=== PATIENT | male | born 1955 | race Caucasian/White ===

== ENCOUNTER → 2017-12-09 | Outpatient (REF) | payer BC, SELFPAY ==
[~2017-12-09] MED LIST: GABA-843; ISOS30TA4; LEVO75TA4; LISI2.5T5; PRAM0.5T7; PRAS10TA2; ROSU40TA3; VENL75CA47
[2017-12-09 13:50] LABS: BASO % 0.3 % (0.0-1.0); EOS # 0.4 10^3/uL (0.0-0.50); EOS % 4.1 % (0.0-3.0); HEMATOCRIT 43.6 % (42.0-52.0); HEMOGLOBIN 14.4 g/dl (13.5-17.5); LYMPH # 1.5 10^3/uL (1.5-4.5); LYMPH % 16.3 % (24.0-44.0); MEAN CORPUSCULAR HEMOGLOBIN 31.2 pg (27.0-33.0); MEAN CORPUSCULAR VOLUME 94.6 fl (80.0-96.0); MONO # 0.9 10^3/uL (0.0-0.8); MONO % 9.7 % (0.0-5.0); NEUTROPHILS # 6.3 10^3/uL (1.8-7.7); NEUTROPHILS % 69.2 % (36.0-66.0); PLATELET COUNT, AUTOMATED 243 10^3/uL (150-450); RED BLOOD COUNT 4.61 10^6/uL (4.30-6.10); WHITE BLOOD COUNT 9.1 10^3/uL (4.0-10.0)
[2017-12-09 14:09] LABS: ALBUMIN 3.7 GM/DL (3.2-5.2); ALT/SGPT 45 U/L (12-78); BILIRUBIN,DIRECT 0.1 MG/DL (0.0-0.2); BILIRUBIN,TOTAL 0.6 MG/DL (0.2-1.0); BLOOD UREA NITROGEN 12 MG/DL (7-18); CALCIUM LEVEL 8.6 MG/DL (8.8-10.2); CARBON DIOXIDE LEVEL 29 MEQ/L (21-32); CHLORIDE LEVEL 106 MEQ/L (98-107); CHOLESTEROL LEVEL 130 MG/DL (<200); CHOLESTEROL RISK RATIO 3.611 (<5); CREATININE FOR GFR 0.87 MG/DL (0.70-1.30); GLOMERULAR FILTRATION RATE > 60.0 (>49); GLUCOSE, FASTING 107 MG/DL (70-100); HDL CHOLESTEROL 36 MG/DL (>40); LDL CHOLESTEROL 63 MG/DL (<100); NON-HDL-C 94 MG/DL; POTASSIUM SERUM 4.5 MEQ/L (3.5-5.1); SODIUM LEVEL 144 MEQ/L (136-145); TOTAL PROTEIN 6.8 GM/DL (6.4-8.2); TRIGLYCERIDES LEVEL 153 MG/DL (<150)
[2017-12-09 15:46] LABS: LDH LACTATE DEHYDROGENASE 254 U/L (87-241)
== END ==
LOC: M LABDRWAD 12:51
PROVIDERS: ATTEND Internal Medicine
DX: I25.10 Atherosclerotic heart disease of native coronary artery without angina pectoris (principal); E03.9 Hypothyroidism, unspecified

== ENCOUNTER 2017-12-15 13:19 | Emergency (ER) | payer OTHER, BC | END 2017-12-15 15:35 | disposition home or self-care (01) | LOC: M ED 13:19 | DX: S16.1XXA Strain of muscle, fascia and tendon at neck level, initial encounter (principal); S29.012A Strain of muscle and tendon of back wall of thorax, initial encounter; V47.5XXA Car driver injured in collision with fixed or stationary object in traffic accident, initial encounter; Y92.410 Unspecified street and highway as the place of occurrence of the external cause; I10 Essential (primary) hypertension; E78.9 Disorder of lipoprotein metabolism, unspecified; Z88.0 Allergy status to penicillin; Z91.013 Allergy to seafood; Z79.899 Other long term (current) drug therapy | CPT/HCPCS: 72072 ==

== ENCOUNTER → 2018-06-12 | Outpatient (REF) | payer BC ==
[~2018-06-12] MED LIST changes: +LISI-1046; -LISI2.5T5
[2018-06-12 13:04] LABS: BASO % 0.3 % (0.0-1.0); EOS # 0.1 10^3/uL (0.0-0.50); EOS % 0.8 % (0.0-3.0); HEMATOCRIT 41.8 % (42.0-52.0); HEMOGLOBIN 14.1 g/dl (13.5-17.5); LYMPH # 1.2 10^3/uL (1.5-4.5); LYMPH % 13.1 % (24.0-44.0); MEAN CORPUSCULAR HEMOGLOBIN 31.4 pg (27.0-33.0); MEAN CORPUSCULAR HGB CONC 33.7 g/dl (32.0-36.5); MEAN CORPUSCULAR VOLUME 93.1 fl (80.0-96.0); MONO # 0.5 10^3/uL (0.0-0.8); MONO % 5.5 % (0.0-5.0); NEUTROPHILS # 7.1 10^3/uL (1.8-7.7); NEUTROPHILS % 79.9 % (36.0-66.0); PLATELET COUNT, AUTOMATED 245 10^3/uL (150-450); RED BLOOD COUNT 4.49 10^6/uL (4.30-6.10); WHITE BLOOD COUNT 8.9 10^3/uL (4.0-10.0)
[2018-06-12 13:07] LABS: BLOOD UREA NITROGEN 21 MG/DL (7-18); C REACTIVE PROTEIN QUANTITATIV 0.36 MG/DL (0.00-0.30); CALCIUM LEVEL 9.2 MG/DL (8.8-10.2); CARBON DIOXIDE LEVEL 26 MEQ/L (21-32); CHLORIDE LEVEL 110 MEQ/L (98-107); CREATININE FOR GFR 0.81 MG/DL (0.70-1.30); FREE T4 0.99 NG/DL (0.76-1.46); GLOMERULAR FILTRATION RATE > 60.0 (>49); GLUCOSE, FASTING 136 MG/DL (70-100); POTASSIUM SERUM 4.3 MEQ/L (3.5-5.1); RHEUMATOID FACTOR QUANT < 10.0 IU/ML (<15.0); SODIUM LEVEL 139 MEQ/L (136-145); THYROID STIMULATING HORMONE 0.906 uIU/ML (0.358-3.740)
[2018-06-12 14:17] LABS: ERYTHROCYTE SEDIMENTATION RATE 8 mm/hr (0-20)
[2018-06-13 14:16] LABS: ANTI DOUBLE STRAND-DNA AB 13 IU/mL (0-9); ANTINUCLEAR ANTIBODIES DIRECT Positive (Negative); RNP ANTIBODIES <0.2 AI (0.0-0.9); SJOGREN'S ANTI SS-A <0.2 AI (0.0-0.9); SJOGREN'S ANTI SS-B <0.2 AI (0.0-0.9); SMITH ANTIBODIES <0.2 AI (0.0-0.9)
== END ==
LOC: M LABDRWAD 12:16
PROVIDERS: ATTEND Internal Medicine
DX: L50.1 Idiopathic urticaria (principal); M15.9 Polyosteoarthritis, unspecified

== ENCOUNTER → 2018-07-11 | Outpatient (REF) | payer BC ==
[2018-07-11 16:02] LABS: HEMOGLOBIN A1c 6.3 %
== END ==
LOC: M LAB REF 13:20
PROVIDERS: ATTEND Orthopaedic Surgery
DX: M25.559 Pain in unspecified hip (principal); Z86.69 Personal history of other diseases of the nervous system and sense organs; R73.09 Other abnormal glucose

== ENCOUNTER → 2019-08-21 | Outpatient (REF) | payer BC ==
[~2019-08-21] MED LIST changes: -LISI-1046; +LISI2.5T2; -ROSU40TA3; +ROSU40TA4
[2019-08-21 13:18] LABS: CHOLESTEROL RISK RATIO 5.585 (<5)
== END ==
LOC: M LABDRWAD 12:19
PROVIDERS: ATTEND Nurse Practitioner Adult Health
DX: E78.00 Pure hypercholesterolemia, unspecified (principal)

== ENCOUNTER → 2019-11-21 | Outpatient (REF) | payer BC ==
[2019-11-21 17:36] LABS: HEMOGLOBIN A1c 5.7 %
== END ==
LOC: M LABDRWAD 16:12
PROVIDERS: ATTEND Orthopaedic Surgery
DX: Z86.79 Personal history of other diseases of the circulatory system (principal)

== ENCOUNTER 2020-02-22 17:27 | Emergency (ER) | payer BC ==
[2020-02-22 17:27] VITALS: BP 141/72
[~2020-02-22 17:27] MED LIST changes: +GABA-282; -GABA-843; +ISOS1TAB35; -ISOS30TA4
[2020-02-22] MEDS ORDERED: REPA140I (17:34)
--- OUTSIDE RECORDS SUMMARY | 2020-02-22 17:35 | CCD ---
Author Author [facility] Organization [facility] Address Unknown Phone Unavailable Care Team Providers Care Manager Icu Name Role Phone VINICIUS BOO MD Unavailable Unavailable VINICIUS BOO MD Unavailable Unavailable VINICIUS BOO MD Unavailable Unavailable VINICIUS BOO MD Unavailable Unavailable VINICIUS BOO MD Unavailable Unavailable VINICIUS BOO MD Unavailable Unavailable VINICIUS BOO MD Unavailable Unavailable VINICIUS BOO MD Unavailable Unavailable VINICIUS BOO MD Unavailable Unavailable VINICIUS BOO MD Unavailable Unavailable VINICIUS BOO MD Unavailable Unavailable VINICIUS BOO MD Unavailable Unavailable VINICIUS BOO MD Unavailable Unavailable VINICIUS BOO MD Unavailable Unavailable VINICIUS BOO MD Unavailable Unavailable VINICIUS BOO MD Unavailable Unavailable VINICIUS BOO MD Unavailable Unavailable VINICIUS BOO MD Unavailable Unavailable VINICIUS BOO MD Unavailable Unavailable VINICIUS BOO MD Unavailable Unavailable VINICIUS BOO MD Unavailable Unavailable VINICIUS BOO MD Unavailable Unavailable VINICIUS BOO MD Unavailable Unavailable VINICIUS BOO MD Unavailable Unavailable VINICIUS BOO MD Unavailable Unavailable VINICIUS BOO MD Unavailable Unavailable VINICIUS BOO MD Unavailable Unavailable VINICIUS BOO MD Unavailable Unavailable VINICIUS BOO MD Unavailable Unavailable SOUSOU, TAREK MD Unavailable Unavailable SOUSOU, TAREK MD Unavailable Unavailable SOUSOU, TAREK MD Unavailable Unavailable SOUSOU, TAREK MD Unavailable Unavailable SOUSOU, TAREK MD Unavailable Unavailable SOUSOU, TAREK MD Unavailable Unavailable SOUSOU, TAREK MD Unavailable Unavailable SOUSOU, TAREK MD Unavailable Unavailable SOUSOU, TAREK MD Unavailable Unavailable SOUSOU, TAREK MD Unavailable Unavailable SOUSOU, TAREK MD Unavailable Unavailable SOUSOU, TAREK MD Unavailable Unavailable SOUSOU, TAREK MD Unavailable Unavailable SOUSOU, TAREK MD Unavailable Unavailable SOUSOU, TAREK MD Unavailable Unavailable SOUSOU, TAREK MD Unavailable Unavailable SOUSOU, TAREK MD Unavailable Unavailable SOUSOU, TAREK MD Unavailable Unavailable SOUSOU, TAREK MD Unavailable Unavailable SOUSOU, TAREK MD Unavailable Unavailable SOUSOU, TAREK MD Unavailable Unavailable SOUSOU, TAREK MD Unavailable Unavailable SOUSOU, TAREK MD Unavailable Unavailable SOUSOU, TAREK MD Unavailable Unavailable SOUSOU, TAREK MD Unavailable Unavailable SOUSOU, TAREK MD Unavailable Unavailable SOUSOU, TAREK MD Unavailable Unavailable SOUSOU, TAREK MD Unavailable Unavailable SOUSOU, TAREK MD Unavailable Unavailable SOUSOU, TAREK MD Unavailable Unavailable SOUSOU, TAREK MD Unavailable Unavailable SOUSOU, TAREK MD Unavailable Unavailable SOUSOU, TAREK MD Unavailable Unavailable SOUSOU, TAREK MD Unavailable Unavailable SOUSOU, TAREK MD Unavailable Unavailable SOUSOU, TAREK MD Unavailable Unavailable Virginia Burch MD Unavailable Unavailable Virginia Burch MD Unavailable Unavailable Virginia Burch MD Unavailable Unavailable Virginia Burch MD Unavailable Unavailable Virginia Burch MD Unavailable Unavailable Virginia Burch MD Unavailable Unavailable Virginia Burch MD Unavailable Unavailable Virginia Burch MD Unavailable Unavailable Virginia Burch MD Unavailable Unavailable Virginia Bucrh MD Unavailable Unavailable Virginia Burch MD Unavailable Unavailable Asuncion Canales MD Unavailable Unavailable Asuncion Canales MD Unavailable Unavailable Asuncion Canales MD Unavailable Unavailable Asuncion Canales MD Unavailable Unavailable Asuncion Canales MD Unavailable Unavailable Asuncion Canales MD Unavailable Unavailable Asuncion Canales MD Unavailable Unavailable Asuncion Canales MD Unavailable Unavailable Asuncion Canales MD Unavailable Unavailable Asuncion Canales MD Unavailable Unavailable Bogosinahum, Asuncion Mcnamara MD Unavailable Unavailable Bogosian, Asuncion Mcnamara MD Unavailable Unavailable Bogosian, Asuncion Mcnamara MD Unavailable Unavailable Bogosian, Asuncion Mcnamara MD Unavailable Unavailable Bogosian, Asuncion Mcnamara MD Unavailable Unavailable Bogosian, Asuncion Mcnamara MD Unavailable Unavailable Bogosian, Asuncion Mcnamara MD Unavailable Unavailable Bogosian, Asuncion Mcnamara MD Unavailable Unavailable Bogosian, Asuncion Mcnamara MD Unavailable Unavailable Bogosian, Asuncion Mcnamara MD Unavailable Unavailable Bogosian, Asuncion Mcnamara MD Unavailable Unavailable Bogosian, Asuncion Mcnamara MD Unavailable Unavailable Bogosian, Asuncion Mcnamara MD Unavailable Unavailable Bogosian, Asuncion Mcnamara MD Unavailable Unavailable Bogosian, Asuncion Mcnamara MD Unavailable Unavailable Bogosian, Asuncion Mcnamara MD Unavailable Unavailable Bogosian, Asuncion Mcnamara MD Unavailable Unavailable Bogosian, Asuncion Mcnamara MD Unavailable Unavailable Bogosian, Asuncion Mcnamara MD Unavailable Unavailable Bogosian, Asuncion Mcnamara MD Unavailable Unavailable Bogosian, Asuncion Mcnamara MD Unavailable Unavailable Bogosian, Asuncion Mcnamara MD Unavailable Unavailable Bogosian, Asuncion Mcnamara MD Unavailable Unavailable Bogosian, Asuncion Mcnamara MD Unavailable Unavailable Bogosian, Asuncion Mcnamara MD Unavailable Unavailable Bogosian, Asuncion Mcnamara MD Unavailable Unavailable Bogosian, Asuncion Mcnamara MD Unavailable Unavailable Bogosian, Asuncion Mcnamara MD Unavailable Unavailable Bogosian, Asuncion Mcnamara MD Unavailable Unavailable Bogosian, Asuncion Mcnamara MD Unavailable Unavailable Bogosian, Asuncion Mcnamara MD Unavailable Unavailable Bogosinahum, Asuncion Mcnamara MD Unavailable Unavailable Bogosinahum, Asuncion Mcnamara MD Unavailable Unavailable Bogosian, Asuncion Mcnamara MD Unavailable Unavailable Bogosian, Asuncion Mcnamara MD Unavailable Unavailable Bogosian, Asuncion Mcnamara MD Unavailable Unavailable Bogosinahum, Asuncion Mcnamara MD Unavailable Unavailable BogosiAsuncion sidhu MD Unavailable Unavailable Bogosinahum, Asuncion Mcnamara MD Unavailable Unavailable Bogosinahum, Asuncion Mcnamara MD Unavailable Unavailable Bogosian, Asuncion Mcnamara MD Unavailable Unavailable Bogosian, Asuncion Mcnamara MD Unavailable Unavailable Bogosian, Asuncion Mcnamara MD Unavailable Unavailable Bogosinahum, Asuncion Mcnamara MD Unavailable Unavailable Bogosinahum, Asuncion Mcnamara MD Unavailable Unavailable Boggabe, Asuncion Mcnamara MD Unavailable Unavailable Bogosinahum, Asuncion Mcnamara MD Unavailable Unavailable Bogosian, Asuncion Mcnamara MD Unavailable Unavailable Bogosian, Asuncion Mcnamara MD Unavailable Unavailable Bogosian, Asuncion Mcnamara MD Unavailable Unavailable Bogosian, P Anders MD Unavailable Unavailable BogosiAsuncion sidhu MD Unavailable Unavailable BogosiAsuncion sidhu MD Unavailable Unavailable BogosiAsuncion sidhu MD Unavailable Unavailable BogosiAsuncion sidhu MD Unavailable Unavailable BogosiAsuncion sidhu MD Unavailable Unavailable BogosiAsuncion sidhu MD Unavailable Unavailable BogosiAsuncion sidhu MD Unavailable Unavailable BogosianAsuncion MD Unavailable Unavailable BogosianAsuncion MD Unavailable Unavailable BogosianAsuncion MD Unavailable Unavailable BogosianAsuncion MD Unavailable Unavailable BogosianAsuncion MD Unavailable Unavailable BogosianAsuncion MD Unavailable Unavailable BogosianAsuncion MD Unavailable Unavailable BogosianAsuncion MD Unavailable Unavailable MeetaosiAsuncion sidhu MD Unavailable Unavailable Devang Naylor MD Unavailable Unavailable Devang Naylor MD Unavailable Unavailable Devang Naylor MD Unavailable Unavailable Devang Naylor MD Unavailable Unavailable Devang Naylor MD Unavailable Unavailable Devang Naylor MD Unavailable Unavailable Devang Naylor MD Unavailable Unavailable Devang Naylor MD Unavailable Unavailable Devang Naylor MD Unavailable Unavailable Devang Naylor MD Unavailable Unavailable Devang Naylor MD Unavailable Unavailable Devang Naylor MD Unavailable Unavailable Devang Naylor MD Unavailable Unavailable Devang Naylor MD Unavailable Unavailable Devang Naylor MD Unavailable Unavailable Devang Naylor MD Unavailable Unavailable Devang Naylor MD Unavailable Unavailable Devang Naylor MD Unavailable Unavailable Devang Naylor MD Unavailable Unavailable Devang Naylor MD Unavailable Unavailable Devang Naylor MD Unavailable Unavailable Devang Naylor MD Unavailable Unavailable Devang Naylor MD Unavailable Unavailable Devang Naylor MD Unavailable Unavailable Devang Naylor MD Unavailable Unavailable Devang Naylor MD Unavailable Unavailable Devang Naylor MD Unavailable Unavailable Devang Naylor MD Unavailable Unavailable Devang Naylor MD Unavailable Unavailable Devang Naylor MD Unavailable Unavailable Devang Naylor MD Unavailable Unavailable Devang Naylor MD Unavailable Unavailable Devang Naylor MD Unavailable Unavailable Devang Naylor MD Unavailable Unavailable Devang Naylor MD Unavailable Unavailable Devang Naylor MD Unavailable Unavailable ElvaDevang callaway MD Unavailable Unavailable ElvaDevang callaway MD Unavailable Unavailable ElvaDevang velasquez MD Unavailable Unavailable PawletDevang velasquez MD Unavailable Unavailable PawletDevang velasquez MD Unavailable Unavailable ElvaDevang velasquez MD Unavailable Unavailable ElvaDevang velasquez MD Unavailable Unavailable PawletDevang velasquez MD Unavailable Unavailable ElvaDevang velasquez MD Unavailable Unavailable ElvaDevang velasquez MD Unavailable Unavailable PawletDevang velasquez MD Unavailable Unavailable PawletDevang velasquez MD Unavailable Unavailable PawletDevang velasquez MD Unavailable Unavailable ElvaDevang velasquez MD Unavailable Unavailable PawletDevang velasquez MD Unavailable Unavailable PawletDevang callaway MD Unavailable Unavailable ElvaDevang velasquez MD Unavailable Unavailable ElvaDevang callaway MD Unavailable Unavailable ElvaDevang velasquez MD Unavailable Unavailable PawletDevang velasquez MD Unavailable Unavailable ElvaDevang callaway MD Unavailable Unavailable ElvaDevang callaway MD Unavailable Unavailable ElvaDevang callaway MD Unavailable Unavailable ElvaDevang callaway MD Unavailable Unavailable Devang Naylor MD Unavailable Unavailable ElvaDevang callaway MD Unavailable Unavailable ElvaDevang callaway MD Unavailable Unavailable ElvaDevang callaway MD Unavailable Unavailable ElvaDevang callaway MD Unavailable Unavailable PawletDevang callaway MD Unavailable Unavailable ElvaDevang callaway MD Unavailable Unavailable PawletDevang callaway MD Unavailable Unavailable ElvaDevang callaway MD Unavailable Unavailable PawletDevang callaway MD Unavailable Unavailable ElvaDevang velasquez MD Unavailable Unavailable PawletDevang callaway MD Unavailable Unavailable ElvaDevang velasquez MD Unavailable Unavailable PawletDevang callaway MD Unavailable Unavailable PawletDevang callaway MD Unavailable Unavailable ElvaDevang velasquez MD Unavailable Unavailable ElvaDevang callaway MD Unavailable Unavailable ElvaDevang velasquez MD Unavailable Unavailable ElvaDevang callaway MD Unavailable Unavailable ElvaDevang callaway MD Unavailable Unavailable PawletDevang velasquez MD Unavailable Unavailable ElvaDevang callaway MD Unavailable Unavailable ElvaDevang velasquez MD Unavailable Unavailable Toro, R [place] GLOBAL MARKETING COORDINATOR Unavailable Unavailable Toro, R [place] GLOBAL MARKETING COORDINATOR Unavailable Unavailable Toro, R [place] GLOBAL MARKETING COORDINATOR Unavailable Unavailable Toro, R [place] GLOBAL MARKETING COORDINATOR Unavailable Unavailable Toro, R [place] GLOBAL MARKETING COORDINATOR Unavailable Unavailable Toro, R [place] GLOBAL MARKETING COORDINATOR Unavailable Unavailable Toro, R [place] GLOBAL MARKETING COORDINATOR Unavailable Unavailable Toro, R [place] GLOBAL MARKETING COORDINATOR Unavailable Unavailable Toro, R [place] GLOBAL MARKETING COORDINATOR Unavailable Unavailable Toro, R [place] GLOBAL MARKETING COORDINATOR Unavailable Unavailable Toro, R [place] GLOBAL MARKETING COORDINATOR Unavailable Unavailable Toro, R [place] GLOBAL MARKETING COORDINATOR Unavailable Unavailable Toro, R [place] GLOBAL MARKETING COORDINATOR Unavailable Unavailable Toro, R [place] GLOBAL MARKETING COORDINATOR Unavailable Unavailable Toro, R [place] GLOBAL MARKETING COORDINATOR Unavailable Unavailable Toro, R [place] GLOBAL MARKETING COORDINATOR Unavailable Unavailable Toro, R [place] GLOBAL MARKETING COORDINATOR Unavailable Unavailable Toro, R [place] GLOBAL MARKETING COORDINATOR Unavailable Unavailable Toro, R [place] GLOBAL MARKETING COORDINATOR Unavailable Unavailable Toro, R [place] GLOBAL MARKETING COORDINATOR Unavailable Unavailable Toro, R [place] GLOBAL MARKETING COORDINATOR Unavailable Unavailable Toro, R [place] GLOBAL MARKETING COORDINATOR Unavailable Unavailable Toro, R [place] GLOBAL MARKETING COORDINATOR Unavailable Unavailable Toro, R [place] GLOBAL MARKETING COORDINATOR Unavailable Unavailable Toro, R [place] GLOBAL MARKETING COORDINATOR Unavailable Unavailable Toro, R [place] GLOBAL MARKETING COORDINATOR Unavailable Unavailable Toro, R [place] GLOBAL MARKETING COORDINATOR Unavailable Unavailable Toro, R [place] GLOBAL MARKETING COORDINATOR Unavailable Unavailable Toro, R [place] GLOBAL MARKETING COORDINATOR Unavailable Unavailable Toro, R [place] GLOBAL MARKETING COORDINATOR Unavailable Unavailable Toro, R [place] GLOBAL MARKETING COORDINATOR Unavailable Unavailable Toro, R [place] GLOBAL MARKETING COORDINATOR Unavailable Unavailable Janelle AGUIRRE MD Unavailable Unavailable Janelle AGUIRRE MD Unavailable Unavailable Janelle AGUIRRE MD Unavailable Unavailable Janelle AGUIRRE MD Unavailable Unavailable Janelle AGUIRRE MD Unavailable Unavailable Janelle AGUIRRE MD Unavailable Unavailable Janelle AGUIRRE MD Unavailable Unavailable Janelle AGUIRRE MD Unavailable Unavailable Janelle AGUIRRE MD Unavailable Unavailable Janelle AGUIRRE MD Unavailable Unavailable Janelle AGUIRRE MD Unavailable Unavailable Janelle AGUIRRE MD Unavailable Unavailable Janelle AGUIRRE MD Unavailable Unavailable Janelle AGUIRRE MD Unavailable Unavailable Janelle AGUIRRE MD Unavailable Unavailable Janelle AGUIRRE MD Unavailable Unavailable Janelle AGUIRRE MD Unavailable Unavailable Janelle AGUIRRE MD Unavailable Unavailable Janelle AGUIRRE MD Unavailable Unavailable Janelle AGUIRRE MD Unavailable Unavailable Janelle AGUIRRE MD Unavailable Unavailable Janelle AGUIRRE MD Unavailable Unavailable Janelle AGUIRRE MD Unavailable Unavailable Janelle AGUIRRE MD Unavailable Unavailable Janelle AGUIRRE MD Unavailable Unavailable Janelle AGUIRRE MD Unavailable Unavailable Janelle AGUIRRE MD Unavailable Unavailable Janelle AGUIRRE MD Unavailable Unavailable Janelle AGUIRRE MD Unavailable Unavailable Janelle AGUIRRE MD Unavailable Unavailable Janelle AGUIRRE MD Unavailable Unavailable Janelle AGUIRRE MD Unavailable Unavailable Janelle AGUIRRE MD Unavailable Unavailable Janelle AGUIRRE MD Unavailable Unavailable Janelle AGUIRRE MD Unavailable Unavailable Janelle AGUIRRE MD Unavailable Unavailable Janelle AGUIRRE MD Unavailable Unavailable Janelle AGUIRRE MD Unavailable Unavailable Janelle AGUIRRE MD Unavailable Unavailable Janelle AGUIRRE MD Unavailable Unavailable Janelle AGUIRRE MD Unavailable Unavailable Janelle AGUIRRE MD Unavailable Unavailable Janelle AGUIRRE MD Unavailable Unavailable Janelle AGUIRRE MD Unavailable Unavailable Janelle AGUIRRE MD Unavailable Unavailable Janelle AGUIRRE MD Unavailable Unavailable Janelle AGUIRRE MD Unavailable Unavailable Janelle AGUIRRE MD Unavailable Unavailable Janelle AGUIRRE MD Unavailable Unavailable Janelle AGUIRRE MD Unavailable Unavailable Janelle AGUIRRE MD Unavailable Unavailable Janelle AGUIRRE MD Unavailable Unavailable Janelle AGUIRRE MD Unavailable Unavailable Janelle GAUIRRE MD Unavailable Unavailable Janelle AGUIRRE MD Unavailable Unavailable Janelle AGUIRRE MD Unavailable Unavailable Janelle AGUIRRE MD Unavailable Unavailable Janelle AGUIRRE MD Unavailable Unavailable Janelle AGUIRRE MD Unavailable Unavailable Janelle AGUIRRE MD Unavailable Unavailable Janelle AGUIRRE MD Unavailable Unavailable Janelle AGUIRRE MD Unavailable Unavailable Janelle AGUIRRE MD Unavailable Unavailable Janelle AGUIRRE MD Unavailable Unavailable Janelle AGUIRRE MD Unavailable Unavailable Janelle AGUIRRE MD Unavailable Unavailable Janelle AGUIRRE MD Unavailable Unavailable Janelle AGUIRRE MD Unavailable Unavailable Janelle AGUIRRE MD Unavailable Unavailable Janelle AGUIRRE MD Unavailable Unavailable Janelle AGUIRRE MD Unavailable Unavailable Janelle AGUIRRE MD Unavailable Unavailable Janelle AGUIRRE MD Unavailable Unavailable Janelle AGUIRRE MD Unavailable Unavailable Janelle AGUIRRE MD Unavailable Unavailable Janelle AGUIRRE MD Unavailable Unavailable Janelle AGUIRRE MD Unavailable Unavailable Janelle AGUIRRE MD Unavailable Unavailable Janelle AGUIRRE MD Unavailable Unavailable Janelle AGUIRRE MD Unavailable Unavailable Janelle AGUIRRE MD Unavailable Unavailable Janelle AGUIRRE MD Unavailable Unavailable Janelle AGUIRRE MD Unavailable Unavailable Janelle AGUIRRE MD Unavailable Unavailable Janelle AGUIRRE MD Unavailable Unavailable Janelle AGUIRRE MD Unavailable Unavailable Janelle AGUIRRE MD Unavailable Unavailable Janelle AGUIRRE MD Unavailable Unavailable Janelle AGUIRRE MD Unavailable Unavailable Janelle AGUIRRE MD Unavailable Unavailable Janelle AGUIRRE MD Unavailable Unavailable Janelle AGUIRRE MD Unavailable Unavailable Janelle AGUIRRE MD Unavailable Unavailable Janelle AGUIRRE MD Unavailable Unavailable Janelle AGUIRRE MD Unavailable Unavailable Janelle AGUIRRE MD Unavailable Unavailable Katheryn BAUTISTA Unavailable Unavailable Wyluda, J Edward DO Unavailable Unavailable Wyluda, J Edward DO Unavailable Unavailable Wyluda, J Edward DO Unavailable Unavailable Wyluda, J Edward DO Unavailable Unavailable Wyluda, J Edward DO Unavailable Unavailable Wyluda, J Edward DO Unavailable Unavailable Wyluda, J Edward DO Unavailable Unavailable Wyluda, J Edward DO Unavailable Unavailable Wyluda, J Edward DO Unavailable Unavailable Wyluda, J Edward DO Unavailable Unavailable Wyluda, J Edward DO Unavailable Unavailable Wyluda, J Edward DO Unavailable Unavailable Wyluda, J Edward DO Unavailable Unavailable Wyluda, J Edward DO Unavailable Unavailable Wyluda, J Edward DO Unavailable Unavailable Wyluda, J Edward DO Unavailable Unavailable Wyluda, J Edward DO Unavailable Unavailable Wyluda, J Edward DO Unavailable Unavailable Wyluda, J Edward DO Unavailable Unavailable Wyluda, J Edward DO Unavailable Unavailable Wyluda, J Edward DO Unavailable Unavailable Wyluda, J Edward DO Unavailable Unavailable Wyluda, J Edward DO Unavailable Unavailable Wyluda, J Edward DO Unavailable Unavailable Wyluda, J Edward DO Unavailable Unavailable Wyluda, J Edward DO Unavailable Unavailable Wyluda, J Edward DO Unavailable Unavailable Wyluda, J Edward DO Unavailable Unavailable Wyluda, J Edward DO Unavailable Unavailable Wyluda, J Edward DO Unavailable Unavailable Wyluda, J Edward DO Unavailable Unavailable Wyluda, J Edward DO Unavailable Unavailable Wyluda, J Edward DO Unavailable Unavailable Wyluda, J Edward DO Unavailable Unavailable Wyluda, J Edward DO Unavailable Unavailable Wyluda, J Edward DO Unavailable Unavailable Wyluda, J Edward DO Unavailable Unavailable Wyluda, J Edward DO Unavailable Unavailable Wyluda, J Edward DO Unavailable Unavailable Wyluda, J Edward DO Unavailable Unavailable Wyluda, J Edward DO Unavailable Unavailable Wyluda, J Edward DO Unavailable Unavailable Wyluda, J Edward DO Unavailable Unavailable Wyluda, J Edward DO Unavailable Unavailable Wyluda, J Edward DO Unavailable Unavailable Wyluda, J Edward DO Unavailable Unavailable Radames Sharpe MD Unavailable Unavailable Radames Sharpe MD Unavailable Unavailable Radames Sharpe MD Unavailable Unavailable Radames Sharpe MD Unavailable Unavailable Radames Sharpe MD Unavailable Unavailable Radames Sharpe MD Unavailable Unavailable Radames Sharpe MD Unavailable Unavailable Radames Sharpe MD Unavailable Unavailable Radames Sharpe MD Unavailable Unavailable Radames Sharpe MD Unavailable Unavailable Radames Sharpe MD Unavailable Unavailable Radames Sharpe MD Unavailable Unavailable Radames Sharpe MD Unavailable Unavailable Radames Sharpe MD Unavailable Unavailable Radames Sharpe MD Unavailable Unavailable Radames Sharpe MD Unavailable Unavailable Radames Sharpe MD Unavailable Unavailable Radames Sharpe MD Unavailable Unavailable Radames Sharpe MD Unavailable Unavailable Radames Sharpe MD Unavailable Unavailable Radames Sharpe MD Unavailable Unavailable Radames Sharpe MD Unavailable Unavailable Radames Sharpe MD Unavailable Unavailable Radames Sharpe MD Unavailable Unavailable Radames Sharpe MD Unavailable Unavailable Radames Sharpe MD Unavailable Unavailable Radames Sharpe MD Unavailable Unavailable Radames Sharpe MD Unavailable Unavailable Radames Sharpe MD Unavailable Unavailable Radames Sharpe MD Unavailable Unavailable Radames Sharpe MD Unavailable Unavailable Pudusseri, Amber Unavailable Pudusseri, Amber Unavailable Pudusseri, Amber Unavailable Pudusseri, Amber Unavailable Pudusseri, Amber Unavailable Pudusseri, Amber Unavailable Pudusseri, Amber Unavailable Pudusseri, Amber Unavailable Pudusseri, Amber Unavailable Pudusseri, Amber Unavailable Pudusseri, Amber Unavailable Pudusseri, Amber Unavailable Pudusseri, Amber Unavailable Pudusseri, Amber Unavailable Pudusseri, Amber Unavailable Pudusseri, Amber Unavailable Pudusseri, Amber Unavailable Pudusseri, Amber Unavailable Pudusseri, Amber Unavailable Pudusseri, Amber Unavailable Pudusseri, Amber Unavailable Pudusseri, Amber Unavailable Pudusseri, Amber Unavailable Pudusseri, Amber Unavailable Pudusseri, Amber Unavailable Pudusseri, Amber Unavailable Pudusseri, Amebr Unavailable BRET, Avtar HUGO MD Unavailable Unavailable BRET, Avtar HUGO MD Unavailable Unavailable BRET, Avtar HUGO MD Unavailable Unavailable BRET, Avtar HUGO MD Unavailable Unavailable BRET, Avtar HUGO MD Unavailable Unavailable BRET, Avtar HUGO MD Unavailable Unavailable BRET, Avtar HUGO MD Unavailable Unavailable BRET, Avtar HUGO MD Unavailable Unavailable BRET, Avtar HUGO MD Unavailable Unavailable BRET, Avtar HUGO MD Unavailable Unavailable BRET, A OANH MD Unavailable Unavailable BRET, A OANH MD Unavailable Unavailable BRET, Avtar ARELLANOEY MD Unavailable Unavailable BRET, A OANH MD Unavailable Unavailable BRET, A OANH MD Unavailable Unavailable BRET, A OANH MD Unavailable Unavailable BRET, A OANH MD Unavailable Unavailable BRET, A OANH MD Unavailable Unavailable BRET, A OANH MD Unavailable Unavailable BRET, A OANH MD Unavailable Unavailable BRET, A OANH MD Unavailable Unavailable BRET, A OANH MD Unavailable Unavailable BRET, A OANH MD Unavailable Unavailable BRET, A OANH MD Unavailable Unavailable BRET, A OANH MD Unavailable Unavailable BRET, A OANH MD Unavailable Unavailable BRET, A OANH MD Unavailable Unavailable BRET, A OANH MD Unavailable Unavailable BRET, A OANH MD Unavailable Unavailable BRET, A OANH MD Unavailable Unavailable BRET, A OANH MD Unavailable Unavailable BRET, A OANH MD Unavailable Unavailable BRET, A OANH MD Unavailable Unavailable BRET, A OANH MD Unavailable Unavailable BRET, A OANH MD Unavailable Unavailable BRET, A OANH MD Unavailable Unavailable BRET, A OANH MD Unavailable Unavailable BRET, A OANH MD Unavailable Unavailable BRET, A OANH MD Unavailable Unavailable BRET, A OANH MD Unavailable Unavailable BRET, A OANH MD Unavailable Unavailable BRET, A OANH MD Unavailable Unavailable BRET, A OANH MD Unavailable Unavailable BRET, A OANH MD Unavailable Unavailable BRET, A OANH MD Unavailable Unavailable BRET, A OANH MD Unavailable Unavailable BRET, A OANH MD Unavailable Unavailable BRET, A OANH MD Unavailable Unavailable BRET, A OANH MD Unavailable Unavailable BRET, A OANH MD Unavailable Unavailable BRET, A OANH MD Unavailable Unavailable BRET, A OANH MD Unavailable Unavailable BRET, A OANH MD Unavailable Unavailable BRET, A OANH MD Unavailable Unavailable BRET, A OANH MD Unavailable Unavailable BRET, A OANH MD Unavailable Unavailable BRET, A OANH MD Unavailable Unavailable BRET, A OANH MD Unavailable Unavailable BRET, A OANH MD Unavailable Unavailable BRET, A OANH MD Unavailable Unavailable BRET, A OANH MD Unavailable Unavailable BRET, A OANH MD Unavailable Unavailable BRET, A OANH MD Unavailable Unavailable BRET, A OANH MD Unavailable Unavailable BRET, A OANH MD Unavailable Unavailable BRET, A OANH MD Unavailable Unavailable BRET, A OANH MD Unavailable Unavailable BRET, A OANH MD Unavailable Unavailable BRETAvtar MAR MD Unavailable Unavailable BRETAvtar MAR MD Unavailable Unavailable BRET, Avtar HUGO MD Unavailable Unavailable BRET, Avtar HUGO MD Unavailable Unavailable BRET, Avtar HUGO MD Unavailable Unavailable BRET, Avtar HUGO MD Unavailable Unavailable BRETAvtar MAR MD Unavailable Unavailable BRETAvtar MAR MD Unavailable Unavailable BRETAvtar MD Unavailable Unavailable Pudusseri, Amber DO Unavailable Unavailable PUDUSSERI, AMBER Unavailable Unavailable Katheryn BAUTISTA Unavailable Unavailable RASHIDA, Janelle MAHONEY MD Unavailable Unavailable RASHIDA, Janelle MAHONEY MD Unavailable Unavailable RASHIDA, Janelle MAHONEY MD Unavailable Unavailable RASHIDA, Janelle MAHONEY MD Unavailable Unavailable RASHIDA, Janelle MAHONEY MD Unavailable Unavailable RASHIDA, Janelle MAHONEY MD Unavailable Unavailable RASHIDA, Janelle MHAONEY MD Unavailable Unavailable RASHIDA, Janelle MAHONEY MD Unavailable Unavailable RASHIDA, Janelle MAHONEY MD Unavailable Unavailable RASHIDA, Janelle MAHONEY MD Unavailable Unavailable RASHIDA, Janelle MAHONEY MD Unavailable Unavailable RASHIDA, Janelle MAHONEY MD Unavailable Unavailable RASHIDA, Janelle MAHONEY MD Unavailable Unavailable RASHIDA, Janelle MAHONEY MD Unavailable Unavailable RASHIDA, Janelle MAHONEY MD Unavailable Unavailable RASHIDA, Janelle MAHONEY MD Unavailable Unavailable RASHIDA, Janelle MAHONEY MD Unavailable Unavailable RASHIDA, Janelle MAHONEY MD Unavailable Unavailable RASHIDA, Janelle MAHONEY MD Unavailable Unavailable RASHIDA, Janelle MAHONEY MD Unavailable Unavailable RASHIDA, Janelle MAHONEY MD Unavailable Unavailable RASHIDA, Janelle MAHONEY MD Unavailable Unavailable RASHIDA, Janelle MAHONEY MD Unavailable Unavailable RASHIDA, Janelle MAHONEY MD Unavailable Unavailable RASHIDA, Janelle MAHONEY MD Unavailable Unavailable RASHIDA, Janelle MAHONEY MD Unavailable Unavailable RASHIDA, Janelle MAHONEY MD Unavailable Unavailable RASHIDA, Janelle MAHONEY MD Unavailable Unavailable RASHIDA, Janelle MAHONEY MD Unavailable Unavailable RASHIDA, Janelle MAHONEY MD Unavailable Unavailable RASHIDA, Janelle MAHONEY MD Unavailable Unavailable RASHIDA, Janelle MAHONEY MD Unavailable Unavailable RASHIDA, Janelle MAHONEY MD Unavailable Unavailable RASHIDA, Janelle MAHONEY MD Unavailable Unavailable RASHIDA, Janelle MAHONEY MD Unavailable Unavailable RASHIDA, Janelle MAHONEY MD Unavailable Unavailable RASHIDA, Janelle MAHONEY MD Unavailable Unavailable RASHIDA, Janelle MAHONEY MD Unavailable Unavailable RASHIDA, Janelle MAHONEY MD Unavailable Unavailable RASHIDA, Janelle MAHONEY MD Unavailable Unavailable RASHIDA, Janelle MAHONEY MD Unavailable Unavailable RASHIDA, Janelle MAHONEY MD Unavailable Unavailable RASHIDA, Janelle MAHONEY MD Unavailable Unavailable RASHIDA, Janelle MAHONEY MD Unavailable Unavailable RASHIDA, Janelle MAHONEY MD Unavailable Unavailable RASHIDA, Janelle MAHONEY MD Unavailable Unavailable RASHIDA, Janelle MAHONEY MD Unavailable Unavailable RASHIDA, Janelle MAHONEY MD Unavailable Unavailable RASHIDA, Janelle MAHONEY MD Unavailable Unavailable RASHIDA, Janelle MAHONEY MD Unavailable Unavailable RASHIDA, Janelle MAHONEY MD Unavailable Unavailable RASHIDA, Janelle MAHONEY MD Unavailable Unavailable RASHIDA, Janelle MAHONEY MD Unavailable Unavailable RASHIDA, Janelle MAHONEY MD Unavailable Unavailable RASHIDA, Janelle MAHONEY MD Unavailable Unavailable RASHIDA, Janelle MAHONEY MD Unavailable Unavailable RASHIDA, Janelle MAHONEY MD Unavailable Unavailable RASHIDA, Janelle MAHONEY MD Unavailable Unavailable RASHIDA, Janelle MAHONEY MD Unavailable Unavailable RASHIDA, Janelle MAHONEY MD Unavailable Unavailable RASHIDA, Janelle MAHONEY MD Unavailable Unavailable RASHIDA, Janelle MAHONEY MD Unavailable Unavailable RASHIDA, Janelle MAHONEY MD Unavailable Unavailable RASHIDA, Janelle MAHONEY MD Unavailable Unavailable RASHIDA, Janelle MAHONEY MD Unavailable Unavailable RASHIDA, Janelle MAHONEY MD Unavailable Unavailable RASHIDA, Janelle MAHONEY MD Unavailable Unavailable RASHIDA, Janelle MAHONEY MD Unavailable Unavailable RASHIDA, Janelle MAHONEY MD Unavailable Unavailable RASHIDA, Janelle MAHONEY MD Unavailable Unavailable RASHIDA, Janelle MAHONEY MD Unavailable Unavailable RASHIDA, Janelle MAHONEY MD Unavailable Unavailable RASHIDA, Janelle MAHONEY MD Unavailable Unavailable RASHIDA, Janelle MAHONEY MD Unavailable Unavailable RASHIDA, Janelle MAHONEY MD Unavailable Unavailable RASHIDA, Janelle MAHONEY MD Unavailable Unavailable RASHIDA, Janelle MAHONEY MD Unavailable Unavailable RASHIDA, Janelle MAHONEY MD Unavailable Unavailable RASHIDA, Janelle MAHONEY MD Unavailable Unavailable RASHIDA, Janelle MAHONEY MD Unavailable Unavailable RASHIDA, Janelle MAHONEY MD Unavailable Unavailable RASHIDA, Janelle MAHONEY MD Unavailable Unavailable RASHIDA, Janelle MAHONEY MD Unavailable Unavailable RASHIDA, Janelle MAHONEY MD Unavailable Unavailable RASHIDA, Janelle MAHONEY MD Unavailable Unavailable RASHIDA, Janelle MAHONEY MD Unavailable Unavailable RASHIDA, Janelle MAHONEY MD Unavailable Unavailable RASHIDA, Janelle MAHONEY MD Unavailable Unavailable RASHIDA, J PLACIDO MD Unavailable Unavailable Janelle FIELD MD Unavailable Unavailable Carolyn Stack MD Unavailable Unavailable Carolyn Stack MD Unavailable Unavailable Carolyn Stack MD Unavailable Unavailable Carolyn Stack MD Unavailable Unavailable Carolyn Stack MD Unavailable Unavailable Carolyn Stack MD Unavailable Unavailable Carolyn Stack MD Unavailable Unavailable Carolyn Stack MD Unavailable Unavailable Carolyn Stack MD Unavailable Unavailable Carolyn Stack MD Unavailable Unavailable Carolyn Stack MD Unavailable Unavailable Carolyn Stack MD Unavailable Unavailable Carolyn Stack MD Unavailable Unavailable ZABOROWSKI, J VIDAL GLOBAL MARKETING COORDINATOR Unavailable Unavailable ZABOROWSKI, J VIDAL GLOBAL MARKETING COORDINATOR Unavailable Unavailable ZABOROWSKI, J VIDAL GLOBAL MARKETING COORDINATOR Unavailable Unavailable ZABOROWSKI, J VIDAL GLOBAL MARKETING COORDINATOR Unavailable Unavailable ZABOROWSKI, J VIDAL GLOBAL MARKETING COORDINATOR Unavailable Unavailable ZABOROWSKI, J VIDAL GLOBAL MARKETING COORDINATOR Unavailable Unavailable ZABOROWSKI, J VIDAL GLOBAL MARKETING COORDINATOR Unavailable Unavailable ZABOROWSKI, J VIDAL GLOBAL MARKETING COORDINATOR Unavailable Unavailable ZABOROWSKI, J VIDAL GLOBAL MARKETING COORDINATOR Unavailable Unavailable ZABOROWSKI, J VIDAL GLOBAL MARKETING COORDINATOR Unavailable Unavailable ZABOROWSKI, J VIDAL GLOBAL MARKETING COORDINATOR Unavailable Unavailable ZABOROWSKI, J VIDAL GLOBAL MARKETING COORDINATOR Unavailable Unavailable ZABOROWSKI, J VIDAL GLOBAL MARKETING COORDINATOR Unavailable Unavailable ZABOROWSKI, J VIDAL GLOBAL MARKETING COORDINATOR Unavailable Unavailable ZABOROWSKI, J VIDAL GLOBAL MARKETING COORDINATOR Unavailable Unavailable ZABOROWSKI, J VIDAL GLOBAL MARKETING COORDINATOR Unavailable Unavailable ZABOROWSKI, J VIDAL GLOBAL MARKETING COORDINATOR Unavailable Unavailable ZABOROWSKI, J VIDAL GLOBAL MARKETING COORDINATOR Unavailable Unavailable ZABOROWSKI, J VIDAL GLOBAL MARKETING COORDINATOR Unavailable Unavailable ZABOROWSKI, J VIDAL GLOBAL MARKETING COORDINATOR Unavailable Unavailable ZABOROWSKI, J VIDAL GLOBAL MARKETING COORDINATOR Unavailable Unavailable ZABOROWSKI, J VIDAL GLOBAL MARKETING COORDINATOR Unavailable Unavailable ZABOROWSKI, J VIDAL GLOBAL MARKETING COORDINATOR Unavailable Unavailable ZABOROWSKI, J VIDAL GLOBAL MARKETING COORDINATOR Unavailable Unavailable ZABOROWSKI, J VIDAL GLOBAL MARKETING COORDINATOR Unavailable Unavailable ZABOROWSKI, J VIDAL GLOBAL MARKETING COORDINATOR Unavailable Unavailable ZABOROWSKI, J VIDAL GLOBAL MARKETING COORDINATOR Unavailable Unavailable ZABOROWSKI, J VIDAL GLOBAL MARKETING COORDINATOR Unavailable Unavailable ZABOROWSKI, J VIDAL GLOBAL MARKETING COORDINATOR Unavailable Unavailable ZABOROWSKI, J VIDAL GLOBAL MARKETING COORDINATOR Unavailable Unavailable ZABOROWSKI, J VIDAL GLOBAL MARKETING COORDINATOR Unavailable Unavailable ZABOROWSKI, J VIDAL GLOBAL MARKETING COORDINATOR Unavailable Unavailable ZABOROWSKI, J VIDAL GLOBAL MARKETING COORDINATOR Unavailable Unavailable ZABOROWSKI, J VIDAL GLOBAL MARKETING COORDINATOR Unavailable Unavailable ZABOROWSKI, J VIDAL GLOBAL MARKETING COORDINATOR Unavailable Unavailable ZABOROWSKI, J VIDAL GLOBAL MARKETING COORDINATOR Unavailable Unavailable ZABOROWSKI, J VIDAL GLOBAL MARKETING COORDINATOR Unavailable Unavailable ZABOROWSKI, J VIDAL GLOBAL MARKETING COORDINATOR Unavailable Unavailable ZABOROWSKI, J VIDAL GLOBAL MARKETING COORDINATOR Unavailable Unavailable ZABOROWSKI, J VIDAL GLOBAL MARKETING COORDINATOR Unavailable Unavailable ZABOROWSKI, J VIDAL GLOBAL MARKETING COORDINATOR Unavailable Unavailable ZABOROWSKI, J VIDAL GLOBAL MARKETING COORDINATOR Unavailable Unavailable ZABOROWSKI, J VIDAL GLOBAL MARKETING COORDINATOR Unavailable Unavailable IDMPLEBOROWSKI, J VIDAL GLOBAL MARKETING COORDINATOR Unavailable Unavailable Janelle BARNES MD Unavailable Unavailable MOLLYJanelle MD Unavailable Unavailable MOLLYJanelle MD Unavailable Unavailable MOLLYJanelle MD Unavailable Unavailable MOLLYJanelle MD Unavailable Unavailable MOLLYJanelle MD Unavailable Unavailable MOLLYJanelle MD Unavailable Unavailable MOLLYJanelle MD Unavailable Unavailable MOLLYJanelle MD Unavailable Unavailable MOLLYJanelle MD Unavailable Unavailable MOLLYJanelle MD Unavailable Unavailable MOLLYJanelle MD Unavailable Unavailable MOLLYJanelle MD Unavailable Unavailable Janelle BARNES MD Unavailable Unavailable MOLLYJanelle MD Unavailable Unavailable MOLLYJanelle MD Unavailable Unavailable MOLLYJanelle MD Unavailable Unavailable MOLLYJanelle MD Unavailable Unavailable MOLLYJanelle MD Unavailable Unavailable Janelle BARNES MD Unavailable Unavailable Janelle BARNES MD Unavailable Unavailable Janelle BARNES MD Unavailable Unavailable Janelle BARNES MD Unavailable Unavailable Janelle BARNES MD Unavailable Unavailable Janelle BARNES MD Unavailable Unavailable MOLLYJanelle MD Unavailable Unavailable Janelle BARNES MD Unavailable Unavailable Janelle BARNES MD Unavailable Unavailable Janelle BARNES MD Unavailable Unavailable Janelle BARNES MD Unavailable Unavailable Janelle BARNES MD Unavailable Unavailable Janelle BARNES MD Unavailable Unavailable Janelle BARNES MD Unavailable Unavailable Janelle BARNES MD Unavailable Unavailable Janelle BARNES MD Unavailable Unavailable Janelle BARNES MD Unavailable Unavailable Janelle BARNES MD Unavailable Unavailable Janelle BARNES MD Unavailable Unavailable Janelle BARNES MD Unavailable Unavailable Janelle BARNES MD Unavailable Unavailable MOLLYJanelle MD Unavailable Unavailable Janelle BARNES MD Unavailable Unavailable MOLLYJanelle MD Unavailable Unavailable MOLLYJanelle MD Unavailable Unavailable MOLLYJanelle MD Unavailable Unavailable MOLLYJanelle MD Unavailable Unavailable MOLLYJanelle MD Unavailable Unavailable MOLLYJanelle MD Unavailable Unavailable MOLLYJanelle MD Unavailable Unavailable MOLLYJanelle MD Unavailable Unavailable MOLLYJanelle MD Unavailable Unavailable MOLLYJanelle MD Unavailable Unavailable MOLLYJanelle MD Unavailable Unavailable MOLLYJanelle MD Unavailable Unavailable MOLLYJanelle MD Unavailable Unavailable MOLLYJanelle MD Unavailable Unavailable MOLLYJanelle MD Unavailable Unavailable MOLLYJanelle MD Unavailable Unavailable MOLLYJanelle MD Unavailable Unavailable MOLLYJanelle MD Unavailable Unavailable MOLLYJanelle MD Unavailable Unavailable MOLLYJanelle MD Unavailable Unavailable MOLLYJanelle MD Unavailable Unavailable MOLLYJanelle MD Unavailable Unavailable MOLLYJanelle MD Unavailable Unavailable MOLLY, Janelle SON MD Unavailable Unavailable MOLLYJanelle MD Unavailable Unavailable MOLLY, Janelle SON MD Unavailable Unavailable MOLLYJanelle MD Unavailable Unavailable MOLLYJanelle MD Unavailable Unavailable MOLLYJanelle MD Unavailable Unavailable MOLLYJanelle MD Unavailable Unavailable MOLLYJanelle MD Unavailable Unavailable MOLLYJanelle MD Unavailable Unavailable MOLLYJanelle MD Unavailable Unavailable Pudusseri DO, Amber Unavailable Unavailable Karthikeyan Mccloud MD Unavailable Unavailable Karthikeyan Mccloud MD Unavailable Unavailable Karthikeyan Mccloud MD Unavailable Unavailable Karthikeyan Mccloud MD Unavailable Unavailable Karthikeyan Mccloud MD Unavailable Unavailable Karthikeyan Mccloud MD Unavailable Unavailable Karthikeyan Mccloud MD Unavailable Unavailable Karthikeyan Mccloud MD Unavailable Unavailable Karthikeyan Mccloud MD Unavailable Unavailable Karthikeyan Mccloud MD Unavailable Unavailable Karthikeyan Mccloud MD Unavailable Unavailable Karthikeyan Mccloud MD Unavailable Unavailable Karthikeyan Mccloud MD Unavailable Unavailable Karthikeyan Mccloud MD Unavailable Unavailable Griffin, Naty DO Unavailable Unavailable Griffin, Naty DO Unavailable Unavailable Re-disclosure Warning The records that you are about to access may contain information from federally-assisted alcohol or drug abuse programs. If such information is present, then the following federally mandated warning applies: This information has been disclosed to you from records protected by federal confidentiality rules (42 CFR part 2). The federal rules prohibit you from making any further disclosure of this information unless further disclosure is expressly permitted by the written consent of the person to whom it pertains or as otherwise permitted by 42 CFR part 2. A general authorization for the release of medical or other information is NOT sufficient for this purpose. The Federal rules restrict any use of the information to criminally investigate or prosecute any alcohol or drug abuse patient.The records that you are about to access may contain highly sensitive health information, the redisclosure of which is protected by Article 27-F of the [facility] Public Health law. If you continue you may have access to information: Regarding HIV / AIDS; Provided by facilities licensed or operated by the [facility] Office of Mental Health; or Provided by the [facility] Office for People With Developmental Disabilities. If such information is present, then the following [facility] mandated warning applies: This information has been disclosed to you from confidential records which are protected by state law. State law prohibits you from making any further disclosure of this information without the specific written consent of the person to whom it pertains, or as otherwise permitted by law. Any unauthorized further disclosure in violation of state law may result in a fine or nursing home sentence or both. A general authorization for the release of medical or other information is NOT sufficient authorization for further disc losure. Allergies and Adverse Reactions Type Description Substance Reaction Status Data Source(s ) Propensity to adverse reactions SHRIMP (DIAGNOSTIC) Shrimp (Diagnos tic) Active [facility] Propensity to adverse reactions OTHER Other Acti ve [facility] Family History Family Member Name Family Member Gender Family Member Status Date o f Status Description Data Source(s) Unknown Male Problem [facility] ([facility] Unknown Male Problem MEDENT ([facility]) Unknown Unknown Problem [facility] ([facility] Encounters Encounter Providers Location Date Indications Data Source(s ) Recurring Patient Referrer: Anders Canales MD 02/06/2020 09:20:55 AM EST [facility] [place] Outpatient Attender: Amber RibeiroReferrer: BHAVANI QUEEN MD [id number] 01/15/2020 10:01:48 AM EST [facility] Attender: Amber RibeiroReferrer: BHAVANI QUEEN MD [id number] 01/14/2020 05:00:05 PM EST [facility] Outpatient Attender: Amber PudusseriReferrer: BHAVANI QUEEN MD [id number] 01/10/2020 01:30:55 PM EST [facility] Outpatient Attender: Amber PudusseriReferrer: BHAVANI QUEEN MD [id number] 01/10/2020 09:23:54 AM EST [facility] Outpatient Attender: Amber PudusseriReferrer: BHAVANI QUEEN MD [id number] 01/10/2020 08:48:37 AM EST [facility] Outpatient Attender: Amber PudusseriReferrer: BHAVANI QUEEN MD [id number] 01/08/2020 03:07:53 PM EST [facility] Outpatient Attender: Amber PudusseriReferrer: BHAVANI QUEEN MD [id number] 01/05/2020 06:22:30 AM EST [facility] Outpatient Attender: Amber PudusseriReferrer: BHAVANI QUEEN MD [id number] 12/27/2019 08:29:20 AM EST [facility] Outpatient Attender: Amber PudusseriReferrer: BHAVANI QUEEN MD [id number] 12/12/2019 08:24:29 AM EST [facility] Outpatient Attender: Anders Canales MDReferrer: Marck callaway MD 11/15/2019 07:58:23 AM EDT [facility] Outpatient Attender: GHANSHYAM AGUIRRE MDReferrer: Marck flores MD 11/09/2019 10:24:40 AM EDT [facility] Outpatient 11/02/2019 01:25:00 PM EDT [facility] Outpatient 11/02/2019 01:25:00 PM EDT [facility] Recurring Patient Referrer: Anders Canales MD 11/01/2019 03:12:58 PM EDT [facility] Recurring Patient Referrer: Anders Canales MD 11/01/2019 03:11:48 PM EDT [facility] Recurring Patient Referrer: Anders Canales MD 11/01/2019 03:04:58 PM EDT [facility] Recurring Patient Referrer: Anders Canales MD 10/23/2019 03:52:25 PM EDT [facility] Outpatient Attender: ADELAIDA BARNES MD BF-BF 10/23/2019 07:41:45 AM EDT [facility] Outpatient Attender: Amber Ribeiro DO 10/17/2019 09:17:0 0 AM EDT [facility] Outpatient Attender: Amber Ribeiro DO 10/17/2019 09:17:0 0 AM EDT [facility] Outpatient Attender: Carolina Toro NPReferrer: Marck sidhu MD 10/16/2019 07:39:27 AM EDT [facility] Outpatient Referrer: ADELAIDA BARNES MD 10/11/2019 10:00:14 AM EDT [facility] Recurring Patient Referrer: Amber Ribeiro DO 10/10/2019 03:18:28 PM EDT [facility] Outpatient Attender: ADELAIDA BARNES MD BF-BF 020 12:00:00 AM EDT - 10/03/2019 03:02:55 PM EDT [facility] Outpatient Attender: ADELAIDA BARNES MD BF-BF 09/12/2019 12:00:00 AM EDT [facility] Outpatient Attender: ADELAIDA BARNES MD BF-BF.[facility] 09/05/2019 12:00:00 AM EDT [facility] Outpatient 07/31/2019 03:30:00 PM EDT [facility] Outpatient 07/31/2019 03:30:00 PM EDT [facility] Outpatient Attender: Marck Naylor MD [facility] 07/27/2019 11:15:00 AM EDT [facility] ([facility] Outpatient 07/20/2019 02:30:00 PM EDT [facility] Outpatient Attender: Anders GARIBAYeferrer: Marck callaway MD 07/13/2019 09:36:07 AM EDT [facility] Outpatient Attender: Anders Canales MDReferrer: Marck callaway MD 06/29/2019 09:53:11 AM EDT [facility] Recurring Patient Referrer: Amber Ribeiro DO 06/27/2019 02:04:29 PM EDT [facility] Outpatient Attender: ADELAIDA BARNES MD BF-BF 020 07:37:23 AM EDT - 06/22/2019 10:43:40 AM EDT [facility] Inpatient Attender: GINNY Foster er: GINNY Castroender: AMBER ALLENdmitter: AMBER RIBEIRO [id number] 04/10/2019 01:56:00 PM EST - 04/16/2019 12:26:00 PM EDT [facility] Patient discharged. Inpatient Attender: Kaden Cade tender: AMBER ALLENdmitter: Kaden Sims DOConsultant: Kaden Sims DO [id number] 03/21/2019 10:55 :00 AM EST - 03/26/2019 11:06:00 AM EST [facility] Patient discharged. Inpatient Attender: VINICIUS Cervantes chen: AMBER ALLENdmitter: AMBER RIBEIRO [id number] 02/27/2019 10:25:00 AM EST - 03/04/2019 12:41:00 PM EST [facility] Patient discharged. Outpatient Referrer: VIDAL SHANNON NP 02/20/2019 09:42:3 4 AM EST [facility] Outpatient Attender: VIDAL SHANNON NP BF-BF.[facility] 12:00:00 AM EST - 02/20/2019 02:27:24 PM EST [facility] Outpatient Attender: Amber Ribeiro DO 02/16/2019 09:30:0 0 AM EST [facility] Inpatient Attender: Karthikeyan Mccloud MDAt tender: Carolyn Gonzalo MDAttender: Naty Griffin DOAttender: Virginia Burch MDAdmitter: Karthikeyan Mccloud MD [id number] 01/28/2019 01:01:55 PM EST - 01/31/2019 01:48:00 PM EST [facility] Patient discharged. Outpatient 01/19/2019 10:00:00 AM EST [facility] Outpatient Attender: PLACIDO FIELD MDReferrer: Amber rosado 12/25/2018 12:10:48 PM EST [facility] Outpatient Referrer: Jerel Sharpe MD BF-BF.[facility] 09/11/2018 12:52:24 PM EDT - 09/11/2018 03:06:33 PM EDT [facility] Medications Medication Brand Name Start Date Product Form Dose Route Admi nistrative Instructions Pharmacy Instructions Status Indications Reaction Description Data Source(s) doxycycline hyclate 100 MG Oral Capsule DOXYCYCLINE HYCLATE 01/22/2020 12:00:00 AM EST capsule 20 TAKE ONE CAPSULE BY MOUTH TW ICE A DAY FOR 10 DAYS TAKE ONE CAPSULE BY MOUTH TWICE A DAY FOR 10 DAYS SOLD: 01/23/2020 [facility] doxycycline hyclate 100 MG Oral Capsule DOXYCYCLINE HYCLATE 01/10/2020 12:00:00 AM EST capsule 20 TAKE ONE CAPSULE BY MOUTH TW ICE A DAY FOR 10 DAYS TAKE ONE CAPSULE BY MOUTH TWICE A DAY FOR 10 DAYS SOLD: 01/10/2020 [facility] 0.5 mg 12/15/2019 12:00:00 AM EST tablet 180 TAKE ONE TABLET BY MOUTH TWICE A DAY TAKE ONE TABLET BY MOUTH TWICE A DAY SOLD: 12/23/2019 [facility] 500 mg 11/30/2019 12:00:00 AM EDT tablet extended release 12 hr 180 TAKE ONE TABLET BY MOUTH TWICE A DAY TAKE ONE TABLET BY MOUTH TWICE A DAY SOLD: 12/09/2019 [facility] 10 mg 11/22/2019 12:00:00 AM EDT tablet 90 TAKE ONE TABLET BY MOUTH EVERY DAY TAKE ONE TABLET BY MOUTH EVERY DAY SOLD: 02/19/2020 [facility] 10 mg 11/22/2019 12:00:00 AM EDT tablet 83 TAKE ONE TABLET BY MOUTH EVERY DAY TAKE ONE TABLET BY MOUTH EVERY DAY SOLD: 11/30/2019 [facility] 300 mg 11/02/2019 12:00:00 AM EDT capsule 360 TAKE 2 CAPSULES BY MOUTH IN THE MORNING AND 3 CAPSULES BY MOUTH AT NIGHT TAKE 2 CAPSULES BY MOUTH IN THE MORNING AND 3 CAPSULES BY MOUTH AT NIGHT SOLD: 01/10/2020 [facility] 300 mg 11/02/2019 12:00:00 AM EDT capsule 360 TAKE 2 CAPSULES BY MOUTH IN THE MORNING AND 3 CAPSULES BY MOUTH AT NIGHT TAKE 2 CAPSULES BY MOUTH IN THE MORNING AND 3 CAPSULES BY MOUTH AT NIGHT SOLD: 11/02/2019 [facility] 75 mcg 11/01/2019 12:00:00 AM EDT tablet 90 TAKE ONE TABLET BY MOUTH EVERY DAY TAKE ONE TABLET BY MOUTH EVERY DAY SOLD: 02/03/2020 [facility] 75 mcg 11/01/2019 12:00:00 AM EDT tablet 90 TAKE ONE TABLET BY MOUTH EVERY DAY TAKE ONE TABLET BY MOUTH EVERY DAY SOLD: 11/01/2019 [facility] 0.4 mg 10/18/2019 12:00:00 AM EDT tablet, sublingual 25 PLACE ONE TABLET UNDER THE TONGUE EVERY 5 MINUTES NEEDED FOR CHEST PAIN. PLACE ONE TABLET UNDER THE TONGUE EVERY 5 MINUTES NEEDED FOR CHEST PAIN. SOLD: 10/21/2019 [facility] 10 mg 08/18/2019 12:00:00 AM EDT tablet 30 TAKE ONE TABLET BY MOUTH EVERY DAY TAKE ONE TABLET BY MOUTH EVERY DAY SOLD: 08/19/2019 [facility] 20 mg 08/02/2019 12:00:00 AM EDT tablet 30 TAKE ONE TABLET BY MOUTH NIGHTLY TAKE ONE TABLET BY MOUTH NIGHTLY SOLD: 08/04/2019 [facility] 1-0.05 % 07/20/2019 12:00:00 AM EDT cream 15 APPLY TO AFFECTED AREA(S) TWO TIMES A DAY TO GROIN APPLY TO AFFECTED AREA(S) TWO TIMES A DAY TO GROIN JULIEN [facility] 2.5 mg 05/30/2019 12:00:00 AM EDT tablet 90 TAKE ONE TABLET BY MOUTH EVERY DAY TAKE ONE TABLET BY MOUTH EVERY DAY SOLD: 06/06/2019 [facility] 24 HR Isosorbide Mononitrate 30 MG Extended Release Or al Tablet ISOSORBIDE MONONITRATE 05/30/2019 12:00:00 AM EDT tablet extended release 24 hr 60 TAKE ONE TABLET BY MOUTH TWICE A DAY TAKE ONE TABLET BY MOUTH TWICE A DAY SOLD: 07/09/2019 [facility] 2.5 mg 05/30/2019 12:00:00 AM EDT tablet 90 TAKE ONE TABLET BY MOUTH EVERY DAY TAKE ONE TABLET BY MOUTH EVERY DAY SOLD: 12/09/2019 [facility] 2.5 mg 05/30/2019 12:00:00 AM EDT tablet 90 TAKE ONE TABLET BY MOUTH EVERY DAY TAKE ONE TABLET BY MOUTH EVERY DAY SOLD: 09/03/2019 [facility] 24 HR Isosorbide Mononitrate 30 MG Extended Release Or al Tablet ISOSORBIDE MONONITRATE 05/30/2019 12:00:00 AM EDT tablet extended release 24 hr 60 TAKE ONE TABLET BY MOUTH TWICE A DAY TAKE ONE TABLET BY MOUTH TWICE A DAY SOLD: 08/09/2019 [facility] 24 HR Isosorbide Mononitrate 30 MG Extended Release Or al Tablet ISOSORBIDE MONONITRATE 05/30/2019 12:00:00 AM EDT tablet extended release 24 hr 60 TAKE ONE TABLET BY MOUTH TWICE A DAY TAKE ONE TABLET BY MOUTH TWICE A DAY SOLD: 06/06/2019 [facility] 40 mg 05/04/2019 12:00:00 AM EDT tablet 90 TAKE ONE TABLET BY MOUTH EVERY DAY TAKE ONE TABLET BY MOUTH EVERY DAY SOLD: 11/17/2019 [facility] Rosuvastatin calcium 40 MG Oral Tablet ROSUVASTATIN CALCIUM 05/04/2019 12:00:00 AM EDT tablet 90 TAKE ONE TABLET BY MOUTH BERTHA DAY TAKE ONE TABLET BY MOUTH EVERY DAY SOLD: 08/19/2019 [facility] Rosuvastatin calcium 40 MG Oral Tablet ROSUVASTATIN CALCIUM 05/04/2019 12:00:00 AM EDT tablet 90 TAKE ONE TABLET BY MOUTH BERTHA RY DAY TAKE ONE TABLET BY MOUTH EVERY DAY SOLD: 02/19/2020 [facility] 40 mg 05/04/2019 12:00:00 AM EDT tablet 90 TAKE ONE TABLET BY MOUTH EVERY DAY TAKE ONE TABLET BY MOUTH EVERY DAY SOLD: 05/17/2019 [facility] Leucovorin 5 MG Oral Tablet leucovorin (WELLCOVORIN) 5 MG tablet leucovorin (WELLCOVORIN) 5 MG tablet 04/16/2019 12:00:00 AM EDT 20 mg Oral aborted Take 4 tablets (20 mg total) by mouth every 6 (six) ho urs [facility] potassium chloride SA (K-DUR,KLOR-CON) CR tablet 10 mEq [id number] 04/14/2019 09:00:00 AM EST 10 meq Oral completed 10 mEq, Oral, 2 times daily, First dose on 04/14/19 at 0900, For 2 days
Formulary change
[facility] Medication administered onsite Simethicone 80 MG Chewable Tablet simethicone (MYLICON ) chewable tablet 120 mg simethicone (MYLICON) chewable tablet 120 mg 04/14/2019 08:12:49 AM EST 120 mg Oral active 120 mg, Or al, 4 times daily PRN, flatulence, Starting 04/14/19 at 0812 [facility] Medication administered onsite Simethicone 80 MG Chewable Tablet simethicone (MYLICON ) chewable tablet 80 mg simethicone (MYLICON) chewable tablet 80 mg 04/13/2019 11:29:21 AM EST 80 mg Oral aborted 80 mg, Oral, 4 times daily PRN, flatulence, Starting 04/13/19 at 1129 [facility] Medication administered onsite leucovorin 20 mg in dextrose 5 % 100 mL infusion 04/11 12:00:00 PM EST 20 mg Intravenous aborted 20 mg, I ntravenous, Administer over 15 Minutes, Every 6 hours (scheduled), First dose on Colleen 04/12/19 at 1200
Leucovorin rescue 20 mg Q6h starting 24 hours after Methotrexate infusion
[facility] Medication administered onsite Docusate Sodium 100 MG Oral Capsule docusate sodium (C OLACE) capsule 500 mg docusate sodium (COLACE) capsule 500 mg 04/12/2019 09:00:00 AM EST 500 mg Oral active 500 mg, Oral, 2 times daily, First dose on Colleen 04/12/19 at 0900
hold for loose stools
[facility] Medication administered onsite Docusate Sodium 100 MG Oral Capsule docusate sodium (C OLACE) capsule 300 mg docusate sodium (COLACE) capsule 300 mg 04/11/2019 10:00:00 PM EST 300 mg Oral completed 300 mg, Oral, Once, Tue04/11/19 at 2200, For 1 dose
hold for loose stools
[facility] Medication administered onsite sodium bicarbonate 150 mEq in dextrose 5 % 1,000 mL infusion 04/11/2019 09:00:00 PM EST 150 meq Intravenous active at 125 mL/hr, 150 mEq, Intravenous, Continuous, Starting Tue04/11/19 at 2100 [facility] Medication administered onsite Sodium Bicarbonate 650 MG Oral Tablet sodium bicarbona te tablet 650 mg sodium bicarbonate tablet 650 mg 04/11/2019 08:23:49 PM EST 650 mg Oral active 650 mg, Oral, Nightly PRN, correction of urine pH to keep at 8 or above, Starting Tue04/11/19 at 2023 [facility] Medication administered onsite Acetaminophen 325 MG Oral Tablet acetaminophen (TYLENO L) 325 MG tablet 650 mg acetaminophen (TYLENOL) 325 MG tablet 650 mg 04/11/2019 07:06:42 PM EST 650 mg Oral active 650 mg, Or al, Every 4 hours PRN, mild pain (1-3), fever, fever, Starting Tue04/11/19 at 1906 [facility] Medication administered onsite methotrexate (PF) 8,000 mg in sodium chloride (NS) 0.9 % 500 mL chemo infusion 04/11/2019 12:00:00 PM EST 8000 mg Intravenous compl eted 8,000 mg, Intravenous, Administer over 4 Hours, Once, Tue04/11/19 at 1200, For 1 dose
3.5g/m2 rounded down to whole vials per policy
[facility] Medication administered onsite granisetron (KYTRIL) injection 1 mg [id number] 04/11/2019 11:00:0 0 AM EST 1 mg Intravenous completed 1 mg, In travenous, Once, Tue04/11/19 at 1100, For 1 dose
Please administer 30 minutes prior to methotrexate infusion
[facility] Medication administered onsite Potassium Chloride 8 MEQ Extended Releas e Oral Tablet potassium chloride (KLOR- CON) CR tablet 8 mEq potassium chloride (KLOR-CON) CR tablet 8 mEq 04/11/19 09:00:00 AM EST 8 meq Oral aborted 8 mEq, Oral, Every 48 hours, First dose on Tue04/11/19 at 0900
Formulary change
[facility] Medication administered onsite Levothyroxine Sodium 0.075 MG Oral Table t levothyroxine (SYNTHROID, LEVOTHROID) tablet 75 mcg levothyroxine (SYNTHROID, LEVOTHROID) tablet 75 mcg 06:00:00 AM EST 75 ug Oral active 75 mcg, Oral, Daily, First dose on Tue04/11/19 at 0600 [facility] Medication administered onsite Acetazolamide 250 MG Oral Tablet acetaZOLAMIDE (DIAMOX ) tablet 250 mg acetaZOLAMIDE (DIAMOX) tablet 250 mg 04/11/2019 05:00:00 AM EST 250 m g Oral aborted 250 mg, Oral, Ev cindy 6 hours (scheduled), First dose on Tue04/11/19 at 0500 [facility] Medication administered onsite 12 HR ranolazine 500 MG Extended Release Oral Tablet ranolazine (RANEXA) 12 hr tablet 500 mg ranolazine (RANEXA) 12 hr tablet 500 mg 04/10/2019 09: 00:00 PM EST 500 mg Oral active 500 mg, Oral, 2 times daily, First dose on Tue04/10/19 at 2099 [facility] Medication administered onsite Rosuvastatin calcium 20 MG Oral Tablet rosuvastatin (C RESTOR) tablet 40 mg rosuvastatin (CRESTOR) tablet 40 mg 04/10/2019 09:00:00 PM EST 40 mg Oral active 40 mg, Oral, Nightly, First dose on Tue04/10/19 at 2099 [facility] Medication administered onsite MAGNESIUM GLUCONATE 500 MG Oral Tablet m agnesium gluconate (MAGONATE) tablet 500 mg magnesium gluconate (MAGONATE) tablet 500 mg 04/10/2019 09:00:00 PM EST 500 mg Oral active 500 mg, Oral, Nightly, F irst dose on Tue04/10/19 at 2099 [facility] Medication administered onsite Docusate Sodium 100 MG Oral Capsule docusate sodium (C OLACE) capsule 200 mg docusate sodium (COLACE) capsule 200 mg 04/10/2019 09:00:00 PM EST 200 mg Oral aborted 200 mg, Oral, 2 times daily, First dose on Tue04/10/19 at 2100
hold for loose stools Docusate 250mg po bid to 200mg po bid formulary change
[facility] Medication administered onsite carvedilol 6.25 MG Oral Tablet carvedilol (COREG) tabl et 6.25 mg carvedilol (COREG) tablet 6.25 mg 04/10/2019 09:00:00 PM EST 6.25 mg Oral active 6.25 mg, Oral, 2 times daily, First dose on Tue04/10/19 at 2100
Hold for SBP < 100 or HR < 55
[facility] Medication administered onsite sennosides, MCFP 8.6 MG Oral Tablet senna (SENOKOT) tab let 8.6 mg senna (SENOKOT) tablet 8.6 mg 04/10/2019 07:14:12 PM EST 8.6 mg Oral acti ve 8.6 mg, Oral, 2 times daily PRN, constipation, Starting Tue04/10/19 at 1914
Hold for loose stools.If patient is unable to swallow the tablet, nursing should crush and dissolve tablet in 10-15 ml of water prior to administration
[facility] Medication administered onsite gabapentin 300 MG Oral Capsule gabapentin (NEURONTIN) capsule 900 mg gabapentin (NEURONTIN) capsule 900 mg 04/10/2019 07:12:35 PM EST 900 mg Oral active 900 mg, Oral, Daily [facility], Starting Tue04/10/19 at 1912 [facility] Medication administered onsite POLYETHYLENE GLYCOL 3350 142 MG/ML Oral Solution polyethylene glycol (GLYCOLAX) packet 17 g polyethylene glycol (GLYCOLAX) packet 17 g 04/10/2019 07:00:00 PM EST 17 g Oral active 17 g, Or al, Daily, First dose on Tue04/10/19 at 1900
hold for loose stools
[facility] Medication administered onsite prasugrel 10 MG Oral Tablet prasugrel (EFFIENT) tablet 10 mg prasugrel (EFFIENT) tablet 10 mg 04/10/2019 06:00:00 PM EST 10 mg Oral activ e 10 mg, Oral, Daily, First dose on Tue04/10/19 at 1800 [facility] Medication administered onsite Pramipexole dihydrochloride 0.5 MG Oral Tablet pramipexole (MIRAPEX) tablet 0.5 mg pramipexole (MIRAPEX) tablet 0.5 mg 04/10/2019 06:00:00 PM EST 0.5 mg Oral active 0.5 mg, Oral, Nightly, Fi rst dose on Tue04/10/19 at 1800 [facility] Medication administered onsite 24 HR venlafaxine 37.5 MG Extended Relea se Oral Capsule venlafaxine (EFFEXOR-XR) 24 hr capsule 37.5 mg venlafaxine (EFFEXOR-XR) 24 hr capsule 37.5 mg 06:00:00 PM EST 37.5 mg Oral active 37.5 mg, Oral, Daily, First dose on Tue04/10/19 at 1800 [facility] Medication administered onsite gabapentin 300 MG Oral Capsule gabapentin (NEURONTIN) capsule 900 mg gabapentin (NEURONTIN) capsule 900 mg 04/10/2019 06:00:00 PM EST 900 mg Oral active 900 mg, Oral, 2 times daily, First dose on Tue04/10/19 at 1800 [facility] Medication administered onsite 24 HR Isosorbide Mononitrate 30 MG Exten ded Release Oral Tablet isosorbide mononitrate (IMDUR) 24 hr tablet 30 mg isosorbide mononitrate (IMDUR) 24 hr tablet 30 mg 04/10/2019 06:00:00 PM EST 30 mg Oral activ e 30 mg, Oral, 2 times daily, First dose on Tue04/10/19 at 1800 [facility] Medication administered onsite Lisinopril 5 MG Oral Tablet lisinopril (PRINIVIL,ZESTR IL) tablet 2.5 mg lisinopril (PRINIVIL,ZESTRIL) tablet 2.5 mg 04/10/2019 06:00:00 PM EST 2.5 mg Oral active 2.5 mg, Oral, Daily, First dose on Tue04/10/19 at 1800
Hold for SBP < 100
[facility] Medication administered onsite Loratadine 10 MG Oral Tablet loratadine (CLARITIN) tab let 10 mg loratadine (CLARITIN) tablet 10 mg 04/10/2019 06:00:00 PM EST 10 mg Oral active 10 mg, Oral, Daily, First dose on Tue04/10/19 at 1800 [facility] Medication administered onsite Aspirin 81 MG Delayed Release Oral Tablet aspirin EC t ablet 81 mg aspirin EC tablet 81 mg 04/10/2019 06:00:00 PM EST 81 mg Oral activ e 81 mg, Oral, Daily, First dose on Tue04/10/19 at 1800 [facility] Medication administered onsite ondansetron (ZOFRAN) injection 4 mg [id number] 04/10/2019 04:41:4 2 PM EST 4 mg Intravenous active 4 mg, In travenous, Every 6 hours PRN, nausea, vomiting, Starting Tue04/10/19 at 1641 [facility] Medication administered onsite normal saline flush 0.9 % injection 10 mL [id number] 04/10/2019 04:00:00 PM EST 10 mL Intravenous active 10 m L, Intravenous, Every 8 hours (scheduled), First dose on Tue04/10/19 at 1600
Flush with 10 mL NS prior and post medication administration.Flush with 10 mL NS prior to blood specimen collection and flush with 20 mL to clear solution/drug post blood specimen collection
[facility] Medication administered onsite 1 ML heparin sodium, porcine 100 UNT/ML Injection heparin 100 UNIT/ML injection 500 Units heparin 100 UNIT/ML injection 500 Units 04/10/2019 04:00:[address] 500 U active 500 Units, Intracatheter, Daily (06), First dose on Tue04/10/19 at 1600
For open ended ports without IV fluid runningRefer to policy: [email or web address]
[facility] Medication administered onsite sodium bicarbonate 150 mEq in dextrose 5 % 1,000 mL infusion 04/10/2019 03:00:00 PM EST 150 meq Intravenous aborted at 125 mL/hr, 150 mEq, Intravenous, Continuous, Starting 04/10/19 at 1500 [facility] Medication administered onsite gabapentin 300 MG Oral Capsule gabapentin (NEURONTIN) capsule 600 mg gabapentin (NEURONTIN) capsule 600 mg 03/26/2019 02:00:00 AM EST 600 mg Oral completed 600 mg, Oral, Once, 03/26/19 at 0200, For 1 dose [facility] Medication administered onsite Ondansetron 4 MG Disintegrating Oral Tab let ondansetron (ZOFRAN-ODT) 4 MG disintegrating tablet ondansetron (ZOFRAN-ODT) 4 MG disintegrating tablet 03/26/2019 12:00:00 AM EST 4 mg Oral active Take 1 tablet (4 mg total) by mouth every 8 (eight) hours as needed for nausea [facility] 4 mg 03/26/2019 12:00:00 AM EST tablet,disintegrating 2 0 DISSOLVE ONE TABLET ON TONGUE EVERY 8 HOURS NEEDED FOR NAUSEA DISSOLVE ONE TABLET ON TONGUE EVERY 8 HOURS NEEDED FOR NAUSEA SOLD: 04/04/2019 [facility] Sodium Bicarbonate 650 MG Oral Tablet sodium bicarbona te tablet 650 mg sodium bicarbonate tablet 650 mg 03/25/2019 04:00:00 PM EST 650 mg Oral active 650 mg, Oral, 2 times daily, First dose on 03/25/19 at 1600 [facility] Medication administered onsite sodium bicarbonate 150 mEq in dextrose 5 % 1,000 mL infusion 03/25/2019 02:00:00 AM EST 150 meq Intravenous aborted at 175 mL/hr, 150 mEq, Intravenous, Continuous, Starting 03/25/19 at 0200, For 72 hours [facility] Medication administered onsite sodium bicarbonate 150 mEq in dextrose 5 % 1,000 mL infusion 03/24/2019 10:00:00 PM EST 150 meq Intravenous aborted at 200 mL/hr, 150 mEq, Intravenous, Continuous, Starting 03/24/19 at 2200, For 4 hours [facility] Medication administered onsite Sodium Bicarbonate 650 MG Oral Tablet sodium bicarbona te tablet 650 mg sodium bicarbonate tablet 650 mg 03/24/2019 10:00:00 PM EST 650 mg Oral completed 650 mg, Oral, Once, 03/24/19 at 2200, For 1 dose [facility] Medication administered onsite sennosides, MCFP 8.6 MG Oral Tablet senna (SENOKOT) tab let 17.2 mg senna (SENOKOT) tablet 17.2 mg 03/24/2019 07:40:40 AM EST 17.2 mg Oral active 17.2 mg, Oral, 2 times daily PRN, opoja johnson, Starting 03/24/19 at 0740
Hold for loose stools.If patient is unable to swallow the tablet, nursing should crush and dissolve tablet in 10-15 ml of water prior to administration
[facility] Medication administered onsite Metoclopramide 10 MG Oral Tablet metoclopramide (TOSHA N) tablet 10 mg metoclopramide (REGLAN) tablet 10 mg 03/24/2019 07:00:00 AM EST 10 mg Oral active 10 mg, Oral, 3 t imes daily before meals, First dose on 03/24/19 at 0700 [facility] Medication administered onsite Sodium Bicarbonate 650 MG Oral Tablet sodium bicarbona te tablet 650 mg sodium bicarbonate tablet 650 mg 03/23/2019 10:00:00 PM EST 650 mg Oral completed 650 mg, Oral, Once, 03/23/19 at 2200, For 1 dose [facility] Medication administered onsite leucovorin 20 mg in dextrose 5 % 100 mL infusion 03/23 12:30:00 PM EST 20 mg Intravenous aborted 20 mg, I ntravenous, Administer over 15 Minutes, Every 6 hours (scheduled), First dose on Tue03/23/19 at 1300
Continue until methotrexate level less than 0.1
[facility] Medication administered onsite sodium bicarbonate 150 mEq in dextrose 5 % 1,000 mL infusion 03/23/2019 02:00:00 AM EST 150 meq Intravenous aborted at 175 mL/hr, 150 mEq, Intravenous, Continuous, Starting Tue03/23/19 at 0200 [facility] Medication administered onsite Pramipexole dihydrochloride 0.5 MG Oral Tablet pramipexole (MIRAPEX) tablet 0.5 mg pramipexole (MIRAPEX) tablet 0.5 mg 03/22/2019 05:00:00 PM EST 0.5 mg Oral active 0.5 mg, Oral, Daily, Firs t dose on Colleen 03/22/19 at 1700 [facility] Medication administered onsite methotrexate (PF) 7,980 mg in sodium chloride (NS) 0.9 % 500 mL chemo infusion 03/22/2019 11:00:00 AM EST 3500 mg/m2 Intravenous co mpleted 7,980 mg (3,500 mg/m2 2.28 m2), Intravenous, Administer over 4 Hours, Once, Colleen 03/22/19 at 1100, For 1 dose
Methotrexate 3.5 g/m2 IV x 1Cycle 2
[facility] Medication administered onsite Docusate Sodium 100 MG Oral Capsule docusate sodium (C OLACE) capsule 500 mg docusate sodium (COLACE) capsule 500 mg 03/22/2019 10:00:00 AM EST 500 mg Oral active 500 mg, Oral, 2 time s daily, First dose on Colleen 03/22/19 at 1000 [facility] Medication administered onsite Dexamethasone Sod Phosphate PF SOLN 10 mg [id number] 03/22/2019 10:00:00 AM EST 10 mg Intravenous completed 10 mg, Intravenous, Once, Colleen 03/22/19 at 1000, For 1 dose
Administer 30 minutes prior to Methotrexate
[facility] Medication administered onsite granisetron (KYTRIL) injection 1 mg [id number] 03/22/2019 10:00:0 0 AM EST 1 mg Intravenous completed 1 mg, In travenous, Once, Colleen 03/22/19 at 1000, For 1 dose
Administer 30 minutes prior to Methotrexate
[facility] Medication administered onsite Aspirin 81 MG Delayed Release Oral Tablet aspirin EC t ablet 81 mg aspirin EC tablet 81 mg 03/22/2019 09:00:00 AM EST 81 mg Oral activ e 81 mg, Oral, Daily, First dose on Colleen 03/22/19 at 0900 [facility] Medication administered onsite POLYETHYLENE GLYCOL 3350 142 MG/ML Oral Solution polyethylene glycol (GLYCOLAX) packet 17 g polyethylene glycol (GLYCOLAX) packet 17 g 03/22/2019 09:00:00 AM EST 17 g Oral active 17 g, Or al, Daily, First dose on Colleen 03/22/19 at 0900
hold for loose stools
[facility] Medication administered onsite Lisinopril 5 MG Oral Tablet lisinopril (PRINIVIL,ZESTR IL) tablet 2.5 mg lisinopril (PRINIVIL,ZESTRIL) tablet 2.5 mg 03/22/2019 09:00:00 AM EST 2.5 mg Oral active 2.5 mg, Oral, Daily, First dose on Colleen 03/22/19 at 0900
Hold for SBP < 100
[facility] Medication administered onsite venlafaxine 37.5 MG Oral Tablet venlafaxine (EFFEXOR) tablet 37.5 mg venlafaxine (EFFEXOR) tablet 37.5 mg 03/22/2019 09:00:00 AM EST 37.5 mg Oral active 37.5 mg, Oral, Daily, First dose on Colleen 03/22/19 at 090 0 [facility] Medication administered onsite prasugrel 10 MG Oral Tablet prasugrel (EFFIENT) tablet 10 mg prasugrel (EFFIENT) tablet 10 mg 03/22/2019 09:00:00 AM EST 10 mg Oral activ e 10 mg, Oral, Daily, First dose on Colleen 03/22/19 at 0900 [facility] Medication administered onsite Levothyroxine Sodium 0.075 MG Oral Table t levothyroxine (SYNTHROID, LEVOTHROID) tablet 75 mcg levothyroxine (SYNTHROID, LEVOTHROID) tablet 75 mcg 06:00:00 AM EST 75 ug Oral active 75 mcg, Oral, Daily (0600), First dose on Colleen 03/22/19 at 0600 [facility] Medication administered onsite MAGNESIUM GLUCONATE 500 MG Oral Tablet m agnesium gluconate (MAGONATE) tablet 500 mg magnesium gluconate (MAGONATE) tablet 500 mg 03/21/2019 09:00:00 PM EST 500 mg Oral active 500 mg, Oral, Nightly, F irst dose on Tue03/21/19 at 2099 [facility] Medication administered onsite carvedilol 6.25 MG Oral Tablet carvedilol (COREG) tabl et 6.25 mg carvedilol (COREG) tablet 6.25 mg 03/21/2019 09:00:00 PM EST 6.25 mg Oral active 6.25 mg, Oral, 2 times daily, First dose on Tue03/21/19 at 2099 [facility] Medication administered onsite Docusate Sodium 100 MG Oral Capsule docusate sodium (C OLACE) capsule 100 mg docusate sodium (COLACE) capsule 100 mg 03/21/2019 09:00:00 PM EST 100 mg Oral aborted 100 mg, Oral, 2 time s daily, First dose on Tue03/21/19 at 2099 [facility] Medication administered onsite gabapentin 300 MG Oral Capsule gabapentin (NEURONTIN) capsule 900 mg gabapentin (NEURONTIN) capsule 900 mg 03/21/2019 09:00:00 PM EST 900 mg Oral active 900 mg, Oral, 2 times daily, First dose on Tue03/21/19 at 2099 [facility] Medication administered onsite 12 HR ranolazine 500 MG Extended Release Oral Tablet ranolazine (RANEXA) 12 hr tablet 500 mg ranolazine (RANEXA) 12 hr tablet 500 mg 03/21/2019 09: 00:00 PM EST 500 mg Oral active 500 mg, Oral, 2 times daily, First dose on Tue03/21/19 at 2099 [facility] Medication administered onsite Rosuvastatin calcium 20 MG Oral Tablet rosuvastatin (C RESTOR) tablet 40 mg rosuvastatin (CRESTOR) tablet 40 mg 03/21/2019 09:00:00 PM EST 40 mg Oral active 40 mg, Oral, Nightly, First dose on Tue03/21/19 at 2099 [facility] Medication administered onsite normal saline flush 0.9 % injection 10 mL [id number] 03/21/2019 04:00:00 PM EST 10 mL Intravenous active 10 m L, Intravenous, Every 8 hours (scheduled), First dose on Tue03/21/19 at 1600
Flush with 10 mL NS prior and post medication administration.Flush with 10 mL NS prior to blood specimen collection and flush with 20 mL to clear solution/drug post blood specimen collection
[facility] Medication administered onsite Prochlorperazine 10 MG Oral Tablet prochlorperazine (C OMPAZINE) tablet 10 mg prochlorperazine (COMPAZINE) tablet 10 mg 03/21/2019 02:48:25 PM EST 10 mg Oral active 10 mg, Oral, E very 6 hours PRN, nausea, vomiting, chemotherapy induced nausea / vomiting, Starting Tue03/21/19 at 1448 [facility] Medication administered onsite 24 HR Isosorbide Mononitrate 30 MG Exten ded Release Oral Tablet isosorbide mononitrate (IMDUR) 24 hr tablet 30 mg isosorbide mononitrate (IMDUR) 24 hr tablet 30 mg 03/21/2019 02:00:00 PM EST 30 mg Oral activ e 30 mg, Oral, 2 times daily, First dose on Tue03/21/19 at 1400 [facility] Medication administered onsite Loratadine 10 MG Oral Tablet loratadine (CLARITIN) tab let 10 mg loratadine (CLARITIN) tablet 10 mg 03/21/2019 02:00:00 PM EST 10 mg Oral active 10 mg, Oral, Daily, First dose on Tue03/21/19 at 1400 [facility] Medication administered onsite sodium bicarbonate 150 mEq in dextrose 5 % 1,000 mL infusion 03/21/2019 01:00:00 PM EST 150 meq Intravenous aborted at 150 mL/hr, 150 mEq, Intravenous, Continuous, Starting Tue03/21/19 at 1300 [facility] Medication administered onsite POLYETHYLENE GLYCOL 3350 142 MG/ML Oral Solution polyethylene glycol (GLYCOLAX) packet 17 g polyethylene glycol (GLYCOLAX) packet 17 g 03/21/2019 12:33:00 PM EST 17 g Oral active 17 g, Or al, Nightly PRN, persistent constipation, Starting Tue03/21/19 at 1233
hold for loose stools
[facility] Medication administered onsite Nitroglycerin 0.4 MG Sublingual Tablet n itroglycerin (NITROSTAT) SL tablet 0.4 mg nitroglycerin (NITROSTAT) SL tablet 0.4 mg 03/21/2019 12:30:56 P M EST 0.4 mg Sublingual active 0.4 mg, S ublingual, Every 5 min PRN, chest pain, Starting Tue03/21/19 at 1230
May administer up to 3 doses per episode.
[facility] Medication administered onsite Albuterol 0.83 MG/ML Inhalant Solution a lbuterol (PROVENTIL) nebulizer solution 2.5 mg albuterol (PROVENTIL) nebulizer solution 2.5 mg 2019 12:18:18 PM EST 2.5 mg active 2.5 mg, Nebulization, RT every 4 hours as needed, wheezing, shortness of breath, Starting Tue03/21/19 at 1218 [facility] Medication administered onsite ondansetron (ZOFRAN) injection 4 mg [id number] 03/21/2019 12:16:1 5 PM EST 4 mg Intravenous active 4 mg, In travenous, Every 6 hours PRN, nausea, vomiting, Starting Tue03/21/19 at 1216 [facility] Medication administered onsite Acetaminophen 325 MG Oral Tablet acetaminophen (TYLENO L) 325 MG tablet 650 mg acetaminophen (TYLENOL) 325 MG tablet 650 mg 03/21/2019 12:15:34 PM EST 650 mg Oral active 650 mg, Or al, Every 6 hours PRN, mild pain (1-3), fever, temp > 100.5, Starting Tue03/21/19 at 1215
"Maximum dose of acetaminophen is 4,000 mg from all sources in 24 hours."
[facility] Medication administered onsite Bisacodyl 10 MG Rectal Suppository bisacodyl (DULCOLAX ) suppository 10 mg bisacodyl (DULCOLAX) suppository 10 mg 03/03/2019 06:00:00 PM EST 10 mg Rectal completed 10 mg, Rectal, Once, 03/03/19 at 1800, For 1 dose
hold for loose stools
[facility] Medication administered onsite magnesium citrate solution 296 mL [id number] 03/03/2019 11:00:00 AM EST 296 mL Oral completed 296 mL, Or al, Once, 03/03/19 at 1100, For 1 dose
hold for loose stools
[facility] Medication administered onsite Sodium Chloride 0.111 MEQ/ML Nasal Solut ion sodium chloride (OCEAN) 0.65 % nasal spray 2 spray sodium chloride (OCEAN) 0.65 % nasal spray 2 spray 06:06:41 PM EST 2 {spray} active 2 spray, Each Nare, As needed, congestion, Starting Tue03/02/19 at 1806
May leave medication at bedside
[facility] Medication administered onsite Docusate Sodium 50 MG / sennosides, MCFP 8.6 MG Oral Tablet senna-docusate (PERICOLACE) 8.6-50 MG 2 tablet senna-docusate (PERICOLACE) 8.6-50 MG 2 tablet 03/02/2019 04:00:00 PM EST 2 {tbl} Oral active 2 tablet, Oral, 2 times daily, First dose on Tue03/02/19 at 1600
hold for loose stools
[facility] Medication administered onsite leucovorin 20 mg in dextrose 5 % 250 mL infusion 03/01 02:30:00 PM EST 20 mg Intravenous active 20 mg, I ntravenous, Administer over 30 Minutes, Every 6 hours (relative), First dose on Tue03/01/19 at 1430
Leucovorin rescue 10 mg/m2 IV Q6h to start 24 hours after start of MTX infusion.Continue until methotrexate level is <0.1
[facility] Medication administered onsite Pramipexole dihydrochloride 0.5 MG Oral Tablet pramipexole (MIRAPEX) tablet 0.5 mg pramipexole (MIRAPEX) tablet 0.5 mg 03/01/2019 09:00:00 AM EST 0.5 mg Oral active 0.5 mg, Oral, 2 times mercedes ly, First dose on Tue03/01/19 at 0900 [facility] Medication administered onsite gabapentin 300 MG Oral Capsule gabapentin (NEURONTIN) capsule 900 mg gabapentin (NEURONTIN) capsule 900 mg 03/01/2019 09:00:00 AM EST 900 mg Oral active 900 mg, Oral, 2 times daily, First dose on Colleen 03/01/19 at 0900 [facility] Medication administered onsite MAGNESIUM GLUCONATE 500 MG Oral Tablet m agnesium gluconate (MAGONATE) tablet 500 mg magnesium gluconate (MAGONATE) tablet 500 mg 02/28/2019 09:00:00 PM EST 500 mg Oral active 500 mg, Oral, Nightly, F irst dose on Tue02/28/19 at 2100 [facility] Medication administered onsite methotrexate (PF) 8,050 mg in sodium chloride (NS) 0.9 % 500 mL chemo infusion 02/28/2019 02:00:00 PM EST 3500 mg/m2 Intravenous co mpleted 8,050 mg (3,500 mg/m2 2.3 m2), Intravenous, Administer over 4 Hours, Once, Tue02/28/19 at 1400, For 1 dose
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
[facility] Medication administered onsite dexamethasone (DECADRON) injection 10 mg [id number] 02/28/2019 01:00:00 PM EST 10 mg Intravenous completed 10 mg, Intravenous, Once, Tue02/28/19 at 1300, For 1 dose
Administer prior to methotrexate
[facility] Medication administered onsite granisetron (KYTRIL) injection 1 mg [id number] 02/28/2019 01:00:0 0 PM EST 1 mg Intravenous completed 1 mg, In travenous, Once, Tue02/28/19 at 1300, For 1 dose
Administer prior to methotrexate
[facility] Medication administered onsite Aspirin 81 MG Delayed Release Oral Tablet aspirin EC t ablet 81 mg aspirin EC tablet 81 mg 02/28/2019 09:00:00 AM EST 81 mg Oral activ e 81 mg, Oral, Daily, First dose on Tue02/28/19 at 0900 [facility] Medication administered onsite prasugrel 10 MG Oral Tablet prasugrel (EFFIENT) tablet 10 mg prasugrel (EFFIENT) tablet 10 mg 02/28/2019 09:00:00 AM EST 10 mg Oral activ e 10 mg, Oral, Daily, First dose on Tue02/28/19 at 0900 [facility] Medication administered onsite POLYETHYLENE GLYCOL 3350 142 MG/ML Oral Solution polyethylene glycol (GLYCOLAX) packet 17 g polyethylene glycol (GLYCOLAX) packet 17 g 02/28/2019 09:00:00 AM EST 17 g Oral active 17 g, Or al, Daily, First dose on Tue02/28/19 at 0900
hold for loose stools
[facility] Medication administered onsite Loratadine 10 MG Oral Tablet loratadine (CLARITIN) tab let 10 mg loratadine (CLARITIN) tablet 10 mg 02/28/2019 09:00:00 AM EST 10 mg Oral active 10 mg, Oral, Daily, First dose on Tue02/28/19 at 0900 [facility] Medication administered onsite Lisinopril 5 MG Oral Tablet lisinopril (PRINIVIL,ZESTR IL) tablet 2.5 mg lisinopril (PRINIVIL,ZESTRIL) tablet 2.5 mg 02/28/2019 09:00:00 AM EST 2.5 mg Oral active 2.5 mg, Oral, Daily, First dose on Tue02/28/19 at 0900
Hold for SBP < 100
[facility] Medication administered onsite DAILY DEEPA (THERAGRAN) 1 tablet [id number] 02/28/2019 09:00:00 AM EST 1 {tbl} Oral active 1 tablet, Oral, Daily, First dose on Tue02/28/19 at 0900 [facility] Medication administered onsite venlafaxine 37.5 MG Oral Tablet venlafaxine (EFFEXOR) tablet 37.5 mg venlafaxine (EFFEXOR) tablet 37.5 mg 02/28/2019 09:00:00 AM EST 37.5 mg Oral active 37.5 mg, Oral, Daily, First dose on Tue02/28/19 at 090 0 [facility] Medication administered onsite Prochlorperazine 5 MG/ML Injectable Solu tion Prochlorperazine Edisylate (COMPAZINE) injection 10 mg Prochlorperazine Edisylate (COMPAZINE) i njection 10 mg 02/28/2019 08:00:59 AM EST 10 mg Intravenous active 10 mg, Intravenous, Every 6 hours PRN, nausea, vomiting, Starting Tue02/28/19 at 0800 [facility] Medication administered onsite Levothyroxine Sodium 0.075 MG Oral Table t levothyroxine (SYNTHROID, LEVOTHROID) tablet 75 mcg levothyroxine (SYNTHROID, LEVOTHROID) tablet 75 mcg 06:00:00 AM EST 75 ug Oral active 75 mcg, Oral, Daily, First dose on Tue02/28/19 at 0600 [facility] Medication administered onsite ammonium lactate 120 MG/ML Topical Lotio n ammonium lactate (LAC-HYDRIN) 12 % lotion 1 application ammonium lactate (LAC-HYDRIN) 12 % lotion 1 applicatio n 02/27/2019 11:00:00 PM EST 1 {application} Topical activ e 1 application, Topical, 2 times daily, First dose on Tue02/27/19 at 2300, Until Discontinued [facility] Medication administered onsite gabapentin 300 MG Oral Capsule gabapentin (NEURONTIN) capsule 900 mg gabapentin (NEURONTIN) capsule 900 mg 02/27/2019 10:00:00 PM EST 900 mg Oral aborted 900 mg, Oral, 2 times daily, First dose on Tue02/27/19 at 2200 [facility] Medication administered onsite carvedilol 6.25 MG Oral Tablet carvedilol (COREG) tabl et 6.25 mg carvedilol (COREG) tablet 6.25 mg 02/27/2019 09:00:00 PM EST 6.25 mg Oral active 6.25 mg, Oral, 2 times daily, First dose on Tue02/27/19 at 2100
Hold for SBP < 100 or HR < 55
[facility] Medication administered onsite Docusate Sodium 100 MG Oral Capsule docusate sodium (C OLACE) capsule 100 mg docusate sodium (COLACE) capsule 100 mg 02/27/2019 09:00:00 PM EST 100 mg Oral aborted 100 mg, Oral, Nightly, First dose on Tue02/27/19 at 2100
Hold for loose stool
[facility] Medication administered onsite Pramipexole dihydrochloride 0.5 MG Oral Tablet pramipexole (MIRAPEX) tablet 0.5 mg pramipexole (MIRAPEX) tablet 0.5 mg 02/27/2019 09:00:00 PM EST 0.5 mg Oral aborted 0.5 mg, Oral, 2 times mercdees ly, First dose on Tue02/27/19 at 2099 [facility] Medication administered onsite 12 HR ranolazine 500 MG Extended Release Oral Tablet ranolazine (RANEXA) 12 hr tablet 500 mg ranolazine (RANEXA) 12 hr tablet 500 mg 02/27/2019 09: 00:00 PM EST 500 mg Oral active 500 mg, Oral, 2 times daily, First dose on Tue02/27/19 at 2099 [facility] Medication administered onsite 24 HR Isosorbide Mononitrate 30 MG Exten ded Release Oral Tablet isosorbide mononitrate (IMDUR) 24 hr tablet 30 mg isosorbide mononitrate (IMDUR) 24 hr tablet 30 mg 02/27/2019 09:00:00 PM EST 30 mg Oral activ e 30 mg, Oral, 2 times daily, First dose on Tue02/27/19 at 2099 [facility] Medication administered onsite Rosuvastatin calcium 20 MG Oral Tablet rosuvastatin (C RESTOR) tablet 40 mg rosuvastatin (CRESTOR) tablet 40 mg 02/27/2019 09:00:00 PM EST 40 mg Oral active 40 mg, Oral, Nightly, First dose on Tue02/27/19 at 2099 [facility] Medication administered onsite doxycycline hyclate 100 MG Oral Tablet doxycycline ( BRA-TABS) tablet 100 mg doxycycline (VIBRA-TABS) tablet 100 mg 02/27/2019 08:00:00 PM EST 1 00 mg Oral aborted 100 mg, Oral, 2 times daily, Indications: phlebitis, First dose on Tue02/27/19 at 2000 [facility] Medication administered onsite Ipratropium [place] 0.2 MG/ML Inhalant S olution ipratropium (ATROVENT) 0.02 % nebulizer solution 0.5 mg ipratropium (ATROVENT) 0.02 % nebulizer solution 0.5 mg 02/27/2019 08:00:00 PM EST 0.5 mg active 0.5 mg, Nebulization, 3 times daily, First dose on Tue02/27/19 at 2000
Formulary sub
[facility] Medication administered onsite normal saline flush 0.9 % injection 10 mL [id number] 02/27/2019 02:00:00 PM EST 10 mL Intravenous active 10 m L, Intravenous, Every 8 hours (scheduled), First dose on Tue02/27/19 at 1400
Flush with 10 mL NS prior and post medication administration.Flush with 10 mL NS prior to blood specimen collection and flush with 20 mL to clear solution/drug post blood specimen collection
[facility] Medication administered onsite 1 ML heparin sodium, porcine 100 UNT/ML Injection heparin flush (porcine) 100 UNIT/ML injection 500 Units heparin flush (porcine) 100 UNIT/ML inje ction 500 Units 02/27/2019 02:00:00 PM EST 500 U active 500 Units, Intracatheter, Daily (0600), First dose on Tue02/27/19 at 1400
For open ended ports without IV fluid runningRefer to policy: [email or web address]
[facility] Medication administered onsite dextrose 5 % 1,000 mL with sodium bicarbonate 150 mEq infusi on 02/27/2019 01:00:00 PM EST Intravenous active at 150 mL/hr, Intravenous, Continuous, Starting Tue02/27/19 at 1300 [facility] Medication administered onsite ondansetron (ZOFRAN) injection 4 mg [id number] 02/27/2019 12:22:5 5 PM EST 4 mg Intravenous active 4 mg, In travenous, Every 6 hours PRN, nausea, vomiting, Starting Tue02/27/19 at 1222 [facility] Medication administered onsite Acetaminophen 325 MG Oral Tablet acetaminophen (TYLENO L) 325 MG tablet 650 mg acetaminophen (TYLENOL) 325 MG tablet 650 mg 02/27/2019 12:19:35 PM EST 650 mg Oral active 650 mg, Or al, Every 4 hours PRN, mild pain (1-3), headaches, Starting 02/27/19 at 1219
"Maximum dose of acetaminophen is 4,000 mg from all sources in 24 hours."
[facility] Medication administered onsite carvedilol 6.25 MG Oral Tablet CARVEDILOL 02/23/2019 12:00:00 AM EST tablet 180 TAKE ONE TABLET BY MOUTH TWICE A DAY TAKE ONE TABLET BY MOUT H TWICE A DAY SOLD: 12/09/2019 [facility] carvedilol 6.25 MG Oral Tablet CARVEDILOL 02/23/2019 12:00:00 AM EST tablet 180 TAKE ONE TABLET BY MOUTH TWICE A DAY TAKE ONE TABLET BY MOUT H TWICE A DAY SOLD: 09/03/2019 [facility] carvedilol 6.25 MG Oral Tablet CARVEDILOL 02/23/2019 12:00:00 AM EST tablet 180 TAKE ONE TABLET BY MOUTH TWICE A DAY TAKE ONE TABLET BY MOUT H TWICE A DAY SOLD: 06/06/2019 [facility] carvedilol 6.25 MG Oral Tablet CARVEDILOL 02/23/2019 12:00:00 AM EST tablet 180 TAKE ONE TABLET BY MOUTH TWICE A DAY TAKE ONE TABLET BY MOUT H TWICE A DAY SOLD: 03/08/2019 [facility] carvedilol 6.25 MG Oral Tablet carvedilol (COREG) 6.25 MG tablet carvedilol (COREG) 6.25 MG tablet 02/20/2019 12:00:00 AM EST 6.25 mg Oral active Take 1 tablet (6.25 mg total) by mouth 2 (two) times a day [facility] 100 mg 02/20/2019 12:00:00 AM EST capsule 20 TAKE ONE CAPSULE BY MOUTH TWICE A DAY FOR 10 DAYS TAKE ONE CAPSULE BY MOUTH TWICE A DAY FOR 10 DAYS SOLD : 02/20/2019 [facility] doxycycline hyclate 100 MG Oral Tablet doxycycline ( BRA-TABS) 100 MG tablet doxycycline (VIBRA-TABS) 100 MG tablet 02/20/2019 12:00:00 AM EST 1 00 mg Oral aborted Take 100 mg by mouth 2 (t wo) times a day [facility] doxycycline hyclate 100 MG Oral Capsule Doxycycline Hyclate 02/20/2019 12:00:00 AM EST ORAL completed [facility] ([facility]) 300 mg 02/12/2019 12:00:00 AM EST capsule 360 TAKE 2 CAPSULES BY MOUTH IN THE MORNING AND 3 CAPSULES BY MOUTH AT NIGHT TAKE 2 CAPSULES BY MOUTH IN THE MORNING AND 3 CAPSULES BY MOUTH AT NIGHT SOLD: 04/21/2019 [facility] 300 mg 02/12/2019 12:00:00 AM EST capsule 360 TAKE 2 CAPSULES BY MOUTH IN THE MORNING AND 3 CAPSULES BY MOUTH AT NIGHT TAKE 2 CAPSULES BY MOUTH IN THE MORNING AND 3 CAPSULES BY MOUTH AT NIGHT SOLD: 09/03/2019 [facility] 300 mg 02/12/2019 12:00:00 AM EST capsule 360 TAKE 2 CAPSULES BY MOUTH IN THE MORNING AND 3 CAPSULES BY MOUTH AT NIGHT TAKE 2 CAPSULES BY MOUTH IN THE MORNING AND 3 CAPSULES BY MOUTH AT NIGHT SOLD: 02/16/2019 [facility] 300 mg 02/12/2019 12:00:00 AM EST capsule 360 TAKE 2 CAPSULES BY MOUTH IN THE MORNING AND 3 CAPSULES BY MOUTH AT NIGHT TAKE 2 CAPSULES BY MOUTH IN THE MORNING AND 3 CAPSULES BY MOUTH AT NIGHT SOLD: 07/01/2019 [facility] Prednisone 10 MG Oral Tablet predniSONE (DELTASONE) ta blet 10 mg predniSONE (DELTASONE) tablet 10 mg 02/03/2019 09:00:00 AM EST 10 mg Oral active 10 mg, Oral, Daily, First dose on 02/03/19 at 0900, For 3 doses [facility] Medication administered onsite 24 HR Isosorbide Mononitrate 30 MG Extended Release Or al Tablet ISOSORBIDE MONONITRATE 02/03/2019 12:00:00 AM EST tablet extended release 24 hr 60 TAKE ONE TABLET BY MOUTH TWICE A DAY TAKE ONE TABLET BY MOUTH TWICE A DAY SOLD: 02/06/2019 [facility] 24 HR Isosorbide Mononitrate 30 MG Extended Release Or al Tablet ISOSORBIDE MONONITRATE 02/03/2019 12:00:00 AM EST tablet extended release 24 hr 60 TAKE ONE TABLET BY MOUTH TWICE A DAY TAKE ONE TABLET BY MOUTH TWICE A DAY SOLD: 03/08/2019 [facility] 24 HR Isosorbide Mononitrate 30 MG Extended Release Or al Tablet ISOSORBIDE MONONITRATE 02/03/2019 12:00:00 AM EST tablet extended release 24 hr 60 TAKE ONE TABLET BY MOUTH TWICE A DAY TAKE ONE TABLET BY MOUTH TWICE A DAY SOLD: 04/04/2019 [facility] 24 HR Isosorbide Mononitrate 30 MG Extended Release Or al Tablet ISOSORBIDE MONONITRATE 02/03/2019 12:00:00 AM EST tablet extended release 24 hr 60 TAKE ONE TABLET BY MOUTH TWICE A DAY TAKE ONE TABLET BY MOUTH TWICE A DAY SOLD: 05/03/2019 [facility] Prednisone 20 MG Oral Tablet predniSONE (DELTASONE) ta blet 20 mg predniSONE (DELTASONE) tablet 20 mg 02/01/2019 09:00:00 AM EST 20 mg Oral active 20 mg, Oral, Daily, First dose on Colleen 02/01/19 at 0900, For 2 doses [facility] Medication administered onsite 90 mcg/actuation 02/01/2019 12:00:00 AM EST HFA aerosol inha ler 18 INHALE 2 PUFFS EVERY 4 HOURS NEEDED WHEEZING OR SHORTNESS OF BREATH INHALE 2 PUFFS EVERY 4 HOURS NEEDED WHEEZING OR SHORTNESS OF BREATH SOLD: 02/01/2019 [facility] 17 mcg/actuation 02/01/2019 12:00:00 AM EST HFA aerosol inha ler 12 INHALE 2 PUFFS THREE TIMES A DAY INHALE 2 PUFFS THREE TIMES A DAY SOLD: 02/01/2019 [facility] 500 mg 02/01/2019 12:00:00 AM EST tablet 2 TAKE ONE TABLET BY MOUTH ONCE DAILY FOR 2 DAYS TAKE ONE TABLET BY MOUTH ONCE DAILY FOR 2 DAYS SOLD: 1 04/04/2018 [facility] 5 mg 02/01/2019 12:00:00 AM EST tablet 21 TAKE 4 DAILY FOR 3 DAYS, THEN 2 DAILY FOR 3 DAYS, THEN 1 DAILY FOR 3 DAYS,THEN STOP TAKE 4 DAILY FOR 3 DAYS, THEN 2 DAILY FOR 3 DAYS, THEN 1 DAILY FOR 3 DAYS,THEN STOP SOLD: 02/01/2019 [facility] 750 mg 02/01/2019 12:00:00 AM EST tablet 8 TAKE ONE TABLET BY MOUTH ONCE DAILY FOR 8 DAYS TAKE ONE TABLET BY MOUTH ONCE DAILY FOR 8 DAYS SOLD: 0 02/15/2019 [facility] 2.5-2.5 % 02/01/2019 12:00:00 AM EST cream 30 APPLY AND COVER 1 HOUR PRIOR TO VENIPUNCTURE APPLY AND COVER 1 HOUR PRIOR TO VENIPUNCTURE SOLD: 02/06/2019 [facility] carvedilol 6.25 MG Oral Tablet CARVEDILOL 02/01/2019 12:00:00 AM EST tablet 60 TAKE ONE TABLET BY MOUTH TWO TIMES A DAY TAKE ONE TABL ET BY MOUTH TWO TIMES A DAY SOLD: 02/01/2019 [facility] Albuterol 0.833 MG/ML / Ipratropium Brom haylie 0.167 MG/ML Inhalant Solution ipratropium-albuterol (DUO-NEB) 0.5-2.5 mg/mL nebulizer solution 3 mL ipratropium-albuterol (DUO-NEB) 0.5-2.5 mg/mL nebulizer solution 3 mL 01/31/2019 02:00:00 PM EST 3 mL Inhalation active 3 mL, Inhalation, 3 times daily, First dose on Tue01/31/19 at 1400 [facility] Medication administered onsite carvedilol 6.25 MG Oral Tablet carvedilol (COREG) tabl et 6.25 mg carvedilol (COREG) tablet 6.25 mg 01/31/2019 12:00:00 PM EST 6.25 mg Oral active 6.25 mg, Oral, 2 times daily, First dose on Tue01/31/19 at 1200 [facility] Medication administered onsite Azithromycin 250 MG Oral Tablet azithromycin (ZITHROMA X) tablet 500 mg azithromycin (ZITHROMAX) tablet 500 mg 01/31/2019 11:00:00 AM EST 5 00 mg Oral active Pneumonia 500 mg, Oral, D aily, Indications: Pneumonia, First dose on Tue01/31/19 at 1100, For 2 days [facility] Pneumonia Medication administered onsite Levofloxacin 750 MG Oral Tablet levofloxacin (LEVAQUIN ) tablet 750 mg levofloxacin (LEVAQUIN) tablet 750 mg 01/31/2019 10:00:00 AM EST 75 0 mg Oral active Pneumonia 750 mg, Oral, E very 24 hours (relative), Indications: Pneumonia, First dose on Tue01/31/19 at 1000 [facility] Pneumonia Medication administered onsite albuterol (PROVENTIL HFA;VENTOLIN HFA) inhaler 2 puff [id number] 01/31/2019 09:50:22 AM EST 2 {puff} Inhalation active 2 pu ff, Inhalation, RT every 4 hours as needed, wheezing, Starting Tue01/31/19 at 0950
Please send a spacer home with patient if discharged with a metered dose inhaler
[facility] Medication administered onsite carvedilol 6.25 MG Oral Tablet carvedilol (COREG) 6.25 MG tablet carvedilol (COREG) 6.25 MG tablet 01/31/2019 12:00:00 AM EST 6.25 mg Oral active Take 1 tablet (6.25 mg total) by mouth 2 (two) times a day [facility] Prednisone 5 MG Oral Tablet predniSONE (DELTASONE) 5 M G tablet predniSONE (DELTASONE) 5 MG tablet 01/31/2019 12:00:00 AM EST active 20mg poqd for 3days, 10mg poqd x3days, 5mg poqd x3days then stop [facility] Levofloxacin 750 MG Oral Tablet levofloxacin (LEVAQUIN ) 750 MG tablet levofloxacin (LEVAQUIN) 750 MG tablet 01/31/2019 12:00:00 AM EST 75 0 mg Oral active Pneumonia Take 1 tablet (750 mg tot al) by mouth daily for 8 days [facility] Pneumonia 200 ACTUAT Ipratropium [place] 0.017 MG/ ACTUAT Metered Dose Inhaler ipratropium (ATROVENT HFA) 17 MCG/ACT inhaler ipratropium (ATROVENT HFA) 17 MCG/ACT inhaler 01/31/2019 12:00:00 AM EST 2 {puff} Inhalation active Inhale 2 puffs 3 (three) times a day [facility] Azithromycin 500 MG Oral Tablet azithromycin (ZITHROMA X) 500 MG tablet azithromycin (ZITHROMAX) 500 MG tablet 01/31/2019 12:00:00 AM EST 5 00 mg Oral active Pneumonia Take 1 tablet (500 mg tot al) by mouth daily for 2 days [facility] Pneumonia albuterol (PROVENTIL HFA;VENTOLIN HFA) 108 (90 Base) M CG/ACT inhaler [id number] 01/31/2019 12:00:00 AM EST 2 {puff} Inhalation active Inhale 2 puffs RT EVERY 4 HOURS NEEDED for wheezing or shortness of breath [facility] Docusate Sodium 100 MG Oral Capsule docusate sodium (C OLACE) capsule 100 mg docusate sodium (COLACE) capsule 100 mg 01/30/2019 08:00:00 PM EST 100 mg Oral completed 100 mg, Oral, Once, Tue01/30/19 at 2000, For 1 dose
hold for loose stools
[facility] Medication administered onsite POLYETHYLENE GLYCOL 3350 142 MG/ML Oral Solution polyethylene glycol (GLYCOLAX) packet 17 g polyethylene glycol (GLYCOLAX) packet 17 g 01/30/2019 08:00:00 PM EST 17 g Oral completed 17 g, Oral, Once, Tue01/30/19 at 2000, For 1 dose
hold for loose stools
[facility] Medication administered onsite predniSONE (DELTASONE) tablet 30 mg 01/30/2019 01:00:00 PM EST 30 mg Oral completed 30 mg, Oral, Mercedes ly, First dose on Tue01/30/19 at 1300, For 2 doses [facility] Medication administered onsite Dextromethorphan Hydrobromide 2 MG/ML / Guaifenesin 20 MG/ML Oral Solution guaifenesin-dextromethorphan (ROBITUSSIN DM) 100-10 MG/5ML syrup 10 mL guaifenesin-dextromethorphan (ROBITUSSIN DM) 100-10 MG/5ML syrup 10 mL 01/30/2019 12:47:42 PM EST 10 mL Oral active 10 mL, Oral, Every 6 hours PRN, other, cough, Starting Tue01/30/19 at 1247 [facility] Medication administered onsite Albuterol 0.833 MG/ML / Ipratropium Brom haylie 0.167 MG/ML Inhalant Solution ipratropium-albuterol (DUO-NEB) 0.5-2.5 mg/mL nebulizer solution 3 mL ipratropium-albuterol (DUO-NEB) 0.5-2.5 mg/mL nebulizer solution 3 mL 01/29/2019 08:00:00 PM EST 3 mL Inhalation aborted 3 mL, Inhalation, 3 times daily, First dose on Tue01/29/19 at 2000 [facility] Medication administered onsite Guaifenesin 20 MG/ML Oral Solution guaif enesin (ROBITUSSIN) 100 MG/5ML solution 200 mg guaifenesin (ROBITUSSIN) 100 MG/5ML solution 200 mg 06:32:49 PM EST 200 mg Oral aborted 200 mg, Oral, Every 6 hours PRN, cough, Starting Tue01/29/19 at 1832 [facility] Medication administered onsite Albuterol 0.83 MG/ML Inhalant Solution a lbuterol (PROVENTIL) nebulizer solution 2.5 mg albuterol (PROVENTIL) nebulizer solution 2.5 mg 2018 06:32:33 PM EST 2.5 mg aborted 2.5 mg, Nebulization, Every 2 hour PRN, wheezing, shortness of breath, Starting Tue01/29/19 at 1832 [facility] Medication administered onsite 150 ML Iopamidol 760 MG/ML Prefilled Syringe iopamidol (ISOVUE-370) 76 % 70 mL iopamidol (ISOVUE-370) 76 % 70 mL 01/29/2019 03:34:07 PM EST 70 mL Intravenous completed 70 mL, Intrave nous, Once in imaging, contrast, Starting Tue01/29/19 at 1534, For 1 dose [facility] Medication administered onsite gabapentin 300 MG Oral Capsule gabapentin (NEURONTIN) capsule 900 mg gabapentin (NEURONTIN) capsule 900 mg 01/29/2019 09:00:00 AM EST 900 mg Oral active 900 mg, Oral, 2 times daily, First dose on Tue01/29/19 at 0900 [facility] Medication administered onsite prasugrel 10 MG Oral Tablet prasugrel (EFFIENT) tablet 10 mg prasugrel (EFFIENT) tablet 10 mg 01/29/2019 09:00:00 AM EST 10 mg Oral activ e 10 mg, Oral, Daily, First dose on Tue01/29/19 at 0900 [facility] Medication administered onsite POLYETHYLENE GLYCOL 3350 142 MG/ML Oral Solution polyethylene glycol (GLYCOLAX) packet 17 g polyethylene glycol (GLYCOLAX) packet 17 g 01/29/2019 09:00:00 AM EST 17 g Oral active 17 g, Or al, Daily, First dose on Tue01/29/19 at 0900
hold for loose stools
[facility] Medication administered onsite Docusate Sodium 100 MG Oral Capsule docusate sodium (C OLACE) capsule 100 mg docusate sodium (COLACE) capsule 100 mg 01/29/2019 09:00:00 AM EST 100 mg Oral active 100 mg, Oral, Daily, First dose on Tue01/29/19 at 0900 [facility] Medication administered onsite Aspirin 81 MG Delayed Release Oral Tablet aspirin EC t ablet 81 mg aspirin EC tablet 81 mg 01/29/2019 09:00:00 AM EST 81 mg Oral activ e 81 mg, Oral, Daily, First dose on Tue01/29/19 at 0900 [facility] Medication administered onsite Loratadine 10 MG Oral Tablet loratadine (CLARITIN) tab let 10 mg loratadine (CLARITIN) tablet 10 mg 01/29/2019 09:00:00 AM EST 10 mg Oral active 10 mg, Oral, Daily, First dose on Tue01/29/19 at 0900 [facility] Medication administered onsite Lisinopril 5 MG Oral Tablet lisinopril (PRINIVIL,ZESTR IL) tablet 2.5 mg lisinopril (PRINIVIL,ZESTRIL) tablet 2.5 mg 01/29/2019 09:00:00 AM EST 2.5 mg Oral active 2.5 mg, Oral, Daily, First dose on Tue01/29/19 at 0900
Hold for manual SBP < 110
[facility] Medication administered onsite venlafaxine 37.5 MG Oral Tablet venlafaxine (EFFEXOR) tablet 37.5 mg venlafaxine (EFFEXOR) tablet 37.5 mg 01/29/2019 09:00:00 AM EST 37.5 mg Oral active 37.5 mg, Oral, Daily, First dose on Tue01/29/19 at 09 00 [facility] Medication administered onsite Levothyroxine Sodium 0.075 MG Oral Table t levothyroxine (SYNTHROID, LEVOTHROID) tablet 75 mcg levothyroxine (SYNTHROID, LEVOTHROID) tablet 75 mcg 06:00:00 AM EST 75 ug Oral active 75 mcg, Oral, Daily (0600), First dose on Tue01/29/19 at 0600 [facility] Medication administered onsite vancomycin in 500mL (VANCOCIN) IV 1,500 mg [id number] 01/29/2019 02:00:00 AM EST 1500 mg Intravenous aborted Pneumonia 1, 500 mg, Intravenous, Administer over 120 Minutes, Every 12 hours (relative), First dose on Tue01/29/19 at 0200 [facility] Pneumonia Medication administered onsite cefepime 2000 MG Injection cefepime (MAXIPIME) injecti on 2 g cefepime (MAXIPIME) injection 2 g 01/28/2019 11:00:00 PM EST 2 g abor alejandro 2 g, Intravenous Push, Every 8 hours (relative), First dose on Tue01/28/19 at 2300
Reconstitute with 20 ml sodium chloride 0.9% for injection. Administer IV push over 5 minutes. Use within 1 hour of reconstitution.
[facility] Medication administered onsite normal saline flush 0.9 % injection 3 mL [id number] 01/28/2019 10:00:00 PM EST 3 mL Intravenous active 3 mL , Intravenous, Every 8 hours (scheduled), First dose on Tue01/28/19 at 2200
flush per protocol, D/C Main IV fluid if appropriate
[facility] Medication administered onsite normal saline flush 0.9 % injection 3 mL [id number] 01/28/2019 10:00:00 PM EST 3 mL Intravenous active 3 mL , Intravenous, PROTOCOL, First dose on Tue01/28/19 at 2200
flush per protocol, D/C Main IV fluid if appropriate
[facility] Medication administered onsite 12 HR ranolazine 500 MG Extended Release Oral Tablet ranolazine (RANEXA) 12 hr tablet 500 mg ranolazine (RANEXA) 12 hr tablet 500 mg 01/28/2019 09: 00:00 PM EST 500 mg Oral active 500 mg, Oral, 2 times daily, First dose on Tue19 at 2100 [facility] Medication administered onsite Pramipexole dihydrochloride 0.5 MG Oral Tablet pramipexole (MIRAPEX) tablet 0.5 mg pramipexole (MIRAPEX) tablet 0.5 mg 01/28/2019 09:00:00 PM EST 0.5 mg Oral active 0.5 mg, Oral, 2 times mercedes ly, First dose on 01/28/19 at 2100 [facility] Medication administered onsite gabapentin 300 MG Oral Capsule gabapentin (NEURONTIN) capsule 300 mg gabapentin (NEURONTIN) capsule 300 mg 01/28/2019 09:00:00 PM EST 300 mg Oral aborted 300 mg, Oral, 2 times daily, First dose on 01/28/19 at 2100 [facility] Medication administered onsite 24 HR Isosorbide Mononitrate 30 MG Exten ded Release Oral Tablet isosorbide mononitrate (IMDUR) 24 hr tablet 30 mg isosorbide mononitrate (IMDUR) 24 hr tablet 30 mg 01/28/2019 09:00:00 PM EST 30 mg Oral activ e 30 mg, Oral, 2 times daily, First dose on 01/28/19 at 2100 [facility] Medication administered onsite Rosuvastatin calcium 20 MG Oral Tablet rosuvastatin (C RESTOR) tablet 40 mg rosuvastatin (CRESTOR) tablet 40 mg 01/28/2019 09:00:00 PM EST 40 mg Oral active 40 mg, Oral, Nightly, First dose on 01/28/19 at 2100 [facility] Medication administered onsite Calcium Chloride 0.0014 MEQ/ML / Potassi um Chloride 0.004 MEQ/ML / Sodium Chloride 0.103 MEQ/ML / Sodium Lactate 0.028 MEQ/ML Injectable Solution lactated ringers infusion lactated ringers infusion 01/28/2019 08:00:00 PM EST Intravenous completed at 75 mL/hr, Intravenous, Continuous, Starting 01/28/19 at 2000, For 1 day [facility] Medication administered onsite 0.4 ML Enoxaparin sodium 100 MG/ML Prefi lled Syringe enoxaparin (LOVENOX) syringe 40 mg enoxaparin (LOVENOX) syringe 40 mg 01/28/2019 08:00:00 PM EST 40 mg Subcutaneous active 40 mg, Subcutaneous, Every 24 hours (relative), First dose on 01/28/19 at 2000
If platelet count is less than 70,000 or hematocrit is less than 25, or if there is a 5 point decrease in hematocrit, do not give the dose and call physician/designee.
[facility] Medication administered onsite Acetaminophen 325 MG Oral Tablet acetaminophen (TYLENO L) 325 MG tablet 650 mg acetaminophen (TYLENOL) 325 MG tablet 650 mg 01/28/2019 07:42:03 PM EST 650 mg Oral active 650 mg, Or al, Every 4 hours PRN, mild pain (1-3), headaches, Starting 01/28/19 at 1942
"Maximum dose of acetaminophen is 4,000 mg from all sources in 24 hours."
[facility] Medication administered onsite Ondansetron 4 MG Disintegrating Oral Tab let ondansetron (ZOFRAN-ODT) disintegrating tablet 4 mg ondansetron (ZOFRAN-ODT) disintegrating tablet 4 mg 01/28/2019 07:14:55 PM EST 4 mg Oral active 4 mg, Oral, Daily PRN, nausea, Starting 01/28/19 at 1914 [facility] Medication administered onsite Nitroglycerin 0.4 MG Sublingual Tablet n itroglycerin (NITROSTAT) SL tablet 0.4 mg nitroglycerin (NITROSTAT) SL tablet 0.4 mg 01/28/2019 07:14:51 P M EST 0.4 mg Sublingual active 0.4 mg, S ublingual, Every 5 min PRN, chest pain, Starting 01/28/19 at 1914
May administer up to 3 doses per episode.
[facility] Medication administered onsite 1 ML Ketorolac Tromethamine 15 MG/ML [place] ketorolac (TORADOL) injection 15 mg ketorolac (TORADOL) injection 15 mg 01/28/2019 05:05:00 PM EST 15 mg Intravenous completed 15 mg, Intrav enous, Once, 01/28/19 at 1705, For 1 dose [facility] Medication administered onsite cefepime 2000 MG Injection cefepime (MAXIPIME) injecti on 2 g cefepime (MAXIPIME) injection 2 g 01/28/2019 02:50:00 PM EST 2 g comp leted 2 g, Intravenous Push, Once, 01/28/19 at 1450, For 1 dose
Reconstitute with 20 ml sodium chloride 0.9% for injection. Administer IV push over 5 minutes. Use within 1 hour of reconstitution.
[facility] Medication administered onsite azithromycin (ZITHROMAX) 500 mg in sodium chloride (NS) 0.9 % 250 mL IVPB 01/28/2019 02:50:00 PM EST 500 mg Intravenous aborted P neumonia 500 mg, Intravenous, Administer over 60 Minutes, Every 24 hours (relative), First dose on 01/28/19 at 1450 [facility] Pneumonia Medication administered onsite vancomycin in 500mL (VANCOCIN) IV 2,000 mg [id number] 01/28/2019 02:45:00 PM EST 2000 mg Intravenous completed Pneumonia 2,000 mg, Intravenous, Administer over 120 Minutes, Once, 01/28/19 at 1450, For 1 dose [facility] Pneumonia Medication administered onsite Acetaminophen 325 MG Oral Tablet acetaminophen (TYLENO L) 325 MG tablet 650 mg acetaminophen (TYLENOL) 325 MG tablet 650 mg 01/28/2019 02:10:00 PM EST 650 mg Oral completed 650 mg, Or al, Once, 01/28/19 at 1410, For 1 dose
"Maximum dose of acetaminophen is 4,000 mg from all sources in 24 hours."
[facility] Medication administered onsite sodium chloride 0.9% (NS) bolus 1,000 mL [id number] 01/28/2019 02:10:00 PM EST 1000 mL Intravenous completed 1, 000 mL, Intravenous, Administer over 1 Hours, Once, 01/28/19 at 1410, For 1 dose [facility] Medication administered onsite 500 mg 12/09/2018 12:00:00 AM EDT tablet extended release 12 hr 180 TAKE ONE TABLET BY MOUTH TWICE A DAY TAKE ONE TABLET BY MOUTH TWICE A DAY SOLD: 03/08/2019 [facility] 500 mg 12/09/2018 12:00:00 AM EDT tablet extended release 12 hr 180 TAKE ONE TABLET BY MOUTH TWICE A DAY TAKE ONE TABLET BY MOUTH TWICE A DAY SOLD: 06/06/2019 [facility] 500 mg 12/09/2018 12:00:00 AM EDT tablet extended release 12 hr 180 TAKE ONE TABLET BY MOUTH TWICE A DAY TAKE ONE TABLET BY MOUTH TWICE A DAY SOLD: 09/03/2019 [facility] 10 mg 11/25/2018 12:00:00 AM EDT tablet 30 TAKE ONE TABLET BY MOUTH EVERY DAY TAKE ONE TABLET BY MOUTH EVERY DAY SOLD: 07/09/2019 [facility] 10 mg 11/25/2018 12:00:00 AM EDT tablet 30 TAKE ONE TABLET BY MOUTH EVERY DAY TAKE ONE TABLET BY MOUTH EVERY DAY SOLD: 05/03/2019 [facility] 10 mg 11/25/2018 12:00:00 AM EDT tablet 30 TAKE ONE TABLET BY MOUTH EVERY DAY TAKE ONE TABLET BY MOUTH EVERY DAY SOLD: 04/04/2019 [facility] 10 mg 11/25/2018 12:00:00 AM EDT tablet 30 TAKE ONE TABLET BY MOUTH EVERY DAY TAKE ONE TABLET BY MOUTH EVERY DAY SOLD: 06/06/2019 [facility] 10 mg 11/25/2018 12:00:00 AM EDT tablet 30 TAKE ONE TABLET BY MOUTH EVERY DAY TAKE ONE TABLET BY MOUTH EVERY DAY SOLD: 08/09/2019 [facility] 10 mg 11/25/2018 12:00:00 AM EDT tablet 30 TAKE ONE TABLET BY MOUTH EVERY DAY TAKE ONE TABLET BY MOUTH EVERY DAY SOLD: 03/08/2019 [facility] 0.5 mg 11/24/2018 12:00:00 AM EDT tablet 60 TAKE ONE TABLET BY MOUTH TWICE A DAY TAKE ONE TABLET BY MOUTH TWICE A DAY SOLD: 11/17/2019 [facility] 0.5 mg 11/24/2018 12:00:00 AM EDT tablet 60 TAKE ONE TABLET BY MOUTH TWICE A DAY TAKE ONE TABLET BY MOUTH TWICE A DAY SOLD: 10/18/2019 [facility] 0.5 mg 11/24/2018 12:00:00 AM EDT tablet 60 TAKE ONE TABLET BY MOUTH TWICE A DAY TAKE ONE TABLET BY MOUTH TWICE A DAY SOLD: 04/04/2019 [facility] 0.5 mg 11/24/2018 12:00:00 AM EDT tablet 60 TAKE ONE TABLET BY MOUTH TWICE A DAY TAKE ONE TABLET BY MOUTH TWICE A DAY SOLD: 05/03/2019 [facility] 0.5 mg 11/24/2018 12:00:00 AM EDT tablet 60 TAKE ONE TABLET BY MOUTH TWICE A DAY TAKE ONE TABLET BY MOUTH TWICE A DAY SOLD: 07/09/2019 [facility] 0.5 mg 11/24/2018 12:00:00 AM EDT tablet 60 TAKE ONE TABLET BY MOUTH TWICE A DAY TAKE ONE TABLET BY MOUTH TWICE A DAY SOLD: 09/16/2019 [facility] 0.5 mg 11/24/2018 12:00:00 AM EDT tablet 60 TAKE ONE TABLET BY MOUTH TWICE A DAY TAKE ONE TABLET BY MOUTH TWICE A DAY SOLD: 08/09/2019 [facility] 0.5 mg 11/24/2018 12:00:00 AM EDT tablet 60 TAKE ONE TABLET BY MOUTH TWICE A DAY TAKE ONE TABLET BY MOUTH TWICE A DAY SOLD: 03/08/2019 [facility] 0.5 mg 11/24/2018 12:00:00 AM EDT tablet 60 TAKE ONE TABLET BY MOUTH TWICE A DAY TAKE ONE TABLET BY MOUTH TWICE A DAY SOLD: 06/06/2019 [facility] 37.5 mg 11/07/2018 12:00:00 AM EDT capsule,extended releas e 24hr 90 TAKE ONE CAPSULE BY MOUTH EVERY MORNING AT THE SAME TIME EACH DAY WITH FOOD TAKE ONE CAPSULE BY MOUTH EVERY MORNING AT THE SAME TIME EACH DAY WITH FOOD SOLD: 08/02/2019 [facility] 75 mcg 11/07/2018 12:00:00 AM EDT tablet 90 TAKE ONE TABLET BY MOUTH EVERY DAY TAKE ONE TABLET BY MOUTH EVERY DAY SOLD: 02/06/2019 [facility] 37.5 mg 11/07/2018 12:00:00 AM EDT capsule,extended releas e 24hr 90 TAKE ONE CAPSULE BY MOUTH EVERY MORNING AT THE SAME TIME EACH DAY WITH FOOD TAKE ONE CAPSULE BY MOUTH EVERY MORNING AT THE SAME TIME EACH DAY WITH FOOD SOLD: 02/06/2019 [facility] 37.5 mg 11/07/2018 12:00:00 AM EDT capsule,extended releas e 24hr 90 TAKE ONE CAPSULE BY MOUTH EVERY MORNING AT THE SAME TIME EACH DAY WITH FOOD TAKE ONE CAPSULE BY MOUTH EVERY MORNING AT THE SAME TIME EACH DAY WITH FOOD SOLD: 05/04/2019 [facility] 75 mcg 11/07/2018 12:00:00 AM EDT tablet 90 TAKE ONE TABLET BY MOUTH EVERY DAY TAKE ONE TABLET BY MOUTH EVERY DAY SOLD: 05/04/2019 [facility] 75 mcg 11/07/2018 12:00:00 AM EDT tablet 90 TAKE ONE TABLET BY MOUTH EVERY DAY TAKE ONE TABLET BY MOUTH EVERY DAY SOLD: 08/02/2019 [facility] 24 HR Isosorbide Mononitrate 30 MG Extended Release Or al Tablet ISOSORBIDE MONONITRATE 10/05/2018 12:00:00 AM EDT tablet extended release 24 hr 60 TAKE ONE TABLET BY MOUTH TWICE A DAY TAKE ONE TABLET BY MOUTH TWICE A DAY SOLD: 01/06/2019 [facility] 20 mg 10/02/2018 12:00:00 AM EDT tablet 25 TAKE 3 TABLETS BY MOUTH AT BREAKFAST AND 2 TABLETS AT LUNCH FOR 5 DAYS WITH EACH CYCLE OF TREATMENT TAKE 3 TABLETS BY MOUTH AT BREAKFAST AND 2 TABLETS AT LUNCH FOR 5 DAYS WITH EACH CYCLE OF TREATMENT SOLD: 12/30/2018 [facility] 20 mg 10/02/2018 12:00:00 AM EDT tablet 25 TAKE 3 TABLETS BY MOUTH AT BREAKFAST AND 2 TABLETS AT LUNCH FOR 5 DAYS WITH EACH CYCLE OF TREATMENT TAKE 3 TABLETS BY MOUTH AT BREAKFAST AND 2 TABLETS AT LUNCH FOR 5 DAYS WITH EACH CYCLE OF TREATMENT SOLD: 01/19/2019 [facility] 2.5-2.5 % 10/02/2018 12:00:00 AM EDT cream 30 APPLY AND COVER 1 HOUR PRIOR TO VENIPUNCTURE APPLY AND COVER 1 HOUR PRIOR TO VENIPUNCTURE SOLD: 01/06/2019 [facility] 2.5 mg 05/23/2018 12:00:00 AM EDT tablet 30 TAKE ONE TABLET BY MOUTH EVERY DAY TAKE ONE TABLET BY MOUTH EVERY DAY SOLD: 04/04/2019 [facility] 2.5 mg 05/23/2018 12:00:00 AM EDT tablet 30 TAKE ONE TABLET BY MOUTH EVERY DAY TAKE ONE TABLET BY MOUTH EVERY DAY SOLD: 05/03/2019 [facility] 2.5 mg 05/23/2018 12:00:00 AM EDT tablet 30 TAKE ONE TABLET BY MOUTH EVERY DAY TAKE ONE TABLET BY MOUTH EVERY DAY SOLD: 03/08/2019 [facility] 40 mg 05/04/2018 12:00:00 AM EDT tablet 90 TAKE ONE TABLET BY MOUTH EVERY DAY TAKE ONE TABLET BY MOUTH EVERY DAY SOLD: 02/06/2019 [facility] PREDNISONE PO Oral aborted Take by mouth Tapering dose [facility] 8 HR Acetaminophen 650 MG Extended Relea se Oral Tablet acetaminophen (ACETAMINOPHEN 8 HOUR) 650 MG CR tablet acetaminophen (ACETAMINOPHEN 8 HOUR) 650 MG CR tablet 650 mg Oral aborted Michael e 650 mg by mouth every 8 (eight) hours as needed for pain [facility] Ondansetron 4 MG Disintegrating Oral Tab let ondansetron (ZOFRAN-ODT) 4 MG disintegrating tablet ondansetron (ZOFRAN-ODT) 4 MG disintegrating tablet 4 mg Oral aborted Take 4 mg by mouth daily as needed for nausea [facility] Prednisone 20 MG Oral Tablet predniSONE (DELTASONE) 20 MG tablet predniSONE (DELTASONE) 20 MG tablet Oral aborted Take by mouth Take 3 tablets at breakfast and 2 tablets at lunch for 5 days with each cycle of chemo treatment [facility] Pegfilgrastim (NEULASTA SC) Subcutaneous aborted Inject under the skin [facility] venlafaxine 37.5 MG Oral Tablet venlafaxine (EFFEXOR) 37.5 MG tablet venlafaxine (EFFEXOR) 37.5 MG tablet 37.5 mg Oral aborted Take 37.5 mg by mouth daily [facility] riTUXimab (RITUXAN IV) Intravenous abo rted Infuse into a venous catheter [facility] Cyclophosphamide (CYTOXAN IJ) aborted Inject as directed [facility] DOXOrubicin HCl (ADRIAMYCIN IV) Intravenous aborted Infuse into a venous catheter [facility] VINCRISTINE SULFATE IV Intravenous abo rted Infuse into a venous catheter [facility] sodium chloride 0.9 % SOLN with methotrexate (PF) 50 MG/2ML SOLN Intrathecal aborted by Intrathecal rou te [facility] gabapentin 300 MG Oral Capsule gabapentin (NEURONTIN) 300 MG capsule gabapentin (NEURONTIN) 300 MG capsule 900 mg Oral aborted Take 900 mg by mouth nightly [facility] Insurance Providers Payer name Policy type / Coverage type Policy ID Covered green party ID Covered green party's relationship to [place] Policy [place] Plan Information [place] 302/307 [id number] SP [id number] Blue Cross Blue Shield P [id number] SELF [id number] Blue Shield Facets Primary [id number] EXCELLUS BCBS [id number] Melinda YNE [id number] Blue Cross Blue Shield P [id number] SELF [id number] EXCELLUS BCBS 03 EXCELLUS BCBS [id number] Melinda YND [id number] EXCELLUS BCBS [id number] Melinda YND [id number] EXCELLUS BCBS 03 Blue Cross Blue Shield P [id number] SELF [id number] [place] P[place] POS [id number] [place] P[place] POS [id number] Blue Shield [facility] [id number] Blue Shield [facility] [id number] EXCELLUS H [id number] Self [id number] BCBS CNY Medigap Part B [id number] Self SA [id number] BCBS CN[place] Commercial [id number] Self [id number] EXCELLUS BLUE CROSS BLUE SHIELD HEA [id number] S [id number] BCBS [place] Medigap Part B [id number] Self SA [id number] BCBS [place] Commercial [id number] Self [id number] Progressive Ins NF Workers Compensation [id number] Self [id number] [employer] Commercial Commercial [id number] Self [id number] Progressive Ins NF Workers Compensation [id number] Self [id number] Progressive Ins [place] Workers Compensation [id number] Self [id number] Progressive Ins [place] Workers Compensation [id number] Self [id number] Progressive Ins [place] Workers Compensation [id number] Self [id number] Progressive Ins NF Workers Compensation [id number] Self [id number] [place] 306/806 [id number] SP [id number] [place] PPO 302/307 [id number] SP [id number] Blue Cross Blue Shield P [id number] SELF [id number] PROGRESSIVE CO NO FAULT [id number] SP [id number] BCBS HMO BLUE [id number] SP [id number] EXCELLUS BCBS [id number] Melinda YND [id number] SELF PAY ONLY SP BCBS/[employer] Commercial [id number] Self [id number] EXCELLUS BCBS [id number] Spo [id number] EXCELLUS BCBS B [id number] S [id number] PROGRESSIVE CO NO FAULT O [id number] S [id number] Excell[employer] CNY Blueshield [facility] Part B [id number] Self [id number] No Fault Workers Compensation [id number] Self [id number] PROGRESSIVE CO NO FAULT [id number] SP [id number] [place] PPO 302/307 [id number] BCBS/[employer] Commercial [id number] Self [id number] Blue Cross Blue Shield P [id number] SPOUSE [id number] EXCELLUS H [id number] Spouse [id number] EXCELLUS BLUE CROSS BLUE SHIELD HEA [id number] SP [id number] Excellus CNY [facility] Commercial [id number] Family Depen dent [id number] Blue Cross Blue Shield P [id number] SPOUSE [id number] Blue Cross Blue Shield P [id number] SELF [id number] EXCELLUS BCBS B [id number] P [id number] [place] PPO 302/307 [id number] SP [id number] BLUE CROSS O [id number] S [id number] Problems, Conditions, and Diagnoses Code Display Name Description Problem Type Effective Dates Data Source(s) C83.30 Diffuse large B cell lymphoma Diffuse large B cell lym phoma [id number] 02/27/2019 12:00:00 AM [facility] R60.0 Localized edema Localized edema [id number] 02/20/2019 12:0 0:00 AM [facility] J15.9 Pneumonia, bacterial Pneumonia, bacterial [id number] 01/30/2019 12:00:00 AM [facility] E43 Severe protein-calorie malnutrition Severe prote in-calorie malnutrition [id number] 01/30/2019 12:00:00 AM [facility] D70.9 Neutropenic fever Neutropenic fever [id number] 01/28/2019 12:00:00 AM [facility] D70.9 Neutropenia Neutropenia [id number] 01/28/2019 12:00:00 AM [facility] J18.9 Pneumonia Pneumonia [id number] 01/28/2019 12:00:[address] [facility] C83.39 Diffuse large B-cell lymphoma, extranoda l and solid organ sites Diffuse large b-cell lymphoma, extranoda Diagnosis 04/10/2019 01:56:00 PM [facility] E78.00 Pure hypercholesterolemia, unspecified P ure hypercholesterolemia, unspecified Diagnosis 02/20/2019 08:42:42 AM [facility] R60.0 Localized edema Localized edema Diagnosis 02/20/2019 08:4 2:42 AM [facility] I25.10 Atherosclerotic heart diseas e of [place] coronary artery without angina pectoris Atherosclerotic heart disease of [place] Diagnosis 02/20/2019 08:42:42 AM [facility] R50.81 Fever presenting with conditions classif ied elsewhere Fever presenting with conditions classif Diagnosis 01/28/2019 01:01:55 PM [facility] D70.9 Neutropenia, unspecified Neutropenia, unspecified Diag nosis 01/28/2019 01:01:55 PM [facility] J18.9 Pneumonia, unspecified organism Pneumonia, unspecified organism Diagnosis 01/28/2019 01:01:55 PM [facility] J15.9 Unspecified bacterial pneumonia Unspecified bacterial pneumonia Diagnosis 01/28/2019 01:01:55 PM EST [facility] R65.20 Severe sepsis without septic shock Severe sepsis without septic shock Diagnosis 01/28/2019 01:01:55 PM [facility] A41.9 Sepsis, unspecified organism Sepsis, unspecified organ ism Diagnosis 01/28/2019 01:01:55 PM [facility] Surgeries/Procedures Procedure Description Date Indications Data Source(s) PH URINE PH URINE Timed 04/16/2019 4:42 AM EDT 04/15 08:42:00 AM EDT [facility] QUANTITATION DRUG NOT ELSEWHERE SPECIFIED METHOTREXATE LEVEL Ro utine 04/16/2019 4:42 AM EDT 04/16/2019 08:42:00 AM EDT [facility] BLOOD COUNT COMPLETE AUTOMATED CBC Timed 04/16/2019 4:42 A M EDT 04/16/2019 08:42:00 AM EDT [facility] COMPREHENSIVE METABOLIC PANEL COMPREHENSIVE METABOLIC PANEL Edgar ed 04/16/2019 4:42 AM EDT 04/16/2019 08:42:00 AM EDT [facility] PH URINE PH URINE Timed 04/15/2019 9:16 PM EDT 04/15 01:16:00 AM EDT [facility] PH URINE PH URINE Timed 04/15/2019 2:20 PM EDT 04/14 06:20:00 PM EDT [facility] PH URINE PH URINE Timed 04/15/2019 5:26 AM EDT 04/14 09:26:00 AM EDT [facility] QUANTITATION DRUG NOT ELSEWHERE SPECIFIED METHOTREXATE LEVEL Ro utine 04/15/2019 5:26 AM EDT 04/15/2019 09:26:00 AM EDT [facility] BLOOD COUNT COMPLETE AUTOMATED CBC Timed 04/15/2019 5:26 A M EDT 04/15/2019 09:26:00 AM EDT [facility] COMPREHENSIVE METABOLIC PANEL COMPREHENSIVE METABOLIC PANEL Edgar ed 04/15/2019 5:26 AM EDT 04/15/2019 09:26:00 AM EDT [facility] GLUC BLD GLUC MNTR DEV CLEARED FDA SPEC HOME USE POCT GLUCOSE Routine 04/14/2019 10:56 PM EST 04/15/2019 03:56:00 AM EDT [facility] [facility] QUANTITATION DRUG NOT ELSEWHERE SPECIFIED METHOTREXATE LEVEL Ro utine 04/14/2019 6:04 PM EST 04/14/2019 11:04:00 PM EST [facility] PH URINE PH URINE Timed 04/14/2019 5:49 PM EST 04/13 10:49:00 PM EST [facility] PH URINE PH URINE Timed 04/14/2019 4:16 AM EST 04/13 09:16:00 AM EST [facility] QUANTITATION DRUG NOT ELSEWHERE SPECIFIED METHOTREXATE LEVEL Ti med 04/14/2019 4:16 AM EST 04/14/2019 09:16:00 AM EST [facility] BLOOD COUNT COMPLETE AUTOMATED CBC Timed 04/14/2019 4:16 A M EST 04/14/2019 09:16:00 AM EST [facility] COMPREHENSIVE METABOLIC PANEL COMPREHENSIVE METABOLIC PANEL Edgar ed 04/14/2019 4:16 AM EST 04/14/2019 09:16:00 AM EST [facility] PH URINE PH URINE Timed 04/13/2019 6:52 PM EST 04/12 11:52:00 PM EST [facility] PH URINE PH URINE Timed 04/13/2019 5:28 AM EST 04/12 10:28:00 AM EST [facility] QUANTITATION DRUG NOT ELSEWHERE SPECIFIED METHOTREXATE LEVEL Ti med 04/13/2019 3:19 AM EST 04/13/2019 08:19:00 AM EST [facility] BLOOD COUNT COMPLETE AUTOMATED CBC Timed 04/13/2019 3:19 A M EST 04/13/2019 08:19:00 AM EST [facility] COMPREHENSIVE METABOLIC PANEL COMPREHENSIVE METABOLIC PANEL Edgar ed 04/13/2019 3:19 AM EST 04/13/2019 08:19:00 AM EST [facility] PH URINE PH URINE Timed 04/12/2019 4:00 PM EST 04/11 09:00:00 PM EST [facility] PH URINE PH URINE Timed 04/12/2019 3:40 AM EST 04/11 08:40:00 AM EST [facility] QUANTITATION DRUG NOT ELSEWHERE SPECIFIED METHOTREXATE LEVEL Ro utine 04/12/2019 3:40 AM EST 04/12/2019 08:40:00 AM EST [facility] BLOOD COUNT COMPLETE AUTOMATED CBC Timed 04/12/2019 3:40 A M EST 04/12/2019 08:40:00 AM EST [facility] COMPREHENSIVE METABOLIC PANEL COMPREHENSIVE METABOLIC PANEL Edgar ed 04/12/2019 3:40 AM EST 04/12/2019 08:40:00 AM EST [facility] PH URINE PH URINE Timed 04/11/2019 6:15 PM EST 04/10 11:15:00 PM EST [facility] PH URINE PH URINE Timed 04/11/2019 7:42 AM EST 04/10 12:42:00 PM EST [facility] BLOOD COUNT COMPLETE AUTO&AUTO DIFRNTL WBC COUNT CBC WITH A UTO DIFFERENTIAL Routine 04/11/2019 6:31 AM EST 04/11/2019 11:31:00 AM EST [facility] THROMBOPLASTIN TIME PARTIAL PLASMA/WHOLE BLOOD APTT Routine 04/11/2019 6:31 AM EST 04/11/2019 11:31:00 AM EST [facility] PROTHROMBIN TIME PROTIME-INR Routine 04/11/2019 6:31 AM EST 04/11/2019 11:31:00 AM EST [facility] BLOOD COUNT COMPLETE AUTOMATED CBC Timed 04/11/2019 6:31 A M EST 04/11/2019 11:31:00 AM EST [facility] COMPREHENSIVE METABOLIC PANEL COMPREHENSIVE METABOLIC PANEL Edgar ed 04/11/2019 6:31 AM EST 04/11/2019 11:31:00 AM EST [facility] PH URINE PH URINE Timed 04/11/2019 12:40 AM EST 04/10 05:40:00 AM EST [facility] PH URINE PH URINE Routine 04/10/2019 7:30 PM EST 04/11/2019 12:30:00 AM EST [facility] PH URINE PH URINE Timed 03/26/2019 6:07 AM EST 03/26 11:07:00 AM EST [facility] QUANTITATION DRUG NOT ELSEWHERE SPECIFIED METHOTREXATE LEVEL Ti med 03/26/2019 6:07 AM EST 03/26/2019 11:07:00 AM EST [facility] BLOOD COUNT COMPLETE AUTOMATED CBC Timed 03/26/2019 6:07 A M EST 03/26/2019 11:07:00 AM EST [facility] COMPREHENSIVE METABOLIC PANEL COMPREHENSIVE METABOLIC PANEL Edgar ed 03/26/2019 6:07 AM EST 03/26/2019 11:07:00 AM EST [facility] PH URINE PH URINE Timed 03/25/2019 11:12 PM EST 03/26 04:12:00 AM EST [facility] PH URINE PH URINE Timed 03/25/2019 2:56 PM EST 03/25 07:56:00 PM [facility] PH URINE PH URINE Timed 03/25/2019 6:29 AM EST 03/25 11:29:00 AM [facility] QUANTITATION DRUG NOT ELSEWHERE SPECIFIED METHOTREXATE LEVEL Ti med 03/25/2019 3:34 AM EST 03/25/2019 08:34:00 AM EST [facility] COMPREHENSIVE METABOLIC PANEL COMPREHENSIVE METABOLIC PANEL Edgar ed 03/25/2019 3:34 AM EST 03/25/2019 08:34:[address] [facility] PH URINE PH URINE Routine 03/24/2019 7:15 PM EST 03/25/2019 12:15:00 AM EST [facility] PH URINE PH URINE Timed 03/24/2019 1:12 PM EST 03/24 06:12:00 PM EST [facility] PH URINE PH URINE Timed 03/24/2019 6:20 AM EST 03/24 11:20:00 AM [facility] QUANTITATION DRUG NOT ELSEWHERE SPECIFIED METHOTREXATE LEVEL Ti med 03/24/2019 6:11 AM EST 03/24/2019 11:11:[address] [facility] BLOOD COUNT COMPLETE AUTOMATED CBC Routine 03/24/2019 6:11 A M EST 03/24/2019 11:11:00 AM [facility] COMPREHENSIVE METABOLIC PANEL COMPREHENSIVE METABOLIC PANEL Edgar ed 03/24/2019 6:11 AM EST 03/24/2019 11:11:[address] [facility] PH URINE PH URINE Timed 03/23/2019 8:28 PM EST 03/24 01:28:00 AM [facility] PH URINE PH URINE Timed 03/23/2019 1:14 PM EST 03/23 06:14:00 PM EST [facility] PH URINE PH URINE Timed 03/23/2019 4:36 AM EST 03/23 09:36:00 AM [facility] QUANTITATION DRUG NOT ELSEWHERE SPECIFIED METHOTREXATE LEVEL Ro utine 03/23/2019 4:36 AM EST 03/23/2019 09:36:[address] [facility] BLOOD COUNT COMPLETE AUTOMATED CBC Routine 03/23/2019 4:36 A M EST 03/23/2019 09:36:00 AM [facility] HEPATIC FUNCTION PANEL HEPATIC FUNCTION PANEL Add-On 03/23/2019 4:36 AM EST 03/23/2019 09:36:00 AM [facility] BASIC METABOLIC PANEL CALCIUM TOTAL BASIC METABOLIC PANEL Add-O n 03/23/2019 4:36 AM EST 03/23/2019 09:36:[address] [facility] PH URINE PH URINE Timed 03/22/2019 9:59 PM EST 03/23 02:59:00 AM [facility] PH URINE PH URINE Timed 03/22/2019 2:50 PM EST 03/22 07:50:00 PM [facility] PH URINE PH URINE Timed 03/22/2019 5:37 AM EST 03/22 10:37:00 AM [facility] BLOOD COUNT COMPLETE AUTOMATED CBC Routine 03/22/2019 5:37 A M EST 03/22/2019 10:37:00 AM [facility] PH URINE PH URINE Timed 03/21/2019 7:00 PM EST 03/22 12:00:00 AM [facility] PH URINE PH URINE Timed 03/04/2019 9:25 AM EST 03/04 02:25:00 PM EST [facility] PH URINE PH URINE Timed 03/04/2019 4:13 AM EST 03/04 09:13:00 AM EST [facility] QUANTITATION DRUG NOT ELSEWHERE SPECIFIED METHOTREXATE LEVEL Ti med 03/04/2019 4:08 AM EST 03/04/2019 09:08:00 AM EST [facility] BLOOD COUNT COMPLETE AUTOMATED CBC Timed 03/04/2019 4:08 A M EST 03/04/2019 09:08:00 AM EST [facility] COMPREHENSIVE METABOLIC PANEL COMPREHENSIVE METABOLIC PANEL Edgar ed 03/04/2019 4:08 AM EST 03/04/2019 09:08:00 AM EST [facility] PH URINE PH URINE Timed 03/03/2019 7:52 PM EST 03/04 12:52:00 AM EST [facility] PH URINE PH URINE Timed 03/03/2019 12:34 PM EST 03/03 05:34:00 PM EST [facility] PH URINE PH URINE Timed 03/03/2019 11:18 AM EST 03/03 04:18:00 PM EST [facility] PH URINE PH URINE Routine 03/03/2019 4:26 AM EST 03/03/2019 09:26:00 AM EST [facility] QUANTITATION DRUG NOT ELSEWHERE SPECIFIED METHOTREXATE LEVEL Ti med 03/03/2019 4:15 AM EST 03/03/2019 09:15:00 AM EST [facility] BLOOD COUNT COMPLETE AUTOMATED CBC Timed 03/03/2019 4:15 A M EST 03/03/2019 09:15:00 AM EST [facility] COMPREHENSIVE METABOLIC PANEL COMPREHENSIVE METABOLIC PANEL Edgar ed 03/03/2019 4:15 AM EST 03/03/2019 09:15:00 AM EST [facility] PH URINE PH URINE Routine 03/02/2019 9:01 PM EST 03/03/2019 02:01:00 AM EST [facility] PH URINE PH URINE Timed 03/02/2019 2:41 PM EST 03/02 07:41:00 PM EST [facility] QUANTITATION DRUG NOT ELSEWHERE SPECIFIED METHOTREXATE LEVEL Ti med 03/02/2019 5:33 AM EST 03/02/2019 10:33:00 AM EST [facility] BLOOD COUNT COMPLETE AUTOMATED CBC Routine 03/02/2019 5:33 A M EST 03/02/2019 10:33:00 AM EST [facility] MAGNESIUM MAGNESIUM Timed 03/02/2019 5:33 AM EST 03/02/2019 10:33:00 AM EST [facility] COMPREHENSIVE METABOLIC PANEL COMPREHENSIVE METABOLIC PANEL Edgar ed 03/02/2019 5:33 AM EST 03/02/2019 10:33:00 AM EST [facility] PH URINE PH URINE Timed 03/02/2019 2:43 AM EST 03/02 07:43:00 AM [facility] PH URINE PH URINE Routine 03/01/2019 8:11 PM EST 03/02/2019 01:11:00 AM [facility] PH URINE PH URINE Timed 03/01/2019 1:28 PM EST 03/01 06:28:00 PM EST [facility] QUANTITATION DRUG NOT ELSEWHERE SPECIFIED METHOTREXATE LEVEL Ti med 03/01/2019 5:44 AM EST 03/01/2019 10:44:00 AM EST [facility] BLOOD COUNT COMPLETE AUTOMATED CBC Routine 03/01/2019 5:44 A M EST 03/01/2019 10:44:00 AM EST [facility] MAGNESIUM MAGNESIUM Timed 03/01/2019 5:44 AM EST 03/01/2019 10:44:00 AM EST [facility] COMPREHENSIVE METABOLIC PANEL COMPREHENSIVE METABOLIC PANEL Edgar ed 03/01/2019 5:44 AM EST 03/01/2019 10:44:00 AM EST [facility] PH URINE PH URINE Timed 03/01/2019 3:59 AM EST 03/01 08:59:00 AM [facility] PH URINE PH URINE Timed 02/28/2019 6:51 PM EST 02/28 11:51:00 PM EST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 Not on fileOccupational History Not on fileSocial Needs Financial resource strain: Not on file Food insecurity: Worry: Not on file Inability: Not on file Transportation needs: Medical: Not on file Non-medical: Not on fileTobacco Use Smoking status: Never Smoker Smokeless tobacco: Never UsedSubstance and Sexual Activity Alcohol use: No Drug use: No Sexual activity: Not on fileLifestyle Physical activity: Days per week: Not on file Minutes per session: Not on file Stress: Not on fileRelationships Social connections: Talks on phone: Not on file Gets together: Not on file Attends hoahaoism service: Not on file Active member of club or organization: Not on file Attends meetings of clubs or organizations: Not on file Relationship status: Not on file Intimate partner violence: Fear of current or ex partner: Not on file Emotionally abused: Not on file Physically abused: Not on file Forced sexual activity: Not on fileOther Topics Concern Bike Helmet Not Asked History of Falls Not Asked Self-Exams Not Asked Caffeine Concern Not Asked Hobby Hazards Not Asked Sleep Concern Not Asked Daily Calcium Supplement Not Asked Lead Exposure Not Asked Special Diet Not Asked Daily Vitamin D Supplement Not Asked Service Not Asked Stress Concern Not Asked Domestic Violence in home Not Asked Radon exposure Not Asked Weight Concern Not Asked Exercise Not Asked Seat Belt Not Asked Well water Not Asked Firearms in home Not AskedSocial History Narrative Not on fileMedications and AllergiesALLERGIES/SENSITIVITIES: Shellfish allergy; Shellfish-derived products;Acetazolamide; Augmentin [amoxicillin-pot clavulanate]; Other; and Shrimp(diagnostic)Current Outpatient Medications: albuterol (PROVENTIL HFA;VENTOLIN HFA) 108 (90 Base) MCG/ACT inhaler, Inhale2 puffs RT EVERY 4 HOURS NEEDED for wheezing or shortness of breath, Disp: 1Inhaler, Rfl: 0 aspirin EC 81 MG EC tablet, Take 81 mg by mouth daily, Disp: , Rfl: carvedilol (COREG) 6.25 MG tablet, Take 1 tablet (6.25 mg total) by mouth 2(two) times a day, Disp: 180 tablet, Rfl: 3 Coenzyme Q10 (COQ10 PO), Take 400 mg by mouth nightly , Disp: , Rfl: docusate sodium (COLACE) 250 MG capsule, Take 2 tablets by mouth 2 (two)times a day , Disp: , Rfl: gabapentin (NEURONTIN) 300 MG capsule, Take 900 mg by mouth 2 (two) times aday , Disp: , Rfl: GLUCOSAMINE-CHONDROITIN PO, Take 1 tablet by mouth 2 (two) times a day, Disp:, Rfl: Homeopathic Products (LEG CRAMPS) TABS, Take 3 tablets by mouth nightly ,Disp: , Rfl: ipratropium (ATROVENT HFA) 17 MCG/ACT inhaler, Inhale 2 puffs 3 (three) timesa day, Disp: 1 Inhaler, Rfl: 0 isosorbide mononitrate (IMDUR) 30 MG 24 hr tablet, Take 30 mg by mouth 2(two) times a day , Disp: , Rfl: levothyroxine (SYNTHROID, LEVOTHROID) 75 MCG tablet, Take 75 mcg by mouthdaily, Disp: , Rfl: lisinopril (PRINIVIL,ZESTRIL) 2.5 MG tablet, Take 2.5 mg by mouth daily ,Disp: , Rfl: loratadine (CLARITIN) 10 MG tablet, Take 10 mg by mouth daily, Disp: , Rfl: Magnesium 500 MG TABS, Take 1 tablet by mouth nightly , Disp: , Rfl: Multiple Vitamins-Minerals (MULTIVITAMIN PO), Take 1 tablet by mouth daily,Disp: , Rfl: nitroglycerin (NITROSTAT) 0.4 MG SL tablet, Place 1 tablet (0.4 mg total)under the tongue every 5 (five) minutes as needed for chest pain, Disp: 25tablet, Rfl: 3 ondansetron (ZOFRAN-ODT) 4 MG disintegrating tablet, Take 1 tablet (4 mgtotal) by mouth every 8 (eight) hours as needed for nausea, Disp: 20 tablet,Rfl: 0 polyethylene glycol (GLYCOLAX) powder, Take 17 g by mouth daily 1 capful= 17g, Disp: , Rfl: Potassium 99 MG TABS, Take 1 tablet by mouth daily , Disp: , Rfl: pramipexole (MIRAPEX) 0.5 MG tablet, Take 0.5 mg by mouth 2 (two) times a day, Disp: , Rfl: prasugrel (EFFIENT) 10 MG TABS, Take 1 tablet (10 mg total) by mouth daily,Disp: 90 tablet, Rfl: 3 ranolazine (RANEXA) 500 MG 12 hr tablet, Take 500 mg by mouth 2 (two) times aday, Disp: , Rfl: rosuvastatin (CRESTOR) 40 MG tablet, Take 40 mg by mouth nightly , Disp: ,Rfl: venlafaxine (EFFEXOR-XR) 37.5 MG 24 hr capsule, Take 37.5 mg by mouth daily,Disp: , Rfl:PhysicalPHYSICAL EXAM: General: Alert, No acute distress .Oriented to person, place, and situation.Respiratory: Normal respiratory effort, no increased work of breathing.Psych: Mood and affect appropriate.Wt 99.8 kg (220 lb) | BMI 28.25 kg/m DiagnosticsLabNoneImaging/Testing: NoneEKG: NoneAssessment & PlanASSESSMENT/PLAN:1. CAD: No symptoms, No CP or SOB, takes effient and asa for a long time.2. Hyperlipidemia: On a statin3. HTN: Controlled on current meds.4. JORDAN uses CPAPI have spent 15 minutes with the patient, counseling/coordinating the patient'scare.I discussed the above listed diagnoses and discussed Prognosis, Managementoption risks and benefits, Treatment/management instructions, Compliance andRisk Factor ReductionFollow up has been arranged and the patient knows to call if any issues arisebetween now and then, all question were answered.Signature: Adelaida Barnes MDDate: June 22, 2019Time: 10:13 AMThis document or parts of this document, were dictated using [employer]. A reasonable attempt at proofreading has been made to minimize errors.Please call with any questions or corrections. Name Value Range Interpretation Code Description Data Azul rce(s) Supporting Document(s) ID Date Data Source [id number] 06/29/2019 09:53:11 AM EDT [facility] PCName: Lalo RubalcavaDOB: 1955Provider: Kelvin Canales: 06/21/2019 Chief ComplaintChymduke Rubalcava presents for pain/dysfunction in the hips BILATERALLY. Reason For VisitVerbal consent obtained from the patient for telemedicine visit. This assessment was done using telemedicine as a result of social distancing due to the outbreak of COVID-19. 10 minutes for review of chart, virtual visit itself, and documentation. Lalo Rubalcava is an established patient here for follow up. 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 History of Present IllnessA virtual visit was performed today in view of the coronavirus. A virtual visit, rather than an office visit, is felt to be appropriate in view of increased risks due to the Castillo virus. Patient identification was performed in the appropriate manner.I initially saw this 64-year-old male on 07/05/18 for bilateral hip pain. He was felt to have mild degenerative arthritis of the hips. He had two injections in his left hip, with significant improvement of his symptoms. For the past number of weeks he has had persistent groin and buttock pain on his right side, which is worsening. In December of 2018 he was seen by Dr. Placido Field. An MRI of the LS spine revealed red marrow conversion secondary to anemia, as well as multilevel discogenic disease with moderate right-sided foraminal stenosis at L5-S1.On virtual visit today, he points to his right buttock and right region as being the area of pain. He has difficulty getting in and out of his pickup truck without having pain in the buttock and groin area. He has trouble lifting his leg. No history of trauma or falls. Physical ExamThe patient appears well-developed, well-nourished and in no acute distress. The patient is oriented to person, place and time. The patients mood is appropriate to the situation. The patients coordination is normal.On virtual physical exam, he points to his right buttock and groin. Hip flexion is 90 degre es. Internal/external rotation elicits some degree of pain. The hip internally/externally rotates to approximately 10 or 15 degrees. He is not having dysesthesia in his lower extremities. Results/DataAP pelvis and AP and lateral radiographs of the right and left hips, taken at [facility] on 07/05/18, were reviewed. They show mild degenerative of the right hip and mild degenerative arthritis of the left hip.Evaluation of the lumbar spine was performed by Dr. Field.MRI of the lumbar spine, performed at [facility] on 11/16/18, reveals mild multilevel disc degeneration and facet degeneration at L5-S1, ch ronic disc osteophyte formation at the exiting L5 right nerve root. Small herniations at L1-2 and L4-5. Diffusely mottled marrow signal within the right marrow conversion. AssessmentRight hip degenerative arthritisLeft hip degenerative arthritisLS spine stenosis with probable right radicular painNon- Hodgkin's lymphoma Plan 1. MRI ([facility]) Referral Diagnostic Diagnostic Status: Need Information - Financial Authorization Requested for: [id number] will follow up with: : [facility] Ordered Contrast : 01: without gadoLaterality: : Right Further diagnostic testing is appropriate. He finished chemotherapy recently. In view of the Castillo virus, I do not recommend an office visit with us. I recommend an MRI of his right hip, which would include an MRI of his pelvis, for further evaluation, to be certain there is no evidence of pathologic lesions in the pelvis, which were not seen on x-rays done last year. The x-ray of the pelvis was performed on 07/05/18. We will hold on doing an x-ray, depend ing on what the MRI shows.I would like him to see Dr. Field, as the present symptomatology could very well be consistent with sciatica, as he has difficulty sitting, and walking any distance increases the pain. There is no history of trauma or falls.Virtual visit follow-up after MRI , without gadolinium, of right hip and pelvis. Signatures Electronically signed by : Janine Morales, ; Jun 22 2019 11:11AM EST Electronically signed by : Anders Canales M.D.; Jun 29 2019 9:53AM EST Name Value Range Interpretation Code Description Data Azul e(s) Supporting Document(s) ID Date Data Source [id number] 06/04/2019 09:43:28 AM EDT [facility]PAT[facility] NT INFORMATIONPatient MRN Name Date of Age Gend*PT [id number] Lalo Rubalcava 1955 64 years M IPPT Location Admission Date/Time Visit ID Attending [id number] 04/10/19 1356 --- --- EPI ID CSN Admitting Prov ider [id number] Amber Ribeiro MD([id number]) Attestation signed by Ghanshyam Rowe MD at 06/04/2019 9:43 AMI have had a face to face encounter with the patient, reviewed the notes,assessments, and/or procedures performed by PA/GLOBAL MARKETING COORDINATOR, I concur with her/hisdocumentation of Lalo Nabil Khadar.In summary, patient presented with need for elective high dose MTXOverall did well once urine pH was appropriate. MTX levels were monitored andLV administered. 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 Diagnoses:Principal Problem: Diffuse large B cell lymphomaResolved Problems: * No resolved hospital problems. *Discharge Medications:Discharge Medication List as of 04/16/2019 12:11 PMCONTINUE these medications which have NOT CHANGED Detailsaspirin EC 81 MG EC tablet Take 81 mg by mouth daily, Historical Medcarvedilol (COREG) 6.25 MG tablet Take 1 tablet (6.25 mg total) by mouth 2 (two)times a day, Starting Tue02/20/2019, E-Prescribedocusate sodium (COLACE) 250 MG capsule Take 2 tablets by mouth 2 (two) times aday , Historical Medgabapentin (NEURONTIN) 300 MG capsule Take 900 mg by mouth 2 (two) times a day ,Historical MedGLUCOSAMINE-CHONDROITIN PO Take 1 tablet by mouth 2 (two) times a day,Historical Medisosorbide mononitrate (IMDUR) 30 MG 24 hr tablet Take 30 mg by mouth 2 (two)times a day , Historical Medlevothyroxine (SYNTHROID, LEVOTHROID) 75 MCG tablet Take 75 mcg by mouth daily,Historical Medlisinopril (PRINIVIL,ZESTRIL) 2.5 MG tablet Take 2.5 mg by mouth daily ,Historical Medloratadine (CLARITIN) 10 MG tablet Take 10 mg by mouth daily, Historical MedMagnesium 500 MG TABS Take 1 tablet by mouth nightly , Historical MedMultiple Vitamins-Minerals (MULTIVITAMIN PO) Take 1 tablet by mouth daily,Historical Medpolyethylene glycol (GLYCOLAX) powder Take 17 g by mouth daily 1 capful= 17 g,Historical MedPotassium 99 MG TABS Take 1 tablet by mouth daily , Historical Medpramipexole (MIRAPEX) 0.5 MG tablet Take 0.5 mg by mouth 2 (two) times a day ,Historical Medprasugrel (EFFIENT) 10 MG TABS Take 1 tablet (10 mg total) by mouth daily,Starting Tue11/24/2018, E-Prescriberanolazine (RANEXA) 500 MG 12 hr tablet Take 500 mg by mouth 2 (two) times aday, Historical Medrosuvastatin (CRESTOR) 40 MG tablet Take 40 mg by mouth nightly , Historical Medvenlafaxine (EFFEXOR-XR) 37.5 MG 24 hr capsule Take 37.5 mg by mouth daily,Historical Medalbuterol (PROVENTIL HFA;VENTOLIN HFA) 108 (90 Base) MCG/ACT inhaler Inhale 2puffs RT EVERY 4 HOURS NEEDED for wheezing or shortness of breath, StartingWed 01/31/2019, E-PrescribeCoenzyme Q10 (COQ10 PO) Take 400 mg by mouth nightly , Historical MedHomeopathic Products (LEG CRAMPS) TABS Take 3 tablets by mouth nightly ,Historical Medipratropium (ATROVENT HFA) 17 MCG/ACT inhaler Inhale 2 puffs 3 (three) times aday, Starting Tue01/31/2019, E- Prescribenitroglycerin (NITROSTAT) 0.[address] 1 tablet (0.4 mg total) underthe tongue every 5 (five) minutes as needed for chest pain, Starting Tue12/19/2017, E-Prescribeondansetron (ZOFRAN-ODT) 4 MG disintegrating tablet Take 1 tablet (4 mg total)by mouth every 8 (eight) hours as needed for nausea, Starting Tue03/26/2019,E-PrescribeFollow Up Instructions:The patient was given an after visit summary.Patient will follow up with Dr Ribeiro's office. Office will call with appt.Items needing special attention: NoneBrief Hospital Course:Pt was admitted for his 3rd and final cycle of HD MTX. He was given IVF withbicarbonate for urine alkalinization. He needed additional acetazolamide toobtain proper pH. He was given Methotrexate at 3500 mg/m2 on 04/11/19. He wasstarted on Leucovorin rescue on 04/12/19 per protocol. Methotrexate levels weremonitored daily. MTX level prior to d/c was 0.05.Pt had complications in hospital with constipation managed by more aggressivelaxatives/softners. Also he had an episode of confusion/hallucination. Hisacetazolamide was discontinued and his symptoms resolved within a few hours.Pt was discharged in stable condition. Dr Ribeiro's office will call withappt.Discharge Exam:Blood Pressure: BP: 143/87 Pulse: Heart Rate: 68Temperature: Temp: 97.8 F Respirations: Resp: 20Admission Weight: Weight: (!) 103 kg (227 lb) O2 Saturation: SpO2: 97 %Discharge Weight: Weight: 98.8 kg (217 lb 14.4 oz) BMI: Body mass index is 27.98kg/m .Physical Exam General well developed, well nourished, in no apparent distress HEENT Normal Lungs clear to auscultation Heart regular rate and rhythm Abdomen soft, non-tender, non-distended, no organomegaly or masses Musculoskeletal negative Neuro normal without focal findings, mental status, speech normal, alert andoriented x3, NELL and reflexes normal and symmetricDiagnostics:Recent Labs:CBC with Diff:Lab ResultsComponent Value Date WBC 4.0 (L) 04/16/2019 RBC 3.66 (L) 04/16/2019 HGB 11.9 (L) 04/16/2019 HCT 33.3 (L) 04/16/2019 MCV 91.1 04/16/2019 MCH 32.6 (H) 04/16/2019 MCHC 35.8 04/16/2019 RDW 13.6 04/16/2019 PLT 336 04/16/2019 MPV 7.8 04/16/2019 LYMPHOPCT 23.3 04/11/2019 MONOPCT 22.8 (H) 04/11/2019 EOSPCT 8.1 (H) 04/11/2019 BASOPCT 0.6 04/11/2019 NEUTROABS 1.7 (L) 04/11/2019 MONOABS 0.9 (H) 04/11/2019 BASOSABS 0.0 04/11/2019CMP:Lab ResultsComponent Value Date NA 142 04/16/2019 K 3.8 04/16/2019 CL 109 (H) 04/16/2019 CO2 26 04/16/2019 ANIONGAP 7 04/16/2019 BUN 13 04/16/2019 CREATININE 1.02 04/16/2019 BCR 12.7 04/16/2019 GLU 127 (H) 04/16/2019 CALCIUM 8.5 04/16/2019 ALBUMIN 3.3 04/16/2019 GLOB 2.7 04/16/2019 AGRC 1.2 04/16/2019 ALKPHOS 121 (H) 04/16/2019 LABBILI 0.3 04/16/2019 AST 15 04/16/2019 ALT 33 04/16/2019 GFRAA >60 04/16/2019 GFRNONAA >60 04/16/2019Robert DUY Blanc4:36 PMTotal time spent for discharge on date of discharge: 30 minutes Name Value Range Interpretation Code Description Data Azul rce(s) Supporting Document(s) ID Date Data Source [id number] 04/16/2019 12:01:38 PM EDT [facility] Name Value Range Interpretation Code Description Data Azul rce(s) Supporting Document(s) METHOTREXATE 0.05 umol/L [facility] Reference range: <5.00PERFORMED AT [facility], [address] [place] [address] ID Date Data Source [id number] 04/16/2019 06:23:09 AM EDT [facility] Name Value Range Interpretation Code Description Data Azul rce(s) Supporting Document(s) SODIUM 142 mmol/L (136-145) [facility] POTASSIUM 3.8 mmol/L (3.6-5.2) [facility] CHLORIDE 109 mmol/L (100-108) H [facility] CO2 26 mmol/L (22-31) [facility] ANION GAP 7 mmol/L (7-16) [facility] UREA NITROGEN 13 mg/dL (7-24) [facility] CREATININE 1.02 mg/dL (0.80-1.30) [facility] BUN/CREAT RATIO 12.7 RATIO (10.0-20.0) [facility] GLUCOSE 127 mg/dL (70-99) H [facility] CALCIUM 8.5 mg/dL (8.4-10.2) [facility] TOTAL PROTEIN 6.0 g/dL (6.4-8.2) L [facility] ALBUMIN 3.3 g/dL (3.2-4.5) [facility] GLOBULIN 2.7 g/dL (2.7-4.3) [facility] ALB/GLOB RATIO 1.2 RATIO [facility] ALKALINE PHOSPHATASE 121 U/L (45-117) H [facility] BILIRUBIN,TOTAL 0.3 mg/dL (0.0-1.0) [facility] PLEASE NOTE:Total bilirubin results may be falselyelevated in patients taking Eltrombopag. AST (SGOT) 15 U/L (11-39) [facility] ALT (SGPT) 33 U/L (12-78) [facility] GFR >60 ml/min/1.73m2 (>59) [facility] GFR ( AMER) >60 ml/min/1.73m2 (>59) [facility] GFR INTERPRETATION [facility] --NORMAL KIDNEY FUNCTION OR MILD DISEASE - GFR >OR= 60CHRONIC KIDNEY DISEASE - GFR 15 - 59RENAL FAILURE - GFR <15 Est. GFR calculation based on the MDRDstudy equation, which assumes a steadystate for creatinine. Est. GFR should notbe used for medication dosing. ID Date Data Source [id number] 04/16/2019 05:35:43 AM EDT [facility] Name Value Range Interpretation Code Description Data Azul rce(s) Supporting Document(s) PH URINE 8.5 (5.0-7.5) H [facility] ID Date Data Source [id number] 04/16/2019 05:30:11 AM EDT [facility] Name Value Range Interpretation Code Description Data Azul rce(s) Supporting Document(s) WBC 4.0 10*3/uL (4.1-11.0) L [facility] RBC 3.66 10*6/uL (4.60-6.10) L [facility] HGB 11.9 g/dL (13.5-18.0) L [facility] HCT 33.3 % (41.0-53.0) L [facility] MCV 91.1 fL (80.0-95.0) [facility] MCH 32.6 pg (27.0-32.0) H [facility] MCHC 35.8 g/dL (32.0-36.0) [facility] RDW 13.6 % (10.5-14.5) [facility] PLT 336 10*3/uL (150-450) [facility] MPV 7.8 fL (7.1-10.7) [facility] ID Date Data Source [id number] 04/15/2019 09:32:36 PM EDT [facility] Name Value Range Interpretation Code Description Data Azul rce(s) Supporting Document(s) PH URINE 8.0 (5.0-7.5) H [facility] ID Date Data Source [id number] 04/15/2019 02:51:23 PM EDT [facility] Name Value Range Interpretation Code Description Data Azul rce(s) Supporting Document(s) PH URINE 8.5 (5.0-7.5) H [facility] ID Date Data Source [id number] 04/15/2019 09:05:04 AM EDT [facility] Name Value Range Interpretation Code Description Data Azul rce(s) Supporting Document(s) METHOTREXATE 0.10 umol/L [facility] Reference range: <5.00PERFORMED AT [facility], [address] [place] [id number] ID Date Data Source [id number] 04/15/2019 07:28:22 AM EDT [facility] Name Value Range Interpretation Code Description Data Azul rce(s) Supporting Document(s) SODIUM 139 mmol/L (136-145) [facility] POTASSIUM 3.6 mmol/L (3.6-5.2) [facility] CHLORIDE 105 mmol/L (100-108) [facility] CO2 25 mmol/L (22-31) [facility] ANION GAP 9 mmol/L (7-16) [facility] UREA NITROGEN 12 mg/dL (7-24) [facility] CREATININE 1.09 mg/dL (0.80-1.30) [facility] BUN/CREAT RATIO 11.0 RATIO (10.0-20.0) [facility] GLUCOSE 123 mg/dL (70-99) H [facility] CALCIUM 8.8 mg/dL (8.4-10.2) [facility] TOTAL PROTEIN 6.7 g/dL (6.4-8.2) [facility] ALBUMIN 3.7 g/dL (3.2-4.5) [facility] GLOBULIN 3.0 g/dL (2.7-4.3) [facility] ALB/GLOB RATIO 1.2 RATIO [facility] ALKALINE PHOSPHATASE 124 U/L (45-117) H [facility] BILIRUBIN,TOTAL 0.5 mg/dL (0.0-1.0) [facility] PLEASE NOTE:Total bilirubin results may be falselyelevated in patients taking Eltrombopag. AST (SGOT) 21 U/L (11-39) [facility] ALT (SGPT) 39 U/L (12-78) [facility] GFR >60 ml/min/1.73m2 (>59) [facility] GFR ( AMER) >60 ml/min/1.73m2 (>59) [facility] GFR INTERPRETATION [facility] --NORMAL KIDNEY FUNCTION OR MILD DISEASE - GFR >OR= 60CHRONIC KIDNEY DISEASE - GFR 15 - 59RENAL FAILURE - GFR <15 Est. GFR calculation based on the MDRDstudy equation, which assumes a steadystate for creatinine. Est. GFR should notbe used for medication dosing. ID Date Data Source [id number] 04/15/2019 07:03:57 AM EDT [facility] Name Value Range Interpretation Code Description Data Azul rce(s) Supporting Document(s) WBC 3.6 10*3/uL (4.1-11.0) L [facility] [place] RBC 4.18 10*6/uL (4.60-6.10) L [facility] HGB 12.9 g/dL (13.5-18.0) L [facility] HCT 38.2 % (41.0-53.0) L [facility] MCV 91.4 fL (80.0-95.0) [facility] MCH 30.8 pg (27.0-32.0) [facility] MCHC 33.7 g/dL (32.0-36.0) [facility] RDW 14.0 % (10.5-14.5) [facility] PLT 378 10*3/uL (150-450) [facility] MPV 8.4 fL (7.1-10.7) [facility] ID Date Data Source [id number] 04/15/2019 07:03:07 AM EDT [facility] Name Value Range Interpretation Code Description Data Azul rce(s) Supporting Document(s) PH URINE 8.5 (5.0-7.5) H [facility] ID Date Data Source [id number] 04/14/2019 10:57:53 PM EST [facility] Name Value Range Interpretation Code Description Data Azul rce(s) Supporting Document(s) POC NOVA GLU 134 mg/dL (70-99) H [facility] ID Date Data Source [id number] 04/15/2019 09:05:09 AM EDT [facility] Name Value Range Interpretation Code Description Data Azul rce(s) Supporting Document(s) METHOTREXATE 0.07 umol/L [facility] Reference range: <5.00PERFORMED AT [facility], [address] [place] [address] ID Date Data Source [id number] 04/14/2019 06:35:27 PM EST [facility] Name Value Range Interpretation Code Description Data Azul rce(s) Supporting Document(s) PH URINE 8.5 (5.0-7.5) H [facility] ID Date Data Source [id number] 04/14/2019 05:09:48 AM EST [facility] Name Value Range Interpretation Code Description Data Azul rce(s) Supporting Document(s) PH URINE 8.5 (5.0-7.5) H [facility] ID Date Data Source [id number] 04/14/2019 05:07:23 AM EST [facility] Name Value Range Interpretation Code Description Data Azul rce(s) Supporting Document(s) WBC 3.6 10*3/uL (4.1-11.0) L [facility] [place] RBC 3.84 10*6/uL (4.60-6.10) L [facility] HGB 12.4 g/dL (13.5-18.0) L [facility] HCT 35.5 % (41.0-53.0) L [facility] MCV 92.4 fL (80.0-95.0) [facility] MCH 32.3 pg (27.0-32.0) H [facility] MCHC 34.9 g/dL (32.0-36.0) [facility] RDW 14.1 % (10.5-14.5) [facility] PLT 364 10*3/uL (150-450) [facility] MPV 8.0 fL (7.1-10.7) [facility] ID Date Data Source [id number] 04/14/2019 08:34:20 AM EST [facility] Name Value Range Interpretation Code Description Data Azul rce(s) Supporting Document(s) METHOTREXATE 0.11 umol/L [facility] Reference range: <5.00PERFORMED AT [facility], [address] [place] [address] ID Date Data Source [id number] 04/14/2019 05:37:08 AM EST [facility] Name Value Range Interpretation Code Description Data Azul rce(s) Supporting Document(s) SODIUM 138 mmol/L (136-145) [facility] POTASSIUM 3.4 mmol/L (3.6-5.2) L [facility] CHLORIDE 106 mmol/L (100-108) [facility] CO2 26 mmol/L (22-31) [facility] ANION GAP 6 mmol/L (7-16) L [facility] UREA NITROGEN 11 mg/dL (7-24) [facility] CREATININE 1.13 mg/dL (0.80-1.30) [facility] BUN/CREAT RATIO 9.7 RATIO (10.0-20.0) L [facility] GLUCOSE 135 mg/dL (70-99) H [facility] CALCIUM 8.7 mg/dL (8.4-10.2) [facility] TOTAL PROTEIN 6.2 g/dL (6.4-8.2) L [facility] ALBUMIN 3.5 g/dL (3.2-4.5) [facility] GLOBULIN 2.7 g/dL (2.7-4.3) [facility] ALB/GLOB RATIO 1.3 RATIO [facility] ALKALINE PHOSPHATASE 116 U/L (45-117) [facility] BILIRUBIN,TOTAL 0.4 mg/dL (0.0-1.0) [facility] PLEASE NOTE:Total bilirubin results may be falselyelevated in patients taking Eltrombopag. AST (SGOT) 23 U/L (11-39) [facility] ALT (SGPT) 42 U/L (12-78) [facility] GFR >60 ml/min/1.73m2 (>59) [facility] GFR ( AMER) >60 ml/min/1.73m2 (>59) [facility] GFR INTERPRETATION [facility] --NORMAL KIDNEY FUNCTION OR MILD DISEASE - GFR >OR= 60CHRONIC KIDNEY DISEASE - GFR 15 - 59RENAL FAILURE - GFR <15 Est. GFR calculation based on the MDRDstudy equation, which assumes a steadystate for creatinine. Est. GFR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 Mother Hypertension Mother Hyperlipidemia Mother Heart disease Mother Cancer Father Cancer BrotherSocial HistorySocioeconomic History Marital status: Spouse name: Not on file Number of children: Not on file Years of education: Not on file Highest education level: Not on fileOccupational History Not on fileSocial Needs Financial resource strain: Not on file Food insecurity: Worry: Not on file Inability: Not on file Transportation needs: Medical: Not on file Non-medical: Not on fileTobacco Use Smoking status: Never Smoker Smokeless tobacco: Never UsedSubstance and Sexual Activity Alcohol use: No Drug use: No Sexual activity: Not on fileLifestyle Physical activity: Days per week: Not on file Minutes per session: Not on file Stress: Not on fileRelationships Social connections: Talks on phone: Not on file Gets together: Not on file Attends hoahaoism service: Not on file Active member of club or organization: Not on file Attends meetings of clubs or organizations: Not on file Relationship status: Not on file Intimate partner violence: Fear of current or ex partner: Not on file Emotionally abused: Not on file Physically abused: Not on file Forced sexual activity: Not on fileOther Topics Concern Bike Helmet Not Asked History of Falls Not Asked Self-Exams Not Asked Caffeine Concern Not Asked Hobby Hazards Not Asked Sleep Concern Not Asked Daily Calcium Supplement Not Asked Lead Exposure Not Asked Special Diet Not Asked Daily Vitamin D Supplement Not Asked Service Not Asked Stress Concern Not Asked Domestic Violence in home Not Asked Radon exposure Not Asked Weight Concern Not Asked Exercise Not Asked Seat Belt Not Asked Well water Not Asked Firearms in home Not AskedSocial History Narrative Not on fileMedications and AllergiesALLERGIES/SENSITIVITIES: Shellfish allergy; Shellfish-derived products;Augmentin [amoxicillin-pot clavulanate]; Other; and Shrimp (diagnostic)Current Outpatient Medications: albuterol (PROVENTIL HFA;VENTOLIN HFA) 108 (90 Base) MCG/ACT inhaler, Inhale2 puffs RT EVERY 4 HOURS NEEDED for wheezing or shortness of breath, Disp: 1Inhaler, Rfl: 0 aspirin EC 81 MG EC tablet, Take 81 mg by mouth daily, Disp: , Rfl: carvedilol (COREG) 6.25 MG tablet, Take 1 tablet (6.25 mg total) by mouth 2(two) times a day, Disp: 60 tablet, Rfl: 0 Coenzyme Q10 (COQ10 PO), Take 10 mg by mouth nightly , Disp: , Rfl: docusate sodium (COLACE) 250 MG capsule, Take 1 tablet by mouth nightly ,Disp: , Rfl: gabapentin (NEURONTIN) 300 MG capsule, Take 300 mg by mouth 2 (two) times aday , Disp: , Rfl: GLUCOSAMINE-CHONDROITIN PO, Take 1 tablet by mouth 2 (two) times a day, Disp:, Rfl: Homeopathic Products (LEG CRAMPS) TABS, Take 3 tablets by mouth nightly ,Disp: , Rfl: ipratropium (ATROVENT HFA) 17 MCG/ACT inhaler, Inhale 2 puffs 3 (three) ti lomeli day, Disp: 1 Inhaler, Rfl: 0 isosorbide mononitrate (IMDUR) 30 MG 24 hr tablet, Take 30 mg by mouth 2(two) times a day , Disp: , Rfl: levothyroxine (SYNTHROID, LEVOTHROID) 75 MCG tablet, Take 75 mcg by mouthdaily, Disp: , Rfl: lisinopril (PRINIVIL,ZESTRIL) 2.5 MG tablet, Take 2.5 mg by mouth daily ,Disp: , Rfl: loratadine (CLARITIN) 10 MG tablet, Take 10 mg by mouth daily, Disp: , Rfl: Magnesium 500 MG TABS, Take 1 tablet by mouth nightly , Disp: , Rfl: Multiple Vitamins-Minerals (MULTIVITAMIN PO), Take 1 tablet by mouth daily,Disp: , Rfl: nitroglycerin (NITROSTAT) 0.4 MG SL tablet, Place 1 tablet (0.4 mg total)under the tongue every 5 (five) minutes as needed for chest pain, Disp: 25tablet, Rfl: 3 ondansetron (ZOFRAN-ODT) 4 MG disintegrating tablet, Take 4 mg by mouth dailyas needed for nausea, Disp: , Rfl: polyethylene glycol (GLYCOLAX) powder, Take 17 g by mouth daily 1 capful= 17g, Disp: , Rfl: Potassium 99 MG TABS, Take 1 tablet by mouth daily , Disp: , Rfl: pramipexole (MIRAPEX) 0.5 MG tablet, Take 0.5 mg by mouth 2 (two) times a day, Disp: , Rfl: prasugrel (EFFIENT) 10 MG TABS, Take 1 tablet (10 mg total) by mouth daily,Disp: 90 tablet, Rfl: 3 PREDNISONE PO, Take by mouth Tapering dose, Disp: , Rfl: ranolazine (RANEXA) 500 MG 12 hr tablet, Take 500 mg by mouth 2 (two) times aday, Disp: , Rfl: rosuvastatin (CRESTOR) 40 MG tablet, Take 40 mg by mouth nightly , Disp: ,Rfl: venlafaxine (EFFEXOR) 37.5 MG tablet, Take 37.5 mg by mouth daily , Disp: ,Rfl:PhysicalBMI: Body mass index is 28.5 kg/m .Blood Pressure: BP: 120/80 Pulse: Heart Rate: 68Temperature: Respirations: Weight: Weight: 100.7 kg (222 lb) O2 Saturation: SpO2: 97 %Physical Exam General Well developed, well nourished, no acute distress Neck Soft and supple without lymphadenopathy or thyromegaly. No JVD. Nobruits. Lungs Clear to auscultation, no crackles, rhonchi, or wheezes Heart Normal S1 S2, no murmurs, clicks, or gallops Musculoskeletal Appears to have normal range of motion x 4 extremities, nojoint swelling. No pedal edema Neuro Alert, orientedx3, no facial asymmetry Derm No rashes, or ulcers Vascular Pulses palpableDiagnosticsLabBMP:Lab ResultsComponent Value Date NA 141 01/31/2019 K 3.7 01/31/2019 CL 108 01/31/2019 CO2 25 01/31/2019 ANIONGAP 8 01/31/2019 CALCIUM 8.5 01/31/2019 GLU 115 (H) 01/31/2019 BUN 7 01/31/2019 CREATININE 0.68 (L) 01/31/2019 GFRAA >60 01/31/2019 GFRNONAA >60 01/31/2019Cardiac:Lab ResultsComponent Value Date TROPONINI <0.05 01/28/2019 POCTROP <0.01 (L) 01/28/2019 POCTROP 0.03 11/03/2018CBC Brief:Lab ResultsComponent Value Date WBC 11.4 (H) 01/31/2019 HGB 9.7 (L) 01/31/2019 HCT 29.5 (L) 01/31/2019 PLT 157 01/31/2019EKG: N/AAssessment & Plan1. Known CAD; he currently denies any chest pain or angina. He did havestenting November 06, 2018 and he does remain on Effient and aspirin2. Episode of tachycardia during recent hospitalization. We will continue withcarvedilol 6.25 mg p.o. twice daily and I have renewed that today3. Obstructive sleep apnea; we have encouraged use of continue BiPAP4. Hypertension; his blood pressures under good control with current medicaltherapy5. Hyperlipidemia; he does remain on a statin and recommend that his LDL beless than 706. Diffuse large B-cell lymphoma; the patient is anticipating hospitaladmission on 02/27/2019 for intense chemotherapy.7. Right lower extremity edema and discomfort; we will make sure that there isno evidence of DVT and get venous ultrasound.We will anticipate seeing the patient back in the office in approximately 3months time for follow- up or sooner if need arises. He knows to contact ouroffice in the interim if he has any signs or symptoms of cardiovascular concern.We appreciate the opportunity to care for this patient.Signature: Vidal Shannon NPDate: February 20, 2019Time: 9:19 AMThis document or parts of this document, were dictated using [employer]. A reasonable attempt at proofreading has been made to minimize errors.Please call with any questions or corrections. Name Value Range Interpretation Code Description Data Azul rce(s) Supporting Document(s) ID Date Data Source [id number] 02/16/2019 09:47:00 AM EST [facility] EXAM:Chest 2V CLINICAL INDICATION: F/U P NEUMONIA TECHNIQUE: PA and lateral chest x-rays. COMPARISON: Chest x-ray dated 01/28/2019. FINDINGS:Right-sided chest port in place.The lungs are clear and well expanded.No consolidation or pleural effusion is identified.Normal cardiovascular silhouette.Unremarkable osseous structures. IMPRESSION: 1. No acute cardiopulmonary disease. Professional interpretation performed at [facility] [place] . Name Value Range Interpretation Code Description Data Azul rce(s) Supporting Document(s) ID Date Data Source [id number] 01/31/2019 09:02:18 PM EST [facility] NT INFORMATIONPatient MRN Name Date of Age Gend*PT [id number] Lalo Rubalcava 1955 63 years M IPPT Location Admission Date/Time Visit ID Attending [id number] 01/28/19 1301 --- --- EPI ID CSN Admitting Prov ider [id number] Karthikeyan Mccloud MD([id number])[facility] DISCHARGE SUMMARYPatient Name: Lalo Rubalcava of : 1955 Age 63 yearsPrimary Physician: MARCK NAYLOR MD PCP Uumbqjriy Date: 01/28/2019 Discharge Date: 01/31/2019Reason for Admission: fever, cough, weakness, shortness of breathHPI: 63 years-old male with pmhx significant for lymphoma on chemo, CAD statuspost multiple interventions, high cholesterol presents 01/28/19 to [facility] c/oproductive cough with thick/green mucus, generalized weakness, fever (report ed101.3), chills, diaphoresis, and dehydration x3 days. He lives at home with hiswife and son, states his son was recently diagnosed with HMPV (humanmetapneumovirus), states that he was kept in different rooms, she Lysoleverything, and her son wore a mask at home. In the ED T-max 100.9, mildlytachycardic initially, requiring 2 L via nasal cannula to maintain O2 sat above90%, labs significant for neutropenia 2.3, neutropenia with ANC 1.3, no definitepneumonia on chest x-ray, poor inspiratory effort. He denies dizziness,syncope, confusion, abdominal pain, nausea, vomiting, diarrhea, dysuria, orrecent travel. On exam, he has productive cough, appears fatigued. He wasstarted on Vanco, cefepime, azithromycin for pneumonia. Will admit to medicine.Please see full H&P for complete details.Hospital Course:Neutropenic fever likely secondary to lingular pneumonia in the setting ofrecent chemotherapy with R-CHOP for diffuse large B-cell lymphoma -Patient was admitted to the medicine service and chest x-ray was done that didnot show definitive evidence of pneumonia however given his neutropenia as wellas fever he was placed on IV cefepime azithromycin and vancomycin. MRSA screenobtained was negative and blood cultures obtained otherwise showed no growth todate x2. Influenza screen was done that was negative and strep pneumonia urineantigen as well as Legionella urine antigen were both obtained that werenegative. Patient is positive for sick contacts with his son with humanmetapneumovirus and viral swab was sent which is pending at this time.Patient's fever resolved during hospital stay and he also underwent CT angiogramof the chest that did not show evidence of pulmonary embolism but showedevidence of lingular pneumonia with groundglass opacities. He subsequentlytolerated cefepime and azithromycin and his neutropenia resolved. It wasthought likely patient had likely initial viral bronchitis that developed intolingular pneumonia. Patient was also treated noted to be wheezing duringhospital stay and he was placed on albuterol which was then also changed toDuoNebs 3 times daily and albuterol as needed. His wheezing improved withrestart of prednisone as well. Hematology oncology was also consulted duringhospital stay and please see full consultation note for complete details. Hewas able to wean weaned off of supplemental oxygen down to room air at rest aswell as on exertion. His wheezing also improved during hospital stay withaddition of prednisone for which he is to be discharged on a taper as notedbelow. Given his allergy to Augmentin with hives the IV cefepime is changedover to oral Levaquin and he is discharged on 7 more days to complete a 10-daycourse of treatment as well as discharged on 2 more days of azithromycin tocomplete a full 5-day course. Patient did have an episode of tachycardia thatbroke on its own which occurred while patient had coughing paroxysmal and wasstraining to have a bowel movement as well. Given his cardiac history he hasbeen placed on Coreg 6.25 mg twice daily as it is thought the tachycardia islikely from the wheezing, nebulizer treatments as well as stress dose steroids.It is thought that he may be able to be taken off of the Coreg at a later dateafter recovering from the pneumonia and resolution of his wheezing as well. Heis advised to follow-up with his outpatient digital specialist Dr. Avery as anoutpatient in regards to this as well. He is also to follow-up with hisoutpatient primer waterproofing machine adjuster oncologist as previously scheduled on 02/09/2019 as wellas follow-up with his primary care physician in 2 to 3 weeks as well. Wheezing likely reactive airway disease induced by infection possibly viralgiven recent sick contact -Please see hospital course above. Patient was placed on albuterol nebs as wellas DuoNebs and placed on guaifenesin dextromethorphan as well as continued onloratadine during hospital stay. Given his significant wheezing patient wasalso restarted on prednisone for which his wheezing did improve during hospitalstay. He is discharged on a prednisone taper as noted below as well asalbuterol and Atrovent HFA as noted below as well. He is to follow-up with hishematologist oncologist as previously scheduled on 02/09/2019 in regards to thisas well.CAD s/p stenting, angioplasty - Patient did not have complaints of chest painduring hospital stay and he otherwise was continued on effient, asa, imdur,ranexa, and crestor. Echocardiogram was also done during hospital stay thatotherwise showed normal LVEF with no wall motion abnormalities and also withgrade 1 diastolic dysfunction and borderline left atrial enlargement with nosignificant valvular abnormalities. Please see full results below. Patient isto follow-up with his outpatient digital specialist as previously scheduled. Hypothyroidism - Patient was continued on Synthroid during hospital stay. Peripheral neuropathy - Patient was continued on gabapentin during hospitalstay. Hypertension -patient's blood pressures otherwise remain controlled duringhospital stay and he was continued on Imdur as well as lisinopril. Patient didhave an episode of tachycardia that otherwise resolved on its own and ondischarge day he was started on Coreg 6.25 mg twice daily in regards to this.He is to follow-up with his primary care physician as well as outpatientcardiologist in regards to continuation of the Coreg as likely the tachycardiawas secondary to his wheezing and pulmonary infection as well as stress dosesteroids and nebulizer treatments.At this point patient is afebrile with resolution of his neutropenia. He istolerating room air at rest as well as on exertion. He is also tolerating oralintake without nausea vomiting abdominal pain. He is to follow-up with hisoutpatient primer waterproofing machine adjuster oncologist as previously scheduled on 02/09/2019.Primary Discharge Diagnosis:Neutropenic fever likely secondary to lingular pneumonia in the setting ofrecent chemotherapy with R-CHOP for diffuse large B-cell lymphomaSecondary Discharge Diagnosis:Patient Active Problem ListDiagnosis Coronary artery disease involving [place] coronary artery of [place] heartwithout angina pectoris Pure hypercholesterolemia Lymphoma Pneumonia Neutropenia Neutropenic fever Severe protein-calorie malnutrition Pneumonia, bacterialCondition at Discharge: good to homeDischarge Exam:Blood Pressure: BP: 127/65 Pulse: Heart Rate: 62Temperature: Temp: 97.2 F Respirations: Resp: 16Admission Weight: Weight: 98.4 kg (217 lb) O2 Saturation: SpO2: 94 % RADischarge Weight: Weight: 96.1 kg (211 lb 13.8 oz)Physical ExamConstitutional: No distress.Awake alert conversant, lying in bed, at bedsideCardiovascular: Normal rate and regular rhythm.Pulmonary/Chest: No respiratory distress. He has no rales.Coarse BS, forced end expiratory wheeze right greater than left, improvedaeration no rhonchi ralesAbdominal: He exhibits no distension. There is no tenderness.+BS soft NT NDMusculoskeletal: He exhibits no edema.Neurological: He is alert.Skin: Skin is warm.Psychiatric: He has a normal mood and affect.Significant Procedures/Tests:Echo Transthoracic (tte)Result Date: 01/29/2019 Left ventricular ejection fraction is normal Normal left ventricular sy stolicfunction. No wall motion normalities noted. Grade 1 diastolic dysfunction.Borderline left atrial enlargement. No significant valvular abnormalities.Ct Angiogram ChestResult Date: 01/29/2019. [place] [address] Patient Name: LALO WATERMAN : 1955 Sex: M Ordering Provider: CAROLYN STACK Authorizing Prov:CAROLYN STACK Referring Provider: Procedure Performed: CT ANGIOGRAM CHEST ExamDate: 01/29/2019 15:42 Accession Number: [id number] PatientClass: Inpatient Reason for Exam: PE suspected, highpretest prob Technique: Helical axial images were obtained during theadministration 70ml of Isovue 370 IV contrast. One or more of the following dosereduction techniques were utilized; automated exposure control, dosemodulation,technique adjustment based on patient size and iterativereconstruction algorithms. Maximum Intensity Projections (MIP) and/or othermultiplanar images images were created and reviewed. Comparison: No ne Findings:Minimal airspace disease inferior aspect of the lingula. Groundglass opacityupper lung quiroga bilaterally. There is dense coronary artery calcification lungfluid appears to be oriented artery stents. No evidence of pulmonary embolism.No pericardial or pleural fluid collections. No evidence of pulmonary embolism.Aorta normal in caliber no evidence of dissection.IMPRESSION: Minimal subsegmental atelectasis versus pneumonia lingula.Nonspecific groundglass opacity upper lung quiroga may represent edema orinflammation. No evidence of pulmonary embolism. Report electronically signedby: CRISTIAN MICHELLE On 01/29/2019 3:57 PM Workstation ID: [id number] PortableResult Date: 01/28/2019. [place] [address] Patient Name: LALO WATERMAN : 1955 Sex: M Ordering Provider: NATY GRIFFIN Authorizing Prov:NATY GRIFFIN Referring Provider: Procedure Performed: XR CHEST PORTABLE ExamDate: 01/28/2019 15:29 Accession Number: [id number] PatientClass: Emergency Reason for Exam: sob Technique: Single APview obtained. Comparison: 11/03/2018. Findings: The right Port-A-Cath is grosslystable. The lung volumes are low with mild bibasilar atelectasis. There is nodefinite consolidation, pleural effusion, or pneumothorax. The cardiomediastinalsilhouette is unremarkable. No acute fracture is seen.IMPRESSION: Low lung volumes. No definite acute abnormality. Reportelectronically signed by: CHRIS MARCIN On 01/28/2019 3:37 PM Workstation ID:[id number] Labs:Recent Labs 01/31/1907WBC 7.4 11.4*HGB 10.1* 9.7*MCV 95.5* 94.2PLT 132* 157Recent Labs 01/30/1906UN 14 < > 7 7CREATININE 1.07 < > 0.79* 0.68*GLU 93 < > 111* 115*CALCIUM 8.9 < > 8.3* 8.5ALBUMIN 3.4 -- -- --ALT 47 -- -- --AST 26 -- -- -- < > = values in this interval not displayed.Results from last 7 daysLab Units 01/30/1906WBC 10*3/uL 11.4* 7.4 3.2*HEMOGLOBIN g/dL 9.7* 10.1* 9.6*HEMATOCRIT % 29.5* 30.5* 29.4*PLATELETS 10*3/uL 157 132* 105*Results from last 7 daysLab Units 01/30/1906SODIUM mmol/L 141 138 137POTASSIUM mmol/L 3.7 3.6 3.8CHLORIDE mmol/L 108 104 103CO2 mmol/L 25 27 26BUN mg/dL 7 7 12CREATININE mg/dL 0.68* 0.79* 0.79*GLUCOSE mg/dL 115* 111* 100*CALCIUM mg/dL 8.5 8.3* 7.9*Results from last 7 daysLab Units ALK PHOS U/L 135*ALT U/L 47AST U/L 26CortisolOrder: [id number] - Reflex for Order [id number]: Final result Visible to patient: No (Not Released) Next appt: None Ref Range & Units 1d agoCortisol #1 (Base) ug/dL 14.2Comment: CORTISOL REFERENCE RANGE: 7-9AM 5.3 - 22.5 MCG/DL 4-6PM 3.4 - 16.8 MCG/DLLATE AFTERNOON LEVELS FALLTO APPROX. 1/2 AM VALUE.RESULTS REVIEWEDSpecimen Collected: 01/30/19 06:09 Last Resulted: 01/30/19 14:27 Lab FlowsheetOrder Details ViewInfluenza A/B, RSV by PCROrder: [id number]: F inal resultVisible to patient: No (Not Released)Next appt: NoneSpecimen Information: Nasopharyngeal Ref Range & UnitsSPECIMEN DESCRIPTION NASOPHARYNGEALInfluenza A NEGATIVE NEGATIVEInfluenza B NEGATIVE NEGATIVERSV NEGATIVE NEGATIVEComment SEE NOTESComment: PERFORMED AT [address] [place] [id number] Collected: 01/28/19 20:45Last Resulted: 01/28/19 21:33Legionella antigen, urineOrder: [id number]: Final resultVisible to patient: No (Not Released)Next appt: NoneComponent 3d agoSpecimen Description URINE, COLLECTION METHOD NOT SPECIFIEDResults: NEGATIVE FOR LEGIONELLA PNEUMOPHILA TYPE 1 ANTIGEN BY EIA(NOTE) A NEGATIVE RESULT DOES NOT EXCLUDE INFECTION WITH LEGIONELLA PNEUMOPHILASEROGROUP 1 NOR DOES IT RULE OUT OTHER MICROBIAL CAUSED RESPIRATORY INFECTIONSOR DISEASE CAUSED BY OTHER SEROGROUPS OF LEGIONELLA PNEUMOPHILA.Report Status 01/29/2019 FINALSpecimen Collected: 01/28/19 17:25Last Resulted: 01/29/19 14:02Strep Pneumonia Urine AntigenOrder: [id number]: Final resultVisible to patient: No (Not Released)Next appt: NoneComponent 3d agoSpecimen Description URINE, COLLECTION METHOD NOT SPECIFIEDResults: NEGATIVE FOR STREPTOCOCCUS PNEUMONIAE ANTIGEN BY EIAReport Status 01/29/2019 FINALSpecimen Collected: 01/28/19 17:25Last Resulted: 01/29/19 14:13Results from last 7 daysLab Units [id number] UA YELLOWSPEC GRAV UA 1.016GLUCOSE UA NEGATIVEKETONES UA NEGATIVEBLOOD UA NEGATIVENITRITE UA NEGATIVELEUKOCYTES UA NEGATIVEPROTEIN UA NEGATIVEBILIRUBIN UA NEGATIVEUROBILINOGEN UA mg/dL 1.0APPEARANCE CLOUDYLactate, POCOrder: [id number]: Final resultVisible to patient: No (Not Released)Next appt: None Ref Range & Units 3d agoLactate, POC 0.90 - 1.70 mmol/L 1.74HighComment: PERFORMED BY [facility] CLINICAL STAFFSpecimen Collected: 01/28/19 13:25Last Resulted: 01/28/19 13:27MRSA screen, non- nasalOrder: [id number]: Final resultVisible to patient: No (Not Released)Next appt: NoneSpecimen Information: Nares ComponentSpecimen Description NARESSpecial Requests NONECulture Result NO METHICILLIN RESISTANT STAPH AUREUS ISOLATED.Report Status 01/30/2019 FINALSpecimen Collected: 01/28/19 13:12Last Resulted: 01/30/19 10:18Blood Culture Peripheral x 1 Set (2 bottles aerobic and anaerobic)Order: [id number]: Preliminary resultVisible to patient: No (Not Released)Next appt: NoneSpecimen Information: Peripheral ComponentSpecimen Description PERIPHERAL 2Special Requests NONECulture Result NO GROWTH 2 DAYSReport Status PENDINGSpecimen Collected: 01/28/19 13:10Last Resulted: 01/30/19 10:36Blood Culture Peripheral x 1 Set (2 bottles aerobic and anaerobic)Order: [id number]: Preliminary resultVisible to patient: No (Not Released)Next appt: NoneSpecimen Information: Peripheral ComponentSpecimen Description PERIPHERAL 1Special Requests NONECulture Result NO GROWTH 2 DAYSReport Status PENDINGSpecimen Collected: 01/28/19 13:10Last Resulted: 01/30/19 10:36Consultants: Heme/onc - Dr. Omar LaneDisposition: good to homeDischarge Instructions:Follow up with Dr. Ribeiro on Tuesday02/09/2019 at 0830AM (heme/onc)Follow up with MARCK NAYLOR MD in 2-3 weeks.Discharge Medications: Lalo Rubalcava Medication Instructions RACHELLE:[id number] Printed on:01/31/19 1139Medication Informationalbuterol (PROVENTIL HFA;VENTOLIN HFA) 108 (90 Base) MCG/ACT inhalerInhale 2 puffs RT EVERY 4 HOURS NEEDED for wheezing or shortness of breathaspirin EC 81 MG EC tabletTake 81 mg by mouth dailyazithromycin (ZITHROMAX) 500 MG tabletTake 1 tablet (500 mg total) by mouth daily for 2 dayscarvedilol (COREG) 6.25 MG tabletTake 1 tablet (6.25 mg total) by mouth 2 (two) times a dayCoenzyme Q10 (COQ10 PO)Take 10 mg by mouth nightlydocusate sodium (COLACE) 250 MG capsuleTake 1 tablet by mouth nightlygabapentin (NEURONTIN) 300 MG capsuleTake 300 mg by mouth 2 (two) times a dayGLUCOSAMINE-CHONDROITIN POTake 1 tablet by mouth 2 (two) times a dayHomeopathic Products (LEG CRAMPS) TABSTake 3 tablets by mouth nightlyipratropium (ATROVENT HFA) 17 MCG/ACT inhalerInhale 2 puffs 3 (three) times a dayisosorbide mononitrate (IMDUR) 30 MG 24 hr tabletTake 30 mg by mouth 2 (two) times a daylevofloxacin (LEVAQUIN) 750 MG tabletTake 1 tablet (750 mg total) by mouth daily for 8 dayslevothyroxine (SYNTHROID, LEVOTHROID) 75 MCG tabletTake 75 mcg by mouth dailylisinopril (PRINIVIL,ZESTRIL) 2.5 MG tabletTake 2.5 mg by mouth dailyloratadine (CLARITIN) 10 MG tabletTake 10 mg by mouth dailyMagnesium 500 MG TABSTake 1 tablet by mouth nightlyMultiple Vitamins- Minerals (MULTIVITAMIN PO)Take 1 tablet by mouth dailynitroglycerin (NITROSTAT) 0.4 MG SL tabletPlace 1 tablet (0.4 mg total) under the tongue every 5 (five) minutes as neededfor chest painondansetron (ZOFRAN-ODT) 4 MG disintegrating tabletTake 4 mg by mouth daily as needed for nauseapolyethylene glycol (GLYCOLAX) powderTake 17 g by mouth daily 1 capful= 17 gPotassium 99 MG TABSTake 1 tablet by mouth dailypramipexole (MIRAPEX) 0.5 MG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 prevent imminent or life-threateningdeterioration of the following conditions: Sepsis Critical care was time spent personally by me on the following activities:Blood draw for specimens, development of treatment plan with patient orsurrogate, evaluation of patient's response to treatment, examination ofpatient, ordering and performing treatments and interventions, ordering andreview of laboratory studies, ordering and review of radiographic studies, pulseoximetry, re- evaluation of patient's condition and review of old charts I assumed direction of critical care for this patient from another provider inmy specialty: noMDMNumber of Diagnoses or Management OptionsAmount and/or Complexity of Data ReviewedClinical lab tests: ordered and reviewedTests in the radiology section of CPT : reviewed and orderedTests in the medicine section of CPT : ordered and reviewedDecide to obtain previous medical records or to obtain history from someoneother than the patient: yesObtain history from someone other than the patient: yes ()Review and summarize past medical records: yesIndependent visualization of images, tracings, or specimens: yesLAB RESULTS:Results for orders placed or performed during the hospital encounter of 01/28/19CBC w/ diffResult Value Ref Range WBC 2.3 (L) 4.1 - 11.0 10*3/uL RBC 3.67 (L) 4.60 - 6.10 10*6/uL Hemoglobin 11.6 (L) 13.5 - 18.0 g/dL Hematocrit 35.2 (L) 41.0 - 53.0 % MCV 95.9 (H) 80.0 - 95.0 fL MCH 31.6 27.0 - 32.0 pg MCHC 33.0 32.0 - 36.0 g/dL RDW 14.8 (H) 10.5 - 14.5 % Platelets 124 (L) 150 - 450 10*3/uL MPV 9.8 7.1 - 10.7 fL Neutrophils % 55.0 35.0 - 75.0 % Bands Relative 14.0 (H) 0.0 - 11.0 % Lymphocytes Relative 10.0 (L) 16.0 - 52.0 % Monocytes Relative 12.0 (H) 0.0 - 8.0 % Eosinophils Relative 9.0 (H) 0.0 - 5.0 % Neutrophils Absolute 1.3 (L) 1.8 - 7.7 10*3/uL Bands Absolute 0.3 10*3/uL Lymphocytes Absolute 0.2 (L) 1.2 - 4.8 10*3/uL Monocytes Absolute 0.3 0.0 - 0.8 10*3/uL Eosinophils Man 0.2 0.0 - 0.5 10*3/uL Toxic Granulation 2+ Dohle Bodies 1+ Polychromasia 1+CMPResult Value Ref Range Sodium 134 (L) 136 - 145 mmol/L Potassium 3.9 3.6 - 5.2 mmol/L Chloride 100 100 - 108 mmol/L CO2 29 22 - 31 mmol/L Anion Gap 5 (L) 7 - 16 mmol/L Urea nitrogen 14 7 - 24 mg/dL Creatinine 1.07 0.80 - 1.30 mg/dL BUN/Creatinine Ratio 13.1 10.0 - 20.0 RATIO GLUCOSE 93 70 - 99 mg/dL Calcium 8.9 8.4 - 10.2 mg/dL Protein, Total 6.8 6.4 - 8.2 g/dL Albumin 3.4 3.2 - 4.5 g/dL Globulin 3.4 2.7 - 4.3 g/dL Alb/Glob ratio 1.0 RATIO Alkaline Phosphatase 135 (H) 45 - 117 U/L Bilirubin, Total 0.5 0.0 - 1.0 mg/dL AST 26 11 - 39 U/L ALT 47 12 - 78 U/L GFR MDRD Non Af Amer >60 >59 ml/min/1.73m2 GFR MDRD Af Amer >60 >59 ml/min/1.73m2 Glom Filt Rate, Est SEE NOTESPOCT Alere- i STREP A-2Result Value Ref Range POC ALERE-i Strep A-2 Negative NegativeLactate, POCResult Value Ref Range Lactate, POC 1.74 (H) 0.90 - 1.70 mm ol/LPOCT troponinResult Value Ref Range POC Troponin I <0.01 (L) 0.01 - 0.07 ng/mLIMAGING RESULTS:Chest portableFinal Result Low lung volumes. No definite acute abnormality.ED MEDSMedicationssodium chloride 0.9% (NS) bolus 1,000 mL (has no administration in time range)azithromycin (ZITHROMAX) 500 mg in sodium chloride (NS) 0.9 % 250 mL IVPB (hasno administration in time range)Vancomycin dosing per pharmacy (has no administration in time range)vancomycin in 500mL (VANCOCIN) IV 2,000 mg (2,000 mg Intravenous New Bag01/28/19 1542)vancomycin in 500mL (VANCOCIN) IV 1,500 mg (has no administration in time range)ketorolac (TORADOL) injection 15 mg (has no administration in time range)acetaminophen (TYLENOL) 325 MG tablet 650 mg (650 mg Oral Given 01/28/191531)sodium chloride 0.9% (NS) bolus 1,000 mL (0 mL Intravenous Stopped )cefepime (MAXIPIME) injection 2 g (2 g Intravenous Push Given 01/28/191531)PROGRESS NOTES1:20pmPt has been seen and examined. Labs/imaging have been ordered at this time.4:23pmSpoke to Dr. Mccloud who accepts the pt for admission.5:28 PMUpdate heme/onco team, aware patient status and admission. Spoke with .1. Severe sepsis2. Pneumonia, bacterialThis was electronically signed by Kylee Wyman acting as scribe forand in the presence of Naty Griffin DO, 01/28/19 5:28 PM.ED MD AttestationAttestation of Scribe Documentation: I personally performed the servicesdescribed in the documentation, reviewed the documentation recorded by thescribe in my presence and it accurately and completely records my words andactions.Naty Griffin DO 5:28 Tee Tao O103/31/18 1637Jolatanya Carlton, Npqzsi17/22/19 1725Jolatanya Carlton, Dykfuz18/22/19 1727Linavjot Griffin DO01/28/19 1729 Name Value Range Interpretation Code Description Data Azul rce(s) Supporting Document(s) ID Date Data Source [id number] 01/29/2019 02:13:48 PM EST [facility] SPECIMEN DESCRIPTION URINE, COLLE CTION METHOD NOT SPECIFIEDRESULT NEGATIVE FOR STREPTOCOCCUS PNEUMONIAE ANTIGEN B Y EIAREPORT STATUS FINAL 01/29/2019 Name Value Range Interpretation Code Description Data Azul rce(s) Supporting Document(s) ID Date Data Source [id number] 01/29/2019 02:02:41 PM EST [facility] SPECIMEN DESCRIPTION URINE, COLLE CTION METHOD NOT SPECIFIEDRESULT NEGATIVE FOR LEGIONELLA PNEUMOPHILA TYPE 1 ANTIG EN BY EIAA NEGATIVE RESULT DOES NOT EXCLUDE INFECTION WITH LEGIONELLAPNEUMOPHILA SEROGROUP 1 NOR DOES IT RULE OUT OTHER MICROBIAL CAUSEDRESPIRATORY INFECTIONS OR DISEASE CAUSED BY OTHER SEROGROUPS OFLEGIONELLA PNEUMOPHILA. REPORT STATUS FINAL 01/29/2019 Name Value Range Interpretation Code Description Data Azul rce(s) Supporting Document(s) ID Date Data Source [id number] 01/28/2019 06:03:49 PM EST [facility] Name Value Range Interpretation Code Description Data Azul rce(s) Supporting Document(s) COLOR [facility] APPEARANCE [facility] SPEC GRAV URINE 1.016 (1.003-1.030) [facility] PH URINE 7.5 (5.0-7.5) [facility] LEUK ESTERASE (NEG) [facility] NITRITE URINE (NEG) [facility] PROTEIN URINE (NEG) [facility] GLUCOSE URINE (NEG) [facility] KETONE URINE (NEG) [facility] UROBILINOGEN 1.0 mg/dL (0-1.0) [facility] BILIRUBIN URINE (NEG) [facility] BLOOD/HGB URINE (NEG) [facility] ID Date Data Source [id number] 01/28/2019 05:37:22 PM EST [facility] Name Value Range Interpretation Code Description Data Azul rce(s) Supporting Document(s) URN CULTURE HOLD [facility] FOR ADD ON CULTURE ID Date Data Source [id number] 01/28/2019 03:37:51 PM EST [address] [address] Name: LALO Ferrer KHADARDOB: 1955Sex: MOrdering Provider: NATY DIAZAuthorizing Prov: NATY DIAZReferring Provider: Procedure Performed: XR CHEST PORTABLEExam Date: 01/28/2019 15:29MRN: [id number] Number: [id number] Class: EmergencyAccount #: [id number] for Exam: sobTechnique: Single AP view obtained.Comparison: 11/03/2018.Findings: The right Port-A-Cath is grossly stable. The lung volumes are low with mild bibasilar atelectasis. There is no definite consolidation, pleural effusion, or pneumothorax. The cardiomediastinal silhouette is unremarkable. No acute fracture is seen.IMPRESSION: Low lung volumes. No definite acute abnormality.Report electronically signed by: CHRIS BURCH On 01/28/2019 3:37 PMWorkstation ID: [id number] Name Value Range Interpretation Code Description Data Azul rce(s) Supporting Document(s) ID Date Data Source [id number] 01/28/2019 03:26:22 PM EST [facility] INFORMATIONPatient MRN Name Date of Age Gend*PT [id number] Lalo Rubalcava 1955 63 years M EDPT Location Admission Date/Time Visit ID Attending [id number] 01/28/19 1301 --- Naty Griffin DO([id number]) EPI ID CSN Admitting Provider [id number] ---ED Provider in Triage NotePatient Name: Lalo RubalcavaPatient and Time of Assessment: 01/28/19, 12:56 PMNo chief complaint on file.Brief HPI: 63 years male, on chemo for lymphoma, PudaseriLast dose 2 weeks ago+weakness, chills, STPhysical exam:VSSDry coughPreliminary Plan:Labs, EKG, CXRThis note was electronically signed by DYU Smiley, 01/28/19, 12:56 PM.ED CourseDUY Smiley01/28/19 1302 Name Value Range Interpretation Code Description Data Azul rce(s) Supporting Document(s) ID Date Data Source [id number] 01/28/2019 04:26:10 PM EST [facility] Name Value Range Interpretation Code Description Data Azul rce(s) Supporting Document(s) URN CULTURE HOLD [facility] ADD ON CULTURE ID Date Data Source [id number] 01/28/2019 01:28:30 PM EST [facility] Name Value Range Interpretation Code Description Data Azul rce(s) Supporting Document(s) POC LACTATE 1.74 mmol/L (0.90-1.70) Above high normal [facility] PERFORMED BY [facility]AFF ID Date Data Source [id number] 01/28/2019 01:35:07 PM EST [facility] Name Value Range Interpretation Code Description Data Azul rce(s) Supporting Document(s) POC CTNI <0.01 ng/mL (0.01-0.07) L [facility] Less than 0.08: Myocardial injury unlike lyGreater than or equal to 0.08: Highlysuggestive of myocardial injuryCorrelation with rise and/or fall ofserial troponins, clinical symptoms,and ECG changes is necessary.PERFORMED BY [facility] ID Date Data Source [id number] 01/30/2019 10:18:40 AM EST [facility] SPECIMEN DESCRIPTION NARESSPECIAL REQUESTS NONECULTURE RESULTS NO METHICILLIN RESISTANT STAPH AUREUS ISOLATED.REPORT STATUS FINAL 01/30/2019 Name Value Range Interpretation Code Description Data Azul rce(s) Supporting Document(s) ID Date Data Source [id number] 02/03/2019 08:46:35 AM EST [facility] SPECIMEN DESCRIPTION PERIPHERAL 1SPECIAL REQUESTS NONECULTURE RESULTS NO GROWTH 6 DAYSREPORT STATUS FINAL 02/03/2019 Name Value Range Interpretation Code Description Data Azul rce(s) Supporting Document(s) ID Date Data Source [id number] 02/03/2019 08:46:35 AM EST [facility] SPECIMEN DESCRIPTION PERIPHERAL 2SPECIAL REQUESTS NONECULTURE RESULTS NO GROWTH 6 DAYSREPORT STATUS FINAL 02/03/2019 Name Value Range Interpretation Code Description Data Azul rce(s) Supporting Document(s) ID Date Data Source [id number] 01/28/2019 03:06:11 PM EST [facility] Name Value Range Interpretation Code Description Data Azul rce(s) Supporting Document(s) WBC 2.3 10*3/uL (4.1-11.0) L [facility] RBC 3.67 10*6/uL (4.60-6.10) L [facility] HGB 11.6 g/dL (13.5-18.0) L [facility] HCT 35.2 % (41.0-53.0) L [facility] MCV 95.9 fL (80.0-95.0) H [facility] MCH 31.6 pg (27.0-32.0) [facility] MCHC 33.0 g/dL (32.0-36.0) [facility] RDW 14.8 % (10.5-14.5) H [facility] PLT 124 10*3/uL (150-450) L [facility] MPV 9.8 fL (7.1-10.7) [facility] NEUT % 55.0 % (35.0-75.0) [facility] BAND % 14.0 % (0.0-11.0) H [facility] LYMPH % 10.0 % (16.0-52.0) L [facility] MONO % 12.0 % (0.0-8.0) H [facility] EOS % 9.0 % (0.0-5.0) [facility] NEUT # 1.3 10*3/uL (1.8-7.7) L [facility] BAND # 0.3 10*3/uL [facility] LYMPH # 0.2 10*3/uL (1.2-4.8) L [facility] MONO # 0.3 10*3/uL (0.0-0.8) [facility] Eosinophils [#/volume] in Blood by Automated count 0.2 10*3/uL (0.0-0 .5) [facility] TOXIC 2+ [facility] DOHLE BODIES 1+ [facility] POLY 1+ [facility] ID Date Data Source [id number] 01/28/2019 02:45:54 PM EST [facility] Name Value Range Interpretation Code Description Data Azul rce(s) Supporting Document(s) SODIUM 134 mmol/L (136-145) L [facility] POTASSIUM 3.9 mmol/L (3.6-5.2) [facility] CHLORIDE 100 mmol/L (100-108) [facility] CO2 29 mmol/L (22-31) [facility] ANION GAP 5 mmol/L (7-16) L [facility] UREA NITROGEN 14 mg/dL (7-24) [facility] CREATININE 1.07 mg/dL (0.80-1.30) [facility] BUN/CREAT RATIO 13.1 RATIO (10.0-20.0) [facility] GLUCOSE 93 mg/dL (70-99) [facility] CALCIUM 8.9 mg/dL (8.4-10.2) [facility] TOTAL PROTEIN 6.8 g/dL (6.4-8.2) [facility] ALBUMIN 3.4 g/dL (3.2-4.5) [facility] GLOBULIN 3.4 g/dL (2.7-4.3) [facility] ALB/GLOB RATIO 1.0 RATIO [facility] ALKALINE PHOSPHATASE 135 U/L (45-117) H [facility] BILIRUBIN,TOTAL 0.5 mg/dL (0.0-1.0) [facility] AST (SGOT) 26 U/L (11-39) [facility] ALT (SGPT) 47 U/L (12-78) [facility] GFR >60 ml/min/1.73m2 (>59) [facility] GFR ( AMER) >60 ml/min/1.73m2 (>59) [facility] GFR INTERPRETATION [facility] --NORMAL KIDNEY FUNCTION OR MILD DISEASE - GFR >OR= 60CHRONIC KIDNEY DISEASE - GFR 15 - 59RENAL FAILURE - GFR <15 Est. GFR calculation based on the MDRDstudy equation, which assumes a steadystate for creatinine. Est. GFR should notbe used for medication dosing. ID Date Data Source [id number] 01/19/2019 10:49:00 AM EST [facility] RIGHT UPPER QUADRANT ULTRASOUND OF THE A BDOMEN INDICATION: History of B-cell lymphoma on treatment. Abnormal labs. COMPARISON: 10/30/2018 TECHNIQUE: Multiple longitudinal and transverse sonographic images of the abdomen were obtained. FINDINGS: No focal liver lesions. There is no evidence of intrahepatic bile duct dilatation. The common bile duct measures 3 mm. The gallbladder is visualized and is normal in size. No intraluminal gallbladder abnormalities are identified. The pancreas is incompletely visualized due to overlying bowel gas. The visualized portions demonstrate no gross abnormality. The right kidney measures 12.1 cm. There is no evidence of hydronephrosis. No focal renal cortical abnormalities are identified. No abnormal perirenal fluid collections are identified. No free fluid is identified within the abdomen. The visualized aorta and IVC are unremarkable. Common iliacs are nonaneurysmal. IMPRESSION: No focal liver lesions. No biliary dilatation. Professional inte rpretation performed at [facility] . Name Value Range Interpretation Code Description Data Azul rce(s) Supporting Document(s) Procedure Social History Code Duration Value Status Description Data Source(s ) Alcohol intake 04/10/2019 12:00:00 AM EST No completed [facility] Smoking 04/10/2019 12:00:00 AM EST Never smoker completed Never [facility] Alcohol intake 03/02/2019 12:00:00 AM EST No completed [facility] Smoking 03/02/2019 12:00:00 AM EST Never smoker completed Never [facility] Alcohol intake 01/29/2019 12:00:00 AM EST No completed [facility] Smoking 01/29/2019 12:00:00 AM EST Never smoker completed Never [facility] Vital Signs ID Date Data Source UNK Name Value Range Interpretation Code Description Data Source(s) Oxygen saturation in Arterial blood by Pulse oximetry 97 % 97 % [facility] ([facility]) Body temperature 36.3 Ángela 36.3 Ángela [facility] ( [facility]) Body temperature 97.3 [degF] 97.3 [degF] [facility]) Heart rate 63 /min 63 /min [facility] ([facility]) Diastolic blood pressure 60 mm[Hg] 60 mm[Hg] [facility]) Systolic blood pressure 130 mm[Hg] 130 mm[Hg] M [facility] ([facility]) Body mass index (BMI) [Ratio] 28.1 kg/m2 28.1 k g/m2 [facility]) Body weight 219.00 [lb_av] 219.00 [lb_av] [facility] T ([facility]) Body height 74 [in_i] 74 [in_i] [facility]) 6'2" Oxygen saturation in Arterial blood by Pulse oximetry 97 % 97 % [facility] ([facility]) Body temperature 97.3 [degF] 97.3 [degF] [facility]) Heart rate 63 /min 63 /min [facility]) Diastolic blood pressure 60 mm[Hg] 60 mm[Hg] [facility]) Systolic blood pressure 130 mm[Hg] 130 mm[Hg] M [facility] ([facility]) Body mass index (BMI) [Ratio] 28.1 kg/m2 28.1 k g/m2 [facility] ([facility]) Body weight 219.00 [lb_av] 219.00 [lb_av] [facility] T ([facility]) Oxygen saturation in Arterial blood by Pulse oximetry 97 % 97 % [facility] Respiratory rate 20 /min 20 /min [facility] Body temperature 36.56 Ángela 36.56 Ángela [facility] Heart rate 68 /min 68 /min [facility] Diastolic blood pressure 87 mm[Hg] 87 mm[Hg] [facility] Systolic blood pressure 143 mm[Hg] 143 mm[Hg] [facility] Body mass index (BMI) [Ratio] 27.98 kg/m2 27.98 kg/m2 [facility] Body weight 98.839 kg 98.839 kg [facility] Body height 188 cm 188 cm [facility] Heart rate 56 /min 56 /min [facility] Diastolic blood pressure 91 mm[Hg] 91 mm[Hg] [facility] Systolic blood pressure 152 mm[Hg] 152 mm[Hg] [facility] Oxygen saturation in Arterial blood by Pulse oximetry 96 % 96 % [facility] Respiratory rate 18 /min 18 /min [facility] Body temperature 36.5 Ángela 36.5 Ángela [facility] Body mass index (BMI) [Ratio] 28.23 kg/m2 28.23 kg/m2 [facility] Body weight 99.746 kg 99.746 kg [facility] Body height 188 cm 188 cm [facility] Oxygen saturation in Arterial blood by Pulse oximetry 97 % 97 % [facility] Respiratory rate 18 /min 18 /min [facility] Body temperature 36.83 Ángela 36.83 Ángela [facility] Heart rate 68 /min 68 /min [facility] Diastolic blood pressure 83 mm[Hg] 83 mm[Hg] [facility] Systolic blood pressure 147 mm[Hg] 147 mm[Hg] [facility] Body mass index (BMI) [Ratio] 28.76 kg/m2 28.76 kg/m2 [facility] Body weight 101.606 kg 101.606 kg [facility] Body height 188 cm 188 cm [facility] Oxygen saturation in Arterial blood by Pulse oximetry 96 % 96 % [facility] ([facility]) Body temperature 36.4 Ángela 36.4 Ángela [facility] ( [facility]) Body temperature 97.5 [degF] 97.5 [degF] [facility] ([facility]) Heart rate 64 /min 64 /min [facility]) Diastolic blood pressure 62 mm[Hg] 62 mm[Hg] [facility]) Systolic blood pressure 110 mm[Hg] 110 mm[Hg] M [facility] ([facility]) Body height 74 [in_i] 74 [in_i] [facility] ([facility]) 6'2" Oxygen saturation in Arterial blood by Pulse oximetry 96 % 96 % [facility] ([facility]) Body temperature 97.5 [degF] 97.5 [degF] [facility] ([facility]) Heart rate 64 /min 64 /min [facility]) Diastolic blood pressure 62 mm[Hg] 62 mm[Hg] [facility] ([facility]) Systolic blood pressure 110 mm[Hg] 110 mm[Hg] M [facility] ([facility]) Oxygen saturation in Arterial blood by Pulse oximetry 95 % 95 % [facility] Respiratory rate 18 /min 18 /min [facility] Body temperature 36.28 Ángela 36.28 Ángela [facility] Heart rate 91 /min 91 /min [facility] Diastolic blood pressure 74 mm[Hg] 74 mm[Hg] [facility] Systolic blood pressure 126 mm[Hg] 126 mm[Hg] [facility] Body mass index (BMI) [Ratio] 27.19 kg/m2 27.19 kg/m2 [facility] Body weight 96.1 kg 96.1 kg [facility] Body height 188 cm 188 cm [facility] Patient Treatment Plan of Care Planned Activity Planned Date Details Description Data Source (s) Leucovorin 5 MG Oral Tablet 04/16/2019 12:00:00 AM EDT [facility] Ondansetron 4 MG Disintegrating Oral Tablet 03/26/2019 12:00:00 AM EST [facility] carvedilol 6.25 MG Oral Tablet 02/20/2019 12:00:00 AM EST [facility] doxycycline hyclate 100 MG Oral Tablet 02/20/2019 12:00:00 AM EST [facility] 200 ACTUAT Ipratropium [place] 0.017 MG/ACTUAT Metered Dose Inhaler 01/31/2019 12:00:00 AM EST [facility] albuterol (PROVENTIL HFA;VENTOLIN HFA) 108 (90 Base) M CG/ACT inhaler 01/31/2019 12:00:00 AM EST [facility] carvedilol 6.25 MG Oral Tablet 01/31/2019 12:00:00 AM EST [facility] Prednisone 5 MG Oral Tablet 01/31/2019 12:00:00 AM EST [facility] Levofloxacin 750 MG Oral Tablet 01/31/2019 12:00:00 AM EST [facility] Azithromycin 500 MG Oral Tablet 01/31/2019 12:00:00 AM EST [facility] venlafaxine 37.5 MG Oral Tablet [facility] PREDNISONE PO [facility] Ondansetron 4 MG Disintegrating Oral Tablet [facility] gabapentin 300 MG Oral Capsule [facility] sodium chloride 0.9 % SOLN with methotrexate (PF) 50 MG/2ML SOLN [facility] VINCRISTINE SULFATE IV [facility] DOXOrubicin HCl (ADRIAMYCIN IV) [facility] Cyclophosphamide (CYTOXAN IJ) [facility] riTUXimab (RITUXAN IV) [facility] Pegfilgrastim (NEULASTA SC) [facility] Prednisone 20 MG Oral Tablet [facility] 8 HR Acetaminophen 650 MG Extended Release Oral Tablet [facility]
[2020-02-22] MEDS ORDERED: BOOSTRIX/ADACEL VACCINE (DIPHTH/PERTUSS/ACELL/TETANUS) 0.5ML SYR IM ONE (18:00)
[2020-02-22] MEDS ORDERED: LIDOCAINE 1% MDV 20ML VIAL SC ONE (18:00)
[2020-02-22] MEDS ORDERED: BACITRACIN OINTMENT 30GM TUBE TOP ONE (18:30)
[2020-02-22] MEDS ORDERED: CEPH500C PO (18:32)
--- OUTSIDE RECORDS SUMMARY | 2020-02-22 18:57 | CCD ---
Author Author [facility] Organization [facility] Address Unknown Phone Unavailable Care Team Providers Care Medical Manager Name Role Phone VINICIUS BOO MD Unavailable Unavailable VINICIUS BOO MD Unavailable Unavailable VINICIUS BOO MD Unavailable Unavailable VINICIUS BOO MD Unavailable Unavailable VINICIUS BOO MD Unavailable Unavailable VINICIUS BOO MD Unavailable Unavailable VINICIUS BOO MD Unavailable Unavailable VINICIUS BOO MD Unavailable Unavailable VINICIUS BOO MD Unavailable Unavailable VINICIUS BOO MD Unavailable Unavailable VINCIIUS BOO MD Unavailable Unavailable VINICIUS BOO MD [...] Asuncion Mcnamara MD Unavailable Unavailable Bogosian, Asuncion Mncamara MD Unavailable Unavailable Bogosian, Asuncion Mcnamara MD [...] Unavailable Unavailable ElvaDevang velasquez MD Unavailable Unavailable [place] velas[place] MD Unavailable Unavailable [place] velasquez MD Unavailable Unavailable ElvaDevang velasquez MD Unavailable Unavailable ElvaDevang velasquez MD Unavailable Unavailable [place] velasquez MD Unavailable Unavailable ElvaDevang velasquez MD Unavailable Unavailable ElvaDevang velasquez MD Unavailable Unavailable [place] velasquez MD Unavailable Unavailable [place] velasquez MD Unavailable Unavailable [place] velasquez MD Unavailable Unavailable ElvaDevang velasquez MD Unavailable Unavailable [place] velasquez MD Unavailable Unavailable [place] callaway MD Unavailable Unavailable ElvaDevang velasquez MD Unavailable Unavailable ElvaDevang callaway MD Unavailable Unavailable ElvaDevang velasquez MD Unavailable Unavailable [place] velasquez MD Unavailable Unavailable ElvaDevang callaway MD Unavailable Unavailable ElvaDevang callaway MD Unavailable Unavailable ElvaDevang callaway MD Unavailable Unavailable ElvaDevang callaway MD Unavailable Unavailable Devang Naylor MD Unavailable Unavailable ElvaDevang callaway MD Unavailable Unavailable ElvaDevang callaway MD Unavailable Unavailable ElvaDevang callaway MD Unavailable Unavailable ElvaDevang callaway MD Unavailable Unavailable [place] callaway MD Unavailable Unavailable ElvaDevang callaway MD Unavailable Unavailable [place] callaway MD Unavailable Unavailable ElvaDevang callaway MD Unavailable Unavailable [place] callaway MD Unavailable Unavailable ElvaDevang velasquez MD Unavailable Unavailable [place] callaway MD Unavailable Unavailable ElvaDevang velasquez MD Unavailable Unavailable [place] callaway MD Unavailable Unavailable [place] callaway MD Unavailable Unavailable ElvaDevang velasquez MD Unavailable Unavailable ElvaDevang callaway MD Unavailable Unavailable ElvaDevang velasquez MD Unavailable Unavailable ElvaDevang callaway MD Unavailable Unavailable ElvaDevang callaway MD Unavailable Unavailable [place] velasquez MD Unavailable Unavailable ElvaDevang callaway MD Unavailable Unavailable ElvaDevang velasquez MD Unavailable Unavailable Toro, R Carolina SYNCHRO ASSEMBLER Unavailable Unavailable Toro, R Carolina SYNCHRO ASSEMBLER Unavailable Unavailable Toro, R Carolina SYNCHRO ASSEMBLER Unavailable Unavailable Toro, R Carolina SYNCHRO ASSEMBLER Unavailable Unavailable Toro, R Carolina SYNCHRO ASSEMBLER Unavailable Unavailable Toro, R Carolina SYNCHRO ASSEMBLER Unavailable Unavailable Toro, R Carolina SYNCHRO ASSEMBLER Unavailable Unavailable Toro, R Carolina SYNCHRO ASSEMBLER Unavailable Unavailable Toro, R Carolina SYNCHRO ASSEMBLER Unavailable Unavailable Toro, R Carolina SYNCHRO ASSEMBLER Unavailable Unavailable Toro, R Carolina SYNCHRO ASSEMBLER Unavailable Unavailable Toro, R Carolina SYNCHRO ASSEMBLER Unavailable Unavailable Toro, R Carolina SYNCHRO ASSEMBLER Unavailable Unavailable Toro, R Carolina SYNCHRO ASSEMBLER Unavailable Unavailable Toro, R Carolina SYNCHRO ASSEMBLER Unavailable Unavailable Toro, R Carolina SYNCHRO ASSEMBLER Unavailable Unavailable Toro, R Carolina SYNCHRO ASSEMBLER Unavailable Unavailable Toro, R Carolina SYNCHRO ASSEMBLER Unavailable Unavailable Toro, R Carolina SYNCHRO ASSEMBLER Unavailable Unavailable Toro, R Carolina SYNCHRO ASSEMBLER Unavailable Unavailable Toro, R Carolina SYNCHRO ASSEMBLER Unavailable Unavailable Toro, R Carolina SYNCHRO ASSEMBLER Unavailable Unavailable Toro, R Carolina SYNCHRO ASSEMBLER Unavailable Unavailable Toro, R Carolina SYNCHRO ASSEMBLER Unavailable Unavailable Toro, R Carolina SYNCHRO ASSEMBLER Unavailable Unavailable Toro, R Carolina SYNCHRO ASSEMBLER Unavailable Unavailable Toro, R Carolina SYNCHRO ASSEMBLER Unavailable Unavailable Toro, R Carolina SYNCHRO ASSEMBLER Unavailable Unavailable Toro, R Carolina SYNCHRO ASSEMBLER Unavailable Unavailable Toro, R Carolina SYNCHRO ASSEMBLER Unavailable Unavailable Toro, R Carolina SYNCHRO ASSEMBLER Unavailable Unavailable Toro, R [place] SYNCHRO ASSEMBLER Unavailable Unavailable Janelle AGUIRRE MD Unavailable Unavailable [...] Unavailable Unavailable Janelle AGUIRRE MD Unavailable Unavailable Janlele AGUIRRE MD Unavailable Unavailable Janelle AGUIRRE MD [...] Unavailable Pudusseri, Amber Unavailable Pudusseri, Amber Unavailable BRET, Avtar HUGO MD Unavailable Unavailable [...] Janelle MAHONEY MD Unavailable Unavailable RASHIDA, Janelle AMHONEY MD Unavailable Unavailable RASHIDA, Janelle MAHONEY MD [...] RASHIDA, Janelle MAHONEY MD Unavailable Unavailable RASHIDA, Janelel MAHONEY MD Unavailable Unavailable RASHIDA, Janelle MAHONEY [...] Stack MD Unavailable Unavailable ZABOROWSKI, J VIDAL SYNCHRO ASSEMBLER Unavailable Unavailable ZABOROWSKI, J VIDAL SYNCHRO ASSEMBLER Unavailable Unavailable ZABOROWSKI, J VIDAL SYNCHRO ASSEMBLER Unavailable Unavailable ZABOROWSKI, J VIDAL SYNCHRO ASSEMBLER Unavailable Unavailable ZABOROWSKI, J VIDAL SYNCHRO ASSEMBLER Unavailable Unavailable ZABOROWSKI, J VIDAL SYNCHRO ASSEMBLER Unavailable Unavailable ZABOROWSKI, J VIDAL SYNCHRO ASSEMBLER Unavailable Unavailable ZABOROWSKI, J VIDAL SYNCHRO ASSEMBLER Unavailable Unavailable ZABOROWSKI, J VIDAL SYNCHRO ASSEMBLER Unavailable Unavailable ZABOROWSKI, J VIDAL SYNCHRO ASSEMBLER Unavailable Unavailable ZABOROWSKI, J VIDAL SYNCHRO ASSEMBLER Unavailable Unavailable ZABOROWSKI, J VIDAL SYNCHRO ASSEMBLER Unavailable Unavailable ZABOROWSKI, J VIDAL SYNCHRO ASSEMBLER Unavailable Unavailable ZABOROWSKI, J VIDAL SYNCHRO ASSEMBLER Unavailable Unavailable ZABOROWSKI, J VIDAL SYNCHRO ASSEMBLER Unavailable Unavailable ZABOROWSKI, J VIDAL SYNCHRO ASSEMBLER Unavailable Unavailable ZABOROWSKI, J VIDAL SYNCHRO ASSEMBLER Unavailable Unavailable ZABOROWSKI, J VIDAL SYNCHRO ASSEMBLER Unavailable Unavailable ZABOROWSKI, J VIADL SYNCHRO ASSEMBLER Unavailable Unavailable ZABOROWSKI, J VIDAL SYNCHRO ASSEMBLER Unavailable Unavailable ZABOROWSKI, J VIDAL SYNCHRO ASSEMBLER Unavailable Unavailable ZABOROWSKI, J VIDAL SYNCHRO ASSEMBLER Unavailable Unavailable ZABOROWSKI, J VIDAL SYNCHRO ASSEMBLER Unavailable Unavailable ZABOROWSKI, J VIDAL SYNCHRO ASSEMBLER Unavailable Unavailable ZABOROWSKI, J VIDAL SYNCHRO ASSEMBLER Unavailable Unavailable ZABOROWSKI, J VIDAL SYNCHRO ASSEMBLER Unavailable Unavailable ZABOROWSKI, J VIDAL SYNCHRO ASSEMBLER Unavailable Unavailable ZABOROWSKI, J VIDAL SYNCHRO ASSEMBLER Unavailable Unavailable ZABOROWSKI, J VIDAL SYNCHRO ASSEMBLER Unavailable Unavailable ZABOROWSKI, J VIDAL SYNCHRO ASSEMBLER Unavailable Unavailable ZABOROWSKI, J VIDAL SYNCHRO ASSEMBLER Unavailable Unavailable ZABOROWSKI, J VIDAL SYNCHRO ASSEMBLER Unavailable Unavailable ZABOROWSKI, J VIDAL SYNCHRO ASSEMBLER Unavailable Unavailable ZABOROWSKI, J VIDAL SYNCHRO ASSEMBLER Unavailable Unavailable ZABOROWSKI, J VIDAL SYNCHRO ASSEMBLER Unavailable Unavailable ZABOROWSKI, J VIDAL SYNCHRO ASSEMBLER Unavailable Unavailable ZABOROWSKI, J VIDAL SYNCHRO ASSEMBLER Unavailable Unavailable ZABOROWSKI, J VIDAL SYNCHRO ASSEMBLER Unavailable Unavailable ZABOROWSKI, J VIDAL SYNCHRO ASSEMBLER Unavailable Unavailable ZABOROWSKI, J VIDAL SYNCHRO ASSEMBLER Unavailable Unavailable ZABOROWSKI, J VIDAL SYNCHRO ASSEMBLER Unavailable Unavailable ZABOROWSKI, J VIDAL SYNCHRO ASSEMBLER Unavailable Unavailable ZABOROWSKI, J VIDAL SYNCHRO ASSEMBLER Unavailable Unavailable DIMPLEBOROWSKI, J VIDAL SYNCHRO ASSEMBLER Unavailable Unavailable Janelle BARNES MD Unavailable Unavailable [...] MD Unavailable Unavailable MOLLYJanelle MD Unavailable Unavailable MLOLYJanelle MD Unavailable Unavailable MOLLYJanelle MD Unavailable Unavailable [...] is protected by Article 27-F of the [facility] Public Health law. If you continue you may have access to information: Regarding HIV / AIDS; Provided by facilities licensed or operated by the [facility] Office of Mental Health; or Provided by the [facility] Office for People With Developmental Disabilities. If such information is present, then the following [facility] mandated warning applies: This information has [...] law may result in a fine or detention sentence or both. A general authorization for the release of medical or other information is NOT sufficient authorization for further disc losure. Allergies and Adverse Reactions Type Description Substance Reaction Status Data Source(s ) Propensity to adverse reactions SHRIMP (DIAGNOSTIC) Shrimp (Diagnos tic) Active [facility] Propensity to adverse reactions OTHER Other Acti ve [facility] Family History Family Member Name Family Member Gender Family Member Status Date o f Status Description Data Source(s) Unknown Male Problem [facility] ([facility] [place] Unknown Male Problem MEDENT ([facility]) Unknown Unknown Problem [facility] ([facility] Encounters Encounter Providers Location Date Indications Data Source(s ) Recurring Patient Referrer: Anders Canales MD 02/06/2020 09:20:55 AM EST [facility] Outpatient Attender: Amber RibeiroReferrer: BHAVANI QUEEN MD [id number] 01/15/2020 10:01:48 AM EST [facility] [place] [place] Outpatient Attender: Amber RibeiroReferrer: BHAVANI QUEEN MD [...] Marck callaway MD 11/15/2019 07:58:23 AM EDT [facility] Outpatient Attender: GHANSHYAM AGUIRRE MDReferrer: Marck flores MD 11/09/2019 10:24:40 AM EDT [facility] Outpatient 11/02/2019 01:25:00 PM EDT [facility] Outpatient 11/02/2019 01:25:00 PM EDT [facility] Recurring Patient Referrer: Anders Canales MD 11/01/2019 03:12:58 PM EDT [facility] Recurring Patient Referrer: Anders Canales MD 11/01/2019 03:11:48 PM EDT [facility] Recurring Patient Referrer: Anders Canales MD 11/01/2019 03:04:58 PM EDT [facility] Recurring Patient Referrer: Anders Canales MD 10/23/2019 03:52:25 PM EDT [facility] Outpatient Attender: ADELAIDA BARNES MD BF-[facility] 10/23/2019 07:41:45 AM EDT [facility] Outpatient Attender: Amber Ribeiro DO 10/17/2019 09:17:0 0 AM EDT [facility] Outpatient Attender: Amber Ribeiro DO 10/17/2019 09:17:0 0 AM EDT [facility] Outpatient Attender: Carolina Toro NPReferrer: Marck sidhu MD 10/16/2019 07:39:27 AM EDT [facility] Outpatient Referrer: ADELAIDA BARNES MD 10/11/2019 10:00:14 AM EDT [facility] Recurring Patient Referrer: Amber Ribeiro DO 10/10/2019 03:18:28 PM EDT [facility] Outpatient Attender: ADELAIDA BARNES MD [facility]-BF 020 12:00:00 AM EDT - 10/03/2019 03:02:55 PM EDT [facility] Outpatient Attender: ADELAIDA BARNES MD BF-BF 09/12/2019 12:00:00 AM EDT [facility] Outpatient Attender: ADELAIDA BARNES MD [facility] 09/05/2019 12:00:00 AM EDT [facility] Outpatient 07/31/2019 03:30:00 PM EDT [facility] Outpatient 07/31/2019 03:30:00 PM EDT [facility] Outpatient Attender: Marck Naylor MD [facility] 07/27/2019 11:15:00 AM EDT [facility] ([facility] Outpatient 07/20/2019 02:30:00 PM EDT [facility] Outpatient Attender: Anders GARIBAYeferrer: Marck callaway MD 07/13/2019 09:36:07 AM EDT [facility] Outpatient Attender: Anders Canales MDReferrer: Marck callaway MD 06/29/2019 09:53:11 AM EDT [facility] Recurring Patient Referrer: Amber Ribeiro DO 06/27/2019 02:04:29 PM EDT [facility] Outpatient Attender: ADELAIDA BARNES MD BF-BF 020 07:37:23 AM EDT - 06/22/2019 10:43:40 AM EDT [facility] Inpatient Attender: GINNY Foster er: GINNY Castroender: AMBER ALLENdmitter: AMBER RIBEIRO [id number] 04/10/2019 01:56:00 PM EST - 04/16/2019 12:26:00 PM EDT [facility] Patient discharged. Inpatient Attender: Kaden Cade tender: AMBER ALLENdmitter: Kaden Sims DOConsultant: Kaden Sims DO [id number] 03/21/2019 10:55 :00 AM EST - 03/26/2019 11:06:00 AM EST [facility] Patient discharged. Inpatient Attender: VINICIUS Cervantes chen: AMBER ALLENdmitter: AMBER RIBEIRO [id number] 02/27/2019 10:25:00 AM EST - 03/04/2019 12:41:00 PM EST [facility] Patient discharged. Outpatient Referrer: VIDAL SHANNON NP 02/20/2019 09:42:3 4 AM EST [facility] Outpatient Attender: VIDAL SHANNON NP [facility] 12:00:00 AM EST - 02/20/2019 02:27:24 PM EST [facility] Outpatient Attender: Amber Ribeiro DO 02/16/2019 09:30:0 0 AM EST [facility] Inpatient Attender: Karthikeyan Mccloud MDAt tender: Carolyn Gonzalo MDAttender: Naty Griffin DOAttender: Virginia Burch MDAdmitter: Karthikeyan Mccloud MD [id number] 01/28/2019 01:01:55 PM EST - 01/31/2019 01:48:[address] [facility] Patient discharged. Outpatient 01/19/2019 10:00:00 AM EST [facility] Outpatient Attender: PLACIDO FIELD MDReferrer: Amber rosado 12/25/2018 12:10:48 PM EST [facility] Outpatient Referrer: Jerel Sharpe MD [facility] 09/11/2018 12:52:24 PM EDT - 09/11/2018 03:06:33 PM EDT [facility] Medications Medication Brand Name Start Date Product [...] by mouth every 6 (six) ho urs [facility] potassium chloride SA (K-DUR,KLOR-CON) CR tablet 10 mEq [id number] 04/14/2019 09:00:00 AM EST 10 meq Oral completed 10 mEq, Oral, 2 times daily, First dose on 04/14/19 at 0900, For 2 days
Formulary change
[facility] Medication administered onsite Simethicone 80 MG Chewable Tablet simethicone (MYLICON ) chewable tablet 120 mg simethicone (MYLICON) chewable tablet 120 mg 04/14/2019 08:12:49 AM EST 120 mg Oral active 120 mg, Or al, 4 times daily PRN, flatulence, Starting 04/14/19 at 0812 [facility] Medication administered onsite Simethicone 80 MG Chewable Tablet simethicone (MYLICON ) chewable tablet 80 mg simethicone (MYLICON) chewable tablet 80 mg 04/13/2019 11:29:21 AM EST 80 mg Oral aborted 80 mg, Oral, 4 times daily PRN, flatulence, Starting 04/13/19 at 1129 [facility] Medication administered onsite leucovorin 20 mg in dextrose 5 % 100 mL infusion 04/11 12:00:00 PM EST 20 mg Intravenous aborted 20 mg, I ntravenous, Administer over 15 Minutes, Every 6 hours (scheduled), First dose on Colleen 04/12/19 at 1200
Leucovorin rescue 20 mg Q6h starting 24 hours after Methotrexate infusion
[facility] Medication administered onsite Docusate Sodium 100 MG Oral Capsule docusate sodium (C OLACE) capsule 500 mg docusate sodium (COLACE) capsule 500 mg 04/12/2019 09:00:00 AM EST 500 mg Oral active 500 mg, Oral, 2 times daily, First dose on Colleen 04/12/19 at 0900
hold for loose stools
[facility] Medication administered onsite Docusate Sodium 100 MG Oral Capsule docusate sodium (C OLACE) capsule 300 mg docusate sodium (COLACE) capsule 300 mg 04/11/2019 10:00:00 PM EST 300 mg Oral completed 300 mg, Oral, Once, Tue04/11/19 at 2200, For 1 dose
hold for loose stools
[facility] Medication administered onsite sodium bicarbonate 150 mEq in dextrose 5 % 1,000 mL infusion 04/11/2019 09:00:00 PM EST 150 meq Intravenous active at 125 mL/hr, 150 mEq, Intravenous, Continuous, Starting Tue04/11/19 at 2100 [facility] Medication administered onsite Sodium Bicarbonate 650 MG Oral Tablet sodium bicarbona te tablet 650 mg sodium bicarbonate tablet 650 mg 04/11/2019 08:23:49 PM EST 650 mg Oral active 650 mg, Oral, Nightly PRN, correction of urine pH to keep at 8 or above, Starting Tue04/11/19 at 2023 [facility] Medication administered onsite Acetaminophen 325 MG Oral Tablet acetaminophen (TYLENO L) 325 MG tablet 650 mg acetaminophen (TYLENOL) 325 MG tablet 650 mg 04/11/2019 07:06:42 PM EST 650 mg Oral active 650 mg, Or al, Every 4 hours PRN, mild pain (1-3), fever, fever, Starting Tue04/11/19 at 1906 [facility] Medication administered onsite methotrexate (PF) 8,000 mg in sodium chloride (NS) 0.9 % 500 mL chemo infusion 04/11/2019 12:00:00 PM EST 8000 mg Intravenous compl eted 8,000 mg, Intravenous, Administer over 4 Hours, Once, Tue04/11/19 at 1200, For 1 dose
3.5g/m2 rounded down to whole vials per policy
[facility] Medication administered onsite granisetron (KYTRIL) injection 1 mg [id number] 04/11/2019 11:00:0 0 AM EST 1 mg Intravenous completed 1 mg, In travenous, Once, Tue04/11/19 at 1100, For 1 dose
Please administer 30 minutes prior to methotrexate infusion
[facility] Medication administered onsite Potassium Chloride 8 MEQ Extended Releas e Oral Tablet potassium chloride (KLOR- CON) CR tablet 8 mEq potassium chloride (KLOR-CON) CR tablet 8 mEq 04/11/19 09:00:00 AM EST 8 meq Oral aborted 8 mEq, Oral, Every 48 hours, First dose on Tue04/11/19 at 0900
Formulary change
[facility] Medication administered onsite Levothyroxine Sodium 0.075 MG Oral Table t levothyroxine (SYNTHROID, LEVOTHROID) tablet 75 mcg levothyroxine (SYNTHROID, LEVOTHROID) tablet 75 mcg 06:00:00 AM EST 75 ug Oral active 75 mcg, Oral, Daily, First dose on Tue04/11/19 at 0600 [facility] Medication administered onsite Acetazolamide 250 MG Oral Tablet acetaZOLAMIDE (DIAMOX ) tablet 250 mg acetaZOLAMIDE (DIAMOX) tablet 250 mg 04/11/2019 05:00:00 AM EST 250 m g Oral aborted 250 mg, Oral, Ev cindy 6 hours (scheduled), First dose on Tue04/11/19 at 0500 [facility] Medication administered onsite 12 HR ranolazine 500 MG Extended Release Oral Tablet ranolazine (RANEXA) 12 hr tablet 500 mg ranolazine (RANEXA) 12 hr tablet 500 mg 04/10/2019 09: 00:00 PM EST 500 mg Oral active 500 mg, Oral, 2 times daily, First dose on Tue04/10/19 at 2099 [facility] Medication administered onsite Rosuvastatin calcium 20 MG Oral Tablet rosuvastatin (C RESTOR) tablet 40 mg rosuvastatin (CRESTOR) tablet 40 mg 04/10/2019 09:00:00 PM EST 40 mg Oral active 40 mg, Oral, Nightly, First dose on Tue04/10/19 at 2099 [facility] Medication administered onsite MAGNESIUM GLUCONATE 500 MG Oral Tablet m agnesium gluconate (MAGONATE) tablet 500 mg magnesium gluconate (MAGONATE) tablet 500 mg 04/10/2019 09:00:00 PM EST 500 mg Oral active 500 mg, Oral, Nightly, F irst dose on Tue04/10/19 at 2099 [facility] Medication administered onsite Docusate Sodium 100 MG Oral Capsule docusate sodium (C OLACE) capsule 200 mg docusate sodium (COLACE) capsule 200 mg 04/10/2019 09:00:00 PM EST 200 mg Oral aborted 200 mg, Oral, 2 times daily, First dose on Tue04/10/19 at 2100
hold for loose stools Docusate 250mg po bid to 200mg po bid formulary change
[facility] Medication administered onsite carvedilol 6.25 MG Oral Tablet carvedilol (COREG) tabl et 6.25 mg carvedilol (COREG) tablet 6.25 mg 04/10/2019 09:00:00 PM EST 6.25 mg Oral active 6.25 mg, Oral, 2 times daily, First dose on Tue04/10/19 at 2100
Hold for SBP < 100 or HR < 55
[facility] Medication administered onsite sennosides, GROUP HOME 8.6 MG Oral Tablet senna (SENOKOT) tab let 8.6 mg senna (SENOKOT) tablet 8.6 mg 04/10/2019 07:14:12 PM EST 8.6 mg Oral acti ve 8.6 mg, Oral, 2 times daily PRN, constipation, Starting Tue04/10/19 at 1914
Hold for loose stools.If patient is unable to swallow the tablet, nursing should crush and dissolve tablet in 10-15 ml of water prior to administration
[facility] Medication administered onsite gabapentin 300 MG Oral Capsule gabapentin (NEURONTIN) capsule 900 mg gabapentin (NEURONTIN) capsule 900 mg 04/10/2019 07:12:35 PM EST 900 mg Oral active 900 mg, Oral, Daily [facility]N, [facility], Starting Tue04/10/19 at 1912 [facility] Medication administered onsite POLYETHYLENE GLYCOL 3350 142 MG/ML Oral Solution polyethylene glycol (GLYCOLAX) packet 17 g polyethylene glycol (GLYCOLAX) packet 17 g 04/10/2019 07:00:00 PM EST 17 g Oral active 17 g, Or al, Daily, First dose on Tue04/10/19 at 1900
hold for loose stools
[facility] Medication administered onsite prasugrel 10 MG Oral Tablet prasugrel (EFFIENT) tablet 10 mg prasugrel (EFFIENT) tablet 10 mg 04/10/2019 06:00:00 PM EST 10 mg Oral activ e 10 mg, Oral, Daily, First dose on Tue04/10/19 at 1800 [facility] Medication administered onsite Pramipexole dihydrochloride 0.5 MG Oral Tablet pramipexole (MIRAPEX) tablet 0.5 mg pramipexole (MIRAPEX) tablet 0.5 mg 04/10/2019 06:00:00 PM EST 0.5 mg Oral active 0.5 mg, Oral, Nightly, Fi rst dose on Tue04/10/19 at 1800 [facility] Medication administered onsite 24 HR venlafaxine 37.5 MG Extended Relea se Oral Capsule venlafaxine (EFFEXOR-XR) 24 hr capsule 37.5 mg venlafaxine (EFFEXOR-XR) 24 hr capsule 37.5 mg 06:00:00 PM EST 37.5 mg Oral active 37.5 mg, Oral, Daily, First dose on Tue04/10/19 at 1800 [facility] Medication administered onsite gabapentin 300 MG Oral Capsule gabapentin (NEURONTIN) capsule 900 mg gabapentin (NEURONTIN) capsule 900 mg 04/10/2019 06:00:00 PM EST 900 mg Oral active 900 mg, Oral, 2 times daily, First dose on Tue04/10/19 at 1800 [facility] Medication administered onsite 24 HR Isosorbide Mononitrate 30 MG Exten ded Release Oral Tablet isosorbide mononitrate (IMDUR) 24 hr tablet 30 mg isosorbide mononitrate (IMDUR) 24 hr tablet 30 mg 04/10/2019 06:00:00 PM EST 30 mg Oral activ e 30 mg, Oral, 2 times daily, First dose on Tue04/10/19 at 1800 [facility] Medication administered onsite Lisinopril 5 MG Oral Tablet lisinopril (PRINIVIL,ZESTR IL) tablet 2.5 mg lisinopril (PRINIVIL,ZESTRIL) tablet 2.5 mg 04/10/2019 06:00:00 PM EST 2.5 mg Oral active 2.5 mg, Oral, Daily, First dose on Tue04/10/19 at 1800
Hold for SBP < 100
[facility] Medication administered onsite Loratadine 10 MG Oral Tablet loratadine (CLARITIN) tab let 10 mg loratadine (CLARITIN) tablet 10 mg 04/10/2019 06:00:00 PM EST 10 mg Oral active 10 mg, Oral, Daily, First dose on Tue04/10/19 at 1800 [facility] Medication administered onsite Aspirin 81 MG Delayed Release Oral Tablet aspirin EC t ablet 81 mg aspirin EC tablet 81 mg 04/10/2019 06:00:00 PM EST 81 mg Oral activ e 81 mg, Oral, Daily, First dose on Tue04/10/19 at 1800 [facility] Medication administered onsite ondansetron (ZOFRAN) injection 4 mg [id number] 04/10/2019 04:41:4 2 PM EST 4 mg Intravenous active 4 mg, In travenous, Every 6 hours PRN, nausea, vomiting, Starting Tue04/10/19 at 1641 [facility] Medication administered onsite normal saline flush 0.9 % injection 10 mL [id number] 04/10/2019 04:00:00 PM EST 10 mL Intravenous active 10 m L, Intravenous, Every 8 hours (scheduled), First dose on Tue04/10/19 at 1600
Flush with 10 mL NS prior and post medication administration.Flush with 10 mL NS prior to blood specimen collection and flush with 20 mL to clear solution/drug post blood specimen collection
[facility] Medication administered onsite 1 ML heparin sodium, porcine 100 UNT/ML Injection heparin 100 UNIT/ML injection 500 Units heparin 100 UNIT/ML injection 500 Units 04/10/2019 04:00:[address] 500 U active 500 Units, Intracatheter, Daily (06), First dose on Tue04/10/19 at 1600
For open ended ports without IV fluid runningRefer to policy: [email or web address]
[facility] Medication administered onsite sodium bicarbonate 150 mEq in dextrose 5 % 1,000 mL infusion 04/10/2019 03:00:00 PM EST 150 meq Intravenous aborted at 125 mL/hr, 150 mEq, Intravenous, Continuous, Starting 04/10/19 at 1500 [facility] Medication administered onsite gabapentin 300 MG Oral Capsule gabapentin (NEURONTIN) capsule 600 mg gabapentin (NEURONTIN) capsule 600 mg 03/26/2019 02:00:00 AM EST 600 mg Oral completed 600 mg, Oral, Once, 03/26/19 at 0200, For 1 dose [facility] Medication administered onsite Ondansetron 4 MG Disintegrating Oral Tab let ondansetron (ZOFRAN-ODT) 4 MG disintegrating tablet ondansetron (ZOFRAN-ODT) 4 MG disintegrating tablet 03/26/2019 12:00:00 AM EST 4 mg Oral active Take 1 tablet (4 mg total) by mouth every 8 (eight) hours as needed for nausea [facility] 4 mg 03/26/2019 12:00:00 AM EST [...] daily, First dose on 03/25/19 at 1600 [facility] Medication administered onsite sodium bicarbonate 150 mEq in dextrose 5 % 1,000 mL infusion 03/25/2019 02:00:00 AM EST 150 meq Intravenous aborted at 175 mL/hr, 150 mEq, Intravenous, Continuous, Starting 03/25/19 at 0200, For 72 hours [facility] Medication administered onsite sodium bicarbonate 150 mEq in dextrose 5 % 1,000 mL infusion 03/24/2019 10:00:00 PM EST 150 meq Intravenous aborted at 200 mL/hr, 150 mEq, Intravenous, Continuous, Starting 03/24/19 at 2200, For 4 hours [facility] Medication administered onsite Sodium Bicarbonate 650 MG Oral Tablet sodium bicarbona te tablet 650 mg sodium bicarbonate tablet 650 mg 03/24/2019 10:00:00 PM EST 650 mg Oral completed 650 mg, Oral, Once, 03/24/19 at 2200, For 1 dose [facility] Medication administered onsite sennosides, GROUP HOME 8.6 MG Oral Tablet senna (SENOKOT) tab let 17.2 mg senna (SENOKOT) tablet 17.2 mg 03/24/2019 07:40:40 AM EST 17.2 mg Oral active 17.2 mg, Oral, 2 times daily PRN, pooja johnson, Starting 03/24/19 at 0740
Hold for loose stools.If patient is unable to swallow the tablet, nursing should crush and dissolve tablet in 10-15 ml of water prior to administration
[facility] Medication administered onsite Metoclopramide 10 MG Oral Tablet metoclopramide (TOSHA N) tablet 10 mg metoclopramide (REGLAN) tablet 10 mg 03/24/2019 07:00:00 AM EST 10 mg Oral active 10 mg, Oral, 3 t imes daily before meals, First dose on 03/24/19 at 0700 [facility] Medication administered onsite Sodium Bicarbonate 650 MG Oral Tablet sodium bicarbona te tablet 650 mg sodium bicarbonate tablet 650 mg 03/23/2019 10:00:00 PM EST 650 mg Oral completed 650 mg, Oral, Once, 03/23/19 at 2200, For 1 dose [facility] Medication administered onsite leucovorin 20 mg in dextrose 5 % 100 mL infusion 03/23 12:30:00 PM EST 20 mg Intravenous aborted 20 mg, I ntravenous, Administer over 15 Minutes, Every 6 hours (scheduled), First dose on Tue03/23/19 at 1300
Continue until methotrexate level less than 0.1
[facility] Medication administered onsite sodium bicarbonate 150 mEq in dextrose 5 % 1,000 mL infusion 03/23/2019 02:00:00 AM EST 150 meq Intravenous aborted at 175 mL/hr, 150 mEq, Intravenous, Continuous, Starting Tue03/23/19 at 0200 [facility] Medication administered onsite Pramipexole dihydrochloride 0.5 MG Oral Tablet pramipexole (MIRAPEX) tablet 0.5 mg pramipexole (MIRAPEX) tablet 0.5 mg 03/22/2019 05:00:00 PM EST 0.5 mg Oral active 0.5 mg, Oral, Daily, Firs t dose on Colleen 03/22/19 at 1700 [facility] Medication administered onsite methotrexate (PF) 7,980 mg in sodium chloride (NS) 0.9 % 500 mL chemo infusion 03/22/2019 11:00:00 AM EST 3500 mg/m2 Intravenous co mpleted 7,980 mg (3,500 mg/m2 2.28 m2), Intravenous, Administer over 4 Hours, Once, Colleen 03/22/19 at 1100, For 1 dose
Methotrexate 3.5 g/m2 IV x 1Cycle 2
[facility] Medication administered onsite Docusate Sodium 100 MG Oral Capsule docusate sodium (C OLACE) capsule 500 mg docusate sodium (COLACE) capsule 500 mg 03/22/2019 10:00:00 AM EST 500 mg Oral active 500 mg, Oral, 2 time s daily, First dose on Colleen 03/22/19 at 1000 [facility] Medication administered onsite Dexamethasone Sod Phosphate PF SOLN 10 mg [id number] 03/22/2019 10:00:00 AM EST 10 mg Intravenous completed 10 mg, Intravenous, Once, Colleen 03/22/19 at 1000, For 1 dose
Administer 30 minutes prior to Methotrexate
[facility] Medication administered onsite granisetron (KYTRIL) injection 1 mg [id number] 03/22/2019 10:00:0 0 AM EST 1 mg Intravenous completed 1 mg, In travenous, Once, Colleen 03/22/19 at 1000, For 1 dose
Administer 30 minutes prior to Methotrexate
[facility] Medication administered onsite Aspirin 81 MG Delayed Release Oral Tablet aspirin EC t ablet 81 mg aspirin EC tablet 81 mg 03/22/2019 09:00:00 AM EST 81 mg Oral activ e 81 mg, Oral, Daily, First dose on Colleen 03/22/19 at 0900 [facility] Medication administered onsite POLYETHYLENE GLYCOL 3350 142 MG/ML Oral Solution polyethylene glycol (GLYCOLAX) packet 17 g polyethylene glycol (GLYCOLAX) packet 17 g 03/22/2019 09:00:00 AM EST 17 g Oral active 17 g, Or al, Daily, First dose on Colleen 03/22/19 at 0900
hold for loose stools
[facility] Medication administered onsite Lisinopril 5 MG Oral Tablet lisinopril (PRINIVIL,ZESTR IL) tablet 2.5 mg lisinopril (PRINIVIL,ZESTRIL) tablet 2.5 mg 03/22/2019 09:00:00 AM EST 2.5 mg Oral active 2.5 mg, Oral, Daily, First dose on Colleen 03/22/19 at 0900
Hold for SBP < 100
[facility] Medication administered onsite venlafaxine 37.5 MG Oral Tablet venlafaxine (EFFEXOR) tablet 37.5 mg venlafaxine (EFFEXOR) tablet 37.5 mg 03/22/2019 09:00:00 AM EST 37.5 mg Oral active 37.5 mg, Oral, Daily, First dose on Colleen 03/22/19 at 090 0 [facility] Medication administered onsite prasugrel 10 MG Oral Tablet prasugrel (EFFIENT) tablet 10 mg prasugrel (EFFIENT) tablet 10 mg 03/22/2019 09:00:00 AM EST 10 mg Oral activ e 10 mg, Oral, Daily, First dose on Colleen 03/22/19 at 0900 [facility] Medication administered onsite Levothyroxine Sodium 0.075 MG Oral Table t levothyroxine (SYNTHROID, LEVOTHROID) tablet 75 mcg levothyroxine (SYNTHROID, LEVOTHROID) tablet 75 mcg 06:00:00 AM EST 75 ug Oral active 75 mcg, Oral, Daily (0600), First dose on Colleen 03/22/19 at 0600 [facility] Medication administered onsite MAGNESIUM GLUCONATE 500 MG Oral Tablet m agnesium gluconate (MAGONATE) tablet 500 mg magnesium gluconate (MAGONATE) tablet 500 mg 03/21/2019 09:00:00 PM EST 500 mg Oral active 500 mg, Oral, Nightly, F irst dose on Tue03/21/19 at 2099 [facility] Medication administered onsite carvedilol 6.25 MG Oral Tablet carvedilol (COREG) tabl et 6.25 mg carvedilol (COREG) tablet 6.25 mg 03/21/2019 09:00:00 PM EST 6.25 mg Oral active 6.25 mg, Oral, 2 times daily, First dose on Tue03/21/19 at 2099 [facility] Medication administered onsite Docusate Sodium 100 MG Oral Capsule docusate sodium (C OLACE) capsule 100 mg docusate sodium (COLACE) capsule 100 mg 03/21/2019 09:00:00 PM EST 100 mg Oral aborted 100 mg, Oral, 2 time s daily, First dose on Tue03/21/19 at 2099 [facility] Medication administered onsite gabapentin 300 MG Oral Capsule gabapentin (NEURONTIN) capsule 900 mg gabapentin (NEURONTIN) capsule 900 mg 03/21/2019 09:00:00 PM EST 900 mg Oral active 900 mg, Oral, 2 times daily, First dose on Tue03/21/19 at 2099 [facility] Medication administered onsite 12 HR ranolazine 500 MG Extended Release Oral Tablet ranolazine (RANEXA) 12 hr tablet 500 mg ranolazine (RANEXA) 12 hr tablet 500 mg 03/21/2019 09: 00:00 PM EST 500 mg Oral active 500 mg, Oral, 2 times daily, First dose on Tue03/21/19 at 2099 [facility] Medication administered onsite Rosuvastatin calcium 20 MG Oral Tablet rosuvastatin (C RESTOR) tablet 40 mg rosuvastatin (CRESTOR) tablet 40 mg 03/21/2019 09:00:00 PM EST 40 mg Oral active 40 mg, Oral, Nightly, First dose on Tue03/21/19 at 2099 [facility] Medication administered onsite normal saline flush 0.9 % injection 10 mL [id number] 03/21/2019 04:00:00 PM EST 10 mL Intravenous active 10 m L, Intravenous, Every 8 hours (scheduled), First dose on Tue03/21/19 at 1600
Flush with 10 mL NS prior and post medication administration.Flush with 10 mL NS prior to blood specimen collection and flush with 20 mL to clear solution/drug post blood specimen collection
[facility] Medication administered onsite Prochlorperazine 10 MG Oral Tablet prochlorperazine (C OMPAZINE) tablet 10 mg prochlorperazine (COMPAZINE) tablet 10 mg 03/21/2019 02:48:25 PM EST 10 mg Oral active 10 mg, Oral, E very 6 hours PRN, nausea, vomiting, chemotherapy induced nausea / vomiting, Starting Tue03/21/19 at 1448 [facility] Medication administered onsite 24 HR Isosorbide Mononitrate 30 MG Exten ded Release Oral Tablet isosorbide mononitrate (IMDUR) 24 hr tablet 30 mg isosorbide mononitrate (IMDUR) 24 hr tablet 30 mg 03/21/2019 02:00:00 PM EST 30 mg Oral activ e 30 mg, Oral, 2 times daily, First dose on Tue03/21/19 at 1400 [facility] Medication administered onsite Loratadine 10 MG Oral Tablet loratadine (CLARITIN) tab let 10 mg loratadine (CLARITIN) tablet 10 mg 03/21/2019 02:00:00 PM EST 10 mg Oral active 10 mg, Oral, Daily, First dose on Tue03/21/19 at 1400 [facility] Medication administered onsite sodium bicarbonate 150 mEq in dextrose 5 % 1,000 mL infusion 03/21/2019 01:00:00 PM EST 150 meq Intravenous aborted at 150 mL/hr, 150 mEq, Intravenous, Continuous, Starting Tue03/21/19 at 1300 [facility] Medication administered onsite POLYETHYLENE GLYCOL 3350 142 MG/ML Oral Solution polyethylene glycol (GLYCOLAX) packet 17 g polyethylene glycol (GLYCOLAX) packet 17 g 03/21/2019 12:33:00 PM EST 17 g Oral active 17 g, Or al, Nightly PRN, persistent constipation, Starting Tue03/21/19 at 1233
hold for loose stools
[facility] Medication administered onsite Nitroglycerin 0.4 MG Sublingual Tablet n itroglycerin (NITROSTAT) SL tablet 0.4 mg nitroglycerin (NITROSTAT) SL tablet 0.4 mg 03/21/2019 12:30:56 P M EST 0.4 mg Sublingual active 0.4 mg, S ublingual, Every 5 min PRN, chest pain, Starting Tue03/21/19 at 1230
May administer up to 3 doses per episode.
[facility] Medication administered onsite Albuterol 0.83 MG/ML Inhalant Solution a lbuterol (PROVENTIL) nebulizer solution 2.5 mg albuterol (PROVENTIL) nebulizer solution 2.5 mg 2019 12:18:18 PM EST 2.5 mg active 2.5 mg, Nebulization, RT every 4 hours as needed, wheezing, shortness of breath, Starting Tue03/21/19 at 1218 [facility] Medication administered onsite ondansetron (ZOFRAN) injection 4 mg [id number] 03/21/2019 12:16:1 5 PM EST 4 mg Intravenous active 4 mg, In travenous, Every 6 hours PRN, nausea, vomiting, Starting Tue03/21/19 at 1216 [facility] Medication administered onsite Acetaminophen 325 MG [...] mg from all sources in 24 hours."
[facility] Medication administered onsite Bisacodyl 10 MG Rectal Suppository bisacodyl (DULCOLAX ) suppository 10 mg bisacodyl (DULCOLAX) suppository 10 mg 03/03/2019 06:00:00 PM EST 10 mg Rectal completed 10 mg, Rectal, Once, 03/03/19 at 1800, For 1 dose
hold for loose stools
[facility] Medication administered onsite magnesium citrate solution 296 mL [id number] 03/03/2019 11:00:00 AM EST 296 mL Oral completed 296 mL, Or al, Once, 03/03/19 at 1100, For 1 dose
hold for loose stools
[facility] Medication administered onsite Sodium Chloride 0.111 MEQ/ML Nasal Solut ion sodium chloride (OCEAN) 0.65 % nasal spray 2 spray sodium chloride (OCEAN) 0.65 % nasal spray 2 spray 06:06:41 PM EST 2 {spray} active 2 spray, Each Nare, As needed, congestion, Starting Tue03/02/19 at 1806
May leave medication at bedside
[facility] Medication administered onsite Docusate Sodium 50 MG / sennosides, GROUP HOME 8.6 MG Oral Tablet senna-docusate (PERICOLACE) 8.6-50 MG 2 tablet senna-docusate (PERICOLACE) 8.6-50 MG 2 tablet 03/02/2019 04:00:00 PM EST 2 {tbl} Oral active 2 tablet, Oral, 2 times daily, First dose on Tue03/02/19 at 1600
hold for loose stools
[facility] Medication administered onsite leucovorin 20 mg in dextrose 5 % 250 mL infusion 03/01 02:30:00 PM EST 20 mg Intravenous active 20 mg, I ntravenous, Administer over 30 Minutes, Every 6 hours (relative), First dose on Tue03/01/19 at 1430
Leucovorin rescue 10 mg/m2 IV Q6h to start 24 hours after start of MTX infusion.Continue until methotrexate level is <0.1
[facility] Medication administered onsite Pramipexole dihydrochloride 0.5 MG Oral Tablet pramipexole (MIRAPEX) tablet 0.5 mg pramipexole (MIRAPEX) tablet 0.5 mg 03/01/2019 09:00:00 AM EST 0.5 mg Oral active 0.5 mg, Oral, 2 times mercedes ly, First dose on Tue03/01/19 at 0900 [facility] Medication administered onsite gabapentin 300 MG Oral Capsule gabapentin (NEURONTIN) capsule 900 mg gabapentin (NEURONTIN) capsule 900 mg 03/01/2019 09:00:00 AM EST 900 mg Oral active 900 mg, Oral, 2 times daily, First dose on Colleen 03/01/19 at 0900 [facility] Medication administered onsite MAGNESIUM GLUCONATE 500 MG Oral Tablet m agnesium gluconate (MAGONATE) tablet 500 mg magnesium gluconate (MAGONATE) tablet 500 mg 02/28/2019 09:00:00 PM EST 500 mg Oral active 500 mg, Oral, Nightly, F irst dose on Tue02/28/19 at 2100 [facility] Medication administered onsite methotrexate (PF) 8,050 mg in sodium chloride (NS) 0.9 % 500 mL chemo infusion 02/28/2019 02:00:00 PM EST 3500 mg/m2 Intravenous co mpleted 8,050 mg (3,500 mg/m2 2.3 m2), Intravenous, Administer over 4 Hours, Once, Tue02/28/19 at 1400, For 1 dose
Methotrexate 3.5 g/m2 IV x 1 Cycle 1 as treatment of [employer] prophylaxis for DLBCL
[facility] Medication administered onsite dexamethasone (DECADRON) injection 10 mg [id number] 02/28/2019 01:00:00 PM EST 10 mg Intravenous completed 10 mg, Intravenous, Once, Tue02/28/19 at 1300, For 1 dose
Administer prior to methotrexate
[facility] Medication administered onsite granisetron (KYTRIL) injection 1 mg [id number] 02/28/2019 01:00:0 0 PM EST 1 mg Intravenous completed 1 mg, In travenous, Once, Tue02/28/19 at 1300, For 1 dose
Administer prior to methotrexate
[facility] Medication administered onsite Aspirin 81 MG Delayed Release Oral Tablet aspirin EC t ablet 81 mg aspirin EC tablet 81 mg 02/28/2019 09:00:00 AM EST 81 mg Oral activ e 81 mg, Oral, Daily, First dose on Tue02/28/19 at 0900 [facility] Medication administered onsite prasugrel 10 MG Oral Tablet prasugrel (EFFIENT) tablet 10 mg prasugrel (EFFIENT) tablet 10 mg 02/28/2019 09:00:00 AM EST 10 mg Oral activ e 10 mg, Oral, Daily, First dose on Tue02/28/19 at 0900 [facility] Medication administered onsite POLYETHYLENE GLYCOL 3350 142 MG/ML Oral Solution polyethylene glycol (GLYCOLAX) packet 17 g polyethylene glycol (GLYCOLAX) packet 17 g 02/28/2019 09:00:00 AM EST 17 g Oral active 17 g, Or al, Daily, First dose on Tue02/28/19 at 0900
hold for loose stools
[facility] Medication administered onsite Loratadine 10 MG Oral Tablet loratadine (CLARITIN) tab let 10 mg loratadine (CLARITIN) tablet 10 mg 02/28/2019 09:00:00 AM EST 10 mg Oral active 10 mg, Oral, Daily, First dose on Tue02/28/19 at 0900 [facility] Medication administered onsite Lisinopril 5 MG Oral Tablet lisinopril (PRINIVIL,ZESTR IL) tablet 2.5 mg lisinopril (PRINIVIL,ZESTRIL) tablet 2.5 mg 02/28/2019 09:00:00 AM EST 2.5 mg Oral active 2.5 mg, Oral, Daily, First dose on Tue02/28/19 at 0900
Hold for SBP < 100
[facility] Medication administered onsite DAILY DEEPA (THERAGRAN) 1 tablet [id number] 02/28/2019 09:00:00 AM EST 1 {tbl} Oral active 1 tablet, Oral, Daily, First dose on Tue02/28/19 at 0900 [facility] Medication administered onsite venlafaxine 37.5 MG Oral Tablet venlafaxine (EFFEXOR) tablet 37.5 mg venlafaxine (EFFEXOR) tablet 37.5 mg 02/28/2019 09:00:00 AM EST 37.5 mg Oral active 37.5 mg, Oral, Daily, First dose on Tue02/28/19 at 090 0 [facility] Medication administered onsite Prochlorperazine 5 MG/ML Injectable Solu tion Prochlorperazine Edisylate (COMPAZINE) injection 10 mg Prochlorperazine Edisylate (COMPAZINE) i njection 10 mg 02/28/2019 08:00:59 AM EST 10 mg Intravenous active 10 mg, Intravenous, Every 6 hours PRN, nausea, vomiting, Starting Tue02/28/19 at 0800 [facility] Medication administered onsite Levothyroxine Sodium 0.075 MG Oral Table t levothyroxine (SYNTHROID, LEVOTHROID) tablet 75 mcg levothyroxine (SYNTHROID, LEVOTHROID) tablet 75 mcg 06:00:00 AM EST 75 ug Oral active 75 mcg, Oral, Daily, First dose on Tue02/28/19 at 0600 [facility] Medication administered onsite ammonium lactate 120 MG/ML Topical Lotio n ammonium lactate (LAC-HYDRIN) 12 % lotion 1 application ammonium lactate (LAC-HYDRIN) 12 % lotion 1 applicatio n 02/27/2019 11:00:00 PM EST 1 {application} Topical activ e 1 application, Topical, 2 times daily, First dose on Tue02/27/19 at 2300, Until Discontinued [facility] Medication administered onsite gabapentin 300 MG Oral Capsule gabapentin (NEURONTIN) capsule 900 mg gabapentin (NEURONTIN) capsule 900 mg 02/27/2019 10:00:00 PM EST 900 mg Oral aborted 900 mg, Oral, 2 times daily, First dose on Tue02/27/19 at 2200 [facility] Medication administered onsite carvedilol 6.25 MG Oral Tablet carvedilol (COREG) tabl et 6.25 mg carvedilol (COREG) tablet 6.25 mg 02/27/2019 09:00:00 PM EST 6.25 mg Oral active 6.25 mg, Oral, 2 times daily, First dose on Tue02/27/19 at 2100
Hold for SBP < 100 or HR < 55
[facility] Medication administered onsite Docusate Sodium 100 MG Oral Capsule docusate sodium (C OLACE) capsule 100 mg docusate sodium (COLACE) capsule 100 mg 02/27/2019 09:00:00 PM EST 100 mg Oral aborted 100 mg, Oral, Nightly, First dose on Tue02/27/19 at 2100
Hold for loose stool
[facility] Medication administered onsite Pramipexole dihydrochloride 0.5 MG Oral Tablet pramipexole (MIRAPEX) tablet 0.5 mg pramipexole (MIRAPEX) tablet 0.5 mg 02/27/2019 09:00:00 PM EST 0.5 mg Oral aborted 0.5 mg, Oral, 2 times mercedes ly, First dose on Tue02/27/19 at 2099 [facility] Medication administered onsite 12 HR ranolazine 500 MG Extended Release Oral Tablet ranolazine (RANEXA) 12 hr tablet 500 mg ranolazine (RANEXA) 12 hr tablet 500 mg 02/27/2019 09: 00:00 PM EST 500 mg Oral active 500 mg, Oral, 2 times daily, First dose on Tue02/27/19 at 2099 [facility] Medication administered onsite 24 HR Isosorbide Mononitrate 30 MG Exten ded Release Oral Tablet isosorbide mononitrate (IMDUR) 24 hr tablet 30 mg isosorbide mononitrate (IMDUR) 24 hr tablet 30 mg 02/27/2019 09:00:00 PM EST 30 mg Oral activ e 30 mg, Oral, 2 times daily, First dose on Tue02/27/19 at 2099 [facility] Medication administered onsite Rosuvastatin calcium 20 MG Oral Tablet rosuvastatin (C RESTOR) tablet 40 mg rosuvastatin (CRESTOR) tablet 40 mg 02/27/2019 09:00:00 PM EST 40 mg Oral active 40 mg, Oral, Nightly, First dose on Tue02/27/19 at 2099 [facility] Medication administered onsite doxycycline hyclate 100 MG Oral Tablet doxycycline ( BRA-TABS) tablet 100 mg doxycycline (VIBRA-TABS) tablet 100 mg 02/27/2019 08:00:00 PM EST 1 00 mg Oral aborted 100 mg, Oral, 2 times daily, Indications: phlebitis, First dose on Tue02/27/19 at 2000 [facility] Medication administered onsite Ipratropium [place] 0.2 MG/ML Inhalant S olution ipratropium (ATROVENT) 0.02 % nebulizer solution 0.5 mg ipratropium (ATROVENT) 0.02 % nebulizer solution 0.5 mg 02/27/2019 08:00:00 PM EST 0.5 mg active 0.5 mg, Nebulization, 3 times daily, First dose on Tue02/27/19 at 2000
Formulary sub
[facility] Medication administered onsite normal saline flush 0.9 % injection 10 mL [id number] 02/27/2019 02:00:00 PM EST 10 mL Intravenous active 10 m L, Intravenous, Every 8 hours (scheduled), First dose on Tue02/27/19 at 1400
Flush with 10 mL NS prior and post medication administration.Flush with 10 mL NS prior to blood specimen collection and flush with 20 mL to clear solution/drug post blood specimen collection
[facility] Medication administered onsite 1 ML heparin sodium, porcine 100 UNT/ML Injection heparin flush (porcine) 100 UNIT/ML injection 500 Units heparin flush (porcine) 100 UNIT/ML inje ction 500 Units 02/27/2019 02:00:00 PM EST 500 U active 500 Units, Intracatheter, Daily (0600), First dose on Tue02/27/19 at 1400
For open ended ports without IV fluid runningRefer to policy: [email or web address]
[facility] Medication administered onsite dextrose 5 % 1,000 mL with sodium bicarbonate 150 mEq infusi on 02/27/2019 01:00:00 PM EST Intravenous active at 150 mL/hr, Intravenous, Continuous, Starting Tue02/27/19 at 1300 [facility] Medication administered onsite ondansetron (ZOFRAN) injection 4 mg [id number] 02/27/2019 12:22:5 5 PM EST 4 mg Intravenous active 4 mg, In travenous, Every 6 hours PRN, nausea, vomiting, Starting Tue02/27/19 at 1222 [facility] Medication administered onsite Acetaminophen 325 MG Oral Tablet acetaminophen (TYLENO L) 325 MG tablet 650 mg acetaminophen (TYLENOL) 325 MG tablet 650 mg 02/27/2019 12:19:35 PM EST 650 mg Oral active 650 mg, Or al, Every 4 hours PRN, mild pain (1-3), headaches, Starting 02/27/19 at 1219
"Maximum dose of acetaminophen is 4,000 mg from all sources in 24 hours."
[facility] Medication administered onsite carvedilol 6.25 MG Oral Tablet CARVEDILOL 02/23/2019 12:00:00 AM EST tablet 180 TAKE ONE TABLET BY MOUTH TWICE A DAY TAKE ONE TABLET BY MOUT H TWICE A DAY SOLD: 12/09/2019 [employer] carvedilol 6.25 MG Oral Tablet CARVEDILOL 02/23/2019 12:00:00 AM EST tablet 180 TAKE ONE TABLET BY MOUTH TWICE A DAY TAKE ONE TABLET BY MOUT H TWICE A DAY SOLD: 09/03/2019 [employer] carvedilol 6.25 MG Oral Tablet CARVEDILOL 02/23/2019 12:00:00 AM EST tablet 180 TAKE ONE TABLET BY MOUTH TWICE A DAY TAKE ONE TABLET BY MOUT H TWICE A DAY SOLD: 06/06/2019 [employer] carvedilol 6.25 MG Oral Tablet CARVEDILOL 02/23/2019 12:00:00 AM EST tablet 180 TAKE ONE TABLET BY MOUTH TWICE A DAY TAKE ONE TABLET BY MOUT H TWICE A DAY SOLD: 03/08/2019 [employer] carvedilol 6.25 MG Oral Tablet carvedilol (COREG) 6.25 MG tablet carvedilol (COREG) 6.25 MG tablet 02/20/2019 12:00:00 AM EST 6.25 mg Oral active Take 1 tablet (6.25 mg total) by mouth 2 (two) times a day [facility] 100 mg 02/20/2019 12:00:00 AM EST capsule 20 TAKE ONE CAPSULE BY MOUTH TWICE A DAY FOR 10 DAYS TAKE ONE CAPSULE BY MOUTH TWICE A DAY FOR 10 DAYS SOLD : 02/20/2019 [employer] doxycycline hyclate 100 MG Oral Tablet doxycycline ( BRA-TABS) 100 MG tablet doxycycline (VIBRA-TABS) 100 MG tablet 02/20/2019 12:00:00 AM EST 1 00 mg Oral aborted Take 100 mg by mouth 2 (t wo) times a day [facility] doxycycline hyclate 100 MG Oral Capsule Doxycycline Hyclate 02/20/2019 12:00:00 AM EST ORAL completed [facility] ([facility]) 300 mg 02/12/2019 12:00:00 AM [...] on 02/03/19 at 0900, For 3 doses [facility] Medication administered onsite 24 HR Isosorbide [...] Colleen 02/01/19 at 0900, For 2 doses [facility] Medication administered onsite 90 mcg/actuation 02/01/2019 [...] 1 HOUR PRIOR TO VENIPUNCTURE SOLD: 02/06/2019 [facility] carvedilol 6.25 MG Oral Tablet CARVEDILOL [...] daily, First dose on Tue01/31/19 at 1400 [facility] Medication administered onsite carvedilol 6.25 MG Oral Tablet carvedilol (COREG) tabl et 6.25 mg carvedilol (COREG) tablet 6.25 mg 01/31/2019 12:00:00 PM EST 6.25 mg Oral active 6.25 mg, Oral, 2 times daily, First dose on Tue01/31/19 at 1200 [facility] Medication administered onsite Azithromycin 250 MG Oral Tablet azithromycin (ZITHROMA X) tablet 500 mg azithromycin (ZITHROMAX) tablet 500 mg 01/31/2019 11:00:00 AM EST 5 00 mg Oral active Pneumonia 500 mg, Oral, D aily, Indications: Pneumonia, First dose on Tue01/31/19 at 1100, For 2 days [facility] Pneumonia Medication administered onsite Levofloxacin 750 MG Oral Tablet levofloxacin (LEVAQUIN ) tablet 750 mg levofloxacin (LEVAQUIN) tablet 750 mg 01/31/2019 10:00:00 AM EST 75 0 mg Oral active Pneumonia 750 mg, Oral, E very 24 hours (relative), Indications: Pneumonia, First dose on Tue01/31/19 at 1000 [facility] Pneumonia Medication administered onsite albuterol (PROVENTIL HFA;VENTOLIN HFA) inhaler 2 puff [id number] 01/31/2019 09:50:22 AM EST 2 {puff} Inhalation active 2 pu ff, Inhalation, RT every 4 hours as needed, wheezing, Starting Tue01/31/19 at 0950
Please send a spacer home with patient if discharged with a metered dose inhaler
[facility] Medication administered onsite carvedilol 6.25 MG Oral Tablet carvedilol (COREG) 6.25 MG tablet carvedilol (COREG) 6.25 MG tablet 01/31/2019 12:00:00 AM EST 6.25 mg Oral active Take 1 tablet (6.25 mg total) by mouth 2 (two) times a day [facility] Prednisone 5 MG Oral Tablet predniSONE (DELTASONE) 5 M G tablet predniSONE (DELTASONE) 5 MG tablet 01/31/2019 12:00:00 AM EST active 20mg poqd for 3days, 10mg poqd x3days, 5mg poqd x3days then stop [facility] Levofloxacin 750 MG Oral Tablet levofloxacin (LEVAQUIN ) 750 MG tablet levofloxacin (LEVAQUIN) 750 MG tablet 01/31/2019 12:00:00 AM EST 75 0 mg Oral active Pneumonia Take 1 tablet (750 mg tot al) by mouth daily for 8 days [facility] Pneumonia 200 ACTUAT Ipratropium [place] 0.017 MG/ ACTUAT Metered Dose Inhaler ipratropium (ATROVENT HFA) 17 MCG/ACT inhaler ipratropium (ATROVENT HFA) 17 MCG/ACT inhaler 01/31/2019 12:00:00 AM EST 2 {puff} Inhalation active Inhale 2 puffs 3 (three) times a day [facility] Azithromycin 500 MG Oral Tablet azithromycin (ZITHROMA X) 500 MG tablet azithromycin (ZITHROMAX) 500 MG tablet 01/31/2019 12:00:00 AM EST 5 00 mg Oral active Pneumonia Take 1 tablet (500 mg tot al) by mouth daily for 2 days [facility] Pneumonia albuterol (PROVENTIL HFA;VENTOLIN HFA) 108 (90 Base) M CG/ACT inhaler [id number] 01/31/2019 12:00:00 AM EST 2 {puff} Inhalation active Inhale 2 puffs RT EVERY 4 HOURS NEEDED for wheezing or shortness of breath [facility] Docusate Sodium 100 MG Oral Capsule docusate sodium (C OLACE) capsule 100 mg docusate sodium (COLACE) capsule 100 mg 01/30/2019 08:00:00 PM EST 100 mg Oral completed 100 mg, Oral, Once, Tue01/30/19 at 2000, For 1 dose
hold for loose stools
[facility] Medication administered onsite POLYETHYLENE GLYCOL 3350 142 MG/ML Oral Solution polyethylene glycol (GLYCOLAX) packet 17 g polyethylene glycol (GLYCOLAX) packet 17 g 01/30/2019 08:00:00 PM EST 17 g Oral completed 17 g, Oral, Once, Tue01/30/19 at 2000, For 1 dose
hold for loose stools
[facility] Medication administered onsite predniSONE (DELTASONE) tablet 30 mg 01/30/2019 01:00:00 PM EST 30 mg Oral completed 30 mg, Oral, Mercedes ly, First dose on Tue01/30/19 at 1300, For 2 doses [facility] Medication administered onsite Dextromethorphan Hydrobromide 2 MG/ML / Guaifenesin 20 MG/ML Oral Solution guaifenesin-dextromethorphan (ROBITUSSIN DM) 100-10 MG/5ML syrup 10 mL guaifenesin-dextromethorphan (ROBITUSSIN DM) 100-10 MG/5ML syrup 10 mL 01/30/2019 12:47:42 PM EST 10 mL Oral active 10 mL, Oral, Every 6 hours PRN, other, cough, Starting Tue01/30/19 at 1247 [facility] Medication administered onsite Albuterol 0.833 MG/ML / Ipratropium Brom haylie 0.167 MG/ML Inhalant Solution ipratropium-albuterol (DUO-NEB) 0.5-2.5 mg/mL nebulizer solution 3 mL ipratropium-albuterol (DUO-NEB) 0.5-2.5 mg/mL nebulizer solution 3 mL 01/29/2019 08:00:00 PM EST 3 mL Inhalation aborted 3 mL, Inhalation, 3 times daily, First dose on Tue01/29/19 at 2000 [facility] Medication administered onsite Guaifenesin 20 MG/ML Oral Solution guaif enesin (ROBITUSSIN) 100 MG/5ML solution 200 mg guaifenesin (ROBITUSSIN) 100 MG/5ML solution 200 mg 06:32:49 PM EST 200 mg Oral aborted 200 mg, Oral, Every 6 hours PRN, cough, Starting Tue01/29/19 at 1832 [facility] Medication administered onsite Albuterol 0.83 MG/ML Inhalant Solution a lbuterol (PROVENTIL) nebulizer solution 2.5 mg albuterol (PROVENTIL) nebulizer solution 2.5 mg 2018 06:32:33 PM EST 2.5 mg aborted 2.5 mg, Nebulization, Every 2 hour PRN, wheezing, shortness of breath, Starting Tue01/29/19 at 1832 [facility] Medication administered onsite 150 ML Iopamidol 760 MG/ML Prefilled Syringe iopamidol (ISOVUE-370) 76 % 70 mL iopamidol (ISOVUE-370) 76 % 70 mL 01/29/2019 03:34:07 PM EST 70 mL Intravenous completed 70 mL, Intrave nous, Once in imaging, contrast, Starting Tue01/29/19 at 1534, For 1 dose [facility] Medication administered onsite gabapentin 300 MG Oral Capsule gabapentin (NEURONTIN) capsule 900 mg gabapentin (NEURONTIN) capsule 900 mg 01/29/2019 09:00:00 AM EST 900 mg Oral active 900 mg, Oral, 2 times daily, First dose on Tue01/29/19 at 0900 [facility] Medication administered onsite prasugrel 10 MG Oral Tablet prasugrel (EFFIENT) tablet 10 mg prasugrel (EFFIENT) tablet 10 mg 01/29/2019 09:00:00 AM EST 10 mg Oral activ e 10 mg, Oral, Daily, First dose on Tue01/29/19 at 0900 [facility] Medication administered onsite POLYETHYLENE GLYCOL 3350 142 MG/ML Oral Solution polyethylene glycol (GLYCOLAX) packet 17 g polyethylene glycol (GLYCOLAX) packet 17 g 01/29/2019 09:00:00 AM EST 17 g Oral active 17 g, Or al, Daily, First dose on Tue01/29/19 at 0900
hold for loose stools
[facility] Medication administered onsite Docusate Sodium 100 MG Oral Capsule docusate sodium (C OLACE) capsule 100 mg docusate sodium (COLACE) capsule 100 mg 01/29/2019 09:00:00 AM EST 100 mg Oral active 100 mg, Oral, Daily, First dose on Tue01/29/19 at 0900 [facility] Medication administered onsite Aspirin 81 MG Delayed Release Oral Tablet aspirin EC t ablet 81 mg aspirin EC tablet 81 mg 01/29/2019 09:00:00 AM EST 81 mg Oral activ e 81 mg, Oral, Daily, First dose on Tue01/29/19 at 0900 [facility] Medication administered onsite Loratadine 10 MG Oral Tablet loratadine (CLARITIN) tab let 10 mg loratadine (CLARITIN) tablet 10 mg 01/29/2019 09:00:00 AM EST 10 mg Oral active 10 mg, Oral, Daily, First dose on Tue01/29/19 at 0900 [facility] Medication administered onsite Lisinopril 5 MG Oral Tablet lisinopril (PRINIVIL,ZESTR IL) tablet 2.5 mg lisinopril (PRINIVIL,ZESTRIL) tablet 2.5 mg 01/29/2019 09:00:00 AM EST 2.5 mg Oral active 2.5 mg, Oral, Daily, First dose on Tue01/29/19 at 0900
Hold for manual SBP < 110
[facility] Medication administered onsite venlafaxine 37.5 MG Oral Tablet venlafaxine (EFFEXOR) tablet 37.5 mg venlafaxine (EFFEXOR) tablet 37.5 mg 01/29/2019 09:00:00 AM EST 37.5 mg Oral active 37.5 mg, Oral, Daily, First dose on Tue01/29/19 at 09 00 [facility] Medication administered onsite Levothyroxine Sodium 0.075 MG Oral Table t levothyroxine (SYNTHROID, LEVOTHROID) tablet 75 mcg levothyroxine (SYNTHROID, LEVOTHROID) tablet 75 mcg 06:00:00 AM EST 75 ug Oral active 75 mcg, Oral, Daily (0600), First dose on Tue01/29/19 at 0600 [facility] Medication administered onsite vancomycin in 500mL (VANCOCIN) IV 1,500 mg [id number] 01/29/2019 02:00:00 AM EST 1500 mg Intravenous aborted Pneumonia 1, 500 mg, Intravenous, Administer over 120 Minutes, Every 12 hours (relative), First dose on Tue01/29/19 at 0200 [facility] Pneumonia Medication administered onsite cefepime 2000 MG Injection cefepime (MAXIPIME) injecti on 2 g cefepime (MAXIPIME) injection 2 g 01/28/2019 11:00:00 PM EST 2 g abor alejandro 2 g, Intravenous Push, Every 8 hours (relative), First dose on Tue01/28/19 at 2300
Reconstitute with 20 ml sodium chloride 0.9% for injection. Administer IV push over 5 minutes. Use within 1 hour of reconstitution.
[facility] Medication administered onsite normal saline flush 0.9 % injection 3 mL [id number] 01/28/2019 10:00:00 PM EST 3 mL Intravenous active 3 mL , Intravenous, Every 8 hours (scheduled), First dose on Tue01/28/19 at 2200
flush per protocol, D/C Main IV fluid if appropriate
[facility] Medication administered onsite normal saline flush 0.9 % injection 3 mL [id number] 01/28/2019 10:00:00 PM EST 3 mL Intravenous active 3 mL , Intravenous, PROTOCOL, First dose on Tue01/28/19 at 2200
flush per protocol, D/C Main IV fluid if appropriate
[facility] Medication administered onsite 12 HR ranolazine 500 MG Extended Release Oral Tablet ranolazine (RANEXA) 12 hr tablet 500 mg ranolazine (RANEXA) 12 hr tablet 500 mg 01/28/2019 09: 00:00 PM EST 500 mg Oral active 500 mg, Oral, 2 times daily, First dose on Tue19 at 2100 [facility] Medication administered onsite Pramipexole dihydrochloride 0.5 MG Oral Tablet pramipexole (MIRAPEX) tablet 0.5 mg pramipexole (MIRAPEX) tablet 0.5 mg 01/28/2019 09:00:00 PM EST 0.5 mg Oral active 0.5 mg, Oral, 2 times mercedes ly, First dose on 01/28/19 at 2100 [facility] Medication administered onsite gabapentin 300 MG Oral Capsule gabapentin (NEURONTIN) capsule 300 mg gabapentin (NEURONTIN) capsule 300 mg 01/28/2019 09:00:00 PM EST 300 mg Oral aborted 300 mg, Oral, 2 times daily, First dose on 01/28/19 at 2100 [facility] Medication administered onsite 24 HR Isosorbide Mononitrate 30 MG Exten ded Release Oral Tablet isosorbide mononitrate (IMDUR) 24 hr tablet 30 mg isosorbide mononitrate (IMDUR) 24 hr tablet 30 mg 01/28/2019 09:00:00 PM EST 30 mg Oral activ e 30 mg, Oral, 2 times daily, First dose on 01/28/19 at 2100 [facility] Medication administered onsite Rosuvastatin calcium 20 MG Oral Tablet rosuvastatin (C RESTOR) tablet 40 mg rosuvastatin (CRESTOR) tablet 40 mg 01/28/2019 09:00:00 PM EST 40 mg Oral active 40 mg, Oral, Nightly, First dose on 01/28/19 at 2100 [facility] Medication administered onsite Calcium Chloride 0.0014 MEQ/ML / Potassi um Chloride 0.004 MEQ/ML / Sodium Chloride 0.103 MEQ/ML / Sodium Lactate 0.028 MEQ/ML Injectable Solution lactated ringers infusion lactated ringers infusion 01/28/2019 08:00:00 PM EST Intravenous completed at 75 mL/hr, Intravenous, Continuous, Starting 01/28/19 at 2000, For 1 day [facility] Medication administered onsite 0.4 ML Enoxaparin [...] not give the dose and call physician/designee.
[facility] Medication administered onsite Acetaminophen 325 MG Oral Tablet acetaminophen (TYLENO L) 325 MG tablet 650 mg acetaminophen (TYLENOL) 325 MG tablet 650 mg 01/28/2019 07:42:03 PM EST 650 mg Oral active 650 mg, Or al, Every 4 hours PRN, mild pain (1-3), headaches, Starting 01/28/19 at 1942
"Maximum dose of acetaminophen is 4,000 mg from all sources in 24 hours."
[facility] Medication administered onsite Ondansetron 4 MG Disintegrating Oral Tab let ondansetron (ZOFRAN-ODT) disintegrating tablet 4 mg ondansetron (ZOFRAN-ODT) disintegrating tablet 4 mg 01/28/2019 07:14:55 PM EST 4 mg Oral active 4 mg, Oral, Daily PRN, nausea, Starting 01/28/19 at 1914 [facility] Medication administered onsite Nitroglycerin 0.4 MG Sublingual Tablet n itroglycerin (NITROSTAT) SL tablet 0.4 mg nitroglycerin (NITROSTAT) SL tablet 0.4 mg 01/28/2019 07:14:51 P M EST 0.4 mg Sublingual active 0.4 mg, S ublingual, Every 5 min PRN, chest pain, Starting 01/28/19 at 1914
May administer up to 3 doses per episode.
[facility] Medication administered onsite 1 ML Ketorolac Tromethamine 15 MG/ML [place] ketorolac (TORADOL) injection 15 mg ketorolac (TORADOL) injection 15 mg 01/28/2019 05:05:00 PM EST 15 mg Intravenous completed 15 mg, Intrav enous, Once, 01/28/19 at 1705, For 1 dose [facility] Medication administered onsite cefepime 2000 MG Injection cefepime (MAXIPIME) injecti on 2 g cefepime (MAXIPIME) injection 2 g 01/28/2019 02:50:00 PM EST 2 g comp leted 2 g, Intravenous Push, Once, 01/28/19 at 1450, For 1 dose
Reconstitute with 20 ml sodium chloride 0.9% for injection. Administer IV push over 5 minutes. Use within 1 hour of reconstitution.
[facility] Medication administered onsite azithromycin (ZITHROMAX) 500 mg in sodium chloride (NS) 0.9 % 250 mL IVPB 01/28/2019 02:50:00 PM EST 500 mg Intravenous aborted P neumonia 500 mg, Intravenous, Administer over 60 Minutes, Every 24 hours (relative), First dose on 01/28/19 at 1450 [facility] Pneumonia Medication administered onsite vancomycin in 500mL (VANCOCIN) IV 2,000 mg [id number] 01/28/2019 02:45:00 PM EST 2000 mg Intravenous completed Pneumonia 2,000 mg, Intravenous, Administer over 120 Minutes, Once, 01/28/19 at 1450, For 1 dose [facility] Pneumonia Medication administered onsite Acetaminophen 325 MG Oral Tablet acetaminophen (TYLENO L) 325 MG tablet 650 mg acetaminophen (TYLENOL) 325 MG tablet 650 mg 01/28/2019 02:10:00 PM EST 650 mg Oral completed 650 mg, Or al, Once, 01/28/19 at 1410, For 1 dose
"Maximum dose of acetaminophen is 4,000 mg from all sources in 24 hours."
[facility] Medication administered onsite sodium chloride 0.9% (NS) bolus 1,000 mL [id number] 01/28/2019 02:10:00 PM EST 1000 mL Intravenous completed 1, 000 mL, Intravenous, Administer over 1 Hours, Once, 01/28/19 at 1410, For 1 dose [facility] Medication administered onsite 500 mg 12/09/2018 [...] Oral aborted Take by mouth Tapering dose [facility] 8 HR Acetaminophen 650 MG Extended Relea se Oral Tablet acetaminophen (ACETAMINOPHEN 8 HOUR) 650 MG CR tablet acetaminophen (ACETAMINOPHEN 8 HOUR) 650 MG CR tablet 650 mg Oral aborted Michael e 650 mg by mouth every 8 (eight) hours as needed for pain [facility] Ondansetron 4 MG Disintegrating Oral Tab let ondansetron (ZOFRAN-ODT) 4 MG disintegrating tablet ondansetron (ZOFRAN-ODT) 4 MG disintegrating tablet 4 mg Oral aborted Take 4 mg by mouth daily as needed for nausea [facility] Prednisone 20 MG Oral Tablet predniSONE (DELTASONE) 20 MG tablet predniSONE (DELTASONE) 20 MG tablet Oral aborted Take by mouth Take 3 tablets at breakfast and 2 tablets at lunch for 5 days with each cycle of chemo treatment [facility] Pegfilgrastim (NEULASTA SC) Subcutaneous aborted Inject under the skin [facility] venlafaxine 37.5 MG Oral Tablet venlafaxine (EFFEXOR) 37.5 MG tablet venlafaxine (EFFEXOR) 37.5 MG tablet 37.5 mg Oral aborted Take 37.5 mg by mouth daily [facility] riTUXimab (RITUXAN IV) Intravenous abo rted Infuse into a venous catheter [facility] Cyclophosphamide (CYTOXAN IJ) aborted Inject as directed [facility] DOXOrubicin HCl (ADRIAMYCIN IV) Intravenous aborted Infuse into a venous catheter [facility] VINCRISTINE SULFATE IV Intravenous abo rted Infuse into a venous catheter [facility] sodium chloride 0.9 % SOLN with methotrexate (PF) 50 MG/2ML SOLN Intrathecal aborted by Intrathecal rou te [facility] gabapentin 300 MG Oral Capsule gabapentin (NEURONTIN) 300 MG capsule gabapentin (NEURONTIN) 300 MG capsule 900 mg Oral aborted Take 900 mg by mouth nightly [facility] Insurance Providers Payer name Policy type / Coverage type Policy ID Covered constitution party ID Covered constitution party's relationship to [place] Policy [place] Plan Information [place] 302/307 [id number] SP [id number] Blue Cross Blue Shield P [id number] SELF [id number] Blue Shield Facets Primary [id number] EXCELLUS BCBS [id number] Melinda YNE [id number] Blue Cross Blue Shield P [id number] SELF [id number] EXCELLUS BCBS 03 EXCELLUS BCBS [id number] Melinda YND [id number] EXCELLUS BCBS [id number] Melinda YND [id number] EXCELLUS BCBS 03 Blue Cross Blue Shield P [id number] SELF [id number] [place] HMO PPO POS [id number] [place] PPO POS [id number] Blue Shield [facility] [id number] Blue Shield of [facility] [id number] EXCELLUS H [id number] Self [id number] BCBS CNY Medigap Part B [id number] Self SA [id number] BCBS CNY Commercial [id number] Self [id number] EXCELLUS BLUE CROSS BLUE SHIELD HEA [id number] S [id number] BCBS CN[place] Medigap Part B [id number] Self SA [id number] BCBS CN[place] Commercial [id number] Self [id number] Progressive Ins NF Workers Compensation [id number] Self [id number] Excell[employer] Commercial Commercial [id number] Self [id number] Progressive Ins NF Workers Compensation [id number] Self [id number] Progressive Ins NF Workers Compensation [id number] Self [id number] Progressive Ins [place] Workers Compensation [id number] Self [id number] Progressive Ins [place] Workers Compensation [id number] Self [id number] Progressive Ins NF Workers Compensation [id number] Self [id number] BCBS [place] 306/806 [id number] SP [id number] [place] 302/307 [id number] SP [id number] Blue Cross Blue Shield P [id number] SELF [id number] PROGRESSIVE CO NO FAULT [id number] SP [id number] BCBS HMO BLUE [id number] SP [id number] EXCELLUS BCBS [id number] Melinda YND [id number] SELF PAY ONLY SP BCBS/Excell[employer] Commercial [id number] Self [id number] EXCELLUS BCBS [id number] Spo YND [id number] EXCELLUS BCBS B [id number] S [id number] PROGRESSIVE CO NO FAULT O [id number] S [id number] Excellus CNY Blueshield [facility] Part B [id number] Self [id number] No Fault Workers Compensation [id number] Self [id number] PROGRESSIVE CO NO FAULT [id number] SP [id number] [place] PPO 302/307 [id number] BCBS/Excell[employer] Commercial [id number] Self [id number] Blue Cross Blue Shield P [id number] SPOUSE [id number] EXCELLUS H [id number] Spouse [id number] EXCELLUS BLUE CROSS BLUE SHIELD HEA [id number] SP [id number] Excellus CNY [facility] Commercial [id number] Family Depen dent [id number] Blue Cross Blue Shield P [id number] SPOUSE [id number] Blue Cross Blue Shield P [id number] SELF [id number] EXCELLUS BCBS B [id number] P YND [id number] BC[place] PPO 302/307 [id number] SP [id number] BLUE CROSS O [id number] S [id number] Problems, Conditions, and Diagnoses Code Display Name Description Problem Type Effective Dates Data Source(s) C83.30 Diffuse large B cell lymphoma Diffuse large B cell lym phoma [id number] 02/27/2019 12:00:[address] [facility] R60.0 Localized edema Localized edema [id number] 02/20/2019 12:0 0:[address] [facility] J15.9 Pneumonia, bacterial Pneumonia, bacterial [id number] 01/30/2019 12:00:[address] [facility] E43 Severe protein-calorie malnutrition Severe prote in-calorie malnutrition [id number] 01/30/2019 12:00:00 AM [facility] D70.9 Neutropenic fever Neutropenic fever [id number] 01/28/2019 12:00:[address] [facility] D70.9 Neutropenia Neutropenia [id number] 01/28/2019 12:00:[address] [facility] J18.9 Pneumonia Pneumonia [id number] 01/28/2019 12:00:00 AM [facility] C83.39 Diffuse large B-cell lymphoma, extranoda l and solid organ sites Diffuse large b-cell lymphoma, extranoda Diagnosis 04/10/2019 01:56:[address] [facility] E78.00 Pure hypercholesterolemia, unspecified P ure hypercholesterolemia, unspecified Diagnosis 02/20/2019 08:42:[address] [facility] R60.0 Localized edema Localized edema Diagnosis 02/20/2019 08:4 2:[address] [facility] I25.10 Atherosclerotic heart diseas e of [place] coronary artery without angina pectoris Atherosclerotic heart disease of [place] Diagnosis 02/20/2019 08:42:[address] [facility] R50.81 Fever presenting with conditions classif ied elsewhere Fever presenting with conditions classif Diagnosis 01/28/2019 01:01:55 PM [facility] D70.9 Neutropenia, unspecified Neutropenia, unspecified Diag nosis 01/28/2019 01:01:[address] [facility] J18.9 Pneumonia, unspecified organism Pneumonia, unspecified organism Diagnosis 01/28/2019 01:01:[address] [facility] J15.9 Unspecified bacterial pneumonia Unspecified bacterial pneumonia Diagnosis 01/28/2019 01:01:55 PM EST [facility] R65.20 Severe sepsis without septic shock Severe sepsis without septic shock Diagnosis 01/28/2019 01:01:55 PM [facility] A41.9 Sepsis, unspecified organism Sepsis, unspecified organ ism Diagnosis 01/28/2019 01:01:[address] [facility] Surgeries/Procedures Procedure Description Date Indications Data Source(s) PH URINE PH URINE Timed 04/16/2019 4:42 AM EDT 04/15 08:42:00 AM EDT [facility] QUANTITATION DRUG NOT ELSEWHERE SPECIFIED METHOTREXATE LEVEL Ro utine 04/16/2019 4:42 AM EDT 04/16/2019 08:42:00 AM EDT [facility] BLOOD COUNT COMPLETE AUTOMATED CBC Timed 04/16/2019 4:42 A M EDT 04/16/2019 08:42:00 AM EDT [facility] COMPREHENSIVE METABOLIC PANEL COMPREHENSIVE METABOLIC PANEL Edgar ed 04/16/2019 4:42 AM EDT 04/16/2019 08:42:00 AM EDT [facility] PH URINE PH URINE Timed 04/15/2019 9:16 PM EDT 04/15 01:16:00 AM EDT [facility] PH URINE PH URINE Timed 04/15/2019 2:20 PM EDT 04/14 06:20:00 PM EDT [facility] PH URINE PH URINE Timed 04/15/2019 5:26 AM EDT 04/14 09:26:00 AM EDT [facility] QUANTITATION DRUG NOT ELSEWHERE SPECIFIED METHOTREXATE LEVEL Ro utine 04/15/2019 5:26 AM EDT 04/15/2019 09:26:00 AM EDT [facility] BLOOD COUNT COMPLETE AUTOMATED CBC Timed 04/15/2019 5:26 A M EDT 04/15/2019 09:26:00 AM EDT [facility] COMPREHENSIVE METABOLIC PANEL COMPREHENSIVE METABOLIC PANEL Edgar ed 04/15/2019 5:26 AM EDT 04/15/2019 09:26:00 AM EDT [facility] GLUC BLD GLUC MNTR DEV CLEARED FDA SPEC HOME USE POCT GLUCOSE Routine 04/14/2019 10:56 PM EST 04/15/2019 03:56:00 AM EDT [facility] QUANTITATION DRUG NOT ELSEWHERE SPECIFIED METHOTREXATE LEVEL Ro utine 04/14/2019 6:04 PM EST 04/14/2019 11:04:00 PM EST [facility] PH URINE PH URINE Timed 04/14/2019 5:49 PM EST 04/13 10:49:00 PM EST [facility] PH URINE PH URINE Timed 04/14/2019 4:16 AM EST 04/13 09:16:00 AM EST [facility] QUANTITATION DRUG NOT ELSEWHERE SPECIFIED METHOTREXATE LEVEL Ti med 04/14/2019 4:16 AM EST 04/14/2019 09:16:00 AM EST [facility] BLOOD COUNT COMPLETE AUTOMATED CBC Timed 04/14/2019 4:16 A M EST 04/14/2019 09:16:00 AM EST [facility] COMPREHENSIVE METABOLIC PANEL COMPREHENSIVE METABOLIC PANEL Edgar ed 04/14/2019 4:16 AM EST 04/14/2019 09:16:00 AM EST [facility] PH URINE PH URINE Timed 04/13/2019 6:52 PM EST 04/12 11:52:00 PM EST [facility] PH URINE PH URINE Timed 04/13/2019 5:28 AM EST 04/12 10:28:00 AM EST [facility] QUANTITATION DRUG NOT ELSEWHERE SPECIFIED METHOTREXATE LEVEL Ti med 04/13/2019 3:19 AM EST 04/13/2019 08:19:00 AM EST [facility] BLOOD COUNT COMPLETE AUTOMATED CBC Timed 04/13/2019 3:19 A M EST 04/13/2019 08:19:00 AM EST [facility] COMPREHENSIVE METABOLIC PANEL COMPREHENSIVE METABOLIC PANEL Edgar ed 04/13/2019 3:19 AM EST 04/13/2019 08:19:00 AM EST [facility] PH URINE PH URINE Timed 04/12/2019 4:00 PM EST 04/11 09:00:00 PM EST [facility] PH URINE PH URINE Timed 04/12/2019 3:40 AM EST 04/11 08:40:00 AM EST [facility] QUANTITATION DRUG NOT ELSEWHERE SPECIFIED METHOTREXATE LEVEL Ro utine 04/12/2019 3:40 AM EST 04/12/2019 08:40:00 AM EST [facility] BLOOD COUNT COMPLETE AUTOMATED CBC Timed 04/12/2019 3:40 A M EST 04/12/2019 08:40:00 AM EST [facility] COMPREHENSIVE METABOLIC PANEL COMPREHENSIVE METABOLIC PANEL Edgar ed 04/12/2019 3:40 AM EST 04/12/2019 08:40:00 AM EST [facility] PH URINE PH URINE Timed 04/11/2019 6:15 PM EST 04/10 11:15:00 PM EST [facility] PH URINE PH URINE Timed 04/11/2019 7:42 AM EST 04/10 12:42:00 PM EST [facility] BLOOD COUNT COMPLETE AUTO&AUTO DIFRNTL WBC COUNT CBC WITH A UTO DIFFERENTIAL Routine 04/11/2019 6:31 AM EST 04/11/2019 11:31:00 AM EST [facility] THROMBOPLASTIN TIME PARTIAL PLASMA/WHOLE BLOOD APTT Routine 04/11/2019 6:31 AM EST 04/11/2019 11:31:00 AM EST [facility] PROTHROMBIN TIME PROTIME-INR Routine 04/11/2019 6:31 AM EST 04/11/2019 11:31:00 AM EST [facility] BLOOD COUNT COMPLETE AUTOMATED CBC Timed 04/11/2019 6:31 A M EST 04/11/2019 11:31:00 AM EST [facility] COMPREHENSIVE METABOLIC PANEL COMPREHENSIVE METABOLIC PANEL Edgar ed 04/11/2019 6:31 AM EST 04/11/2019 11:31:00 AM EST [facility] PH URINE PH URINE Timed 04/11/2019 12:40 AM EST 04/10 05:40:00 AM EST [facility] PH URINE PH URINE Routine 04/10/2019 7:30 PM EST 04/11/2019 12:30:00 AM EST [facility] PH URINE PH URINE Timed 03/26/2019 6:07 AM EST 03/26 11:07:00 AM EST [facility] QUANTITATION DRUG NOT ELSEWHERE SPECIFIED METHOTREXATE LEVEL Ti med 03/26/2019 6:07 AM EST 03/26/2019 11:07:00 AM EST [facility] BLOOD COUNT COMPLETE AUTOMATED CBC Timed 03/26/2019 6:07 A M EST 03/26/2019 11:07:00 AM EST [facility] COMPREHENSIVE METABOLIC PANEL COMPREHENSIVE METABOLIC PANEL Edgar ed 03/26/2019 6:07 AM EST 03/26/2019 11:07:00 AM EST [facility] PH URINE PH URINE Timed 03/25/2019 11:12 PM EST 03/26 04:12:00 AM EST [facility] PH URINE PH URINE Timed 03/25/2019 2:56 PM EST 03/25 07:56:[address] [facility] PH URINE PH URINE Timed 03/25/2019 6:29 AM EST 03/25 11:29:[address] [facility] QUANTITATION DRUG NOT ELSEWHERE SPECIFIED METHOTREXATE LEVEL Ti med 03/25/2019 3:34 AM EST 03/25/2019 08:34:00 AM EST [facility] COMPREHENSIVE METABOLIC PANEL COMPREHENSIVE METABOLIC PANEL Edgar ed 03/25/2019 3:34 AM EST 03/25/2019 08:34:00 AM [facility] PH URINE PH URINE Routine 03/24/2019 7:15 PM EST 03/25/2019 12:15:00 AM EST [facility] PH URINE PH URINE Timed 03/24/2019 1:12 PM EST 03/24 06:12:00 PM EST [facility] PH URINE PH URINE Timed 03/24/2019 6:20 AM EST 03/24 11:20:[address] [facility] QUANTITATION DRUG NOT ELSEWHERE SPECIFIED METHOTREXATE LEVEL Ti med 03/24/2019 6:11 AM EST 03/24/2019 11:11:00 AM [facility] BLOOD COUNT COMPLETE AUTOMATED CBC Routine 03/24/2019 6:11 A M EST 03/24/2019 11:11:00 AM [facility] COMPREHENSIVE METABOLIC PANEL COMPREHENSIVE METABOLIC PANEL Edgar ed 03/24/2019 6:11 AM EST 03/24/2019 11:11:00 AM [facility] PH URINE PH URINE Timed 03/23/2019 8:28 PM EST 03/24 01:28:[address] [facility] PH URINE PH URINE Timed 03/23/2019 1:14 PM EST 03/23 06:14:00 PM EST [facility] PH URINE PH URINE Timed 03/23/2019 4:36 AM EST 03/23 09:36:[address] [facility] QUANTITATION DRUG NOT ELSEWHERE SPECIFIED METHOTREXATE LEVEL Ro utine 03/23/2019 4:36 AM EST 03/23/2019 09:36:00 AM [facility] BLOOD COUNT COMPLETE AUTOMATED CBC Routine 03/23/2019 4:36 A M EST 03/23/2019 09:36:00 AM [facility] HEPATIC FUNCTION PANEL HEPATIC FUNCTION PANEL Add-On 03/23/2019 4:36 AM EST 03/23/2019 09:36:[address] [facility] BASIC METABOLIC PANEL CALCIUM TOTAL BASIC METABOLIC PANEL Add-O n 03/23/2019 4:36 AM EST 03/23/2019 09:36:00 AM [facility] PH URINE PH URINE Timed 03/22/2019 9:59 PM EST 03/23 02:59:[address] [facility] PH URINE PH URINE Timed 03/22/2019 2:50 PM EST 03/22 07:50:[address] [facility] PH URINE PH URINE Timed 03/22/2019 5:37 AM EST 03/22 10:37:[address] [facility] BLOOD COUNT COMPLETE AUTOMATED CBC Routine 03/22/2019 5:37 A M EST 03/22/2019 10:37:00 AM [facility] PH URINE PH URINE Timed 03/21/2019 7:00 PM EST 03/22 12:00:[address] [facility] PH URINE PH URINE Timed 03/04/2019 9:25 AM EST 03/04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 [lb_av] 219.00 [lb_av] MEDEN T ([facility]) Body height 74 [in_i] 74 [in_i] [facility] ([facility]) 6'2" Oxygen saturation in Arterial blood by Pulse oximetry 97 % 97 % [facility] ([facility]) Body temperature 97.3 [degF] 97.3 [degF] [facility] ([facility]) Heart rate 63 /min 63 /min [facility] ([facility]) Diastolic blood pressure 60 mm[Hg] 60 mm[Hg] [facility] ([facility]) Systolic blood pressure 130 mm[Hg] 130 mm[Hg] M ED[facility] ([facility]) Body mass index (BMI) [Ratio] 28.1 kg/m2 28.1 k g/m2 [facility] ([facility]) Body weight 219.00 [lb_av] 219.00 [lb_av] [facility] T ([facility]) Oxygen saturation in Arterial blood by Pulse oximetry 97 % 97 % [facility] Respiratory rate 20 /min 20 /min [facility] Body temperature 36.56 Ángela 36.56 Ángela [facility] Heart rate 68 /min 68 /min [facility] Diastolic blood pressure 87 mm[Hg] 87 mm[Hg] [facility] Systolic blood pressure 143 mm[Hg] 143 mm[Hg] [facility] Body mass index (BMI) [Ratio] 27.98 kg/m2 27.98 kg/m2 [facility] Body weight 98.839 kg 98.839 kg [facility] Body height 188 cm 188 cm [facility] Heart rate 56 /min 56 /min [facility] Diastolic blood pressure 91 mm[Hg] 91 mm[Hg] [facility] Systolic blood pressure 152 mm[Hg] 152 mm[Hg] [facility] Oxygen saturation in Arterial blood by Pulse oximetry 96 % 96 % [facility] Respiratory rate 18 /min 18 /min [facility] Body temperature 36.5 Ángela 36.5 Ángela [facility] Body mass index (BMI) [Ratio] 28.23 kg/m2 28.23 kg/m2 [facility] Body weight 99.746 kg 99.746 kg [facility] Body height 188 cm 188 cm [facility] Oxygen saturation in Arterial blood by Pulse oximetry 97 % 97 % [facility] Respiratory rate 18 /min 18 /min [facility] Body temperature 36.83 Ángela 36.83 Ángela [facility] Heart rate 68 /min 68 /min [facility] Diastolic blood pressure 83 mm[Hg] 83 mm[Hg] [facility] Systolic blood pressure 147 mm[Hg] 147 mm[Hg] [facility] Body mass index (BMI) [Ratio] 28.76 kg/m2 28.76 kg/m2 [facility] Body weight 101.606 kg 101.606 kg [facility] Body height 188 cm 188 cm [facility] Oxygen saturation in Arterial blood by Pulse oximetry 96 % 96 % [facility] ([facility]) Body temperature 36.4 Ángela 36.4 Ángela [facility] ( [facility]) Body temperature 97.5 [degF] 97.5 [degF] [facility] ([facility]) Heart rate 64 /min 64 /min [facility] ([facility]) Diastolic blood pressure 62 mm[Hg] 62 mm[Hg] [facility] ([facility]) Systolic blood pressure 110 mm[Hg] 110 mm[Hg] M ED[facility] ([facility]) Body height 74 [in_i] 74 [in_i] [facility] ([facility]) 6'2" Oxygen saturation in Arterial blood by Pulse oximetry 96 % 96 % [facility] ([facility]) Body temperature 97.5 [degF] 97.5 [degF] [facility] ([facility]) Heart rate 64 /min 64 /min [facility] ([facility]) Diastolic blood pressure 62 mm[Hg] 62 mm[Hg] [facility] ([facility]) Systolic blood pressure 110 mm[Hg] 110 mm[Hg] M [facility]ENT ([facility]) Oxygen saturation in Arterial blood by Pulse oximetry 95 % 95 % [facility] Respiratory rate 18 /min 18 /min [facility] Body temperature 36.28 Ángela 36.28 Ángela [facility] Heart rate 91 /min 91 /min [facility] Diastolic blood pressure 74 mm[Hg] 74 mm[Hg] [facility] Systolic blood pressure 126 mm[Hg] 126 mm[Hg] [facility] Body mass index (BMI) [Ratio] 27.19 kg/m2 27.19 kg/m2 [facility] Body weight 96.1 kg 96.1 kg [facility] Body height 188 cm 188 cm [facility] Patient Treatment Plan of Care Planned Activity Planned Date Details Description Data Source (s) Leucovorin 5 MG Oral Tablet 04/16/2019 12:00:00 AM EDT [facility] Ondansetron 4 MG Disintegrating Oral Tablet 03/26/2019 12:00:00 AM EST [facility] carvedilol 6.25 MG Oral Tablet 02/20/2019 12:00:00 AM EST [facility] doxycycline hyclate 100 MG Oral Tablet 02/20/2019 12:00:00 AM EST [facility] 200 ACTUAT Ipratropium [place] 0.017 MG/ACTUAT Metered Dose Inhaler 01/31/2019 12:00:00 AM EST [facility] albuterol (PROVENTIL HFA;VENTOLIN HFA) 108 (90 Base) M CG/ACT inhaler 01/31/2019 12:00:00 AM EST [facility] carvedilol 6.25 MG Oral Tablet 01/31/2019 12:00:00 AM EST [facility] Prednisone 5 MG Oral Tablet 01/31/2019 12:00:00 AM EST [facility] Levofloxacin 750 MG Oral Tablet 01/31/2019 12:00:00 AM EST [facility] Azithromycin 500 MG Oral Tablet 01/31/2019 12:00:00 AM EST [facility] venlafaxine 37.5 MG Oral Tablet [facility] PREDNISONE PO [facility] Ondansetron 4 MG Disintegrating Oral Tablet [facility] gabapentin 300 MG Oral Capsule [facility] sodium chloride 0.9 % SOLN with methotrexate (PF) 50 MG/2ML SOLN [facility] VINCRISTINE SULFATE IV [facility] DOXOrubicin HCl (ADRIAMYCIN IV) [facility] Cyclophosphamide (CYTOXAN IJ) [facility] riTUXimab (RITUXAN IV) [facility] Pegfilgrastim (NEULASTA SC) [facility] Prednisone 20 MG Oral Tablet [facility] 8 HR Acetaminophen 650 MG Extended Release Oral Tablet [facility]
== END 2020-02-22 18:59 | disposition home or self-care (01) ==
LOC: M ED 17:27
DX: S61.211A Laceration without foreign body of left index finger without damage to nail, initial encounter (principal); W29.8XXA Contact with other powered hand tools and household machinery, initial encounter; Y92.9 Unspecified place or not applicable; Y93.9 Activity, unspecified; Y99.9 Unspecified external cause status; Z95.5 Presence of coronary angioplasty implant and graft; I25.2 Old myocardial infarction; I10 Essential (primary) hypertension; E78.00 Pure hypercholesterolemia, unspecified; Z85.72 Personal history of non-Hodgkin lymphomas; Z79.899 Other long term (current) drug therapy; Z88.0 Allergy status to penicillin; Z91.013 Allergy to seafood

== ENCOUNTER 2020-03-06 08:24 | Emergency (ER) | payer BC ==
[~2020-03-06] VITALS: Ht 188 cm; Wt 106.8 kg
[2020-03-06 08:24] VITALS: BP 149/71
[~2020-03-06 08:24] MED LIST changes: +CEPH500C PO; +REPA140I
--- OUTSIDE RECORDS SUMMARY | 2020-03-06 08:32 | CCD ---
Author Author [facility] Organization [facility] Address Unknown Phone Unavailable Care Team Providers Care Branch Store Manager Name Role Phone VINICIUS BOO MD [...] Unavailable Unavailable ElvaDevang velasquez MD Unavailable Unavailable BagdadDevang velasquez MD Unavailable Unavailable BagdadDevang velasquez MD Unavailable Unavailable ElvaDevang velasquez MD Unavailable Unavailable ElvaDevang velasquez MD Unavailable Unavailable BagdadDevang velasquez MD Unavailable Unavailable ElvaDevang velasquez MD Unavailable Unavailable ElvaDevang velasquez MD Unavailable Unavailable BagdadDevang velasquez MD Unavailable Unavailable BagdadDevang velasquez MD Unavailable Unavailable BagdadDevang velasquez MD Unavailable Unavailable ElvaDevang velasquez MD Unavailable Unavailable BagdadDevang velasquez MD Unavailable Unavailable BagdadDevang callaway MD Unavailable Unavailable ElvaDevang velasquez MD Unavailable Unavailable ElvaDevang callaway MD Unavailable Unavailable ElvaDevang velasquez MD Unavailable Unavailable BagdadDevang velasquez MD Unavailable Unavailable ElvaDevang callaway MD Unavailable Unavailable ElvaDevang callaway MD Unavailable Unavailable ElvaDevang callaway MD Unavailable Unavailable ElvaDevang callaway MD Unavailable Unavailable Devang Naylor MD Unavailable Unavailable ElvaDevang callaway MD Unavailable Unavailable ElvaDevang callaway MD Unavailable Unavailable ElvaDevang callaway MD Unavailable Unavailable ElvaDevang callaway MD Unavailable Unavailable BagdadDevang callaway MD Unavailable Unavailable ElvaDevang callaway MD Unavailable Unavailable BagdadDevang callaway MD Unavailable Unavailable ElvaDevang callaway MD Unavailable Unavailable BagdadDevang callaway MD Unavailable Unavailable ElvaDevang velasquez MD Unavailable Unavailable BagdadDevang callaway MD Unavailable Unavailable ElvaDevang velasquez MD Unavailable Unavailable BagdadDevang callaway MD Unavailable Unavailable BagdadDevang callaway MD Unavailable Unavailable ElvaDevang velasquez MD Unavailable Unavailable ElvaDevang callaway MD Unavailable Unavailable ElvaDevang velasquez MD Unavailable Unavailable ElvaDevang callaway MD Unavailable Unavailable ElvaDevang callaway MD Unavailable Unavailable BagdadDevang velasquez MD Unavailable Unavailable ElvaDevang callaway MD Unavailable Unavailable ElvaDevang velasquez MD Unavailable Unavailable Toro, R [place] APPLICATIONS SUPPORT ANALYST Unavailable Unavailable Toro, R [place] APPLICATIONS SUPPORT ANALYST Unavailable Unavailable Toro, R [place] APPLICATIONS SUPPORT ANALYST Unavailable Unavailable Toro, R [place] APPLICATIONS SUPPORT ANALYST Unavailable Unavailable Toro, R [place] APPLICATIONS SUPPORT ANALYST Unavailable Unavailable Toro, R [place] APPLICATIONS SUPPORT ANALYST Unavailable Unavailable Toro, R [place] APPLICATIONS SUPPORT ANALYST Unavailable Unavailable Toro, R [place] APPLICATIONS SUPPORT ANALYST Unavailable Unavailable Toro, R [place] APPLICATIONS SUPPORT ANALYST Unavailable Unavailable Toro, R [place] APPLICATIONS SUPPORT ANALYST Unavailable Unavailable Toro, R [place] APPLICATIONS SUPPORT ANALYST Unavailable Unavailable Toro, R [place] APPLICATIONS SUPPORT ANALYST Unavailable Unavailable Toro, R [place] APPLICATIONS SUPPORT ANALYST Unavailable Unavailable Toro, R [place] APPLICATIONS SUPPORT ANALYST Unavailable Unavailable Toro, R [place] APPLICATIONS SUPPORT ANALYST Unavailable Unavailable Toro, R [place] APPLICATIONS SUPPORT ANALYST Unavailable Unavailable Toro, R [place] APPLICATIONS SUPPORT ANALYST Unavailable Unavailable Toro, R [place] APPLICATIONS SUPPORT ANALYST Unavailable Unavailable Toro, R [place] APPLICATIONS SUPPORT ANALYST Unavailable Unavailable Toro, R [place] APPLICATIONS SUPPORT ANALYST Unavailable Unavailable Toro, R [place] APPLICATIONS SUPPORT ANALYST Unavailable Unavailable Toro, R [place] APPLICATIONS SUPPORT ANALYST Unavailable Unavailable Toro, R [place] APPLICATIONS SUPPORT ANALYST Unavailable Unavailable Toro, R [place] APPLICATIONS SUPPORT ANALYST Unavailable Unavailable Toro, R [place] APPLICATIONS SUPPORT ANALYST Unavailable Unavailable Toro, R [place] APPLICATIONS SUPPORT ANALYST Unavailable Unavailable Toro, R [place] APPLICATIONS SUPPORT ANALYST Unavailable Unavailable Toro, R [place] APPLICATIONS SUPPORT ANALYST Unavailable Unavailable Toro, R [place] APPLICATIONS SUPPORT ANALYST Unavailable Unavailable Toro, R [place] APPLICATIONS SUPPORT ANALYST Unavailable Unavailable Toro, R [place] APPLICATIONS SUPPORT ANALYST Unavailable Unavailable Toro, R [place] APPLICATIONS SUPPORT ANALYST Unavailable Unavailable Janelle AGUIRRE MD Unavailable Unavailable [...] Unavailable Unavailable Janelle AGUIRRE MD Unavailable Unavailable Janelel AGUIRRE MD Unavailable Unavailable Janelle AGUIRRE MD [...] Unavailable Unavailable BRETAvtar MAR MD Unavailable Unavailable Avtar QUEEN MD Unavailable Unavailable BRETAvtar MAR MD Unavailable Unavailable BRETAvtar MAR MD Unavailable Unavailable BRETAvtar MAR MD Unavailable Unavailable BRETAvtar MAR MD Unavailable Unavailable BRETAvtar MAR MD Unavailable Unavailable Pudusseri, Amber DO Unavailable Unavailable PUDUSSERI, AMBER Unavailable Unavailable Katheryn BAUTISTA Unavailable Unavailable Carolyn Stack MD Unavailable Unavailable [...] Stack MD Unavailable Unavailable ZABOROWSKI, J VIDAL APPLICATIONS SUPPORT ANALYST Unavailable Unavailable ZABOROWSKI, J VIDAL APPLICATIONS SUPPORT ANALYST Unavailable Unavailable ZABOROWSKI, J VIDAL APPLICATIONS SUPPORT ANALYST Unavailable Unavailable ZABOROWSKI, J VIDAL APPLICATIONS SUPPORT ANALYST Unavailable Unavailable ZABOROWSKI, J VIDAL APPLICATIONS SUPPORT ANALYST Unavailable Unavailable ZABOROWSKI, J VIDAL APPLICATIONS SUPPORT ANALYST Unavailable Unavailable ZABOROWSKI, J VIDAL APPLICATIONS SUPPORT ANALYST Unavailable Unavailable ZABOROWSKI, J VIDAL APPLICATIONS SUPPORT ANALYST Unavailable Unavailable ZABOROWSKI, J VIDAL APPLICATIONS SUPPORT ANALYST Unavailable Unavailable ZABOROWSKI, J VIDAL APPLICATIONS SUPPORT ANALYST Unavailable Unavailable ZABOROWSKI, J VIDAL APPLICATIONS SUPPORT ANALYST Unavailable Unavailable ZABOROWSKI, J VIDAL APPLICATIONS SUPPORT ANALYST Unavailable Unavailable ZABOROWSKI, J VIDAL APPLICATIONS SUPPORT ANALYST Unavailable Unavailable ZABOROWSKI, J VIDAL APPLICATIONS SUPPORT ANALYST Unavailable Unavailable ZABOROWSKI, J VIDAL APPLICATIONS SUPPORT ANALYST Unavailable Unavailable ZABOROWSKI, J VIDAL APPLICATIONS SUPPORT ANALYST Unavailable Unavailable ZABOROWSKI, J VIDAL APPLICATIONS SUPPORT ANALYST Unavailable Unavailable ZABOROWSKI, J VIDAL APPLICATIONS SUPPORT ANALYST Unavailable Unavailable ZABOROWSKI, J VIDAL APPLICATIONS SUPPORT ANALYST Unavailable Unavailable ZABOROWSKI, J VIDAL APPLICATIONS SUPPORT ANALYST Unavailable Unavailable ZABOROWSKI, J VIDAL APPLICATIONS SUPPORT ANALYST Unavailable Unavailable ZABOROWSKI, J VIDAL APPLICATIONS SUPPORT ANALYST Unavailable Unavailable ZABOROWSKI, J VIDAL APPLICATIONS SUPPORT ANALYST Unavailable Unavailable ZABOROWSKI, J VIDAL APPLICATIONS SUPPORT ANALYST Unavailable Unavailable ZABOROWSKI, J VIDAL APPLICATIONS SUPPORT ANALYST Unavailable Unavailable ZABOROWSKI, J VIDAL APPLICATIONS SUPPORT ANALYST Unavailable Unavailable ZABOROWSKI, J VIDAL APPLICATIONS SUPPORT ANALYST Unavailable Unavailable ZABOROWSKI, J VIDAL APPLICATIONS SUPPORT ANALYST Unavailable Unavailable ZABOROWSKI, J VIDAL APPLICATIONS SUPPORT ANALYST Unavailable Unavailable ZABOROWSKI, J VIDAL APPLICATIONS SUPPORT ANALYST Unavailable Unavailable ZABOROWSKI, J VIDAL APPLICATIONS SUPPORT ANALYST Unavailable Unavailable ZABOROWSKI, J VIDAL APPLICATIONS SUPPORT ANALYST Unavailable Unavailable ZABOROWSKI, J VIDAL APPLICATIONS SUPPORT ANALYST Unavailable Unavailable ZABOROWSKI, J VIDAL APPLICATIONS SUPPORT ANALYST Unavailable Unavailable ZABOROWSKI, J VIDAL APPLICATIONS SUPPORT ANALYST Unavailable Unavailable ZABOROWSKI, J VIDAL APPLICATIONS SUPPORT ANALYST Unavailable Unavailable ZABOROWSKI, J VIDAL APPLICATIONS SUPPORT ANALYST Unavailable Unavailable ZABOROWSKI, J VIDAL APPLICATIONS SUPPORT ANALYST Unavailable Unavailable ZABOROWSKI, J VIDAL APPLICATIONS SUPPORT ANALYST Unavailable Unavailable ZABOROWSKI, J VIDAL APPLICATIONS SUPPORT ANALYST Unavailable Unavailable ZABOROWSKI, J VIDAL APPLICATIONS SUPPORT ANALYST Unavailable Unavailable ZABOROWSKI, J VIDAL APPLICATIONS SUPPORT ANALYST Unavailable Unavailable ZABOROWSKI, J VIDAL APPLICATIONS SUPPORT ANALYST Unavailable Unavailable ZABOROWSKI, J VIDAL APPLICATIONS SUPPORT ANALYST Unavailable Unavailable Janelle BARNES MD Unavailable Unavailable [...] Unavailable Unavailable Janelle BARNES MD Unavailable Unavailable Janlele BARNES MD Unavailable Unavailable Janelle BARNES MD [...] Unavailable Unavailable Janelle BARNES MD Unavailable Unavailable Pudusseri DO, Amber Unavailable [...] is protected by Article 27-F of the [facility] Public Health law. If you continue you may have access to information: Regarding HIV / AIDS; Provided by facilities licensed or operated by the [facility] Office of Mental Health; or Provided by the [facility] Office for People With Developmental Disabilities. If such information is present, then the following [facility] mandated warning applies: This information has [...] law may result in a fine or care home sentence or both. A general authorization for the release of medical or other information is NOT sufficient authorization for further disc losure. 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) Unknown Male Problem MEDENT ([facility]) Unknown Unknown Problem [facility] ([facility] Encounters Encounter Providers Location Date Indications Data Source(s ) Recurring Patient Referrer: Anders Canales MD 02/06/2020 09:20:55 AM EST [facility] Outpatient Attender: Amber AguilarsseriReferrer: BHAVANI QUEEN MD [id number] 01/15/2020 10:01:48 AM EST [facility] Outpatient Attender: Amber PudusseriReferrer: BHAVANI QUEEN MD [id number] 01/14/2020 05:00:05 PM [...] Marck callaway MD 11/15/2019 07:58:23 AM EDT [facility] Outpatient Attender: GHANSHYAM AGUIRRE MDReferrer: Marck flores MD 11/09/2019 10:24:40 AM EDT [facility] Outpatient 11/02/2019 01:25:00 PM EDT [facility] Outpatient 11/02/2019 01:25:00 PM EDT [facility] Recurring Patient Referrer: Anders Canales MD 11/01/2019 03:12:58 PM EDT [facility] Recurring Patient Referrer: Anders Canales MD 11/01/2019 03:11:48 PM EDT [facility] Recurring Patient Referrer: Anders Canales MD 11/01/2019 03:04:58 PM EDT [facility] Recurring Patient Referrer: Anders Canales MD 10/23/2019 03:52:25 PM EDT [facility] Outpatient Attender: ADELAIDA BURCH-BF 10/23/2019 07:41:45 AM EDT [facility] Outpatient Attender: Amber Ribeiro DO 10/17/2019 09:17:0 0 AM EDT [facility] Outpatient Attender: Amber Ribeiro DO 10/17/2019 09:17:0 0 AM EDT [facility] Outpatient Attender: Carolina Toro NPReferrer: Marck sidhu MD 10/16/2019 07:39:27 AM EDT [facility] Outpatient Referrer: ADELAIDA BARNES MD 10/11/2019 10:00:14 AM EDT [facility] Recurring Patient Referrer: Amber Ribeiro DO 10/10/2019 03:18:28 PM EDT [facility] Outpatient Attender: ADELAIDA BARNES MD BF-BF 12:00:00 AM EDT - 10/03/2019 03:02:55 PM EDT [facility] Outpatient Attender: ADELAIDA BARNES MD BF-BF 09/12/2019 12:00:00 AM EDT [facility] Outpatient Attender: ADELAIDA BARNES MD [facility] 09/05/2019 12:00:00 AM EDT [facility] Outpatient 07/31/2019 03:30:00 PM EDT [facility] Outpatient 07/31/2019 03:30:00 PM EDT [facility] Outpatient Attender: Marck Naylor MD [facility] 07/27/2019 11:15:00 AM EDT [facility] ([facility] Outpatient 07/20/2019 02:30:00 PM EDT [facility] Outpatient Attender: Anders Canales MDReferrer: Marck callaway MD 07/13/2019 09:36:07 AM EDT [facility] Outpatient Attender: Anders Canales MDReferrer: Marck callaway MD 06/29/2019 09:53:11 AM EDT [facility] Recurring Patient Referrer: Amber Ribeiro DO 06/27/2019 02:04:29 PM EDT [facility] Outpatient Attender: ADELAIDA BARNES MD BF-BF 020 07:37:23 AM EDT - 06/22/2019 10:43:40 AM EDT [facility] Inpatient Attender: GINNY Foster er: GINNY Castroender: AMBER ALLENdmitter: AMBER RIBEIRO [id number] 04/10/2019 01:56:00 PM EST - 04/16/2019 12:26:00 PM EDT [facility] Patient discharged. Inpatient Attender: Kaden Cade tender: AMBER ALLENdmitter: Kaden Sims DOConsultant: Kaden Sims DO [id number] 03/21/2019 10:55 :00 AM EST - 03/26/2019 11:06:00 AM EST [facility] Patient discharged. Inpatient Attender: VINICIUS BOO MDAtt chen: AMBER Rodriguezitter: AMBER RIBEIRO [id number] 02/27/2019 10:25:00 AM EST - 03/04/2019 12:41:00 PM EST [facility] Patient discharged. Outpatient Referrer: VIDAL SHANNON NP 02/20/2019 09:42:3 4 AM EST [facility] Outpatient Attender: VIDAL SHANNON NP [facility] 12:00:00 AM EST - 02/20/2019 02:27:24 PM EST [facility] Outpatient Attender: Amber Ribeiro DO 02/16/2019 09:30:0 0 AM EST [facility] Inpatient Attender: Karthikeyan Mccloud MDAt tender: Carolyn Stack MDAttender: Naty Griffin DOAttender: Virginia Burch MDAdmitter: Karthikeyan Mccloud MD [id number] 01/28/2019 01:01:55 PM EST - 01/31/2019 01:48:00 PM EST [facility] Patient discharged. Outpatient 01/19/2019 10:00:00 AM EST [facility] Outpatient Referrer: Jerel Sharpe MD [facility] 0 09/11/2018 12:52:24 PM EDT - 09/11/2018 03:06:33 PM EDT [facility] Medications Medication Brand Name Start Date Product Form Dose Route Admi nistrative Instructions Pharmacy Instructions Status Indications Reaction Description Data Source(s) Cephalexin 500 MG Oral Capsule CEPHALEXIN 02/22/2020 12:00:00 AM EST capsule 21 TAKE ONE CAPSULE BY MOUTH THREE TIMES A DAY TAKE ONE C APSULE BY MOUTH THREE TIMES A DAY SOLD: 02/26/2020 [facility] doxycycline hyclate 100 MG Oral Capsule DOXYCYCLINE [...] 90 TAKE ONE TABLET BY MOUTH BERTHA TAKE ONE TABLET BY MOUTH EVERY DAY [...] mg total) by mouth every 6 (six) [facility] potassium chloride SA (K-DUR,KLOR-CON) CR tablet 10 mEq [id number] 04/14/2019 09:00:00 AM EST 10 meq Oral completed 10 mEq, Oral, 2 times daily, First dose on 04/14/19 at 0900, For 2 days
Formulary change
[facility] Medication administered onsite Simethicone 80 MG Chewable Tablet simethicone (MYLICON ) chewable tablet 120 mg simethicone (MYLICON) chewable tablet 120 mg 04/14/2019 08:12:49 AM EST 120 mg Oral active 120 mg, Or al, 4 times daily PRN, flatulence, Starting 04/14/19 at 0812 [facility] Medication administered onsite Simethicone 80 MG Chewable Tablet simethicone (MYLICON ) chewable tablet 80 mg simethicone (MYLICON) chewable tablet 80 mg 04/13/2019 11:29:21 AM EST 80 mg Oral aborted 80 mg, Oral, 4 times daily PRN, flatulence, Starting 04/13/19 at 1129 [facility] Medication administered onsite leucovorin 20 mg in dextrose 5 % 100 mL infusion 04/11 12:00:00 PM EST 20 mg Intravenous aborted 20 mg, I ntravenous, Administer over 15 Minutes, Every 6 hours (scheduled), First dose on Colleen 04/12/19 at 1200
Leucovorin rescue 20 mg Q6h starting 24 hours after Methotrexate infusion
[facility] Medication administered onsite Docusate Sodium 100 MG Oral Capsule docusate sodium (C OLACE) capsule 500 mg docusate sodium (COLACE) capsule 500 mg 04/12/2019 09:00:00 AM EST 500 mg Oral active 500 mg, Oral, 2 times daily, First dose on Colleen 04/12/19 at 0900
hold for loose stools
[facility] Medication administered onsite Docusate Sodium 100 MG Oral Capsule docusate sodium (C OLACE) capsule 300 mg docusate sodium (COLACE) capsule 300 mg 04/11/2019 10:00:00 PM EST 300 mg Oral completed 300 mg, Oral, Once, Tue04/11/19 at 2200, For 1 dose
hold for loose stools
[facility] Medication administered onsite sodium bicarbonate 150 mEq in dextrose 5 % 1,000 mL infusion 04/11/2019 09:00:00 PM EST 150 meq Intravenous active at 125 mL/hr, 150 mEq, Intravenous, Continuous, Starting Tue04/11/19 at 2100 [facility] Medication administered onsite Sodium Bicarbonate 650 MG Oral Tablet sodium bicarbona te tablet 650 mg sodium bicarbonate tablet 650 mg 04/11/2019 08:23:49 PM EST 650 mg Oral active 650 mg, Oral, Nightly PRN, correction of urine pH to keep at 8 or above, Starting Tue04/11/19 at 2023 [facility] Medication administered onsite Acetaminophen 325 MG Oral Tablet acetaminophen (TYLENO L) 325 MG tablet 650 mg acetaminophen (TYLENOL) 325 MG tablet 650 mg 04/11/2019 07:06:42 PM EST 650 mg Oral active 650 mg, Or al, Every 4 hours PRN, mild pain (1-3), fever, fever, Starting Tue04/11/19 at 1906 [facility] Medication administered onsite methotrexate (PF) 8,000 mg in sodium chloride (NS) 0.9 % 500 mL chemo infusion 04/11/2019 12:00:00 PM EST 8000 mg Intravenous compl eted 8,000 mg, Intravenous, Administer over 4 Hours, Once, Tue04/11/19 at 1200, For 1 dose
3.5g/m2 rounded down to whole vials per policy
[facility] Medication administered onsite granisetron (KYTRIL) injection 1 mg [id number] 04/11/2019 11:00:0 0 AM EST 1 mg Intravenous completed 1 mg, In travenous, Once, Tue04/11/19 at 1100, For 1 dose
Please administer 30 minutes prior to methotrexate infusion
[facility] Medication administered onsite Potassium Chloride 8 MEQ Extended Releas e Oral Tablet potassium chloride (KLOR- CON) CR tablet 8 mEq potassium chloride (KLOR-CON) CR tablet 8 mEq 04/11/19 09:00:00 AM EST 8 meq Oral aborted 8 mEq, Oral, Every 48 hours, First dose on Tue04/11/19 at 0900
Formulary change
[facility] Medication administered onsite Levothyroxine Sodium 0.075 MG Oral Table t levothyroxine (SYNTHROID, LEVOTHROID) tablet 75 mcg levothyroxine (SYNTHROID, LEVOTHROID) tablet 75 mcg 06:00:00 AM EST 75 ug Oral active 75 mcg, Oral, Daily, First dose on Tue04/11/19 at 0600 [facility] Medication administered onsite Acetazolamide 250 MG Oral Tablet acetaZOLAMIDE (DIAMOX ) tablet 250 mg acetaZOLAMIDE (DIAMOX) tablet 250 mg 04/11/2019 05:00:00 AM EST 250 m g Oral aborted 250 mg, Oral, Ev cindy 6 hours (scheduled), First dose on Tue04/11/19 at 0500 [facility] Medication administered onsite 12 HR ranolazine 500 MG Extended Release Oral Tablet ranolazine (RANEXA) 12 hr tablet 500 mg ranolazine (RANEXA) 12 hr tablet 500 mg 04/10/2019 09: 00:00 PM EST 500 mg Oral active 500 mg, Oral, 2 times daily, First dose on Tue04/10/19 at 2100 [facility] Medication administered onsite Rosuvastatin calcium 20 MG Oral Tablet rosuvastatin (C RESTOR) tablet 40 mg rosuvastatin (CRESTOR) tablet 40 mg 04/10/2019 09:00:00 PM EST 40 mg Oral active 40 mg, Oral, Nightly, First dose on Tue04/10/19 at 2100 [facility] Medication administered onsite MAGNESIUM GLUCONATE 500 MG Oral Tablet m agnesium gluconate (MAGONATE) tablet 500 mg magnesium gluconate (MAGONATE) tablet 500 mg 04/10/2019 09:00:00 PM EST 500 mg Oral active 500 mg, Oral, Nightly, F irst dose on Tue04/10/19 at 2100 [facility] Medication administered onsite Docusate Sodium 100 MG Oral Capsule docusate sodium (C OLACE) capsule 200 mg docusate sodium (COLACE) capsule 200 mg 04/10/2019 09:00:00 PM EST 200 mg Oral aborted 200 mg, Oral, 2 times daily, First dose on Tue04/10/19 at 2100
hold for loose stools Docusate 250mg po bid to 200mg po bid formulary change
[facility] Medication administered onsite carvedilol 6.25 MG Oral Tablet carvedilol (COREG) tabl et 6.25 mg carvedilol (COREG) tablet 6.25 mg 04/10/2019 09:00:00 PM EST 6.25 mg Oral active 6.25 mg, Oral, 2 times daily, First dose on Tue04/10/19 at 2100
Hold for SBP < 100 or HR < 55
[facility] Medication administered onsite sennosides, INTERMEDIATE 8.6 MG Oral Tablet senna (SENOKOT) tab let 8.6 mg senna (SENOKOT) tablet 8.6 mg 04/10/2019 07:14:12 PM EST 8.6 mg Oral acti ve 8.6 mg, Oral, 2 times daily PRN, constipation, Starting Tue04/10/19 at 1914
Hold for loose stools.If patient is unable to swallow the tablet, nursing should crush and dissolve tablet in 10-15 ml of water prior to administration
[facility] Medication administered onsite gabapentin 300 MG Oral Capsule gabapentin (NEURONTIN) capsule 900 mg gabapentin (NEURONTIN) capsule 900 mg 04/10/2019 07:12:35 PM EST 900 mg Oral active 900 mg, Oral, Daily PRN, [facility] neuropathic pain, Starting Tue04/10/19 at 1912 [facility] Medication administered onsite POLYETHYLENE GLYCOL 3350 142 MG/ML Oral Solution polyethylene glycol (GLYCOLAX) packet 17 g polyethylene glycol (GLYCOLAX) packet 17 g 04/10/2019 07:00:00 PM EST 17 g Oral active 17 g, Or al, Daily, First dose on Tue04/10/19 at 1900
hold for loose stools
[facility] Medication administered onsite prasugrel 10 MG Oral Tablet prasugrel (EFFIENT) tablet 10 mg prasugrel (EFFIENT) tablet 10 mg 04/10/2019 06:00:00 PM EST 10 mg Oral activ e 10 mg, Oral, Daily, First dose on Tue04/10/19 at 1800 [facility] Medication administered onsite Pramipexole dihydrochloride 0.5 MG Oral Tablet pramipexole (MIRAPEX) tablet 0.5 mg pramipexole (MIRAPEX) tablet 0.5 mg 04/10/2019 06:00:00 PM EST 0.5 mg Oral active 0.5 mg, Oral, Nightly, Fi rst dose on Tue04/10/19 at 1800 [facility] Medication administered onsite 24 HR venlafaxine 37.5 MG Extended Relea se Oral Capsule venlafaxine (EFFEXOR-XR) 24 hr capsule 37.5 mg venlafaxine (EFFEXOR-XR) 24 hr capsule 37.5 mg 06:00:00 PM EST 37.5 mg Oral active 37.5 mg, Oral, Daily, First dose on Tue04/10/19 at 1800 [facility] Medication administered onsite gabapentin 300 MG Oral Capsule gabapentin (NEURONTIN) capsule 900 mg gabapentin (NEURONTIN) capsule 900 mg 04/10/2019 06:00:00 PM EST 900 mg Oral active 900 mg, Oral, 2 times daily, First dose on Tue04/10/19 at 1800 [facility] Medication administered onsite 24 HR Isosorbide Mononitrate 30 MG Exten ded Release Oral Tablet isosorbide mononitrate (IMDUR) 24 hr tablet 30 mg isosorbide mononitrate (IMDUR) 24 hr tablet 30 mg 04/10/2019 06:00:00 PM EST 30 mg Oral activ e 30 mg, Oral, 2 times daily, First dose on Tue04/10/19 at 1800 [facility] Medication administered onsite Lisinopril 5 MG Oral Tablet lisinopril (PRINIVIL,ZESTR IL) tablet 2.5 mg lisinopril (PRINIVIL,ZESTRIL) tablet 2.5 mg 04/10/2019 06:00:00 PM EST 2.5 mg Oral active 2.5 mg, Oral, Daily, First dose on Tue04/10/19 at 1800
Hold for SBP < 100
[facility] Medication administered onsite Loratadine 10 MG Oral Tablet loratadine (CLARITIN) tab let 10 mg loratadine (CLARITIN) tablet 10 mg 04/10/2019 06:00:00 PM EST 10 mg Oral active 10 mg, Oral, Daily, First dose on Tue04/10/19 at 1800 [facility] [facility] Med[facility] administered onsite Aspirin 81 MG Delayed Release Oral Tablet aspirin EC t ablet 81 mg aspirin EC tablet 81 mg 04/10/2019 06:00:00 PM EST 81 mg Oral activ e 81 mg, Oral, Daily, First dose on Tue04/10/19 at 1800 [facility] Medication administered onsite ondansetron (ZOFRAN) injection 4 mg [id number] 04/10/2019 04:41:4 2 PM EST 4 mg Intravenous active 4 mg, In travenous, Every 6 hours PRN, nausea, vomiting, Starting Tue04/10/19 at 1641 [facility] Medication administered onsite normal saline flush 0.9 % injection 10 mL [id number] 04/10/2019 04:00:00 PM EST 10 mL Intravenous active 10 m L, Intravenous, Every 8 hours (scheduled), First dose on Tue04/10/19 at 1600
Flush with 10 mL NS prior and post medication administration.Flush with 10 mL NS prior to blood specimen collection and flush with 20 mL to clear solution/drug post blood specimen collection
[facility] Medication administered onsite 1 ML heparin sodium, porcine 100 UNT/ML Injection heparin 100 UNIT/ML injection 500 Units heparin 100 UNIT/ML injection 500 Units 04/10/2019 04:00:[address] 500 U active 500 Units, Intracatheter, Daily (0600), First dose on Tue04/10/19 at 1600
For open ended ports without IV fluid runningRefer to policy: [email or web address]
[facility] Medication administered onsite sodium bicarbonate 150 mEq in dextrose 5 % 1,000 mL infusion 04/10/2019 03:00:00 PM EST 150 meq Intravenous aborted at 125 mL/hr, 150 mEq, Intravenous, Continuous, Starting Tue04/10/19 at 1500 [facility] Medication administered onsite gabapentin 300 MG Oral Capsule gabapentin (NEURONTIN) capsule 600 mg gabapentin (NEURONTIN) capsule 600 mg 03/26/2019 02:00:00 AM EST 600 mg Oral completed 600 mg, Oral, Once, Tue03/26/19 at 0200, For 1 dose [facility] Medication administered onsite Ondansetron 4 MG Disintegrating Oral Tab let ondansetron (ZOFRAN-ODT) 4 MG disintegrating tablet ondansetron (ZOFRAN-ODT) 4 MG disintegrating tablet 03/26/2019 12:00:00 AM EST 4 mg Oral active Take 1 tablet (4 mg total) by mouth every 8 (eight) hours as needed for nausea [facility] 4 mg 03/26/2019 12:00:00 AM [...] Oral, 2 times daily, First dose on Tue03/25/19 at 1600 [facility] Medication administered onsite sodium bicarbonate 150 mEq in dextrose 5 % 1,000 mL infusion 03/25/2019 02:00:00 AM EST 150 meq Intravenous aborted at 175 mL/hr, 150 mEq, Intravenous, Continuous, Starting 03/25/19 at 0200, For 72 hours [facility] Medication administered onsite sodium bicarbonate 150 mEq in dextrose 5 % 1,000 mL infusion 03/24/2019 10:00:00 PM EST 150 meq Intravenous aborted at 200 mL/hr, 150 mEq, Intravenous, Continuous, Starting 03/24/19 at 2200, For 4 hours [facility] Medication administered onsite Sodium Bicarbonate 650 MG Oral Tablet sodium bicarbona te tablet 650 mg sodium bicarbonate tablet 650 mg 03/24/2019 10:00:00 PM EST 650 mg Oral completed 650 mg, Oral, Once, 03/24/19 at 2200, For 1 dose [facility] Medication administered onsite sennosides, INTERMEDIATE 8.6 MG Oral Tablet senna (SENOKOT) tab let 17.2 mg senna (SENOKOT) tablet 17.2 mg 03/24/2019 07:40:40 AM EST 17.2 mg Oral active 17.2 mg, Oral, 2 times daily PRN, consti pation, Starting 03/24/19 at 0740
Hold for loose stools.If patient is unable to swallow the tablet, nursing should crush and dissolve tablet in 10-15 ml of water prior to administration
[facility] Medication administered onsite Metoclopramide 10 MG Oral Tablet metoclopramide (TOSHA N) tablet 10 mg metoclopramide (REGLAN) tablet 10 mg 03/24/2019 07:00:00 AM EST 10 mg Oral active 10 mg, Oral, 3 t imes daily before meals, First dose on 03/24/19 at 0700 [facility] Medication administered onsite Sodium Bicarbonate 650 MG Oral Tablet sodium bicarbona te tablet 650 mg sodium bicarbonate tablet 650 mg 03/23/2019 10:00:00 PM EST 650 mg Oral completed 650 mg, Oral, Once, 03/23/19 at 2200, For 1 dose [facility] Medication administered onsite leucovorin 20 mg in dextrose 5 % 100 mL infusion 03/23 12:30:00 PM EST 20 mg Intravenous aborted 20 mg, I ntravenous, Administer over 15 Minutes, Every 6 hours (scheduled), First dose on Tue03/23/19 at 1300
Continue until methotrexate level less than 0.1
[facility] Medication administered onsite sodium bicarbonate 150 mEq in dextrose 5 % 1,000 mL infusion 03/23/2019 02:00:00 AM EST 150 meq Intravenous aborted at 175 mL/hr, 150 mEq, Intravenous, Continuous, Starting Tue03/23/19 at 0200 [facility] Medication administered onsite Pramipexole dihydrochloride 0.5 MG Oral Tablet pramipexole (MIRAPEX) tablet 0.5 mg pramipexole (MIRAPEX) tablet 0.5 mg 03/22/2019 05:00:00 PM EST 0.5 mg Oral active 0.5 mg, Oral, Daily, Firs t dose on Colleen 03/22/19 at 1700 [facility] Medication administered onsite methotrexate (PF) 7,980 mg in sodium chloride (NS) 0.9 % 500 mL chemo infusion 03/22/2019 11:00:00 AM EST 3500 mg/m2 Intravenous co mpleted 7,980 mg (3,500 mg/m2 2.28 m2), Intravenous, Administer over 4 Hours, Once, Colleen 03/22/19 at 1100, For 1 dose
Methotrexate 3.5 g/m2 IV x 1Cycle 2
[facility] Medication administered onsite Docusate Sodium 100 MG Oral Capsule docusate sodium (C OLACE) capsule 500 mg docusate sodium (COLACE) capsule 500 mg 03/22/2019 10:00:00 AM EST 500 mg Oral active 500 mg, Oral, 2 time s daily, First dose on Colleen 03/22/19 at 1000 [facility] Medication administered onsite Dexamethasone Sod Phosphate PF SOLN 10 mg [id number] 03/22/2019 10:00:00 AM EST 10 mg Intravenous completed 10 mg, Intravenous, Once, Colleen 03/22/19 at 1000, For 1 dose
Administer 30 minutes prior to Methotrexate
[facility] Medication administered onsite granisetron (KYTRIL) injection 1 mg [id number] 03/22/2019 10:00:0 0 AM EST 1 mg Intravenous completed 1 mg, In travenous, Once, Colleen 03/22/19 at 1000, For 1 dose
Administer 30 minutes prior to Methotrexate
[facility] Medication administered onsite Aspirin 81 MG Delayed Release Oral Tablet aspirin EC t ablet 81 mg aspirin EC tablet 81 mg 03/22/2019 09:00:00 AM EST 81 mg Oral activ e 81 mg, Oral, Daily, First dose on Colleen 03/22/19 at 0900 [facility] Medication administered onsite POLYETHYLENE GLYCOL 3350 142 MG/ML Oral Solution polyethylene glycol (GLYCOLAX) packet 17 g polyethylene glycol (GLYCOLAX) packet 17 g 03/22/2019 09:00:00 AM EST 17 g Oral active 17 g, Or al, Daily, First dose on Colleen 03/22/19 at 0900
hold for loose stools
[facility] Medication administered onsite Lisinopril 5 MG Oral Tablet lisinopril (PRINIVIL,ZESTR IL) tablet 2.5 mg lisinopril (PRINIVIL,ZESTRIL) tablet 2.5 mg 03/22/2019 09:00:00 AM EST 2.5 mg Oral active 2.5 mg, Oral, Daily, First dose on Colleen 03/22/19 at 0900
Hold for SBP < 100
[facility] Medication administered onsite venlafaxine 37.5 MG Oral Tablet venlafaxine (EFFEXOR) tablet 37.5 mg venlafaxine (EFFEXOR) tablet 37.5 mg 03/22/2019 09:00:00 AM EST 37.5 mg Oral active 37.5 mg, Oral, Daily, First dose on Colleen 03/22/19 at 090 0 [facility] Medication administered onsite prasugrel 10 MG Oral Tablet prasugrel (EFFIENT) tablet 10 mg prasugrel (EFFIENT) tablet 10 mg 03/22/2019 09:00:00 AM EST 10 mg Oral activ e 10 mg, Oral, Daily, First dose on Colleen 03/22/19 at 0900 [facility] Medication administered onsite Levothyroxine Sodium 0.075 MG Oral Table t levothyroxine (SYNTHROID, LEVOTHROID) tablet 75 mcg levothyroxine (SYNTHROID, LEVOTHROID) tablet 75 mcg 06:00:00 AM EST 75 ug Oral active 75 mcg, Oral, Daily (0600), First dose on Colleen 03/22/19 at 0600 [facility] Medication administered onsite MAGNESIUM GLUCONATE 500 MG Oral Tablet m agnesium gluconate (MAGONATE) tablet 500 mg magnesium gluconate (MAGONATE) tablet 500 mg 03/21/2019 09:00:00 PM EST 500 mg Oral active 500 mg, Oral, Nightly, F irst dose on Tue03/21/19 at 2100 [facility] Medication administered onsite carvedilol 6.25 MG Oral Tablet carvedilol (COREG) tabl et 6.25 mg carvedilol (COREG) tablet 6.25 mg 03/21/2019 09:00:00 PM EST 6.25 mg Oral active 6.25 mg, Oral, 2 times daily, First dose on Tue03/21/19 at 2100 [facility] Medication administered onsite Docusate Sodium 100 MG Oral Capsule docusate sodium (C OLACE) capsule 100 mg docusate sodium (COLACE) capsule 100 mg 03/21/2019 09:00:00 PM EST 100 mg Oral aborted 100 mg, Oral, 2 time s daily, First dose on Tue03/21/19 at 2100 [facility] Medication administered onsite gabapentin 300 MG Oral Capsule gabapentin (NEURONTIN) capsule 900 mg gabapentin (NEURONTIN) capsule 900 mg 03/21/2019 09:00:00 PM EST 900 mg Oral active 900 mg, Oral, 2 times daily, First dose on Tue03/21/19 at 2100 [facility] Medication administered onsite 12 HR ranolazine 500 MG Extended Release Oral Tablet ranolazine (RANEXA) 12 hr tablet 500 mg ranolazine (RANEXA) 12 hr tablet 500 mg 03/21/2019 09: 00:00 PM EST 500 mg Oral active 500 mg, Oral, 2 times daily, First dose on Tue03/21/19 at 2100 [facility] Medication administered onsite Rosuvastatin calcium 20 MG Oral Tablet rosuvastatin (C RESTOR) tablet 40 mg rosuvastatin (CRESTOR) tablet 40 mg 03/21/2019 09:00:00 PM EST 40 mg Oral active 40 mg, Oral, Nightly, First dose on Tue03/21/19 at 2100 [facility] Medication administered onsite normal saline flush 0.9 % injection 10 mL [id number] 03/21/2019 04:00:00 PM EST 10 mL Intravenous active 10 m L, Intravenous, Every 8 hours (scheduled), First dose on Tue03/21/19 at 1600
Flush with 10 mL NS prior and post medication administration.Flush with 10 mL NS prior to blood specimen collection and flush with 20 mL to clear solution/drug post blood specimen collection
[facility] Medication administered onsite Prochlorperazine 10 MG Oral Tablet prochlorperazine (C OMPAZINE) tablet 10 mg prochlorperazine (COMPAZINE) tablet 10 mg 03/21/2019 02:48:25 PM EST 10 mg Oral active 10 mg, Oral, E very 6 hours PRN, nausea, vomiting, chemotherapy induced nausea / vomiting, Starting Tue03/21/19 at 1448 [facility] Medication administered onsite 24 HR Isosorbide Mononitrate 30 MG Exten ded Release Oral Tablet isosorbide mononitrate (IMDUR) 24 hr tablet 30 mg isosorbide mononitrate (IMDUR) 24 hr tablet 30 mg 03/21/2019 02:00:00 PM EST 30 mg Oral activ e 30 mg, Oral, 2 times daily, First dose on Tue03/21/19 at 1400 [facility] Medication administered onsite Loratadine 10 MG Oral Tablet loratadine (CLARITIN) tab let 10 mg loratadine (CLARITIN) tablet 10 mg 03/21/2019 02:00:00 PM EST 10 mg Oral active 10 mg, Oral, Daily, First dose on Tue03/21/19 at 1400 [facility] Medication administered onsite sodium bicarbonate 150 mEq in dextrose 5 % 1,000 mL infusion 03/21/2019 01:00:00 PM EST 150 meq Intravenous aborted at 150 mL/hr, 150 mEq, Intravenous, Continuous, Starting Tue03/21/19 at 1300 [facility] Medication administered onsite POLYETHYLENE GLYCOL 3350 142 MG/ML Oral Solution polyethylene glycol (GLYCOLAX) packet 17 g polyethylene glycol (GLYCOLAX) packet 17 g 03/21/2019 12:33:00 PM EST 17 g Oral active 17 g, Or al, Nightly PRN, persistent constipation, Starting Tue03/21/19 at 1233
hold for loose stools
[facility] Medication administered onsite Nitroglycerin 0.4 MG Sublingual Tablet n itroglycerin (NITROSTAT) SL tablet 0.4 mg nitroglycerin (NITROSTAT) SL tablet 0.4 mg 03/21/2019 12:30:56 P M EST 0.4 mg Sublingual active 0.4 mg, S ublingual, Every 5 min PRN, chest pain, Starting Tue03/21/19 at 1230
May administer up to 3 doses per episode.
[facility] Medication administered onsite Albuterol 0.83 MG/ML Inhalant Solution a lbuterol (PROVENTIL) nebulizer solution 2.5 mg albuterol (PROVENTIL) nebulizer solution 2.5 mg 2019 12:18:18 PM EST 2.5 mg active 2.5 mg, Nebulization, RT every 4 hours as needed, wheezing, shortness of breath, Starting Tue03/21/19 at 1218 [facility] Medication administered onsite ondansetron (ZOFRAN) injection 4 mg [id number] 03/21/2019 12:16:1 5 PM EST 4 mg Intravenous active 4 mg, In travenous, Every 6 hours PRN, nausea, vomiting, Starting Tue03/21/19 at 1216 [facility] Medication administered onsite Acetaminophen 325 [...] mg from all sources in 24 hours."
[facility] Medication administered onsite Bisacodyl 10 MG Rectal Suppository bisacodyl (DULCOLAX ) suppository 10 mg bisacodyl (DULCOLAX) suppository 10 mg 03/03/2019 06:00:00 PM EST 10 mg Rectal completed 10 mg, Rectal, Once, 03/03/19 at 1800, For 1 dose
hold for loose stools
[facility] Medication administered onsite magnesium citrate solution 296 mL [id number] 03/03/2019 11:00:00 AM EST 296 mL Oral completed 296 mL, Or al, Once, 03/03/19 at 1100, For 1 dose
hold for loose stools
[facility] Medication administered onsite Sodium Chloride 0.111 MEQ/ML Nasal Solut ion sodium chloride (OCEAN) 0.65 % nasal spray 2 spray sodium chloride (OCEAN) 0.65 % nasal spray 2 spray 06:06:41 PM EST 2 {spray} active 2 spray, Each Nare, As needed, congestion, Starting Tue03/02/19 at 1806
May leave medication at bedside
[facility] Medication administered onsite Docusate Sodium 50 MG / sennosides, INTERMEDIATE 8.6 MG Oral Tablet senna-docusate (PERICOLACE) 8.6-50 MG 2 tablet senna-docusate (PERICOLACE) 8.6-50 MG 2 tablet 03/02/2019 04:00:00 PM EST 2 {tbl} Oral active 2 tablet, Oral, 2 times daily, First dose on Tue03/02/19 at 1600
hold for loose stools
[facility] Medication administered onsite leucovorin 20 mg in dextrose 5 % 250 mL infusion 03/01 02:30:00 PM EST 20 mg Intravenous active 20 mg, I ntravenous, Administer over 30 Minutes, Every 6 hours (relative), First dose on Colleen 03/01/19 at 1430
Leucovorin rescue 10 mg/m2 IV Q6h to start 24 hours after start of MTX infusion.Continue until methotrexate level is <0.1
[facility] Medication administered onsite Pramipexole dihydrochloride 0.5 MG Oral Tablet pramipexole (MIRAPEX) tablet 0.5 mg pramipexole (MIRAPEX) tablet 0.5 mg 03/01/2019 09:00:00 AM EST 0.5 mg Oral active 0.5 mg, Oral, 2 times mercedes ly, First dose on Tue03/01/19 at 0900 [facility] Medication administered onsite gabapentin 300 MG Oral Capsule gabapentin (NEURONTIN) capsule 900 mg gabapentin (NEURONTIN) capsule 900 mg 03/01/2019 09:00:00 AM EST 900 mg Oral active 900 mg, Oral, 2 times daily, First dose on Tue03/01/19 at 0900 [facility] Medication administered onsite MAGNESIUM GLUCONATE 500 MG Oral Tablet m agnesium gluconate (MAGONATE) tablet 500 mg magnesium gluconate (MAGONATE) tablet 500 mg 02/28/2019 09:00:00 PM EST 500 mg Oral active 500 mg, Oral, Nightly, F irst dose on Tue02/28/19 at 2100 [facility] Medication administered onsite methotrexate (PF) 8,050 mg in sodium chloride (NS) 0.9 % 500 mL chemo infusion 02/28/2019 02:00:00 PM EST 3500 mg/m2 Intravenous co mpleted 8,050 mg (3,500 mg/m2 2.3 m2), Intravenous, Administer over 4 Hours, Once, Tue02/28/19 at 1400, For 1 dose
Methotrexate 3.5 g/m2 IV x 1 Cycle 1 as treatment of [employer] prophylaxis for DLBCL
[facility] Medication administered onsite dexamethasone (DECADRON) injection 10 mg [id number] 02/28/2019 01:00:00 PM EST 10 mg Intravenous completed 10 mg, Intravenous, Once, Tue02/28/19 at 1300, For 1 dose
Administer prior to methotrexate
[facility] Medication administered onsite granisetron (KYTRIL) injection 1 mg [id number] 02/28/2019 01:00:0 0 PM EST 1 mg Intravenous completed 1 mg, In travenous, Once, Tue02/28/19 at 1300, For 1 dose
Administer prior to methotrexate
[facility] Medication administered onsite Aspirin 81 MG Delayed Release Oral Tablet aspirin EC t ablet 81 mg aspirin EC tablet 81 mg 02/28/2019 09:00:00 AM EST 81 mg Oral activ e 81 mg, Oral, Daily, First dose on Tue02/28/19 at 0900 [facility] Medication administered onsite prasugrel 10 MG Oral Tablet prasugrel (EFFIENT) tablet 10 mg prasugrel (EFFIENT) tablet 10 mg 02/28/2019 09:00:00 AM EST 10 mg Oral activ e 10 mg, Oral, Daily, First dose on Tue02/28/19 at 0900 [facility] Medication administered onsite POLYETHYLENE GLYCOL 3350 142 MG/ML Oral Solution polyethylene glycol (GLYCOLAX) packet 17 g polyethylene glycol (GLYCOLAX) packet 17 g 02/28/2019 09:00:00 AM EST 17 g Oral active 17 g, Or al, Daily, First dose on Tue02/28/19 at 0900
hold for loose stools
[facility] Medication administered onsite Loratadine 10 MG Oral Tablet loratadine (CLARITIN) tab let 10 mg loratadine (CLARITIN) tablet 10 mg 02/28/2019 09:00:00 AM EST 10 mg Oral active 10 mg, Oral, Daily, First dose on Tue02/28/19 at 0900 [facility] Medication administered onsite Lisinopril 5 MG Oral Tablet lisinopril (PRINIVIL,ZESTR IL) tablet 2.5 mg lisinopril (PRINIVIL,ZESTRIL) tablet 2.5 mg 02/28/2019 09:00:00 AM EST 2.5 mg Oral active 2.5 mg, Oral, Daily, First dose on Tue02/28/19 at 0900
Hold for SBP < 100
[facility] Medication administered onsite DAILY DEEPA (THERAGRAN) 1 tablet [id number] 02/28/2019 09:00:00 AM EST 1 {tbl} Oral active 1 tablet, Oral, Daily, First dose on Tue02/28/19 at 0900 [facility] Medication administered onsite venlafaxine 37.5 MG Oral Tablet venlafaxine (EFFEXOR) tablet 37.5 mg venlafaxine (EFFEXOR) tablet 37.5 mg 02/28/2019 09:00:00 AM EST 37.5 mg Oral active 37.5 mg, Oral, Daily, First dose on Tue02/28/19 at 090 0 [facility] Medication administered onsite Prochlorperazine 5 MG/ML Injectable Solu tion Prochlorperazine Edisylate (COMPAZINE) injection 10 mg Prochlorperazine Edisylate (COMPAZINE) i njection 10 mg 02/28/2019 08:00:59 AM EST 10 mg Intravenous active 10 mg, Intravenous, Every 6 hours PRN, nausea, vomiting, Starting Tue02/28/19 at 0800 [facility] Medication administered onsite Levothyroxine Sodium 0.075 MG Oral Table t levothyroxine (SYNTHROID, LEVOTHROID) tablet 75 mcg levothyroxine (SYNTHROID, LEVOTHROID) tablet 75 mcg 06:00:00 AM EST 75 ug Oral active 75 mcg, Oral, Daily, First dose on Tue02/28/19 at 0600 [facility] Medication administered onsite ammonium lactate 120 MG/ML Topical Lotio n ammonium lactate (LAC-HYDRIN) 12 % lotion 1 application ammonium lactate (LAC-HYDRIN) 12 % lotion 1 applicatio n 02/27/2019 11:00:00 PM EST 1 {application} Topical activ e 1 application, Topical, 2 times daily, First dose on Tue02/27/19 at 2300, Until Discontinued [facility] Medication administered onsite gabapentin 300 MG Oral Capsule gabapentin (NEURONTIN) capsule 900 mg gabapentin (NEURONTIN) capsule 900 mg 02/27/2019 10:00:00 PM EST 900 mg Oral aborted 900 mg, Oral, 2 times daily, First dose on Tue02/27/19 at 2200 [facility] Medication administered onsite carvedilol 6.25 MG Oral Tablet carvedilol (COREG) tabl et 6.25 mg carvedilol (COREG) tablet 6.25 mg 02/27/2019 09:00:00 PM EST 6.25 mg Oral active 6.25 mg, Oral, 2 times daily, First dose on Tue02/27/19 at 2100
Hold for SBP < 100 or HR < 55
[facility] Medication administered onsite Docusate Sodium 100 MG Oral Capsule docusate sodium (C OLACE) capsule 100 mg docusate sodium (COLACE) capsule 100 mg 02/27/2019 09:00:00 PM EST 100 mg Oral aborted 100 mg, Oral, Nightly, First dose on Tue02/27/19 at 2100
Hold for loose stool
[facility] Medication administered onsite Pramipexole dihydrochloride 0.5 MG Oral Tablet pramipexole (MIRAPEX) tablet 0.5 mg pramipexole (MIRAPEX) tablet 0.5 mg 02/27/2019 09:00:00 PM EST 0.5 mg Oral aborted 0.5 mg, Oral, 2 times mercedes ly, First dose on Tue02/27/19 at 2100 [facility] Medication administered onsite 12 HR ranolazine 500 MG Extended Release Oral Tablet ranolazine (RANEXA) 12 hr tablet 500 mg ranolazine (RANEXA) 12 hr tablet 500 mg 02/27/2019 09: 00:00 PM EST 500 mg Oral active 500 mg, Oral, 2 times daily, First dose on Tue02/27/19 at 2100 [facility] Medication administered onsite 24 HR Isosorbide Mononitrate 30 MG Exten ded Release Oral Tablet isosorbide mononitrate (IMDUR) 24 hr tablet 30 mg isosorbide mononitrate (IMDUR) 24 hr tablet 30 mg 02/27/2019 09:00:00 PM EST 30 mg Oral activ e 30 mg, Oral, 2 times daily, First dose on Tue02/27/19 at 2100 [facility] Medication administered onsite Rosuvastatin calcium 20 MG Oral Tablet rosuvastatin (C RESTOR) tablet 40 mg rosuvastatin (CRESTOR) tablet 40 mg 02/27/2019 09:00:00 PM EST 40 mg Oral active 40 mg, Oral, Nightly, First dose on Tue02/27/19 at 2100 [facility] Medication administered onsite doxycycline hyclate 100 MG Oral Tablet doxycycline ( BRA-TABS) tablet 100 mg doxycycline (VIBRA-TABS) tablet 100 mg 02/27/2019 08:00:00 PM EST 1 00 mg Oral aborted 100 mg, Oral, 2 times daily, Indications: phlebitis, First dose on Tue02/27/19 at 2000 [facility] Medication administered onsite Ipratropium [place] 0.2 MG/ML Inhalant S olution ipratropium (ATROVENT) 0.02 % nebulizer solution 0.5 mg ipratropium (ATROVENT) 0.02 % nebulizer solution 0.5 mg 02/27/2019 08:00:00 PM EST 0.5 mg active 0.5 mg, Nebulization, 3 times daily, First dose on Tue02/27/19 at 2000
Formulary sub
[facility] Medication administered onsite normal saline flush 0.9 % injection 10 mL [id number] 02/27/2019 02:00:00 PM EST 10 mL Intravenous active 10 m L, Intravenous, Every 8 hours (scheduled), First dose on Tue02/27/19 at 1400
Flush with 10 mL NS prior and post medication administration.Flush with 10 mL NS prior to blood specimen collection and flush with 20 mL to clear solution/drug post blood specimen collection
[facility] Medication administered onsite 1 ML heparin sodium, porcine 100 UNT/ML Injection heparin flush (porcine) 100 UNIT/ML injection 500 Units heparin flush (porcine) 100 UNIT/ML inje ction 500 Units 02/27/2019 02:00:00 PM EST 500 U active 500 Units, Intracatheter, Daily (0600), First dose on Tue02/27/19 at 1400
For open ended ports without IV fluid runningRefer to policy: [email or web address]
[facility] Medication administered onsite dextrose 5 % 1,000 mL with sodium bicarbonate 150 mEq infusi on 02/27/2019 01:00:00 PM EST Intravenous active at 150 mL/hr, Intravenous, Continuous, Starting Tue02/27/19 at 1300 [facility] Medication administered onsite ondansetron (ZOFRAN) injection 4 mg [id number] 02/27/2019 12:22:5 5 PM EST 4 mg Intravenous active 4 mg, In travenous, Every 6 hours PRN, nausea, vomiting, Starting Tue02/27/19 at 1222 [facility] Medication administered onsite Acetaminophen 325 MG Oral Tablet acetaminophen (TYLENO L) 325 MG tablet 650 mg acetaminophen (TYLENOL) 325 MG tablet 650 mg 02/27/2019 12:19:35 PM EST 650 mg Oral active 650 mg, Or al, Every 4 hours PRN, mild pain (1-3), headaches, Starting Tue02/27/19 at 1219
"Maximum dose of acetaminophen is 4,000 mg from all sources in 24 hours."
[facility] Medication administered onsite carvedilol 6.25 MG Oral Tablet CARVEDILOL 02/23/2019 12:00:00 AM EST tablet 180 TAKE ONE TABLET BY MOUTH TWICE A DAY TAKE ONE TABLET BY MOUT H TWICE A DAY SOLD: 12/09/2019 [facility] carvedilol 6.25 MG Oral Tablet CARVEDILOL 02/23/2019 12:00:00 AM EST tablet 180 TAKE ONE TABLET BY MOUTH TWICE A DAY TAKE ONE TABLET BY MOUT H TWICE A DAY SOLD: 09/03/2019 [facility] carvedilol 6.25 MG Oral Tablet CARVEDILOL 02/23/2019 12:00:00 AM EST tablet 180 TAKE ONE TABLET BY MOUTH TWICE A DAY TAKE ONE TABLET BY MOUT H TWICE A DAY SOLD: 06/06/2019 [facility] carvedilol 6.25 MG Oral Tablet CARVEDILOL 02/23/2019 12:00:00 AM EST tablet 180 TAKE ONE TABLET BY MOUTH TWICE A DAY TAKE ONE TABLET BY MOUT H TWICE A DAY SOLD: 03/08/2019 [facility] carvedilol 6.25 MG Oral Tablet carvedilol (COREG) 6.25 MG tablet carvedilol (COREG) 6.25 MG tablet 02/20/2019 12:00:00 AM EST 6.25 mg Oral active Take 1 tablet (6.25 mg total) by mouth 2 (two) times a day [facility] 100 mg 02/20/2019 12:00:00 AM EST capsule 20 TAKE ONE CAPSULE BY MOUTH TWICE A DAY FOR 10 DAYS TAKE ONE CAPSULE BY MOUTH TWICE A DAY FOR 10 DAYS SOLD : 02/20/2019 [facility] doxycycline hyclate 100 MG Oral Tablet doxycycline ( BRA-TABS) 100 MG tablet doxycycline (VIBRA-TABS) 100 MG tablet 02/20/2019 12:00:00 AM EST 1 00 mg Oral aborted Take 100 mg by mouth 2 (t wo) times a day [facility] doxycycline hyclate 100 MG Oral Capsule Doxycycline Hyclate 02/20/2019 12:00:00 AM EST ORAL completed [facility] ([facility]) 300 mg 02/12/2019 12:00:00 AM [...] on 02/03/19 at 0900, For 3 doses [facility] Medication administered onsite 24 HR [...] BY MOUTH TWICE A DAY SOLD: 05/03/2019 [facility] Prednisone 20 MG Oral Tablet predniSONE (DELTASONE) ta blet 20 mg predniSONE (DELTASONE) tablet 20 mg 02/01/2019 09:00:00 AM EST 20 mg Oral active 20 mg, Oral, Daily, First dose on Colleen 02/01/19 at 0900, For 2 doses [facility] Medication administered onsite 90 mcg/actuation [...] DAILY FOR 8 DAYS SOLD: 0 02/15/2019 [facility] 2.5-2.5 % 02/01/2019 12:00:00 AM EST cream 30 APPLY AND COVER 1 HOUR PRIOR TO VENIPUNCTURE APPLY AND COVER 1 HOUR PRIOR TO VENIPUNCTURE SOLD: 02/06/2019 [facility] carvedilol 6.25 MG Oral Tablet CARVEDILOL 02/01/2019 12:00:00 AM EST tablet 60 TAKE ONE TABLET BY MOUTH TWO TIMES A DAY TAKE ONE TABL ET BY MOUTH TWO TIMES A DAY SOLD: 02/01/2019 [facility] Albuterol 0.833 MG/ML / Ipratropium Brom haylie 0.167 MG/ML Inhalant Solution ipratropium-albuterol (DUO-NEB) 0.5-2.5 mg/mL nebulizer solution 3 mL ipratropium-albuterol (DUO-NEB) 0.5-2.5 mg/mL nebulizer solution 3 mL 01/31/2019 02:00:00 PM EST 3 mL Inhalation active 3 mL, Inhalation, 3 times daily, First dose on Tue01/31/19 at 1400 [facility] Medication administered onsite carvedilol 6.25 MG Oral Tablet carvedilol (COREG) tabl et 6.25 mg carvedilol (COREG) tablet 6.25 mg 01/31/2019 12:00:00 PM EST 6.25 mg Oral active 6.25 mg, Oral, 2 times daily, First dose on Tue01/31/19 at 1200 [facility] Medication administered onsite Azithromycin 250 MG Oral Tablet azithromycin (ZITHROMA X) tablet 500 mg azithromycin (ZITHROMAX) tablet 500 mg 01/31/2019 11:00:00 AM EST 5 00 mg Oral active Pneumonia 500 mg, Oral, D aily, Indications: Pneumonia, First dose on Tue01/31/19 at 1100, For 2 days [facility] Pneumonia Medication administered onsite Levofloxacin 750 MG Oral Tablet levofloxacin (LEVAQUIN ) tablet 750 mg levofloxacin (LEVAQUIN) tablet 750 mg 01/31/2019 10:00:00 AM EST 75 0 mg Oral active Pneumonia 750 mg, Oral, E very 24 hours (relative), Indications: Pneumonia, First dose on Tue01/31/19 at 1000 [facility] Pneumonia Medication administered onsite albuterol (PROVENTIL HFA;VENTOLIN HFA) inhaler 2 puff [id number] 01/31/2019 09:50:22 AM EST 2 {puff} Inhalation active 2 pu ff, Inhalation, RT every 4 hours as needed, wheezing, Starting Tue01/31/19 at 0950
Please send a spacer home with patient if discharged with a metered dose inhaler
[facility] Medication administered onsite carvedilol 6.25 MG Oral Tablet carvedilol (COREG) 6.25 MG tablet carvedilol (COREG) 6.25 MG tablet 01/31/2019 12:00:00 AM EST 6.25 mg Oral active Take 1 tablet (6.25 mg total) by mouth 2 (two) times a day [facility] Prednisone 5 MG Oral Tablet predniSONE (DELTASONE) 5 M G tablet predniSONE (DELTASONE) 5 MG tablet 01/31/2019 12:00:00 AM EST active 20mg poqd for 3days, 10mg poqd x3days, 5mg poqd x3days then stop [facility] Levofloxacin 750 MG Oral Tablet levofloxacin (LEVAQUIN ) 750 MG tablet levofloxacin (LEVAQUIN) 750 MG tablet 01/31/2019 12:00:00 AM EST 75 0 mg Oral active Pneumonia Take 1 tablet (750 mg tot al) by mouth daily for 8 days [facility] Pneumonia 200 ACTUAT Ipratropium [place] 0.017 MG/ ACTUAT Metered Dose Inhaler ipratropium (ATROVENT HFA) 17 MCG/ACT inhaler ipratropium (ATROVENT HFA) 17 MCG/ACT inhaler 01/31/2019 12:00:00 AM EST 2 {puff} Inhalation active Inhale 2 puffs 3 (three) times a day [facility] Azithromycin 500 MG Oral Tablet azithromycin (ZITHROMA X) 500 MG tablet azithromycin (ZITHROMAX) 500 MG tablet 01/31/2019 12:00:00 AM EST 5 00 mg Oral active Pneumonia Take 1 tablet (500 mg tot al) by mouth daily for 2 days [facility] Pneumonia albuterol (PROVENTIL HFA;VENTOLIN HFA) 108 (90 Base) M CG/ACT inhaler [id number] 01/31/2019 12:00:00 AM EST 2 {puff} Inhalation active Inhale 2 puffs RT EVERY 4 HOURS NEEDED for wheezing or shortness of breath [facility] Docusate Sodium 100 MG Oral Capsule docusate sodium (C OLACE) capsule 100 mg docusate sodium (COLACE) capsule 100 mg 01/30/2019 08:00:00 PM EST 100 mg Oral completed 100 mg, Oral, Once, Tue01/30/19 at 2000, For 1 dose
hold for loose stools
[facility] Medication administered onsite POLYETHYLENE GLYCOL 3350 142 MG/ML Oral Solution polyethylene glycol (GLYCOLAX) packet 17 g polyethylene glycol (GLYCOLAX) packet 17 g 01/30/2019 08:00:00 PM EST 17 g Oral completed 17 g, Oral, Once, Tue01/30/19 at 2000, For 1 dose
hold for loose stools
[facility] Medication administered onsite predniSONE (DELTASONE) tablet 30 mg 01/30/2019 01:00:00 PM EST 30 mg Oral completed 30 mg, Oral, Mercedes ly, First dose on Tue01/30/19 at 1300, For 2 doses [facility] Medication administered onsite Dextromethorphan Hydrobromide 2 MG/ML / Guaifenesin 20 MG/ML Oral Solution guaifenesin-dextromethorphan (ROBITUSSIN DM) 100-10 MG/5ML syrup 10 mL guaifenesin-dextromethorphan (ROBITUSSIN DM) 100-10 MG/5ML syrup 10 mL 01/30/2019 12:47:42 PM EST 10 mL Oral active 10 mL, Oral, Every 6 hours PRN, other, cough, Starting Tue01/30/19 at 1247 [facility] Medication administered onsite Albuterol 0.833 MG/ML / Ipratropium Brom haylie 0.167 MG/ML Inhalant Solution ipratropium-albuterol (DUO-NEB) 0.5-2.5 mg/mL nebulizer solution 3 mL ipratropium-albuterol (DUO-NEB) 0.5-2.5 mg/mL nebulizer solution 3 mL 01/29/2019 08:00:00 PM EST 3 mL Inhalation aborted 3 mL, Inhalation, 3 times daily, First dose on Tue01/29/19 at 2000 [facility] Medication administered onsite Guaifenesin 20 MG/ML Oral Solution guaif enesin (ROBITUSSIN) 100 MG/5ML solution 200 mg guaifenesin (ROBITUSSIN) 100 MG/5ML solution 200 mg 06:32:49 PM EST 200 mg Oral aborted 200 mg, Oral, Every 6 hours PRN, cough, Starting Tue01/29/19 at 1832 [facility] Medication administered onsite Albuterol 0.83 MG/ML Inhalant Solution a lbuterol (PROVENTIL) nebulizer solution 2.5 mg albuterol (PROVENTIL) nebulizer solution 2.5 mg 2018 06:32:33 PM EST 2.5 mg aborted 2.5 mg, Nebulization, Every 2 hour PRN, wheezing, shortness of breath, Starting Tue01/29/19 at 1832 [facility] Medication administered onsite 150 ML Iopamidol 760 MG/ML Prefilled Syringe iopamidol (ISOVUE-370) 76 % 70 mL iopamidol (ISOVUE-370) 76 % 70 mL 01/29/2019 03:34:07 PM EST 70 mL Intravenous completed 70 mL, Intrave nous, Once in imaging, contrast, Starting Tue01/29/19 at 1534, For 1 dose [facility] Medication administered onsite gabapentin 300 MG Oral Capsule gabapentin (NEURONTIN) capsule 900 mg gabapentin (NEURONTIN) capsule 900 mg 01/29/2019 09:00:00 AM EST 900 mg Oral active 900 mg, Oral, 2 times daily, First dose on Tue01/29/19 at 0900 [facility] Medication administered onsite prasugrel 10 MG Oral Tablet prasugrel (EFFIENT) tablet 10 mg prasugrel (EFFIENT) tablet 10 mg 01/29/2019 09:00:00 AM EST 10 mg Oral activ e 10 mg, Oral, Daily, First dose on Tue01/29/19 at 0900 [facility] Medication administered onsite POLYETHYLENE GLYCOL 3350 142 MG/ML Oral Solution polyethylene glycol (GLYCOLAX) packet 17 g polyethylene glycol (GLYCOLAX) packet 17 g 01/29/2019 09:00:00 AM EST 17 g Oral active 17 g, Or al, Daily, First dose on Tue01/29/19 at 0900
hold for loose stools
[facility] Medication administered onsite Docusate Sodium 100 MG Oral Capsule docusate sodium (C OLACE) capsule 100 mg docusate sodium (COLACE) capsule 100 mg 01/29/2019 09:00:00 AM EST 100 mg Oral active 100 mg, Oral, Daily, First dose on Tue01/29/19 at 0900 [facility] Medication administered onsite Aspirin 81 MG Delayed Release Oral Tablet aspirin EC t ablet 81 mg aspirin EC tablet 81 mg 01/29/2019 09:00:00 AM EST 81 mg Oral activ e 81 mg, Oral, Daily, First dose on Tue01/29/19 at 0900 [facility] Medication administered onsite Loratadine 10 MG Oral Tablet loratadine (CLARITIN) tab let 10 mg loratadine (CLARITIN) tablet 10 mg 01/29/2019 09:00:00 AM EST 10 mg Oral active 10 mg, Oral, Daily, First dose on Tue01/29/19 at 0900 [facility] Medication administered onsite Lisinopril 5 MG Oral Tablet lisinopril (PRINIVIL,ZESTR IL) tablet 2.5 mg lisinopril (PRINIVIL,ZESTRIL) tablet 2.5 mg 01/29/2019 09:00:00 AM EST 2.5 mg Oral active 2.5 mg, Oral, Daily, First dose on Tue01/29/19 at 0900
Hold for manual SBP < 110
[facility] Medication administered onsite venlafaxine 37.5 MG Oral Tablet venlafaxine (EFFEXOR) tablet 37.5 mg venlafaxine (EFFEXOR) tablet 37.5 mg 01/29/2019 09:00:00 AM EST 37.5 mg Oral active 37.5 mg, Oral, Daily, First dose on Tue01/29/19 at 09 00 [facility] Medication administered onsite Levothyroxine Sodium 0.075 MG Oral Table t levothyroxine (SYNTHROID, LEVOTHROID) tablet 75 mcg levothyroxine (SYNTHROID, LEVOTHROID) tablet 75 mcg 06:00:00 AM EST 75 ug Oral active 75 mcg, Oral, Daily (0600), First dose on Tue01/29/19 at 0600 [facility] Medication administered onsite vancomycin in 500mL (VANCOCIN) IV 1,500 mg [id number] 01/29/2019 02:00:00 AM EST 1500 mg Intravenous aborted Pneumonia 1, 500 mg, Intravenous, Administer over 120 Minutes, Every 12 hours (relative), First dose on Tue01/29/19 at 0200 [facility] Pneumonia Medication administered onsite cefepime [...] minutes. Use within 1 hour of reconstitution.
[facility] Medication administered onsite normal saline flush 0.9 % injection 3 mL [id number] 01/28/2019 10:00:00 PM EST 3 mL Intravenous active 3 mL , Intravenous, Every 8 hours (scheduled), First dose on Tue01/28/19 at 2200
flush per protocol, D/C Main IV fluid if appropriate
[facility] Medication administered onsite normal saline flush 0.9 % injection 3 mL [id number] 01/28/2019 10:00:00 PM EST 3 mL Intravenous active 3 mL , Intravenous, PROTOCOL, First dose on 01/28/19 at 2200
flush per protocol, D/C Main IV fluid if appropriate
[facility] Medication administered onsite 12 HR ranolazine 500 MG Extended Release Oral Tablet ranolazine (RANEXA) 12 hr tablet 500 mg ranolazine (RANEXA) 12 hr tablet 500 mg 01/28/2019 09: 00:00 PM EST 500 mg Oral active 500 mg, Oral, 2 times daily, First dose on 01/28/19 at 2100 [facility] Medication administered onsite Pramipexole dihydrochloride 0.5 MG Oral Tablet pramipexole (MIRAPEX) tablet 0.5 mg pramipexole (MIRAPEX) tablet 0.5 mg 01/28/2019 09:00:00 PM EST 0.5 mg Oral active 0.5 mg, Oral, 2 times mercedes ly, First dose on 01/28/19 at 2100 [facility] Medication administered onsite gabapentin 300 MG Oral Capsule gabapentin (NEURONTIN) capsule 300 mg gabapentin (NEURONTIN) capsule 300 mg 01/28/2019 09:00:00 PM EST 300 mg Oral aborted 300 mg, Oral, 2 times daily, First dose on 01/28/19 at 2100 [facility] Medication administered onsite 24 HR Isosorbide Mononitrate 30 MG Exten ded Release Oral Tablet isosorbide mononitrate (IMDUR) 24 hr tablet 30 mg isosorbide mononitrate (IMDUR) 24 hr tablet 30 mg 01/28/2019 09:00:00 PM EST 30 mg Oral activ e 30 mg, Oral, 2 times daily, First dose on 01/28/19 at 2100 [facility] Medication administered onsite Rosuvastatin calcium 20 MG Oral Tablet rosuvastatin (C RESTOR) tablet 40 mg rosuvastatin (CRESTOR) tablet 40 mg 01/28/2019 09:00:00 PM EST 40 mg Oral active 40 mg, Oral, Nightly, First dose on 01/28/19 at 2100 [facility] Medication administered onsite Calcium Chloride 0.0014 MEQ/ML / Potassi um Chloride 0.004 MEQ/ML / Sodium Chloride 0.103 MEQ/ML / Sodium Lactate 0.028 MEQ/ML Injectable Solution lactated ringers infusion lactated ringers infusion 01/28/2019 08:00:00 PM EST Intravenous completed at 75 mL/hr, Intravenous, Continuous, Starting 01/28/19 at 2000, For 1 day [facility] Medication administered onsite 0.4 ML [...] not give the dose and call physician/designee.
[facility] Medication administered onsite Acetaminophen 325 MG Oral Tablet acetaminophen (TYLENO L) 325 MG tablet 650 mg acetaminophen (TYLENOL) 325 MG tablet 650 mg 01/28/2019 07:42:03 PM EST 650 mg Oral active 650 mg, Or al, Every 4 hours PRN, mild pain (1-3), headaches, Starting 01/28/19 at 1942
"Maximum dose of acetaminophen is 4,000 mg from all sources in 24 hours."
[facility] Medication administered onsite Ondansetron 4 MG Disintegrating Oral Tab let ondansetron (ZOFRAN-ODT) disintegrating tablet 4 mg ondansetron (ZOFRAN-ODT) disintegrating tablet 4 mg 01/28/2019 07:14:55 PM EST 4 mg Oral active 4 mg, Oral, Daily PRN, nausea, Starting 01/28/19 at 1914 [facility] Medication administered onsite Nitroglycerin 0.4 MG Sublingual Tablet n itroglycerin (NITROSTAT) SL tablet 0.4 mg nitroglycerin (NITROSTAT) SL tablet 0.4 mg 01/28/2019 07:14:51 P M EST 0.4 mg Sublingual active 0.4 mg, S ublingual, Every 5 min PRN, chest pain, Starting 01/28/19 at 1914
May administer up to 3 doses per episode.
[facility] Medication administered onsite 1 ML Ketorolac Tromethamine 15 MG/ML [place] ketorolac (TORADOL) injection 15 mg ketorolac (TORADOL) injection 15 mg 01/28/2019 05:05:00 PM EST 15 mg Intravenous completed 15 mg, Intrav enous, Once, 01/28/19 at 1705, For 1 dose [facility] Medication administered onsite cefepime 2000 MG Injection cefepime (MAXIPIME) injecti on 2 g cefepime (MAXIPIME) injection 2 g 01/28/2019 02:50:00 PM EST 2 g comp leted 2 g, Intravenous Push, Once, 01/28/19 at 1450, For 1 dose
Reconstitute with 20 ml sodium chloride 0.9% for injection. Administer IV push over 5 minutes. Use within 1 hour of reconstitution.
[facility] Medication administered onsite azithromycin (ZITHROMAX) 500 mg in sodium chloride (NS) 0.9 % 250 mL IVPB 01/28/2019 02:50:00 PM EST 500 mg Intravenous aborted P neumonia 500 mg, Intravenous, Administer over 60 Minutes, Every 24 hours (relative), First dose on 01/28/19 at 1450 [facility] Pneumonia Medication administered onsite vancomycin in 500mL (VANCOCIN) IV 2,000 mg [id number] 01/28/2019 02:45:00 PM EST 2000 mg Intravenous completed Pneumonia 2,000 mg, Intravenous, Administer over 120 Minutes, Once, 01/28/19 at 1450, For 1 dose [facility] Pneumonia Medication administered onsite Acetaminophen 325 MG Oral Tablet acetaminophen (TYLENO L) 325 MG tablet 650 mg acetaminophen (TYLENOL) 325 MG tablet 650 mg 01/28/2019 02:10:00 PM EST 650 mg Oral completed 650 mg, Or al, Once, 01/28/19 at 1410, For 1 dose
"Maximum dose of acetaminophen is 4,000 mg from all sources in 24 hours."
[facility] Medication administered onsite sodium chloride 0.9% (NS) bolus 1,000 mL [id number] 01/28/2019 02:10:00 PM EST 1000 mL Intravenous completed 1, 000 mL, Intravenous, Administer over 1 Hours, Once, 01/28/19 at 1410, For 1 dose [facility] Medication administered onsite 500 mg [...] Oral aborted Take by mouth Tapering dose [facility] 8 HR Acetaminophen 650 MG Extended Relea se Oral Tablet acetaminophen (ACETAMINOPHEN 8 HOUR) 650 MG CR tablet acetaminophen (ACETAMINOPHEN 8 HOUR) 650 MG CR tablet 650 mg Oral aborted Michael e 650 mg by mouth every 8 (eight) hours as needed for pain [facility] Ondansetron 4 MG Disintegrating Oral Tab let ondansetron (ZOFRAN-ODT) 4 MG disintegrating tablet ondansetron (ZOFRAN-ODT) 4 MG disintegrating tablet 4 mg Oral aborted Take 4 mg by mouth daily as needed for nausea [facility] Prednisone 20 MG Oral Tablet predniSONE (DELTASONE) 20 MG tablet predniSONE (DELTASONE) 20 MG tablet Oral aborted Take by mouth Take 3 tablets at breakfast and 2 tablets at lunch for 5 days with each cycle of chemo treatment [facility] Pegfilgrastim (NEULASTA SC) Subcutaneous aborted Inject under the skin [facility] venlafaxine 37.5 MG Oral Tablet venlafaxine (EFFEXOR) 37.5 MG tablet venlafaxine (EFFEXOR) 37.5 MG tablet 37.5 mg Oral aborted Take 37.5 mg by mouth daily [facility] riTUXimab (RITUXAN IV) Intravenous abo rted Infuse into a venous catheter [facility] Cyclophosphamide (CYTOXAN IJ) aborted Inject as directed [facility] DOXOrubicin HCl (ADRIAMYCIN IV) Intravenous aborted Infuse into a venous catheter [facility] VINCRISTINE SULFATE IV Intravenous abo rted Infuse into a venous catheter [facility] sodium chloride 0.9 % SOLN with methotrexate (PF) 50 MG/2ML SOLN Intrathecal aborted by Intrathecal rou te [facility] gabapentin 300 MG Oral Capsule gabapentin (NEURONTIN) 300 MG capsule gabapentin (NEURONTIN) 300 MG capsule 900 mg Oral aborted Take 900 mg by mouth nightly [facility] Insurance Providers Payer name Policy type / Coverage type Policy ID Covered democrat ID Covered democrat's relationship to [place] Policy [place] Plan Information [place] 302/307 [id number] SP [id number] [place] 302/307 [id number] SP [id number] Blue Cross Blue Shield P [id number] SELF [id number] Blue Shield Facets Primary [id number] EXCELLUS BCBS [id number] Melinda YNE [id number] Blue Cross Blue Shield P [id number] SELF [id number] EXCELLUS BCBS 03 EXCELLUS BCBS [id number] Melinda YND [id number] EXCELLUS BCBS [id number] Melinda YND [id number] EXCELLUS BCBS 03 Blue Cross Blue Shield P [id number] SELF [id number] [facility] [id number] [facility] POS [id number] Blue Shield [facility] [id number] Blue Shield [facility] [id number] EXCELLUS H [id number] Self [id number] BCBS CNY Medigap Part B [id number] Self SA [id number] BCBS CNY Commercial [id number] Self [id number] EXCELLUS BLUE CROSS BLUE SHIELD HEA [id number] S [id number] BCBS CN[place] Medigap Part B [id number] Self SA [id number] BCBS CN[place] Commercial [id number] Self [id number] Progressive Ins NF Workers Compensation [id number] Self [id number] Excell[employer] Commercial Commercial [id number] Self [id number] Progressive Ins NF Workers Compensation [id number] Self [id number] Progressive Ins NF Workers Compensation [id number] Self [id number] Progressive Ins [place] Workers Compensation [id number] Self [id number] Progressive Ins [place] Workers Compensation [id number] Self [id number] Progressive Ins NF Workers Compensation [id number] Self [id number] [place] 306/806 [id number] SP [id number] [place] 302/307 [id number] SP [id number] Blue Cross Blue Shield P [id number] SELF [id number] PROGRESSIVE CO NO FAULT [id number] SP [id number] BCBS HMO BLUE [id number] SP [id number] EXCELLUS BCBS [id number] Melinda YND [id number] SELF PAY ONLY SP BCBS/Excellus Commercial [id number] Self [id number] EXCELLUS BCBS [id number] Spo [id number] EXCELLUS BCBS B [id number] S [id number] PROGRESSIVE CO NO FAULT O [id number] S [id number] Excellus CNY Blueshield Medigap Part B [id number] Self [id number] No Fault Workers Compensation [id number] Self [id number] PROGRESSIVE CO NO FAULT [id number] SP [id number] [place] PPO 302/307 [id number] BCBS/Excell[employer] Commercial [id number] Self [id number] Blue Cross Blue Shield P [id number] SPOUSE [id number] EXCELLUS H [id number] Spouse [id number] EXCELLUS BLUE CROSS BLUE SHIELD HEA [id number] SP [id number] Excellus CNY Blueshield Commercial [id number] Family Depen dent [id number] Blue Cross Blue Shield P [id number] SPOUSE [id number] Blue Cross Blue Shield P [id number] SELF [id number] EXCELLUS BCBS B [id number] P [id number] [place] PPO 302/307 [id number] SP [id number] BLUE CROSS O [id number] S [id number] Problems, Conditions, and Diagnoses Code Display Name Description Problem Type Effective Dates Data Source(s) C83.30 Diffuse large B cell lymphoma Diffuse large B cell lym phoma [id number] 02/27/2019 12:00:[address] [facility] R60.0 Localized edema Localized edema [id number] 02/20/2019 12:0 0:[address] [facility] J15.9 Pneumonia, bacterial Pneumonia, bacterial [id number] 01/30/2019 12:00:[address] [facility] E43 Severe protein-calorie malnutrition Severe prote in-calorie malnutrition [id number] 01/30/2019 12:00:00 AM [facility] D70.9 Neutropenic fever Neutropenic fever [id number] 01/28/2019 12:00:[address] [facility] D70.9 Neutropenia Neutropenia [id number] 01/28/2019 12:00:[address] [facility] J18.9 Pneumonia Pneumonia [id number] 01/28/2019 12:00:00 AM [facility] C83.39 Diffuse large B-cell lymphoma, extranoda l and solid organ sites Diffuse large b-cell lymphoma, extranoda Diagnosis 04/10/2019 01:56:[address] [facility] E78.00 Pure hypercholesterolemia, unspecified P ure hypercholesterolemia, unspecified Diagnosis 02/20/2019 08:42:[address] [facility] R60.0 Localized edema Localized edema Diagnosis 02/20/2019 08:4 2:[address] [facility] I25.10 Atherosclerotic heart diseas e of [place] coronary artery without angina pectoris Atherosclerotic heart disease of [place] Diagnosis 02/20/2019 08:42:[address] [facility] R50.81 Fever presenting with conditions classif ied elsewhere Fever presenting with conditions classif Diagnosis 01/28/2019 01:01:55 PM EST [facility] D70.9 Neutropenia, unspecified Neutropenia, unspecified Diag nosis 01/28/2019 01:01:[address] [facility] J18.9 Pneumonia, unspecified organism Pneumonia, unspecified organism Diagnosis 01/28/2019 01:01:[address] [facility] J15.9 Unspecified bacterial pneumonia Unspecified bacterial pneumonia Diagnosis 01/28/2019 01:01:[address] [facility] R65.20 Severe sepsis without septic shock Severe sepsis without septic shock Diagnosis 01/28/2019 01:01:55 PM [facility] A41.9 Sepsis, unspecified organism Sepsis, unspecified organ ism Diagnosis 01/28/2019 01:01:[address] [facility] Surgeries/Procedures Procedure Description Date Indications Data Source(s) PH URINE PH URINE Timed 04/16/2019 4:42 AM EDT 04/15 08:42:00 AM EDT [facility] QUANTITATION DRUG NOT ELSEWHERE SPECIFIED METHOTREXATE LEVEL Ro utine 04/16/2019 4:42 AM EDT 04/16/2019 08:42:00 AM EDT [facility] BLOOD COUNT COMPLETE AUTOMATED CBC Timed 04/16/2019 4:42 A M EDT 04/16/2019 08:42:00 AM EDT [facility] COMPREHENSIVE METABOLIC PANEL COMPREHENSIVE METABOLIC PANEL Edgar ed 04/16/2019 4:42 AM EDT 04/16/2019 08:42:00 AM EDT [facility] PH URINE PH URINE Timed 04/15/2019 9:16 PM EDT 04/15 01:16:00 AM EDT [facility] PH URINE PH URINE Timed 04/15/2019 2:20 PM EDT 04/14 06:20:00 PM EDT [facility] PH URINE PH URINE Timed 04/15/2019 5:26 AM EDT 04/14 09:26:00 AM EDT [facility] QUANTITATION DRUG NOT ELSEWHERE SPECIFIED METHOTREXATE LEVEL Ro utine 04/15/2019 5:26 AM EDT 04/15/2019 09:26:00 AM EDT [facility] BLOOD COUNT COMPLETE AUTOMATED CBC Timed 04/15/2019 5:26 A M EDT 04/15/2019 09:26:00 AM EDT [facility] COMPREHENSIVE METABOLIC PANEL COMPREHENSIVE METABOLIC PANEL Edgar ed 04/15/2019 5:26 AM EDT 04/15/2019 09:26:00 AM EDT [facility] GLUC BLD GLUC MNTR DEV CLEARED FDA SPEC HOME USE POCT GLUCOSE Routine 04/14/2019 10:56 PM EST 04/15/2019 03:56:00 AM EDT [facility] QUANTITATION DRUG NOT ELSEWHERE SPECIFIED METHOTREXATE LEVEL Ro utine 04/14/2019 6:04 PM EST 04/14/2019 11:04:00 PM EST [facility] PH URINE PH URINE Timed 04/14/2019 5:49 PM EST 04/13 10:49:00 PM EST [facility] PH URINE PH URINE Timed 04/14/2019 4:16 AM EST 04/13 09:16:00 AM EST [facility] QUANTITATION DRUG NOT ELSEWHERE SPECIFIED METHOTREXATE LEVEL Ti med 04/14/2019 4:16 AM EST 04/14/2019 09:16:00 AM EST [facility] BLOOD COUNT COMPLETE AUTOMATED CBC Timed 04/14/2019 4:16 A M EST 04/14/2019 09:16:00 AM EST [facility] COMPREHENSIVE METABOLIC PANEL COMPREHENSIVE METABOLIC PANEL Edgar ed 04/14/2019 4:16 AM EST 04/14/2019 09:16:00 AM EST [facility] PH URINE PH URINE Timed 04/13/2019 6:52 PM EST 04/12 11:52:00 PM EST [facility] PH URINE PH URINE Timed 04/13/2019 5:28 AM EST 04/12 10:28:00 AM EST [facility] QUANTITATION DRUG NOT ELSEWHERE SPECIFIED METHOTREXATE LEVEL Ti med 04/13/2019 3:19 AM EST 04/13/2019 08:19:00 AM EST [facility] BLOOD COUNT COMPLETE AUTOMATED CBC Timed 04/13/2019 3:19 A M EST 04/13/2019 08:19:00 AM EST [facility] COMPREHENSIVE METABOLIC PANEL COMPREHENSIVE METABOLIC PANEL Edgar ed 04/13/2019 3:19 AM EST 04/13/2019 08:19:00 AM EST [facility] PH URINE PH URINE Timed 04/12/2019 4:00 PM EST 04/11 09:00:00 PM EST [facility] PH URINE PH URINE Timed 04/12/2019 3:40 AM EST 04/11 08:40:00 AM EST [facility] QUANTITATION DRUG NOT ELSEWHERE SPECIFIED METHOTREXATE LEVEL Ro utine 04/12/2019 3:40 AM EST 04/12/2019 08:40:00 AM EST [facility] BLOOD COUNT COMPLETE AUTOMATED CBC Timed 04/12/2019 3:40 A M EST 04/12/2019 08:40:00 AM EST [facility] COMPREHENSIVE METABOLIC PANEL COMPREHENSIVE METABOLIC PANEL Edgar ed 04/12/2019 3:40 AM EST 04/12/2019 08:40:00 AM EST [facility] PH URINE PH URINE Timed 04/11/2019 6:15 PM EST 04/10 11:15:00 PM EST [facility] PH URINE PH URINE Timed 04/11/2019 7:42 AM EST 04/10 12:42:00 PM EST [facility] BLOOD COUNT COMPLETE AUTO&AUTO DIFRNTL WBC COUNT CBC WITH A UTO DIFFERENTIAL Routine 04/11/2019 6:31 AM EST 04/11/2019 11:31:00 AM EST [facility] THROMBOPLASTIN TIME PARTIAL PLASMA/WHOLE BLOOD APTT Routine 04/11/2019 6:31 AM EST 04/11/2019 11:31:00 AM EST [facility] PROTHROMBIN TIME PROTIME-INR Routine 04/11/2019 6:31 AM EST 04/11/2019 11:31:00 AM EST [facility] BLOOD COUNT COMPLETE AUTOMATED CBC Timed 04/11/2019 6:31 A M EST 04/11/2019 11:31:00 AM EST [facility] COMPREHENSIVE METABOLIC PANEL COMPREHENSIVE METABOLIC PANEL Edgar ed 04/11/2019 6:31 AM EST 04/11/2019 11:31:00 AM EST [facility] PH URINE PH URINE Timed 04/11/2019 12:40 AM EST 04/10 05:40:00 AM EST [facility] PH URINE PH URINE Routine 04/10/2019 7:30 PM EST 04/11/2019 12:30:00 AM EST [facility] PH URINE PH URINE Timed 03/26/2019 6:07 AM EST 03/26 11:07:00 AM EST [facility] QUANTITATION DRUG NOT ELSEWHERE SPECIFIED METHOTREXATE LEVEL Ti med 03/26/2019 6:07 AM EST 03/26/2019 11:07:00 AM [facility] BLOOD COUNT COMPLETE AUTOMATED CBC Timed 03/26/2019 6:07 A M EST 03/26/2019 11:07:[address] [facility] COMPREHENSIVE METABOLIC PANEL COMPREHENSIVE METABOLIC PANEL Edgar ed 03/26/2019 6:07 AM EST 03/26/2019 11:07:00 AM EST [facility] PH URINE PH URINE Timed 03/25/2019 11:12 PM EST 03/26 04:12:00 AM EST [facility] PH URINE PH URINE Timed 03/25/2019 2:56 PM EST 03/25 07:56:[address] [facility] PH URINE PH URINE Timed 03/25/2019 6:29 AM EST 03/25 11:29:00 AM EST [facility] QUANTITATION DRUG NOT ELSEWHERE SPECIFIED METHOTREXATE LEVEL Ti med 03/25/2019 3:34 AM EST 03/25/2019 08:34:00 AM EST [facility] COMPREHENSIVE METABOLIC PANEL COMPREHENSIVE METABOLIC PANEL Edgar ed 03/25/2019 3:34 AM EST 03/25/2019 08:34:00 AM [facility] PH URINE PH URINE Routine 03/24/2019 7:15 PM EST 03/25/2019 12:15:00 AM EST [facility] PH URINE PH URINE Timed 03/24/2019 1:12 PM EST 03/24 06:12:00 PM EST [facility] PH URINE PH URINE Timed 03/24/2019 6:20 AM EST 03/24 11:20:00 AM EST [facility] QUANTITATION DRUG NOT ELSEWHERE SPECIFIED METHOTREXATE LEVEL Ti med 03/24/2019 6:11 AM EST 03/24/2019 11:11:00 AM EST [facility]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
[2020-03-06] MEDS ORDERED: RANO500T2 (08:50)
[2020-03-06] MEDS ORDERED: CARV6.25 (08:50)
--- OUTSIDE RECORDS SUMMARY | 2020-03-06 09:31 | CCD ---
Author Author [facility] Organization [facility] Address Unknown Phone Unavailable Care Team Providers Care Software Support Engineer Name Role Phone VINICIUS BOO MD Unavailable [...] Unavailable Unavailable Virginia Burch MD Unavailable Unavailable Virgniia Burch MD Unavailable Unavailable Virginia Burch MD [...] Bogosinahum, Asuncion Mcnamara MD Unavailable Unavailable Bogosian, Asnucion Mcnamara MD Unavailable Unavailable Bogosian, Asuncion Mcnamara [...] Unavailable Unavailable ElvaDevang velasquez MD Unavailable Unavailable MilwaukeeDevang velasquez MD Unavailable Unavailable MilwaukeeDevang velasquez MD Unavailable Unavailable ElvaDevang velasquez MD Unavailable Unavailable ElvaDevang velasquez MD Unavailable Unavailable MilwaukeeDevang velasquez MD Unavailable Unavailable ElvaDevang velasquez MD Unavailable Unavailable ElvaDevang velasquez MD Unavailable Unavailable MilwaukeeDevang velasquez MD Unavailable Unavailable MilwaukeeDevang velasquez MD Unavailable Unavailable MilwaukeeDevang velasquez MD Unavailable Unavailable ElvaDevang velasquez MD Unavailable Unavailable MilwaukeeDevang velasquez MD Unavailable Unavailable MilwaukeeDevang callaway MD Unavailable Unavailable ElvaDevang velasquez MD Unavailable Unavailable ElvaDevang callaway MD Unavailable Unavailable ElvaDevang velasquez MD Unavailable Unavailable MilwaukeeDevang velasquez MD Unavailable Unavailable ElvaDevang callaway MD Unavailable Unavailable ElvaDevang callaway MD Unavailable Unavailable ElvaDevang callaway MD Unavailable Unavailable ElvaDevang callaway MD Unavailable Unavailable Devang Naylor MD Unavailable Unavailable ElvaDevang callaway MD Unavailable Unavailable ElvaDevang callaway MD Unavailable Unavailable ElvaDevang callaway MD Unavailable Unavailable ElvaDevang callaway MD Unavailable Unavailable MilwaukeeDevang callaway MD Unavailable Unavailable ElvaDevang callaway MD Unavailable Unavailable MilwaukeeDevang callaway MD Unavailable Unavailable ElvaDevang callaway MD Unavailable Unavailable MilwaukeeDevang callaway MD Unavailable Unavailable ElvaDevang velasquez MD Unavailable Unavailable [place]Devang callaway MD Unavailable Unavailable ElvaDevang velasquez MD Unavailable Unavailable [place]Devang callaway MD Unavailable Unavailable [place]Devang callaway MD Unavailable Unavailable ElvaDevang velasquez MD Unavailable Unavailable ElvaDevang callaway MD Unavailable Unavailable ElvaDevang velasquez MD Unavailable Unavailable ElvaDevang callaway MD Unavailable Unavailable ElvaDevang callaway MD Unavailable Unavailable MilwaukeeDevang velasquez MD Unavailable Unavailable ElvaDevang callaway MD Unavailable Unavailable ElvaDevang velasquez MD Unavailable Unavailable Toro, R Carolina MOLD BLOWER Unavailable Unavailable Toro, R Carolina MOLD BLOWER Unavailable Unavailable Toro, R Carolina MOLD BLOWER Unavailable Unavailable Toro, R Carolina MOLD BLOWER Unavailable Unavailable Toro, R Carolina MOLD BLOWER Unavailable Unavailable Toro, R Carolina MOLD BLOWER Unavailable Unavailable Toro, R Carolina MOLD BLOWER Unavailable Unavailable Toro, R Carolina MOLD BLOWER Unavailable Unavailable Toro, R Carolina MOLD BLOWER Unavailable Unavailable Toro, R Carolina MOLD BLOWER Unavailable Unavailable Toro, R Carolina MOLD BLOWER Unavailable Unavailable Toro, R Carolina MOLD BLOWER Unavailable Unavailable Toro, R Carolina MOLD BLOWER Unavailable Unavailable Toro, R Carolina MOLD BLOWER Unavailable Unavailable Toro, R Carolina MOLD BLOWER Unavailable Unavailable Toro, R Carolina MOLD BLOWER Unavailable Unavailable Toro, R Carolina MOLD BLOWER Unavailable Unavailable Toro, R Carolina MOLD BLOWER Unavailable Unavailable Toro, R Carolina MOLD BLOWER Unavailable Unavailable Toro, R Carolina MOLD BLOWER Unavailable Unavailable Toro, R Carolina MOLD BLOWER Unavailable Unavailable Toro, R Carolina MOLD BLOWER Unavailable Unavailable Toro, R Carolina MOLD BLOWER Unavailable Unavailable Toro, R Carolina MOLD BLOWER Unavailable Unavailable Toro, R Carolina MOLD BLOWER Unavailable Unavailable Toro, R Carolina MOLD BLOWER Unavailable Unavailable Toro, R Carolina MOLD BLOWER Unavailable Unavailable Toro, R Carolina MOLD BLOWER Unavailable Unavailable Toro, R Carolina MOLD BLOWER Unavailable Unavailable Toro, R Carolina MOLD BLOWER Unavailable Unavailable Toro, R Carolina MOLD BLOWER Unavailable Unavailable Toro, R Carolina MOLD BLOWER Unavailable Unavailable Janelle AGUIRRE MD Unavailable Unavailable [...] Unavailable Radames Sharpe MD Unavailable Unavailable Radames hSarpe MD Unavailable Unavailable Radames Sharpe MD Unavailable [...] Unavailable Unavailable Radames Sharpe MD Unavailable Unavailable aRdames Sharpe MD Unavailable Unavailable Radames Sharpe MD [...] Unavailable Unavailable BRETAvtar MAR MD Unavailable Unavailable BRTEAvtar MAR MD Unavailable Unavailable Pudusseri, Amber DO [...] Stack MD Unavailable Unavailable ZABOROWSKI, J VIDAL MOLD BLOWER Unavailable Unavailable ZABOROWSKI, J VIDAL MOLD BLOWER Unavailable Unavailable ZABOROWSKI, J VIDAL MOLD BLOWER Unavailable Unavailable ZABOROWSKI, J VIDAL MOLD BLOWER Unavailable Unavailable ZABOROWSKI, J VIDAL MOLD BLOWER Unavailable Unavailable ZABOROWSKI, J VIDAL MOLD BLOWER Unavailable Unavailable ZABOROWSKI, J VIDAL MOLD BLOWER Unavailable Unavailable ZABOROWSKI, J VIDAL MOLD BLOWER Unavailable Unavailable ZABOROWSKI, J VIDAL MOLD BLOWER Unavailable Unavailable ZABOROWSKI, J VIDAL MOLD BLOWER Unavailable Unavailable ZABOROWSKI, J VIDAL MOLD BLOWER Unavailable Unavailable ZABOROWSKI, J VIDAL MOLD BLOWER Unavailable Unavailable ZABOROWSKI, J VIDAL MOLD BLOWER Unavailable Unavailable ZABOROWSKI, J VIDAL MOLD BLOWER Unavailable Unavailable ZABOROWSKI, J VIDAL MOLD BLOWER Unavailable Unavailable ZABOROWSKI, J VIDAL MOLD BLOWER Unavailable Unavailable ZABOROWSKI, J VIDAL MOLD BLOWER Unavailable Unavailable ZABOROWSKI, J VIDAL MOLD BLOWER Unavailable Unavailable ZABOROWSKI, J VIDAL MOLD BLOWER Unavailable Unavailable ZABOROWSKI, J VIDAL MOLD BLOWER Unavailable Unavailable ZABOROWSKI, J VIDAL MOLD BLOWER Unavailable Unavailable ZABOROWSKI, J VIDAL MOLD BLOWER Unavailable Unavailable ZABOROWSKI, J VIDAL MOLD BLOWER Unavailable Unavailable ZABOROWSKI, J VIDAL MOLD BLOWER Unavailable Unavailable ZABOROWSKI, J VIDAL MOLD BLOWER Unavailable Unavailable ZABOROWSKI, J VIDAL MOLD BLOWER Unavailable Unavailable ZABOROWSKI, J VIDAL MOLD BLOWER Unavailable Unavailable ZABOROWSKI, J VIDAL MOLD BLOWER Unavailable Unavailable ZABOROWSKI, J VIDAL MOLD BLOWER Unavailable Unavailable ZABOROWSKI, J VIDAL MOLD BLOWER Unavailable Unavailable ZABOROWSKI, J VIDAL MOLD BLOWER Unavailable Unavailable ZABOROWSKI, J VIDAL MOLD BLOWER Unavailable Unavailable ZABOROWSKI, J VIDAL MOLD BLOWER Unavailable Unavailable ZABOROWSKI, J VIDAL MOLD BLOWER Unavailable Unavailable ZABOROWSKI, J VIDAL MOLD BLOWER Unavailable Unavailable ZABOROWSKI, J VIDAL MOLD BLOWER Unavailable Unavailable ZABOROWSKI, J VIDAL MOLD BLOWER Unavailable Unavailable ZABOROWSKI, J VIDAL MOLD BLOWER Unavailable Unavailable ZABOROWSKI, J VIDAL MOLD BLOWER Unavailable Unavailable ZABOROWSKI, J VIDAL MOLD BLOWER Unavailable Unavailable ZABOROWSKI, J VIDAL MOLD BLOWER Unavailable Unavailable ZABOROWSKI, J VIDAL MOLD BLOWER Unavailable Unavailable ZABOROWSKI, J VIDAL MOLD BLOWER Unavailable Unavailable ZABOROWSKI, J VIDAL MOLD BLOWER Unavailable Unavailable Janelle BARNES MD Unavailable Unavailable [...] is protected by Article 27-F of the [facility] Public Health law. If you continue you may have access to information: Regarding HIV / AIDS; Provided by facilities licensed or operated by the [facility] Office of Mental Health; or Provided by the [facility] Office for People With Developmental Disabilities. If such information is present, then the following [facility] mandated warning applies: This information has been [...] law may result in a fine or long-term sentence or both. A general authorization for the release of medical or other information is NOT sufficient authorization for further disc losure. Allergies and Adverse Reactions Type Description Substance Reaction Status Data Source(s ) Propensity to adverse reactions SHRIMP (DIAGNOSTIC) Shrimp (Diagnos tic) Active [facility] Propensity to adverse reactions OTHER Other Acti ve [facility] Family History Family Member Name Family Member Gender Family Member Status Date o f Status Description Data Source(s) Unknown Male Problem [facility] ([facility] [place] Unknown Male Problem MEDENT ([facility]) Unknown Unknown Problem [facility] ([facility] Encounters Encounter Providers Location Date Indications Data Source(s ) Recurring Patient Referrer: Anders Canales MD 02/06/2020 09:20:55 AM EST [facility] Outpatient Attender: Amber AguilarsseriReferrer: BHAVANI QUEEN MD [...] Marck callaway MD 11/15/2019 07:58:23 AM EDT [facility] Outpatient Attender: GHANSHYAM AGUIRRE MDReferrer: Marck flores MD 11/09/2019 10:24:40 AM EDT [facility] Outpatient 11/02/2019 01:25:00 PM EDT [facility] Outpatient 11/02/2019 01:25:00 PM EDT [facility] Recurring Patient Referrer: Anders Canales MD 11/01/2019 03:12:58 PM EDT [facility] Recurring Patient Referrer: Anders Canales MD 11/01/2019 03:11:48 PM EDT [facility] Recurring Patient Referrer: Anders Canales MD 11/01/2019 03:04:58 PM EDT [facility] Recurring Patient Referrer: Anders Canales MD 10/23/2019 03:52:25 PM EDT [facility] Outpatient Attender: ADELAIDA BURCH-BF 10/23/2019 07:41:45 AM EDT [facility] Outpatient Attender: Amber Ribeiro DO 10/17/2019 09:17:0 0 AM EDT [facility] Outpatient Attender: Amber Ribeiro DO 10/17/2019 09:17:0 0 AM EDT [facility] Outpatient Attender: Carolina Toro NPReferrer: Marck sidhu MD 10/16/2019 07:39:27 AM EDT [facility] Outpatient Referrer: ADELAIDA BARNES MD 10/11/2019 10:00:14 AM EDT [facility] Recurring Patient Referrer: Amber Ribeiro DO 10/10/2019 03:18:28 PM EDT [facility] Outpatient Attender: ADELAIDA BARNES MD BF-BF 12:00:00 AM EDT - 10/03/2019 03:02:55 PM EDT [facility] Outpatient Attender: ADELAIDA BARNES MD BF-BF 09/12/2019 12:00:00 AM EDT [facility] Outpatient Attender: ADELAIDA BARNES MD [facility] 09/05/2019 12:00:00 AM EDT [facility] Outpatient 07/31/2019 03:30:00 PM EDT [facility] Outpatient 07/31/2019 03:30:00 PM EDT [facility] Outpatient Attender: Marck Naylor MD [facility] 07/27/2019 11:15:00 AM EDT [facility] ([facility] Outpatient 07/20/2019 02:30:00 PM EDT [facility] Outpatient Attender: Anders Canales MDReferrer: Marck callaway MD 07/13/2019 09:36:07 AM EDT [facility] Outpatient Attender: Anders Canales MDReferrer: Marck callaway MD 06/29/2019 09:53:11 AM EDT [facility] Recurring Patient Referrer: Amber Ribeiro DO 06/27/2019 02:04:29 PM EDT [facility] Outpatient Attender: ADELAIDA BARNES MD BF-BF 020 07:37:23 AM EDT - 06/22/2019 10:43:40 AM EDT [facility] Inpatient Attender: GINNY Foster er: GINNY Castroender: AMBER ALLENdmitter: AMBER RIBEIRO [id number] 04/10/2019 01:56:00 PM EST - 04/16/2019 12:26:00 PM EDT [facility] Patient discharged. Inpatient Attender: Kaden Cade tender: AMBER ALLENdmitter: Kaden Sims DOConsultant: Kaden Sims DO [id number] 03/21/2019 10:55 :00 AM EST - 03/26/2019 11:06:00 AM EST [facility] Patient discharged. Inpatient Attender: VINICIUS BOO MDAtt chen: AMBER Rodriguezitter: AMBER RIBEIRO [id number] 02/27/2019 10:25:00 AM EST - 03/04/2019 12:41:00 PM EST [facility] Patient discharged. Outpatient Referrer: VIDAL SHANNON NP 02/20/2019 09:42:3 4 AM EST [facility] Outpatient Attender: VIDAL SHANNON NP [facility] 12:00:00 AM EST - 02/20/2019 02:27:24 PM EST [facility] Outpatient Attender: Amber Ribeiro DO 02/16/2019 09:30:0 0 AM EST [facility] Inpatient Attender: Karthikeyan Mccloud MDAt tender: Carolyn Stack MDAttender: Naty Griffin DOAttender: Virginia Burch MDAdmitter: Karthikeyan Mccloud MD [id number] 01/28/2019 01:01:55 PM EST - 01/31/2019 01:48:00 PM EST [facility] Patient discharged. Outpatient 01/19/2019 10:00:00 AM EST [facility] Outpatient Referrer: Jerel Sharpe MD [facility] 0 09/11/2018 12:52:24 PM EDT - 09/11/2018 03:06:33 PM EDT [facility] Medications Medication Brand Name Start Date [...] mg total) by mouth every 6 (six) [facility] potassium chloride SA (K-DUR,KLOR-CON) CR tablet 10 mEq [id number] 04/14/2019 09:00:00 AM EST 10 meq Oral completed 10 mEq, Oral, 2 times daily, First dose on 04/14/19 at 0900, For 2 days
Formulary change
[facility] Medication administered onsite Simethicone 80 MG Chewable Tablet simethicone (MYLICON ) chewable tablet 120 mg simethicone (MYLICON) chewable tablet 120 mg 04/14/2019 08:12:49 AM EST 120 mg Oral active 120 mg, Or al, 4 times daily PRN, flatulence, Starting 04/14/19 at 0812 [facility] Medication administered onsite Simethicone 80 MG Chewable Tablet simethicone (MYLICON ) chewable tablet 80 mg simethicone (MYLICON) chewable tablet 80 mg 04/13/2019 11:29:21 AM EST 80 mg Oral aborted 80 mg, Oral, 4 times daily PRN, flatulence, Starting 04/13/19 at 1129 [facility] Medication administered onsite leucovorin 20 mg in dextrose 5 % 100 mL infusion 04/11 12:00:00 PM EST 20 mg Intravenous aborted 20 mg, I ntravenous, Administer over 15 Minutes, Every 6 hours (scheduled), First dose on Colleen 04/12/19 at 1200
Leucovorin rescue 20 mg Q6h starting 24 hours after Methotrexate infusion
[facility] Medication administered onsite Docusate Sodium 100 MG Oral Capsule docusate sodium (C OLACE) capsule 500 mg docusate sodium (COLACE) capsule 500 mg 04/12/2019 09:00:00 AM EST 500 mg Oral active 500 mg, Oral, 2 times daily, First dose on Colleen 04/12/19 at 0900
hold for loose stools
[facility] Medication administered onsite Docusate Sodium 100 MG Oral Capsule docusate sodium (C OLACE) capsule 300 mg docusate sodium (COLACE) capsule 300 mg 04/11/2019 10:00:00 PM EST 300 mg Oral completed 300 mg, Oral, Once, Tue04/11/19 at 2200, For 1 dose
hold for loose stools
[facility] Medication administered onsite sodium bicarbonate 150 mEq in dextrose 5 % 1,000 mL infusion 04/11/2019 09:00:00 PM EST 150 meq Intravenous active at 125 mL/hr, 150 mEq, Intravenous, Continuous, Starting Tue04/11/19 at 2100 [facility] Medication administered onsite Sodium Bicarbonate 650 MG Oral Tablet sodium bicarbona te tablet 650 mg sodium bicarbonate tablet 650 mg 04/11/2019 08:23:49 PM EST 650 mg Oral active 650 mg, Oral, Nightly PRN, correction of urine pH to keep at 8 or above, Starting Tue04/11/19 at 2023 [facility] Medication administered onsite Acetaminophen 325 MG Oral Tablet acetaminophen (TYLENO L) 325 MG tablet 650 mg acetaminophen (TYLENOL) 325 MG tablet 650 mg 04/11/2019 07:06:42 PM EST 650 mg Oral active 650 mg, Or al, Every 4 hours PRN, mild pain (1-3), fever, fever, Starting Tue04/11/19 at 1906 [facility] Medication administered onsite methotrexate (PF) 8,000 mg in sodium chloride (NS) 0.9 % 500 mL chemo infusion 04/11/2019 12:00:00 PM EST 8000 mg Intravenous compl eted 8,000 mg, Intravenous, Administer over 4 Hours, Once, Tue04/11/19 at 1200, For 1 dose
3.5g/m2 rounded down to whole vials per policy
[facility] Medication administered onsite granisetron (KYTRIL) injection 1 mg [id number] 04/11/2019 11:00:0 0 AM EST 1 mg Intravenous completed 1 mg, In travenous, Once, Tue04/11/19 at 1100, For 1 dose
Please administer 30 minutes prior to methotrexate infusion
[facility] Medication administered onsite Potassium Chloride 8 MEQ Extended Releas e Oral Tablet potassium chloride (KLOR- CON) CR tablet 8 mEq potassium chloride (KLOR-CON) CR tablet 8 mEq 04/11/19 09:00:00 AM EST 8 meq Oral aborted 8 mEq, Oral, Every 48 hours, First dose on Tue04/11/19 at 0900
Formulary change
[facility] Medication administered onsite Levothyroxine Sodium 0.075 MG Oral Table t levothyroxine (SYNTHROID, LEVOTHROID) tablet 75 mcg levothyroxine (SYNTHROID, LEVOTHROID) tablet 75 mcg 06:00:00 AM EST 75 ug Oral active 75 mcg, Oral, Daily, First dose on Tue04/11/19 at 0600 [facility] Medication administered onsite Acetazolamide 250 MG Oral Tablet acetaZOLAMIDE (DIAMOX ) tablet 250 mg acetaZOLAMIDE (DIAMOX) tablet 250 mg 04/11/2019 05:00:00 AM EST 250 m g Oral aborted 250 mg, Oral, Ev cindy 6 hours (scheduled), First dose on Tue04/11/19 at 0500 [facility] Medication administered onsite 12 HR ranolazine 500 MG Extended Release Oral Tablet ranolazine (RANEXA) 12 hr tablet 500 mg ranolazine (RANEXA) 12 hr tablet 500 mg 04/10/2019 09: 00:00 PM EST 500 mg Oral active 500 mg, Oral, 2 times daily, First dose on Tue04/10/19 at 2100 [facility] Medication administered onsite Rosuvastatin calcium 20 MG Oral Tablet rosuvastatin (C RESTOR) tablet 40 mg rosuvastatin (CRESTOR) tablet 40 mg 04/10/2019 09:00:00 PM EST 40 mg Oral active 40 mg, Oral, Nightly, First dose on Tue04/10/19 at 2100 [facility] Medication administered onsite MAGNESIUM GLUCONATE 500 MG Oral Tablet m agnesium gluconate (MAGONATE) tablet 500 mg magnesium gluconate (MAGONATE) tablet 500 mg 04/10/2019 09:00:00 PM EST 500 mg Oral active 500 mg, Oral, Nightly, F irst dose on Tue04/10/19 at 2100 [facility] Medication administered onsite Docusate Sodium 100 MG Oral Capsule docusate sodium (C OLACE) capsule 200 mg docusate sodium (COLACE) capsule 200 mg 04/10/2019 09:00:00 PM EST 200 mg Oral aborted 200 mg, Oral, 2 times daily, First dose on Tue04/10/19 at 2100
hold for loose stools Docusate 250mg po bid to 200mg po bid formulary change
[facility] Medication administered onsite carvedilol 6.25 MG Oral Tablet carvedilol (COREG) tabl et 6.25 mg carvedilol (COREG) tablet 6.25 mg 04/10/2019 09:00:00 PM EST 6.25 mg Oral active 6.25 mg, Oral, 2 times daily, First dose on Tue04/10/19 at 2100
Hold for SBP < 100 or HR < 55
[facility] Medication administered onsite sennosides, GROUP HOME 8.6 [...] 10-15 ml of water prior to administration
[facility] Medication administered onsite gabapentin 300 MG Oral Capsule gabapentin (NEURONTIN) capsule 900 mg gabapentin (NEURONTIN) capsule 900 mg 04/10/2019 07:12:35 PM EST 900 mg Oral active 900 mg, Oral, Daily PRN, [facility] neuropathic pain, Starting Tue04/10/19 at 1912 [facility] Medication administered onsite POLYETHYLENE GLYCOL 3350 142 MG/ML Oral Solution polyethylene glycol (GLYCOLAX) packet 17 g polyethylene glycol (GLYCOLAX) packet 17 g 04/10/2019 07:00:00 PM EST 17 g Oral active 17 g, Or al, Daily, First dose on Tue04/10/19 at 1900
hold for loose stools
[facility] Medication administered onsite prasugrel 10 MG Oral Tablet prasugrel (EFFIENT) tablet 10 mg prasugrel (EFFIENT) tablet 10 mg 04/10/2019 06:00:00 PM EST 10 mg Oral activ e 10 mg, Oral, Daily, First dose on Tue04/10/19 at 1800 [facility] Medication administered onsite Pramipexole dihydrochloride 0.5 MG Oral Tablet pramipexole (MIRAPEX) tablet 0.5 mg pramipexole (MIRAPEX) tablet 0.5 mg 04/10/2019 06:00:00 PM EST 0.5 mg Oral active 0.5 mg, Oral, Nightly, Fi rst dose on Tue04/10/19 at 1800 [facility] Medication administered onsite 24 HR venlafaxine 37.5 MG Extended Relea se Oral Capsule venlafaxine (EFFEXOR-XR) 24 hr capsule 37.5 mg venlafaxine (EFFEXOR-XR) 24 hr capsule 37.5 mg 06:00:00 PM EST 37.5 mg Oral active 37.5 mg, Oral, Daily, First dose on Tue04/10/19 at 1800 [facility] Medication administered onsite gabapentin 300 MG Oral Capsule gabapentin (NEURONTIN) capsule 900 mg gabapentin (NEURONTIN) capsule 900 mg 04/10/2019 06:00:00 PM EST 900 mg Oral active 900 mg, Oral, 2 times daily, First dose on Tue04/10/19 at 1800 [facility] Medication administered onsite 24 HR Isosorbide Mononitrate 30 MG Exten ded Release Oral Tablet isosorbide mononitrate (IMDUR) 24 hr tablet 30 mg isosorbide mononitrate (IMDUR) 24 hr tablet 30 mg 04/10/2019 06:00:00 PM EST 30 mg Oral activ e 30 mg, Oral, 2 times daily, First dose on Tue04/10/19 at 1800 [facility] Medication administered onsite Lisinopril 5 MG Oral Tablet lisinopril (PRINIVIL,ZESTR IL) tablet 2.5 mg lisinopril (PRINIVIL,ZESTRIL) tablet 2.5 mg 04/10/2019 06:00:00 PM EST 2.5 mg Oral active 2.5 mg, Oral, Daily, First dose on Tue04/10/19 at 1800
Hold for SBP < 100
[facility] Medication administered onsite Loratadine 10 MG Oral Tablet loratadine (CLARITIN) tab let 10 mg loratadine (CLARITIN) tablet 10 mg 04/10/2019 06:00:00 PM EST 10 mg Oral active 10 mg, Oral, Daily, First dose on Tue04/10/19 at 1800 [facility] Medication administered onsite Aspirin 81 MG Delayed Release Oral Tablet aspirin EC t ablet 81 mg aspirin EC tablet 81 mg 04/10/2019 06:00:00 PM EST 81 mg Oral activ e 81 mg, Oral, Daily, First dose on Tue04/10/19 at 1800 [facility] Medication administered onsite ondansetron (ZOFRAN) injection 4 mg [id number] 04/10/2019 04:41:4 2 PM EST 4 mg Intravenous active 4 mg, In travenous, Every 6 hours PRN, nausea, vomiting, Starting Tue04/10/19 at 1641 [facility] Medication administered onsite normal saline flush 0.9 % injection 10 mL [id number] 04/10/2019 04:00:00 PM EST 10 mL Intravenous active 10 m L, Intravenous, Every 8 hours (scheduled), First dose on Tue04/10/19 at 1600
Flush with 10 mL NS prior and post medication administration.Flush with 10 mL NS prior to blood specimen collection and flush with 20 mL to clear solution/drug post blood specimen collection
[facility] Medication administered onsite 1 ML heparin sodium, porcine 100 UNT/ML Injection heparin 100 UNIT/ML injection 500 Units heparin 100 UNIT/ML injection 500 Units 04/10/2019 04:00:[address] 500 U active 500 Units, Intracatheter, Daily (0600), First dose on Tue04/10/19 at 1600
For open ended ports without IV fluid runningRefer to policy: [email or web address]
[facility] Medication administered onsite sodium bicarbonate 150 mEq in dextrose 5 % 1,000 mL infusion 04/10/2019 03:00:00 PM EST 150 meq Intravenous aborted at 125 mL/hr, 150 mEq, Intravenous, Continuous, Starting Tue04/10/19 at 1500 [facility] Medication administered onsite gabapentin 300 MG Oral Capsule gabapentin (NEURONTIN) capsule 600 mg gabapentin (NEURONTIN) capsule 600 mg 03/26/2019 02:00:00 AM EST 600 mg Oral completed 600 mg, Oral, Once, Tue03/26/19 at 0200, For 1 dose [facility] Medication administered onsite Ondansetron 4 MG Disintegrating Oral Tab let ondansetron (ZOFRAN-ODT) 4 MG disintegrating tablet ondansetron (ZOFRAN-ODT) 4 MG disintegrating tablet 03/26/2019 12:00:00 AM EST 4 mg Oral active Take 1 tablet (4 mg total) by mouth every 8 (eight) hours as needed for nausea [facility] 4 mg 03/26/2019 12:00:00 AM EST tablet,disintegrating [...] daily, First dose on Tue03/25/19 at 1600 [facility] Medication administered onsite sodium bicarbonate 150 mEq in dextrose 5 % 1,000 mL infusion 03/25/2019 02:00:00 AM EST 150 meq Intravenous aborted at 175 mL/hr, 150 mEq, Intravenous, Continuous, Starting 03/25/19 at 0200, For 72 hours [facility] Medication administered onsite sodium bicarbonate 150 mEq in dextrose 5 % 1,000 mL infusion 03/24/2019 10:00:00 PM EST 150 meq Intravenous aborted at 200 mL/hr, 150 mEq, Intravenous, Continuous, Starting 03/24/19 at 2200, For 4 hours [facility] Medication administered onsite Sodium Bicarbonate 650 MG Oral Tablet sodium bicarbona te tablet 650 mg sodium bicarbonate tablet 650 mg 03/24/2019 10:00:00 PM EST 650 mg Oral completed 650 mg, Oral, Once, 03/24/19 at 2200, For 1 dose [facility] Medication administered onsite sennosides, GROUP HOME 8.6 [...] 10-15 ml of water prior to administration
[facility] Medication administered onsite Metoclopramide 10 MG Oral Tablet metoclopramide (TOSHA N) tablet 10 mg metoclopramide (REGLAN) tablet 10 mg 03/24/2019 07:00:00 AM EST 10 mg Oral active 10 mg, Oral, 3 t imes daily before meals, First dose on 03/24/19 at 0700 [facility] Medication administered onsite Sodium Bicarbonate 650 MG Oral Tablet sodium bicarbona te tablet 650 mg sodium bicarbonate tablet 650 mg 03/23/2019 10:00:00 PM EST 650 mg Oral completed 650 mg, Oral, Once, 03/23/19 at 2200, For 1 dose [facility] Medication administered onsite leucovorin 20 mg in dextrose 5 % 100 mL infusion 03/23 12:30:00 PM EST 20 mg Intravenous aborted 20 mg, I ntravenous, Administer over 15 Minutes, Every 6 hours (scheduled), First dose on Tue03/23/19 at 1300
Continue until methotrexate level less than 0.1
[facility] Medication administered onsite sodium bicarbonate 150 mEq in dextrose 5 % 1,000 mL infusion 03/23/2019 02:00:00 AM EST 150 meq Intravenous aborted at 175 mL/hr, 150 mEq, Intravenous, Continuous, Starting Tue03/23/19 at 0200 [facility] Medication administered onsite Pramipexole dihydrochloride 0.5 MG Oral Tablet pramipexole (MIRAPEX) tablet 0.5 mg pramipexole (MIRAPEX) tablet 0.5 mg 03/22/2019 05:00:00 PM EST 0.5 mg Oral active 0.5 mg, Oral, Daily, Firs t dose on Colleen 03/22/19 at 1700 [facility] Medication administered onsite methotrexate (PF) 7,980 mg in sodium chloride (NS) 0.9 % 500 mL chemo infusion 03/22/2019 11:00:00 AM EST 3500 mg/m2 Intravenous co mpleted 7,980 mg (3,500 mg/m2 2.28 m2), Intravenous, Administer over 4 Hours, Once, Colleen 03/22/19 at 1100, For 1 dose
Methotrexate 3.5 g/m2 IV x 1Cycle 2
[facility] Medication administered onsite Docusate Sodium 100 MG Oral Capsule docusate sodium (C OLACE) capsule 500 mg docusate sodium (COLACE) capsule 500 mg 03/22/2019 10:00:00 AM EST 500 mg Oral active 500 mg, Oral, 2 time s daily, First dose on Colleen 03/22/19 at 1000 [facility] Medication administered onsite Dexamethasone Sod Phosphate PF SOLN 10 mg [id number] 03/22/2019 10:00:00 AM EST 10 mg Intravenous completed 10 mg, Intravenous, Once, Colleen 03/22/19 at 1000, For 1 dose
Administer 30 minutes prior to Methotrexate
[facility] Medication administered onsite granisetron (KYTRIL) injection 1 mg [id number] 03/22/2019 10:00:0 0 AM EST 1 mg Intravenous completed 1 mg, In travenous, Once, Colleen 03/22/19 at 1000, For 1 dose
Administer 30 minutes prior to Methotrexate
[facility] Medication administered onsite Aspirin 81 MG Delayed Release Oral Tablet aspirin EC t ablet 81 mg aspirin EC tablet 81 mg 03/22/2019 09:00:00 AM EST 81 mg Oral activ e 81 mg, Oral, Daily, First dose on Colleen 03/22/19 at 0900 [facility] Medication administered onsite POLYETHYLENE GLYCOL 3350 142 MG/ML Oral Solution polyethylene glycol (GLYCOLAX) packet 17 g polyethylene glycol (GLYCOLAX) packet 17 g 03/22/2019 09:00:00 AM EST 17 g Oral active 17 g, Or al, Daily, First dose on Colleen 03/22/19 at 0900
hold for loose stools
[facility] Medication administered onsite Lisinopril 5 MG Oral Tablet lisinopril (PRINIVIL,ZESTR IL) tablet 2.5 mg lisinopril (PRINIVIL,ZESTRIL) tablet 2.5 mg 03/22/2019 09:00:00 AM EST 2.5 mg Oral active 2.5 mg, Oral, Daily, First dose on Colleen 03/22/19 at 0900
Hold for SBP < 100
[facility] Medication administered onsite venlafaxine 37.5 MG Oral Tablet venlafaxine (EFFEXOR) tablet 37.5 mg venlafaxine (EFFEXOR) tablet 37.5 mg 03/22/2019 09:00:00 AM EST 37.5 mg Oral active 37.5 mg, Oral, Daily, First dose on Colleen 03/22/19 at 090 0 [facility] Medication administered onsite prasugrel 10 MG Oral Tablet prasugrel (EFFIENT) tablet 10 mg prasugrel (EFFIENT) tablet 10 mg 03/22/2019 09:00:00 AM EST 10 mg Oral activ e 10 mg, Oral, Daily, First dose on Colleen 03/22/19 at 0900 [facility] Medication administered onsite Levothyroxine Sodium 0.075 MG Oral Table t levothyroxine (SYNTHROID, LEVOTHROID) tablet 75 mcg levothyroxine (SYNTHROID, LEVOTHROID) tablet 75 mcg 06:00:00 AM EST 75 ug Oral active 75 mcg, Oral, Daily (0600), First dose on Colleen 03/22/19 at 0600 [facility] Medication administered onsite MAGNESIUM GLUCONATE 500 MG Oral Tablet m agnesium gluconate (MAGONATE) tablet 500 mg magnesium gluconate (MAGONATE) tablet 500 mg 03/21/2019 09:00:00 PM EST 500 mg Oral active 500 mg, Oral, Nightly, F irst dose on Tue03/21/19 at 2100 [facility] Medication administered onsite carvedilol 6.25 MG Oral Tablet carvedilol (COREG) tabl et 6.25 mg carvedilol (COREG) tablet 6.25 mg 03/21/2019 09:00:00 PM EST 6.25 mg Oral active 6.25 mg, Oral, 2 times daily, First dose on Tue03/21/19 at 2100 [facility] Medication administered onsite Docusate Sodium 100 MG Oral Capsule docusate sodium (C OLACE) capsule 100 mg docusate sodium (COLACE) capsule 100 mg 03/21/2019 09:00:00 PM EST 100 mg Oral aborted 100 mg, Oral, 2 time s daily, First dose on Tue03/21/19 at 2100 [facility] Medication administered onsite gabapentin 300 MG Oral Capsule gabapentin (NEURONTIN) capsule 900 mg gabapentin (NEURONTIN) capsule 900 mg 03/21/2019 09:00:00 PM EST 900 mg Oral active 900 mg, Oral, 2 times daily, First dose on Tue03/21/19 at 2100 [facility] Medication administered onsite 12 HR ranolazine 500 MG Extended Release Oral Tablet ranolazine (RANEXA) 12 hr tablet 500 mg ranolazine (RANEXA) 12 hr tablet 500 mg 03/21/2019 09: 00:00 PM EST 500 mg Oral active 500 mg, Oral, 2 times daily, First dose on Tue03/21/19 at 2100 [facility] Medication administered onsite Rosuvastatin calcium 20 MG Oral Tablet rosuvastatin (C RESTOR) tablet 40 mg rosuvastatin (CRESTOR) tablet 40 mg 03/21/2019 09:00:00 PM EST 40 mg Oral active 40 mg, Oral, Nightly, First dose on Tue03/21/19 at 2100 [facility] Medication administered onsite normal saline flush 0.9 % injection 10 mL [id number] 03/21/2019 04:00:00 PM EST 10 mL Intravenous active 10 m L, Intravenous, Every 8 hours (scheduled), First dose on Tue03/21/19 at 1600
Flush with 10 mL NS prior and post medication administration.Flush with 10 mL NS prior to blood specimen collection and flush with 20 mL to clear solution/drug post blood specimen collection
[facility] Medication administered onsite Prochlorperazine 10 MG Oral Tablet prochlorperazine (C OMPAZINE) tablet 10 mg prochlorperazine (COMPAZINE) tablet 10 mg 03/21/2019 02:48:25 PM EST 10 mg Oral active 10 mg, Oral, E very 6 hours PRN, nausea, vomiting, chemotherapy induced nausea / vomiting, Starting Tue03/21/19 at 1448 [facility] Medication administered onsite 24 HR Isosorbide Mononitrate 30 MG Exten ded Release Oral Tablet isosorbide mononitrate (IMDUR) 24 hr tablet 30 mg isosorbide mononitrate (IMDUR) 24 hr tablet 30 mg 03/21/2019 02:00:00 PM EST 30 mg Oral activ e 30 mg, Oral, 2 times daily, First dose on Tue03/21/19 at 1400 [facility] Medication administered onsite Loratadine 10 MG Oral Tablet loratadine (CLARITIN) tab let 10 mg loratadine (CLARITIN) tablet 10 mg 03/21/2019 02:00:00 PM EST 10 mg Oral active 10 mg, Oral, Daily, First dose on Tue03/21/19 at 1400 [facility] Medication administered onsite sodium bicarbonate 150 mEq in dextrose 5 % 1,000 mL infusion 03/21/2019 01:00:00 PM EST 150 meq Intravenous aborted at 150 mL/hr, 150 mEq, Intravenous, Continuous, Starting Tue03/21/19 at 1300 [facility] Medication administered onsite POLYETHYLENE GLYCOL 3350 142 MG/ML Oral Solution polyethylene glycol (GLYCOLAX) packet 17 g polyethylene glycol (GLYCOLAX) packet 17 g 03/21/2019 12:33:00 PM EST 17 g Oral active 17 g, Or al, Nightly PRN, persistent constipation, Starting Tue03/21/19 at 1233
hold for loose stools
[facility] Medication administered onsite Nitroglycerin 0.4 MG Sublingual Tablet n itroglycerin (NITROSTAT) SL tablet 0.4 mg nitroglycerin (NITROSTAT) SL tablet 0.4 mg 03/21/2019 12:30:56 P M EST 0.4 mg Sublingual active 0.4 mg, S ublingual, Every 5 min PRN, chest pain, Starting Tue03/21/19 at 1230
May administer up to 3 doses per episode.
[facility] Medication administered onsite Albuterol 0.83 MG/ML Inhalant Solution a lbuterol (PROVENTIL) nebulizer solution 2.5 mg albuterol (PROVENTIL) nebulizer solution 2.5 mg 2019 12:18:18 PM EST 2.5 mg active 2.5 mg, Nebulization, RT every 4 hours as needed, wheezing, shortness of breath, Starting Tue03/21/19 at 1218 [facility] Medication administered onsite ondansetron (ZOFRAN) injection 4 mg [id number] 03/21/2019 12:16:1 5 PM EST 4 mg Intravenous active 4 mg, In travenous, Every 6 hours PRN, nausea, vomiting, Starting Tue03/21/19 at 1216 [facility] Medication administered onsite Acetaminophen 325 MG Oral Tablet acetaminophen (TYLENO L) 325 MG tablet 650 mg acetaminophen (TYLENOL) 325 MG tablet 650 mg 03/21/2019 12:15:34 PM EST 650 mg Oral active 650 mg, Or al, Every 6 hours PRN, mild pain (1-3), fever, temp > 100.5, Starting Tue03/21/19 at 1215
"Maximum dose of acetaminophen is 4,000 mg from all sources in 24 hours."
[facility] Medication administered onsite Bisacodyl 10 MG Rectal Suppository bisacodyl (DULCOLAX ) suppository 10 mg bisacodyl (DULCOLAX) suppository 10 mg 03/03/2019 06:00:00 PM EST 10 mg Rectal completed 10 mg, Rectal, Once, 03/03/19 at 1800, For 1 dose
hold for loose stools
[facility] Medication administered onsite magnesium citrate solution 296 mL [id number] 03/03/2019 11:00:00 AM EST 296 mL Oral completed 296 mL, Or al, Once, 03/03/19 at 1100, For 1 dose
hold for loose stools
[facility] Medication administered onsite Sodium Chloride 0.111 MEQ/ML Nasal Solut ion sodium chloride (OCEAN) 0.65 % nasal spray 2 spray sodium chloride (OCEAN) 0.65 % nasal spray 2 spray 06:06:41 PM EST 2 {spray} active 2 spray, Each Nare, As needed, congestion, Starting Tue03/02/19 at 1806
May leave medication at bedside
[facility] Medication administered onsite Docusate Sodium 50 MG / sennosides, GROUP HOME 8.6 MG Oral Tablet senna-docusate (PERICOLACE) 8.6-50 MG 2 tablet senna-docusate (PERICOLACE) 8.6-50 MG 2 tablet 03/02/2019 04:00:00 PM EST 2 {tbl} Oral active 2 tablet, Oral, 2 times daily, First dose on Tue03/02/19 at 1600
hold for loose stools
[facility] Medication administered onsite leucovorin 20 mg in dextrose 5 % 250 mL infusion 03/01 02:30:00 PM EST 20 mg Intravenous active 20 mg, I ntravenous, Administer over 30 Minutes, Every 6 hours (relative), First dose on Colleen 03/01/19 at 1430
Leucovorin rescue 10 mg/m2 IV Q6h to start 24 hours after start of MTX infusion.Continue until methotrexate level is <0.1
[facility] Medication administered onsite Pramipexole dihydrochloride 0.5 MG Oral Tablet pramipexole (MIRAPEX) tablet 0.5 mg pramipexole (MIRAPEX) tablet 0.5 mg 03/01/2019 09:00:00 AM EST 0.5 mg Oral active 0.5 mg, Oral, 2 times mercedes ly, First dose on Tue03/01/19 at 0900 [facility] Medication administered onsite gabapentin 300 MG Oral Capsule gabapentin (NEURONTIN) capsule 900 mg gabapentin (NEURONTIN) capsule 900 mg 03/01/2019 09:00:00 AM EST 900 mg Oral active 900 mg, Oral, 2 times daily, First dose on Tue03/01/19 at 0900 [facility] Medication administered onsite MAGNESIUM GLUCONATE 500 MG Oral Tablet m agnesium gluconate (MAGONATE) tablet 500 mg magnesium gluconate (MAGONATE) tablet 500 mg 02/28/2019 09:00:00 PM EST 500 mg Oral active 500 mg, Oral, Nightly, F irst dose on Tue02/28/19 at 2100 [facility] Medication administered onsite methotrexate (PF) 8,050 mg in sodium chloride (NS) 0.9 % 500 mL chemo infusion 02/28/2019 02:00:00 PM EST 3500 mg/m2 Intravenous co mpleted 8,050 mg (3,500 mg/m2 2.3 m2), Intravenous, Administer over 4 Hours, Once, Tue02/28/19 at 1400, For 1 dose
Methotrexate 3.5 g/m2 IV x 1 Cycle 1 as treatment of [employer] prophylaxis for DLBCL
[facility] Medication administered onsite dexamethasone (DECADRON) injection 10 mg [id number] 02/28/2019 01:00:00 PM EST 10 mg Intravenous completed 10 mg, Intravenous, Once, Tue02/28/19 at 1300, For 1 dose
Administer prior to methotrexate
[facility] Medication administered onsite granisetron (KYTRIL) injection 1 mg [id number] 02/28/2019 01:00:0 0 PM EST 1 mg Intravenous completed 1 mg, In travenous, Once, Tue02/28/19 at 1300, For 1 dose
Administer prior to methotrexate
[facility] Medication administered onsite Aspirin 81 MG Delayed Release Oral Tablet aspirin EC t ablet 81 mg aspirin EC tablet 81 mg 02/28/2019 09:00:00 AM EST 81 mg Oral activ e 81 mg, Oral, Daily, First dose on Tue02/28/19 at 0900 [facility] Medication administered onsite prasugrel 10 MG Oral Tablet prasugrel (EFFIENT) tablet 10 mg prasugrel (EFFIENT) tablet 10 mg 02/28/2019 09:00:00 AM EST 10 mg Oral activ e 10 mg, Oral, Daily, First dose on Tue02/28/19 at 0900 [facility] Medication administered onsite POLYETHYLENE GLYCOL 3350 142 MG/ML Oral Solution polyethylene glycol (GLYCOLAX) packet 17 g polyethylene glycol (GLYCOLAX) packet 17 g 02/28/2019 09:00:00 AM EST 17 g Oral active 17 g, Or al, Daily, First dose on Tue02/28/19 at 0900
hold for loose stools
[facility] Medication administered onsite Loratadine 10 MG Oral Tablet loratadine (CLARITIN) tab let 10 mg loratadine (CLARITIN) tablet 10 mg 02/28/2019 09:00:00 AM EST 10 mg Oral active 10 mg, Oral, Daily, First dose on Tue02/28/19 at 0900 [facility] Medication administered onsite Lisinopril 5 MG Oral Tablet lisinopril (PRINIVIL,ZESTR IL) tablet 2.5 mg lisinopril (PRINIVIL,ZESTRIL) tablet 2.5 mg 02/28/2019 09:00:00 AM EST 2.5 mg Oral active 2.5 mg, Oral, Daily, First dose on Tue02/28/19 at 0900
Hold for SBP < 100
[facility] Medication administered onsite DAILY DEEPA (THERAGRAN) 1 tablet [id number] 02/28/2019 09:00:00 AM EST 1 {tbl} Oral active 1 tablet, Oral, Daily, First dose on Tue02/28/19 at 0900 [facility] Medication administered onsite venlafaxine 37.5 MG Oral Tablet venlafaxine (EFFEXOR) tablet 37.5 mg venlafaxine (EFFEXOR) tablet 37.5 mg 02/28/2019 09:00:00 AM EST 37.5 mg Oral active 37.5 mg, Oral, Daily, First dose on Tue02/28/19 at 090 0 [facility] Medication administered onsite Prochlorperazine 5 MG/ML Injectable Solu tion Prochlorperazine Edisylate (COMPAZINE) injection 10 mg Prochlorperazine Edisylate (COMPAZINE) i njection 10 mg 02/28/2019 08:00:59 AM EST 10 mg Intravenous active 10 mg, Intravenous, Every 6 hours PRN, nausea, vomiting, Starting Tue02/28/19 at 0800 [facility] Medication administered onsite Levothyroxine Sodium 0.075 MG Oral Table t levothyroxine (SYNTHROID, LEVOTHROID) tablet 75 mcg levothyroxine (SYNTHROID, LEVOTHROID) tablet 75 mcg 06:00:00 AM EST 75 ug Oral active 75 mcg, Oral, Daily, First dose on Tue02/28/19 at 0600 [facility] Medication administered onsite ammonium lactate 120 MG/ML Topical Lotio n ammonium lactate (LAC-HYDRIN) 12 % lotion 1 application ammonium lactate (LAC-HYDRIN) 12 % lotion 1 applicatio n 02/27/2019 11:00:00 PM EST 1 {application} Topical activ e 1 application, Topical, 2 times daily, First dose on Tue02/27/19 at 2300, Until Discontinued [facility] Medication administered onsite gabapentin 300 MG Oral Capsule gabapentin (NEURONTIN) capsule 900 mg gabapentin (NEURONTIN) capsule 900 mg 02/27/2019 10:00:00 PM EST 900 mg Oral aborted 900 mg, Oral, 2 times daily, First dose on Tue02/27/19 at 2200 [facility] Medication administered onsite carvedilol 6.25 MG Oral Tablet carvedilol (COREG) tabl et 6.25 mg carvedilol (COREG) tablet 6.25 mg 02/27/2019 09:00:00 PM EST 6.25 mg Oral active 6.25 mg, Oral, 2 times daily, First dose on Tue02/27/19 at 2100
Hold for SBP < 100 or HR < 55
[facility] Medication administered onsite Docusate Sodium 100 MG Oral Capsule docusate sodium (C OLACE) capsule 100 mg docusate sodium (COLACE) capsule 100 mg 02/27/2019 09:00:00 PM EST 100 mg Oral aborted 100 mg, Oral, Nightly, First dose on Tue02/27/19 at 2100
Hold for loose stool
[facility] Medication administered onsite Pramipexole dihydrochloride 0.5 MG Oral Tablet pramipexole (MIRAPEX) tablet 0.5 mg pramipexole (MIRAPEX) tablet 0.5 mg 02/27/2019 09:00:00 PM EST 0.5 mg Oral aborted 0.5 mg, Oral, 2 times mercedes ly, First dose on Tue02/27/19 at 2100 [facility] Medication administered onsite 12 HR ranolazine 500 MG Extended Release Oral Tablet ranolazine (RANEXA) 12 hr tablet 500 mg ranolazine (RANEXA) 12 hr tablet 500 mg 02/27/2019 09: 00:00 PM EST 500 mg Oral active 500 mg, Oral, 2 times daily, First dose on Tue02/27/19 at 2100 [facility] Medication administered onsite 24 HR Isosorbide Mononitrate 30 MG Exten ded Release Oral Tablet isosorbide mononitrate (IMDUR) 24 hr tablet 30 mg isosorbide mononitrate (IMDUR) 24 hr tablet 30 mg 02/27/2019 09:00:00 PM EST 30 mg Oral activ e 30 mg, Oral, 2 times daily, First dose on Tue02/27/19 at 2100 [facility] Medication administered onsite Rosuvastatin calcium 20 MG Oral Tablet rosuvastatin (C RESTOR) tablet 40 mg rosuvastatin (CRESTOR) tablet 40 mg 02/27/2019 09:00:00 PM EST 40 mg Oral active 40 mg, Oral, Nightly, First dose on Tue02/27/19 at 2100 [facility] Medication administered onsite doxycycline hyclate 100 MG Oral Tablet doxycycline ( BRA-TABS) tablet 100 mg doxycycline (VIBRA-TABS) tablet 100 mg 02/27/2019 08:00:00 PM EST 1 00 mg Oral aborted 100 mg, Oral, 2 times daily, Indications: phlebitis, First dose on Tue02/27/19 at 2000 [facility] Medication administered onsite Ipratropium [place] 0.2 MG/ML Inhalant S olution ipratropium (ATROVENT) 0.02 % nebulizer solution 0.5 mg ipratropium (ATROVENT) 0.02 % nebulizer solution 0.5 mg 02/27/2019 08:00:00 PM EST 0.5 mg active 0.5 mg, Nebulization, 3 times daily, First dose on Tue02/27/19 at 2000
Formulary sub
[facility] Medication administered onsite normal saline flush 0.9 % injection 10 mL [id number] 02/27/2019 02:00:00 PM EST 10 mL Intravenous active 10 m L, Intravenous, Every 8 hours (scheduled), First dose on Tue02/27/19 at 1400
Flush with 10 mL NS prior and post medication administration.Flush with 10 mL NS prior to blood specimen collection and flush with 20 mL to clear solution/drug post blood specimen collection
[facility] Medication administered onsite 1 ML heparin sodium, porcine 100 UNT/ML Injection heparin flush (porcine) 100 UNIT/ML injection 500 Units heparin flush (porcine) 100 UNIT/ML inje ction 500 Units 02/27/2019 02:00:00 PM EST 500 U active 500 Units, Intracatheter, Daily (0600), First dose on Tue02/27/19 at 1400
For open ended ports without IV fluid runningRefer to policy: [email or web address]
[facility] Medication administered onsite dextrose 5 % 1,000 mL with sodium bicarbonate 150 mEq infusi on 02/27/2019 01:00:00 PM EST Intravenous active at 150 mL/hr, Intravenous, Continuous, Starting Tue02/27/19 at 1300 [facility] Medication administered onsite ondansetron (ZOFRAN) injection 4 mg [id number] 02/27/2019 12:22:5 5 PM EST 4 mg Intravenous active 4 mg, In travenous, Every 6 hours PRN, nausea, vomiting, Starting Tue02/27/19 at 1222 [facility] Medication administered onsite Acetaminophen 325 MG Oral Tablet acetaminophen (TYLENO L) 325 MG tablet 650 mg acetaminophen (TYLENOL) 325 MG tablet 650 mg 02/27/2019 12:19:35 PM EST 650 mg Oral active 650 mg, Or al, Every 4 hours PRN, mild pain (1-3), headaches, Starting Tue02/27/19 at 1219
"Maximum dose of acetaminophen is 4,000 mg from all sources in 24 hours."
[facility] Medication administered onsite carvedilol 6.25 MG Oral [...] by mouth 2 (two) times a day [facility] 100 mg 02/20/2019 12:00:00 AM EST capsule 20 TAKE ONE CAPSULE BY MOUTH TWICE A DAY FOR 10 DAYS TAKE ONE CAPSULE BY MOUTH TWICE A DAY FOR 10 DAYS SOLD : 02/20/2019 [facility] doxycycline hyclate 100 MG Oral Tablet doxycycline ( BRA-TABS) 100 MG tablet doxycycline (VIBRA-TABS) 100 MG tablet 02/20/2019 12:00:00 AM EST 1 00 mg Oral aborted Take 100 mg by mouth 2 (t wo) times a day [facility] doxycycline hyclate 100 MG Oral Capsule Doxycycline Hyclate 02/20/2019 12:00:00 AM EST ORAL completed [facility] ([facility]) 300 mg 02/12/2019 12:00:00 AM [...] on 02/03/19 at 0900, For 3 doses [facility] Medication administered onsite 24 HR Isosorbide Mononitrate [...] Colleen 02/01/19 at 0900, For 2 doses [facility] Medication administered onsite 90 mcg/actuation 02/01/2019 12:00:00 [...] DAILY FOR 8 DAYS SOLD: 0 02/15/2019 [facility] 2.5-2.5 % 02/01/2019 12:00:00 AM EST cream 30 APPLY AND COVER 1 HOUR PRIOR TO VENIPUNCTURE APPLY AND COVER 1 HOUR PRIOR TO VENIPUNCTURE SOLD: 02/06/2019 [facility] carvedilol 6.25 MG Oral Tablet CARVEDILOL 02/01/2019 12:00:00 AM EST tablet 60 TAKE ONE TABLET BY MOUTH TWO TIMES A DAY TAKE ONE TABL ET BY MOUTH TWO TIMES A DAY SOLD: 02/01/2019 [facility] Albuterol 0.833 MG/ML / Ipratropium Brom haylie 0.167 MG/ML Inhalant Solution ipratropium-albuterol (DUO-NEB) 0.5-2.5 mg/mL nebulizer solution 3 mL ipratropium-albuterol (DUO-NEB) 0.5-2.5 mg/mL nebulizer solution 3 mL 01/31/2019 02:00:00 PM EST 3 mL Inhalation active 3 mL, Inhalation, 3 times daily, First dose on Tue01/31/19 at 1400 [facility] Medication administered onsite carvedilol 6.25 MG Oral Tablet carvedilol (COREG) tabl et 6.25 mg carvedilol (COREG) tablet 6.25 mg 01/31/2019 12:00:00 PM EST 6.25 mg Oral active 6.25 mg, Oral, 2 times daily, First dose on Tue01/31/19 at 1200 [facility] Medication administered onsite Azithromycin 250 MG Oral Tablet azithromycin (ZITHROMA X) tablet 500 mg azithromycin (ZITHROMAX) tablet 500 mg 01/31/2019 11:00:00 AM EST 5 00 mg Oral active Pneumonia 500 mg, Oral, D aily, Indications: Pneumonia, First dose on Tue01/31/19 at 1100, For 2 days [facility] Pneumonia Medication administered onsite Levofloxacin 750 MG Oral Tablet levofloxacin (LEVAQUIN ) tablet 750 mg levofloxacin (LEVAQUIN) tablet 750 mg 01/31/2019 10:00:00 AM EST 75 0 mg Oral active Pneumonia 750 mg, Oral, E very 24 hours (relative), Indications: Pneumonia, First dose on Tue01/31/19 at 1000 [facility] Medication administered onsite albuterol (PROVENTIL HFA;VENTOLIN HFA) inhaler 2 puff [id number] 01/31/2019 09:50:22 AM EST 2 {puff} Inhalation active 2 pu ff, Inhalation, RT every 4 hours as needed, wheezing, Starting Tue01/31/19 at 0950
Please send a spacer home with patient if discharged with a metered dose inhaler
[facility] Medication administered onsite carvedilol 6.25 MG Oral Tablet carvedilol (COREG) 6.25 MG tablet carvedilol (COREG) 6.25 MG tablet 01/31/2019 12:00:00 AM EST 6.25 mg Oral active Take 1 tablet (6.25 mg total) by mouth 2 (two) times a day [facility] Prednisone 5 MG Oral Tablet predniSONE (DELTASONE) 5 M G tablet predniSONE (DELTASONE) 5 MG tablet 01/31/2019 12:00:00 AM EST active 20mg poqd for 3days, 10mg poqd x3days, 5mg poqd x3days then stop [facility] Levofloxacin 750 MG Oral Tablet levofloxacin (LEVAQUIN ) 750 MG tablet levofloxacin (LEVAQUIN) 750 MG tablet 01/31/2019 12:00:00 AM EST 75 0 mg Oral active Pneumonia Take 1 tablet (750 mg tot al) by mouth daily for 8 days [facility] Pneumonia 200 ACTUAT Ipratropium [place] 0.017 MG/ ACTUAT Metered Dose Inhaler ipratropium (ATROVENT HFA) 17 MCG/ACT inhaler ipratropium (ATROVENT HFA) 17 MCG/ACT inhaler 01/31/2019 12:00:00 AM EST 2 {puff} Inhalation active Inhale 2 puffs 3 (three) times a day [facility] Azithromycin 500 MG Oral Tablet azithromycin (ZITHROMA X) 500 MG tablet azithromycin (ZITHROMAX) 500 MG tablet 01/31/2019 12:00:00 AM EST 5 00 mg Oral active Pneumonia Take 1 tablet (500 mg tot al) by mouth daily for 2 days [facility] Pneumonia albuterol (PROVENTIL HFA;VENTOLIN HFA) 108 (90 Base) M CG/ACT inhaler [id number] 01/31/2019 12:00:00 AM EST 2 {puff} Inhalation active Inhale 2 puffs RT EVERY 4 HOURS NEEDED for wheezing or shortness of breath [facility] Docusate Sodium 100 MG Oral Capsule docusate sodium (C OLACE) capsule 100 mg docusate sodium (COLACE) capsule 100 mg 01/30/2019 08:00:00 PM EST 100 mg Oral completed 100 mg, Oral, Once, Tue01/30/19 at 2000, For 1 dose
hold for loose stools
[facility] Medication administered onsite POLYETHYLENE GLYCOL 3350 142 MG/ML Oral Solution polyethylene glycol (GLYCOLAX) packet 17 g polyethylene glycol (GLYCOLAX) packet 17 g 01/30/2019 08:00:00 PM EST 17 g Oral completed 17 g, Oral, Once, Tue01/30/19 at 2000, For 1 dose
hold for loose stools
[facility] Medication administered onsite predniSONE (DELTASONE) tablet 30 mg 01/30/2019 01:00:00 PM EST 30 mg Oral completed 30 mg, Oral, Mercedes ly, First dose on Tue01/30/19 at 1300, For 2 doses [facility] Medication administered onsite Dextromethorphan Hydrobromide 2 MG/ML / Guaifenesin 20 MG/ML Oral Solution guaifenesin-dextromethorphan (ROBITUSSIN DM) 100-10 MG/5ML syrup 10 mL guaifenesin-dextromethorphan (ROBITUSSIN DM) 100-10 MG/5ML syrup 10 mL 01/30/2019 12:47:42 PM EST 10 mL Oral active 10 mL, Oral, Every 6 hours PRN, other, cough, Starting Tue01/30/19 at 1247 [facility] Medication administered onsite Albuterol 0.833 MG/ML / Ipratropium Brom haylie 0.167 MG/ML Inhalant Solution ipratropium-albuterol (DUO-NEB) 0.5-2.5 mg/mL nebulizer solution 3 mL ipratropium-albuterol (DUO-NEB) 0.5-2.5 mg/mL nebulizer solution 3 mL 01/29/2019 08:00:00 PM EST 3 mL Inhalation aborted 3 mL, Inhalation, 3 times daily, First dose on Tue01/29/19 at 2000 [facility] Medication administered onsite Guaifenesin 20 MG/ML Oral Solution guaif enesin (ROBITUSSIN) 100 MG/5ML solution 200 mg guaifenesin (ROBITUSSIN) 100 MG/5ML solution 200 mg 06:32:49 PM EST 200 mg Oral aborted 200 mg, Oral, Every 6 hours PRN, cough, Starting Tue01/29/19 at 1832 [facility] Medication administered onsite Albuterol 0.83 MG/ML Inhalant Solution a lbuterol (PROVENTIL) nebulizer solution 2.5 mg albuterol (PROVENTIL) nebulizer solution 2.5 mg 2018 06:32:33 PM EST 2.5 mg aborted 2.5 mg, Nebulization, Every 2 hour PRN, wheezing, shortness of breath, Starting Tue01/29/19 at 1832 [facility] Medication administered onsite 150 ML Iopamidol 760 MG/ML Prefilled Syringe iopamidol (ISOVUE-370) 76 % 70 mL iopamidol (ISOVUE-370) 76 % 70 mL 01/29/2019 03:34:07 PM EST 70 mL Intravenous completed 70 mL, Intrave nous, Once in imaging, contrast, Starting Tue01/29/19 at 1534, For 1 dose [facility] Medication administered onsite gabapentin 300 MG Oral Capsule gabapentin (NEURONTIN) capsule 900 mg gabapentin (NEURONTIN) capsule 900 mg 01/29/2019 09:00:00 AM EST 900 mg Oral active 900 mg, Oral, 2 times daily, First dose on Tue01/29/19 at 0900 [facility] Medication administered onsite prasugrel 10 MG Oral Tablet prasugrel (EFFIENT) tablet 10 mg prasugrel (EFFIENT) tablet 10 mg 01/29/2019 09:00:00 AM EST 10 mg Oral activ e 10 mg, Oral, Daily, First dose on Tue01/29/19 at 0900 [facility] Medication administered onsite POLYETHYLENE GLYCOL 3350 142 MG/ML Oral Solution polyethylene glycol (GLYCOLAX) packet 17 g polyethylene glycol (GLYCOLAX) packet 17 g 01/29/2019 09:00:00 AM EST 17 g Oral active 17 g, Or al, Daily, First dose on Tue01/29/19 at 0900
hold for loose stools
[facility] Medication administered onsite Docusate Sodium 100 MG Oral Capsule docusate sodium (C OLACE) capsule 100 mg docusate sodium (COLACE) capsule 100 mg 01/29/2019 09:00:00 AM EST 100 mg Oral active 100 mg, Oral, Daily, First dose on Tue01/29/19 at 0900 [facility] Medication administered onsite Aspirin 81 MG Delayed Release Oral Tablet aspirin EC t ablet 81 mg aspirin EC tablet 81 mg 01/29/2019 09:00:00 AM EST 81 mg Oral activ e 81 mg, Oral, Daily, First dose on Tue01/29/19 at 0900 [facility] Medication administered onsite Loratadine 10 MG Oral Tablet loratadine (CLARITIN) tab let 10 mg loratadine (CLARITIN) tablet 10 mg 01/29/2019 09:00:00 AM EST 10 mg Oral active 10 mg, Oral, Daily, First dose on Tue01/29/19 at 0900 [facility] Medication administered onsite Lisinopril 5 MG Oral Tablet lisinopril (PRINIVIL,ZESTR IL) tablet 2.5 mg lisinopril (PRINIVIL,ZESTRIL) tablet 2.5 mg 01/29/2019 09:00:00 AM EST 2.5 mg Oral active 2.5 mg, Oral, Daily, First dose on Tue01/29/19 at 0900
Hold for manual SBP < 110
[facility] Medication administered onsite venlafaxine 37.5 MG Oral Tablet venlafaxine (EFFEXOR) tablet 37.5 mg venlafaxine (EFFEXOR) tablet 37.5 mg 01/29/2019 09:00:00 AM EST 37.5 mg Oral active 37.5 mg, Oral, Daily, First dose on Tue01/29/19 at 09 00 [facility] Medication administered onsite Levothyroxine Sodium 0.075 MG Oral Table t levothyroxine (SYNTHROID, LEVOTHROID) tablet 75 mcg levothyroxine (SYNTHROID, LEVOTHROID) tablet 75 mcg 06:00:00 AM EST 75 ug Oral active 75 mcg, Oral, Daily (0600), First dose on Tue01/29/19 at 0600 [facility] Medication administered onsite vancomycin in 500mL (VANCOCIN) IV 1,500 mg [id number] 01/29/2019 02:00:00 AM EST 1500 mg Intravenous aborted Pneumonia 1, 500 mg, Intravenous, Administer over 120 Minutes, Every 12 hours (relative), First dose on Tue01/29/19 at 0200 [facility] Pneumonia Medication administered onsite cefepime 2000 MG Injection cefepime (MAXIPIME) injecti on 2 g cefepime (MAXIPIME) injection 2 g 01/28/2019 11:00:00 PM EST 2 g abor alejandro 2 g, Intravenous Push, Every 8 hours (relative), First dose on Tue01/28/19 at 2300
Reconstitute with 20 ml sodium chloride 0.9% for injection. Administer IV push over 5 minutes. Use within 1 hour of reconstitution.
[facility] Medication administered onsite normal saline flush 0.9 % injection 3 mL [id number] 01/28/2019 10:00:00 PM EST 3 mL Intravenous active 3 mL , Intravenous, Every 8 hours (scheduled), First dose on Tue01/28/19 at 2200
flush per protocol, D/C Main IV fluid if appropriate
[facility] Medication administered onsite normal saline flush 0.9 % injection 3 mL [id number] 01/28/2019 10:00:00 PM EST 3 mL Intravenous active 3 mL , Intravenous, PROTOCOL, First dose on 01/28/19 at 2200
flush per protocol, D/C Main IV fluid if appropriate
[facility] Medication administered onsite 12 HR ranolazine 500 MG Extended Release Oral Tablet ranolazine (RANEXA) 12 hr tablet 500 mg ranolazine (RANEXA) 12 hr tablet 500 mg 01/28/2019 09: 00:00 PM EST 500 mg Oral active 500 mg, Oral, 2 times daily, First dose on 01/28/19 at 2100 [facility] Medication administered onsite Pramipexole dihydrochloride 0.5 MG Oral Tablet pramipexole (MIRAPEX) tablet 0.5 mg pramipexole (MIRAPEX) tablet 0.5 mg 01/28/2019 09:00:00 PM EST 0.5 mg Oral active 0.5 mg, Oral, 2 times mercedes ly, First dose on 01/28/19 at 2100 [facility] Medication administered onsite gabapentin 300 MG Oral Capsule gabapentin (NEURONTIN) capsule 300 mg gabapentin (NEURONTIN) capsule 300 mg 01/28/2019 09:00:00 PM EST 300 mg Oral aborted 300 mg, Oral, 2 times daily, First dose on 01/28/19 at 2100 [facility] Medication administered onsite 24 HR Isosorbide Mononitrate 30 MG Exten ded Release Oral Tablet isosorbide mononitrate (IMDUR) 24 hr tablet 30 mg isosorbide mononitrate (IMDUR) 24 hr tablet 30 mg 01/28/2019 09:00:00 PM EST 30 mg Oral activ e 30 mg, Oral, 2 times daily, First dose on 01/28/19 at 2100 [facility] Medication administered onsite Rosuvastatin calcium 20 MG Oral Tablet rosuvastatin (C RESTOR) tablet 40 mg rosuvastatin (CRESTOR) tablet 40 mg 01/28/2019 09:00:00 PM EST 40 mg Oral active 40 mg, Oral, Nightly, First dose on 01/28/19 at 2100 [facility] Medication administered onsite Calcium Chloride 0.0014 MEQ/ML / Potassi um Chloride 0.004 MEQ/ML / Sodium Chloride 0.103 MEQ/ML / Sodium Lactate 0.028 MEQ/ML Injectable Solution lactated ringers infusion lactated ringers infusion 01/28/2019 08:00:00 PM EST Intravenous completed at 75 mL/hr, Intravenous, Continuous, Starting 01/28/19 at 2000, For 1 day [facility] Medication administered onsite 0.4 ML Enoxaparin sodium [...] not give the dose and call physician/designee.
[facility] Medication administered onsite Acetaminophen 325 MG Oral Tablet acetaminophen (TYLENO L) 325 MG tablet 650 mg acetaminophen (TYLENOL) 325 MG tablet 650 mg 01/28/2019 07:42:03 PM EST 650 mg Oral active 650 mg, Or al, Every 4 hours PRN, mild pain (1-3), headaches, Starting 01/28/19 at 1942
"Maximum dose of acetaminophen is 4,000 mg from all sources in 24 hours."
[facility] Medication administered onsite Ondansetron 4 MG Disintegrating Oral Tab let ondansetron (ZOFRAN-ODT) disintegrating tablet 4 mg ondansetron (ZOFRAN-ODT) disintegrating tablet 4 mg 01/28/2019 07:14:55 PM EST 4 mg Oral active 4 mg, Oral, Daily PRN, nausea, Starting 01/28/19 at 1914 [facility] Medication administered onsite Nitroglycerin 0.4 MG Sublingual Tablet n itroglycerin (NITROSTAT) SL tablet 0.4 mg nitroglycerin (NITROSTAT) SL tablet 0.4 mg 01/28/2019 07:14:51 P M EST 0.4 mg Sublingual active 0.4 mg, S ublingual, Every 5 min PRN, chest pain, Starting 01/28/19 at 1914
May administer up to 3 doses per episode.
[facility] Medication administered onsite 1 ML Ketorolac Tromethamine 15 MG/ML [place] ketorolac (TORADOL) injection 15 mg ketorolac (TORADOL) injection 15 mg 01/28/2019 05:05:00 PM EST 15 mg Intravenous completed 15 mg, Intrav enous, Once, 01/28/19 at 1705, For 1 dose [facility] Medication administered onsite cefepime 2000 MG Injection cefepime (MAXIPIME) injecti on 2 g cefepime (MAXIPIME) injection 2 g 01/28/2019 02:50:00 PM EST 2 g comp leted 2 g, Intravenous Push, Once, 01/28/19 at 1450, For 1 dose
Reconstitute with 20 ml sodium chloride 0.9% for injection. Administer IV push over 5 minutes. Use within 1 hour of reconstitution.
[facility] Medication administered onsite azithromycin (ZITHROMAX) 500 mg in sodium chloride (NS) 0.9 % 250 mL IVPB 01/28/2019 02:50:00 PM EST 500 mg Intravenous aborted P neumonia 500 mg, Intravenous, Administer over 60 Minutes, Every 24 hours (relative), First dose on 01/28/19 at 1450 [facility] Pneumonia Medication administered onsite vancomycin in 500mL (VANCOCIN) IV 2,000 mg [id number] 01/28/2019 02:45:00 PM EST 2000 mg Intravenous completed Pneumonia 2,000 mg, Intravenous, Administer over 120 Minutes, Once, 01/28/19 at 1450, For 1 dose [facility] Pneumonia Medication administered onsite Acetaminophen 325 MG Oral Tablet acetaminophen (TYLENO L) 325 MG tablet 650 mg acetaminophen (TYLENOL) 325 MG tablet 650 mg 01/28/2019 02:10:00 PM EST 650 mg Oral completed 650 mg, Or al, Once, 01/28/19 at 1410, For 1 dose
"Maximum dose of acetaminophen is 4,000 mg from all sources in 24 hours."
[facility] Medication administered onsite sodium chloride 0.9% (NS) bolus 1,000 mL [id number] 01/28/2019 02:10:00 PM EST 1000 mL Intravenous completed 1, 000 mL, Intravenous, Administer over 1 Hours, Once, 01/28/19 at 1410, For 1 dose [facility] Medication administered onsite 500 mg 12/09/2018 12:00:00 [...] TABLET BY MOUTH EVERY DAY SOLD: 06/06/2019 [facility] 10 mg 11/25/2018 12:00:00 AM EDT [...] Oral aborted Take by mouth Tapering dose [facility] 8 HR Acetaminophen 650 MG Extended Relea se Oral Tablet acetaminophen (ACETAMINOPHEN 8 HOUR) 650 MG CR tablet acetaminophen (ACETAMINOPHEN 8 HOUR) 650 MG CR tablet 650 mg Oral aborted Michael e 650 mg by mouth every 8 (eight) hours as needed for pain [facility] Ondansetron 4 MG Disintegrating Oral Tab let ondansetron (ZOFRAN-ODT) 4 MG disintegrating tablet ondansetron (ZOFRAN-ODT) 4 MG disintegrating tablet 4 mg Oral aborted Take 4 mg by mouth daily as needed for nausea [facility] Prednisone 20 MG Oral Tablet predniSONE (DELTASONE) 20 MG tablet predniSONE (DELTASONE) 20 MG tablet Oral aborted Take by mouth Take 3 tablets at breakfast and 2 tablets at lunch for 5 days with each cycle of chemo treatment [facility] Pegfilgrastim (NEULASTA SC) Subcutaneous aborted Inject under the skin [facility] venlafaxine 37.5 MG Oral Tablet venlafaxine (EFFEXOR) 37.5 MG tablet venlafaxine (EFFEXOR) 37.5 MG tablet 37.5 mg Oral aborted Take 37.5 mg by mouth daily [facility] riTUXimab (RITUXAN IV) Intravenous abo rted Infuse into a venous catheter [facility] Cyclophosphamide (CYTOXAN IJ) aborted Inject as directed [facility] DOXOrubicin HCl (ADRIAMYCIN IV) Intravenous aborted Infuse into a venous catheter [facility] VINCRISTINE SULFATE IV Intravenous abo rted Infuse into a venous catheter [facility] sodium chloride 0.9 % SOLN with methotrexate (PF) 50 MG/2ML SOLN Intrathecal aborted by Intrathecal rou te [facility] gabapentin 300 MG Oral Capsule gabapentin (NEURONTIN) 300 MG capsule gabapentin (NEURONTIN) 300 MG capsule 900 mg Oral aborted Take 900 mg by mouth nightly [facility] Insurance Providers Payer name Policy type / Coverage type Policy ID Covered libertarian ID Covered libertarian's relationship to carrillo Policy [place] Plan Information [place]/307 [id number] SP [id number] [place]/307 [id number] SP [id number] Blue Cross Blue Shield P [id number] SELF [id number] Blue Shield [place] Primary [id number] EXCELLUS BCBS [id number] Melinda YNE [id number] Blue Cross Blue Shield P [id number] SELF [id number] EXCELLUS BCBS 03 EXCELLUS BCBS [id number] Melinda YND [id number] EXCELLUS BCBS [id number] Melinda YND [id number] EXCELLUS BCBS 03 Blue Cross Blue Shield P [id number] SELF [id number] [facility] [id number] [facility] P[facility] POS [id number] Blue Shield [facility] [id number] 18 [id number] Blue Shield [facility] [id number] EXCELLUS H [id number] Self [id number] BCBS CNY Medigap Part B [id number] Self SA [id number] BCBS CNY Commercial [id number] Self [id number] EXCELLUS BLUE CROSS BLUE SHIELD HEA [id number] S [id number] BCBS CNY Medigap Part B [id number] Self SA [id number] BCBS CN[place] Commercial [id number] Self [id number] Progressive Ins NF Workers Compensation [id number] Self [id number] Excell[employer] Commercial Commercial [id number] Self [id number] Progressive Ins [place] Workers Compensation [id number] Self [id number] Progressive Ins [place] Workers Compensation [id number] Self [id number] Progressive Ins [place] Workers Compensation [id number] Self [id number] Progressive Ins [place] Workers Compensation [id number] Self [id number] Progressive Ins [place] Workers Compensation [id number] Self [id number] [place] 306/806 [id number] SP [id number] [place] 302/307 [id number] SP [id number] Blue Cross Blue Shield P [id number] SELF [id number] PROGRESSIVE CO NO FAULT [id number] SP [id number] BCBS HMO BLUE [id number] SP [id number] EXCELLUS BCBS [id number] Melinda YND [id number] SELF PAY ONLY SP BCBS/Excellus Commercial [id number] Self [id number] EXCELLUS BCBS [id number] Spo [id number] EXCELLUS BCBS B [id number] S [id number] PROGRESSIVE CO NO FAULT O [id number] S [id number] Excellus CNY Blueshield Medigap Part B [id number] Self [id number] No Fault Workers Compensation [id number] Self [id number] PROGRESSIVE CO NO FAULT [id number] SP [id number] [place] 302/307 [id number] BCBS/Excellus Commercial [id number] Self [id number] Blue Cross Blue Shield P [id number] SPOUSE [id number] EXCELLUS H [id number] Spouse [id number] EXCELLUS BLUE CROSS BLUE SHIELD HEA [id number] SP [id number] Excellus CNY Blueshield Commercial [id number] Family Depen dent [id number] Blue Cross Blue Shield P [id number] SPOUSE [id number] Blue Cross Blue Shield P [id number] SELF [id number] EXCELLUS BCBS B [id number] P [id number] [id number] [place] 302/307 [id number] SP [id number] BLUE CROSS O [id number] S [id number] Problems, Conditions, and Diagnoses Code Display Name Description Problem Type Effective Dates Data Source(s) C83.30 Diffuse large B cell lymphoma Diffuse large B cell lym phoma [id number] 02/27/2019 12:00:00 AM [facility] R60.0 Localized edema Localized edema [id number] 02/20/2019 12:0 0:00 AM [facility] J15.9 Pneumonia, bacterial Pneumonia, bacterial [id number] 01/30/2019 12:00:00 AM [facility] E43 Severe protein-calorie malnutrition Severe prote in-calorie malnutrition [id number] 01/30/2019 12:00:00 AM [facility] D70.9 Neutropenic fever Neutropenic fever [id number] 01/28/2019 12:00:00 AM [facility] D70.9 Neutropenia Neutropenia [id number] 01/28/2019 12:00:00 AM [facility] J18.9 Pneumonia Pneumonia [id number] 01/28/2019 12:00:00 AM [facility] C83.39 Diffuse large B-cell lymphoma, extranoda l and solid organ sites Diffuse large b-cell lymphoma, extranoda Diagnosis 04/10/2019 01:56:00 PM [facility] E78.00 Pure hypercholesterolemia, unspecified P ure hypercholesterolemia, unspecified Diagnosis 02/20/2019 08:42:42 AM [facility] R60.0 Localized edema Localized edema Diagnosis 02/20/2019 08:4 2:42 AM [facility] I25.10 Atherosclerotic heart diseas e of [place] coronary artery without angina pectoris Atherosclerotic heart disease of [place] Diagnosis 02/20/2019 08:42:42 AM [facility] R50.81 Fever presenting with conditions classif ied elsewhere Fever presenting with conditions classif Diagnosis 01/28/2019 01:01:55 PM EST [facility] D70.9 Neutropenia, unspecified Neutropenia, unspecified Diag nosis 01/28/2019 01:01:55 PM [facility] J18.9 Pneumonia, unspecified organism Pneumonia, unspecified organism Diagnosis 01/28/2019 01:01:55 PM [facility] J15.9 Unspecified bacterial pneumonia Unspecified bacterial pneumonia Diagnosis 01/28/2019 01:01:55 PM [facility] R65.20 Severe sepsis without septic shock Severe sepsis without septic shock Diagnosis 01/28/2019 01:01:55 PM [facility] A41.9 Sepsis, unspecified organism Sepsis, unspecified organ ism Diagnosis 01/28/2019 01:01:55 PM [facility] Surgeries/Procedures Procedure Description Date Indications Data Source(s) PH URINE PH URINE Timed 04/16/2019 4:42 AM EDT 04/15 08:42:00 AM EDT [facility] QUANTITATION DRUG NOT ELSEWHERE SPECIFIED METHOTREXATE LEVEL Ro utine 04/16/2019 4:42 AM EDT 04/16/2019 08:42:00 AM EDT [facility] BLOOD COUNT COMPLETE AUTOMATED CBC Timed 04/16/2019 4:42 A M EDT 04/16/2019 08:42:00 AM EDT [facility] COMPREHENSIVE METABOLIC PANEL COMPREHENSIVE METABOLIC PANEL Edgar ed 04/16/2019 4:42 AM EDT 04/16/2019 08:42:00 AM EDT [facility] PH URINE PH URINE Timed 04/15/2019 9:16 PM EDT 04/15 01:16:00 AM EDT [facility] PH URINE PH URINE Timed 04/15/2019 2:20 PM EDT 04/14 06:20:00 PM EDT [facility] PH URINE PH URINE Timed 04/15/2019 5:26 AM EDT 04/14 09:26:00 AM EDT [facility] QUANTITATION DRUG NOT ELSEWHERE SPECIFIED METHOTREXATE LEVEL Ro utine 04/15/2019 5:26 AM EDT 04/15/2019 09:26:00 AM EDT [facility] BLOOD COUNT COMPLETE AUTOMATED CBC Timed 04/15/2019 5:26 A M EDT 04/15/2019 09:26:00 AM EDT [facility] COMPREHENSIVE METABOLIC PANEL COMPREHENSIVE METABOLIC PANEL Edgar ed 04/15/2019 5:26 AM EDT 04/15/2019 09:26:00 AM EDT [facility] GLUC BLD GLUC MNTR DEV CLEARED FDA SPEC HOME USE POCT GLUCOSE Routine 04/14/2019 10:56 PM EST 04/15/2019 03:56:00 AM EDT [facility] QUANTITATION DRUG NOT ELSEWHERE SPECIFIED METHOTREXATE LEVEL Ro utine 04/14/2019 6:04 PM EST 04/14/2019 11:04:00 PM EST [facility] PH URINE PH URINE Timed 04/14/2019 5:49 PM EST 04/13 10:49:00 PM EST [facility] PH URINE PH URINE Timed 04/14/2019 4:16 AM EST 04/13 09:16:00 AM EST [facility] QUANTITATION DRUG NOT ELSEWHERE SPECIFIED METHOTREXATE LEVEL Ti med 04/14/2019 4:16 AM EST 04/14/2019 09:16:00 AM EST [facility] BLOOD COUNT COMPLETE AUTOMATED CBC Timed 04/14/2019 4:16 A M EST 04/14/2019 09:16:00 AM EST [facility] COMPREHENSIVE METABOLIC PANEL COMPREHENSIVE METABOLIC PANEL Edgar ed 04/14/2019 4:16 AM EST 04/14/2019 09:16:00 AM EST [facility] PH URINE PH URINE Timed 04/13/2019 6:52 PM EST 04/12 11:52:00 PM EST [facility] PH URINE PH URINE Timed 04/13/2019 5:28 AM EST 04/12 10:28:00 AM EST [facility] QUANTITATION DRUG NOT ELSEWHERE SPECIFIED METHOTREXATE LEVEL Ti med 04/13/2019 3:19 AM EST 04/13/2019 08:19:00 AM EST [facility] BLOOD COUNT COMPLETE AUTOMATED CBC Timed 04/13/2019 3:19 A M EST 04/13/2019 08:19:00 AM EST [facility] COMPREHENSIVE METABOLIC PANEL COMPREHENSIVE METABOLIC PANEL Edgar ed 04/13/2019 3:19 AM EST 04/13/2019 08:19:00 AM EST [facility] PH URINE PH URINE Timed 04/12/2019 4:00 PM EST 04/11 09:00:00 PM EST [facility] PH URINE PH URINE Timed 04/12/2019 3:40 AM EST 04/11 08:40:00 AM EST [facility] QUANTITATION DRUG NOT ELSEWHERE SPECIFIED METHOTREXATE LEVEL Ro utine 04/12/2019 3:40 AM EST 04/12/2019 08:40:00 AM EST [facility] BLOOD COUNT COMPLETE AUTOMATED CBC Timed 04/12/2019 3:40 A M EST 04/12/2019 08:40:00 AM EST [facility] COMPREHENSIVE METABOLIC PANEL COMPREHENSIVE METABOLIC PANEL Edgar ed 04/12/2019 3:40 AM EST 04/12/2019 08:40:00 AM EST [facility] PH URINE PH URINE Timed 04/11/2019 6:15 PM EST 04/10 11:15:00 PM EST [facility] PH URINE PH URINE Timed 04/11/2019 7:42 AM EST 04/10 12:42:00 PM EST [facility] BLOOD COUNT COMPLETE AUTO&AUTO DIFRNTL WBC COUNT CBC WITH A UTO DIFFERENTIAL Routine 04/11/2019 6:31 AM EST 04/11/2019 11:31:00 AM EST [facility] THROMBOPLASTIN TIME PARTIAL PLASMA/WHOLE BLOOD APTT Routine 04/11/2019 6:31 AM EST 04/11/2019 11:31:00 AM EST [facility] PROTHROMBIN TIME PROTIME-INR Routine 04/11/2019 6:31 AM EST 04/11/2019 11:31:00 AM EST [facility] BLOOD COUNT COMPLETE AUTOMATED CBC Timed 04/11/2019 6:31 A M EST 04/11/2019 11:31:00 AM EST [facility] COMPREHENSIVE METABOLIC PANEL COMPREHENSIVE METABOLIC PANEL Edgar ed 04/11/2019 6:31 AM EST 04/11/2019 11:31:00 AM EST [facility] PH URINE PH URINE Timed 04/11/2019 12:40 AM EST 04/10 05:40:00 AM EST [facility] PH URINE PH URINE Routine 04/10/2019 7:30 PM EST 04/11/2019 12:30:00 AM EST [facility] PH URINE PH URINE Timed 03/26/2019 6:07 AM EST 03/26 11:07:00 AM EST [facility] QUANTITATION DRUG NOT ELSEWHERE SPECIFIED METHOTREXATE LEVEL Ti med 03/26/2019 6:07 AM EST 03/26/2019 11:07:00 AM Health system BLOOD COUNT COMPLETE AUTOMATED CBC Timed 03/26/2019 6:07 A M EST 03/26/2019 11:07:00 AM [facility] COMPREHENSIVE METABOLIC PANEL COMPREHENSIVE METABOLIC PANEL Edgar ed 03/26/2019 6:07 AM EST 03/26/2019 11:07:00 AM EST [facility] PH URINE PH URINE Timed 03/25/2019 11:12 PM EST 03/26 04:12:00 AM EST [facility] PH URINE PH URINE Timed 03/25/2019 2:56 PM EST 03/25 07:56:00 PM [facility] PH URINE PH URINE Timed 03/25/2019 6:29 AM EST 03/25 11:29:00 AM EST [facility] QUANTITATION DRUG NOT ELSEWHERE SPECIFIED METHOTREXATE LEVEL Ti med 03/25/2019 3:34 AM EST 03/25/2019 08:34:00 AM EST [facility] COMPREHENSIVE METABOLIC PANEL COMPREHENSIVE METABOLIC PANEL Edgar ed 03/25/2019 3:34 AM EST 03/25/2019 08:34:00 AM Health system PH URINE PH URINE Routine 03/24/2019 7:15 PM EST 03/25/2019 12:15:00 AM EST [facility] PH URINE PH URINE Timed 03/24/2019 1:12 PM EST 03/24 06:12:00 PM EST [facility] PH URINE PH URINE Timed 03/24/2019 6:20 AM EST 03/24 11:20:00 AM EST [facility] QUANTITATION DRUG NOT ELSEWHERE SPECIFIED METHOTREXATE LEVEL Ti med 03/24/2019 6:11 AM EST 03/24/2019 11:11:00 AM EST [facility] BLOOD COUNT COMPLETE AUTOMATED CBC Routine 03/24/2019 6:11 A M EST 03/24/2019 11:11:00 AM EST [facility] COMPREHENSIVE METABOLIC PANEL COMPREHENSIVE METABOLIC PANEL Edgar ed 03/24/2019 6:11 AM EST 03/24/2019 11:11:00 AM EST [facility] PH URINE PH URINE Timed 03/23/2019 8:28 PM EST 03/24 01:28:00 AM [facility] PH URINE PH URINE Timed 03/23/2019 1:14 PM EST 03/23 06:14:00 PM [facility] PH URINE PH URINE Timed 03/23/2019 4:36 AM EST 03/23 09:36:00 AM [facility] QUANTITATION DRUG NOT ELSEWHERE SPECIFIED METHOTREXATE LEVEL Ro utine 03/23/2019 4:36 AM EST 03/23/2019 09:36:00 AM Health system BLOOD COUNT COMPLETE AUTOMATED CBC Routine 03/23/2019 4:36 A M EST 03/23/2019 09:36:00 AM [facility] HEPATIC FUNCTION PANEL HEPATIC FUNCTION PANEL Add-On 03/23/2019 4:36 AM EST 03/23/2019 09:36:00 AM [facility] BASIC METABOLIC PANEL CALCIUM TOTAL BASIC METABOLIC PANEL Add-O n 03/23/2019 4:36 AM EST 03/23/2019 09:36:00 AM Health system PH URINE PH URINE Timed 03/22/2019 9:59 PM EST 03/23 02:59:00 AM [facility] PH URINE PH URINE Timed 03/22/2019 2:50 PM EST 03/22 07:50:00 PM [facility] PH URINE PH URINE Timed 03/22/2019 5:37 AM EST 03/22 10:37:00 AM EST [facility] BLOOD COUNT COMPLETE AUTOMATED CBC Routine 03/22/2019 5:37 A M EST 03/22/2019 10:37:00 AM EST [facility] PH URINE PH URINE Timed 03/21/2019 7:00 PM EST 03/22 12:00:00 AM EST [facility] PH URINE PH URINE Timed 03/04/2019 9:25 AM EST 03/04 02:25:00 PM EST [facility] PH URINE PH URINE Timed 03/04/2019 4:13 AM EST 03/04 09:13:00 AM [facility] QUANTITATION DRUG NOT ELSEWHERE SPECIFIED METHOTREXATE LEVEL Ti med 03/04/2019 4:08 AM EST 03/04/2019 09:08:00 AM Health system BLOOD COUNT COMPLETE AUTOMATED CBC Timed 03/04/2019 4:08 A M EST 03/04/2019 09:08:00 AM [facility] COMPREHENSIVE METABOLIC PANEL COMPREHENSIVE METABOLIC PANEL Edgar ed 03/04/2019 4:08 AM EST 03/04/2019 09:08:00 AM Health system PH URINE PH URINE Timed 03/03/2019 7:52 PM EST 03/04 12:52:00 AM [facility] PH URINE PH URINE Timed 03/03/2019 12:34 PM EST 03/03 05:34:00 PM EST [facility] PH URINE PH URINE Timed 03/03/2019 11:18 AM EST 03/03 04:18:00 PM EST [facility] PH URINE PH URINE Routine 03/03/2019 4:26 AM EST 03/03/2019 09:26:00 AM [facility] QUANTITATION DRUG NOT ELSEWHERE SPECIFIED METHOTREXATE LEVEL Ti med 03/03/2019 4:15 AM EST 03/03/2019 09:15:00 AM Health system BLOOD COUNT COMPLETE AUTOMATED CBC Timed 03/03/2019 4:15 A M EST 03/03/2019 09:15:00 AM EST [facility] COMPREHENSIVE METABOLIC PANEL COMPREHENSIVE METABOLIC PANEL Edgar ed 03/03/2019 4:15 AM EST 03/03/2019 09:15:00 AM EST [facility] PH URINE PH URINE Routine 03/02/2019 9:01 PM EST 03/03/2019 02:01:00 AM EST [facility] PH URINE PH URINE Timed 03/02/2019 2:41 PM EST 03/02 07:41:00 PM EST [facility] QUANTITATION DRUG NOT ELSEWHERE SPECIFIED METHOTREXATE LEVEL Ti med 03/02/2019 5:33 AM EST 03/02/2019 10:33:00 AM EST [facility] BLOOD COUNT COMPLETE AUTOMATED CBC Routine 03/02/2019 5:33 A M EST 03/02/2019 10:33:00 AM EST [facility] MAGNESIUM MAGNESIUM Timed 03/02/2019 5:33 AM EST 03/02/2019 10:33:00 AM EST [facility] COMPREHENSIVE METABOLIC PANEL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 Supporting Document(s) ID Date Data Source [id number] 01/28/2019 04:26:10 PM EST [facility] Name Value Range Interpretation Code Description Data Azul rce(s) Supporting Document(s) URN CULTURE HOLD [facility] FOR ADD ON CULTURE ID Date Data Source [id number] 01/28/2019 01:28:30 PM EST [facility] Name Value Range Interpretation Code Description Data Azul rce(s) Supporting Document(s) POC LACTATE 1.74 mmol/L (0.90-1.70) Above high normal [facility] PER[facility] BY [facility] ID Date Data Source [id number] 01/28/2019 01:35:07 PM EST [facility] Name Value Range Interpretation Code Description Data Azul rce(s) Supporting Document(s) POC CTNI <0.01 ng/mL (0.01-0.07) L [facility] Less than 0.08: Myocardial injury unlike lyGreater than or equal to 0.08: Highlysuggestive of myocardial injuryCorrelation with rise and/or fall ofserial troponins, clinical symptoms,and ECG changes is necessary.PERFORMED BY [facility] ID Date Data Source [id number] 01/30/2019 10:18:40 AM EST [facility] SPECIMEN DESCRIPTION NARESSPECIAL REQUESTS NONECULTURE RESULTS NO METHICILLIN RESISTANT STAPH AUREUS ISOLATED.REPORT STATUS FINAL 01/30/2019 Name Value Range Interpretation Code Description Data Azul rce(s) Supporting Document(s) ID Date Data Source [id number] 02/03/2019 08:46:35 AM EST [facility] SPECIMEN DESCRIPTION PERIPHERAL 1SPECIAL REQUESTS NONECULTURE RESULTS NO GROWTH 6 DAYSREPORT STATUS FINAL 02/03/2019 Name Value Range Interpretation Code Description Data Azul rce(s) Supporting Document(s) ID Date Data Source [id number] 02/03/2019 08:46:35 AM EST [facility] SPECIMEN DESCRIPTION PERIPHERAL 2SPECIAL REQUESTS NONECULTURE RESULTS NO GROWTH 6 DAYSREPORT STATUS FINAL 02/03/2019 Name Value Range Interpretation Code Description Data Azul rce(s) Supporting Document(s) ID Date Data Source [id number] 01/28/2019 03:06:11 PM EST [facility] Name Value Range Interpretation Code Description Data Azul rce(s) Supporting Document(s) WBC 2.3 10*3/uL (4.1-11.0) L [facility] [place] RBC 3.67 10*6/uL (4.60-6.10) L [facility] HGB 11.6 g/dL (13.5-18.0) L [facility] HCT 35.2 % (41.0-53.0) L [facility] MCV 95.9 fL (80.0-95.0) H [facility] MCH 31.6 pg (27.0-32.0) [facility] MCHC 33.0 g/dL (32.0-36.0) [facility] RDW 14.8 % (10.5-14.5) H [facility] PLT 124 10*3/uL (150-450) L [facility] MPV 9.8 fL (7.1-10.7) [facility] NEUT % 55.0 % (35.0-75.0) [facility] BAND % 14.0 % (0.0-11.0) H [facility] LYMPH % 10.0 % (16.0-52.0) L [facility] MONO % 12.0 % (0.0-8.0) H [facility] EOS % 9.0 % (0.0-5.0) H [facility] NEUT # 1.3 10*3/uL (1.8-7.7) L [facility] BAND # 0.3 10*3/uL [facility] LYMPH # 0.2 10*3/uL (1.2-4.8) L [facility] MONO # 0.3 10*3/uL (0.0-0.8) [facility] Eosinophils [#/volume] in Blood by Automated count 0.2 10*3/uL (0.0-0 .5) [facility] TOXIC 2+ [facility] DOHLE BODIES 1+ [facility] [place] POLY 1+ [facility] ID Date Data Source [id number] 01/28/2019 02:45:54 PM EST [facility] Name Value Range Interpretation Code Description Data Azul rce(s) Supporting Document(s) SODIUM 134 mmol/L (136-145) L [facility] POTASSIUM 3.9 mmol/L (3.6-5.2) [facility] CHLORIDE 100 mmol/L (100-108) [facility] CO2 29 mmol/L (22-31) [facility] ANION GAP 5 mmol/L (7-16) L [facility] UREA NITROGEN 14 mg/dL (7-24) [facility] CREATININE 1.07 mg/dL (0.80-1.30) [facility] BUN/CREAT RATIO 13.1 RATIO (10.0-20.0) [facility] GLUCOSE 93 mg/dL (70-99) [facility] CALCIUM 8.9 mg/dL (8.4-10.2) [facility] TOTAL PROTEIN 6.8 g/dL (6.4-8.2) [facility] ALBUMIN 3.4 g/dL (3.2-4.5) [facility] GLOBULIN 3.4 g/dL (2.7-4.3) [facility] ALB/GLOB RATIO 1.0 RATIO [facility] ALKALINE PHOSPHATASE 135 U/L (45-117) H [facility] BILIRUBIN,TOTAL 0.5 mg/dL (0.0-1.0) [facility] AST (SGOT) 26 U/L (11-39) [facility] ALT (SGPT) 47 U/L (12-78) [facility] GFR >60 ml/min/1.73m2 (>59) [facility] GFR ( AMER) >60 ml/min/1.73m2 (>59) [facility] GFR INTERPRETATION [facility] --NORMAL KIDNEY FUNCTION OR MILD DISEASE - GFR >OR= 60CHRONIC KIDNEY DISEASE - GFR 15 - 59RENAL FAILURE - GFR <15 Est. GFR calculation based on the MDRDstudy equation, which assumes a steadystate for creatinine. Est. GFR should notbe used for medication dosing. ID Date Data Source [id number] 01/19/2019 10:49:00 AM EST [facility] RIGHT UPPER QUADRANT ULTRASOUND [...] biliary dilatation. Professional inte rpretation performed at [facility] Name Value Range Interpretation Code Description Data Azul rce(s) Supporting Document(s) Procedure Social History Code Duration Value Status Description Data Source(s ) Alcohol intake 04/10/2019 12:00:00 AM EST No completed [facility] Smoking 04/10/2019 12:00:00 AM EST Never smoker completed Never [facility] Alcohol intake 03/02/2019 12:00:00 AM EST No completed [facility] Smoking 03/02/2019 12:00:00 AM EST Never smoker completed Never [facility] Alcohol intake 01/29/2019 12:00:00 AM EST No completed [facility] Smoking 01/29/2019 12:00:00 AM EST Never smoker completed Never [facility] Vital Signs ID Date Data Source UNK Name Value Range Interpretation Code Description Data Source(s) Oxygen saturation in Arterial blood by Pulse oximetry 97 % 97 % [facility] ([facility]) Body temperature 36.3 Ángela 36.3 Ángela [facility] ( [facility]) Body temperature 97.3 [degF] 97.3 [degF] [facility] ([facility]) Heart rate 63 /min 63 /min [facility] ([facility]) Diastolic blood pressure 60 mm[Hg] 60 mm[Hg] [facility] ([facility]) Systolic blood pressure 130 mm[Hg] 130 mm[Hg] [facility] ([facility]) Body mass index (BMI) [Ratio] 28.1 kg/m2 28.1 k g/m2 [facility] ([facility]) Body weight 219.00 [lb_av] 219.00 [lb_av] [facility] ([facility]) Body height 74 [in_i] 74 [...] pressure 130 mm[Hg] 130 mm[Hg] [facility] ([facility]) Body mass index (BMI) [Ratio] 28.1 kg/m2 28.1 k g/m2 [facility] ([facility]) Body weight 219.00 [lb_av] 219.00 [lb_av] [facility] ([facility]) Oxygen saturation in Arterial blood by Pulse oximetry 97 % 97 % [facility] Respiratory rate 20 /min 20 /min [facility] Body temperature 36.56 Ángela 36.56 Ángela [facility] Heart rate 68 /min 68 /min [facility] Diastolic blood pressure 87 mm[Hg] 87 mm[Hg] [facility] Systolic blood pressure 143 mm[Hg] 143 mm[Hg] [facility] Body mass index (BMI) [Ratio] 27.98 kg/m2 27.98 kg/m2 [facility] Body weight 98.839 kg 98.839 kg [facility] Body height 188 cm 188 cm [facility] Heart rate 56 /min 56 /min [facility] Diastolic blood pressure 91 mm[Hg] 91 mm[Hg] [facility] Systolic blood pressure 152 mm[Hg] 152 mm[Hg] [facility] Oxygen saturation in Arterial blood by Pulse oximetry 96 % 96 % [facility] Respiratory rate 18 /min 18 /min [facility] Body temperature 36.5 Ángela 36.5 Ángela [facility] Body mass index (BMI) [Ratio] 28.23 kg/m2 28.23 kg/m2 [facility] Body weight 99.746 kg 99.746 kg [facility] Body height 188 cm 188 cm [facility] Oxygen saturation in Arterial blood by Pulse oximetry 97 % 97 % [facility] Respiratory rate 18 /min 18 /min [facility] Body temperature 36.83 Ángela 36.83 Ángela [facility] Heart rate 68 /min 68 /min [facility] Diastolic blood pressure 83 mm[Hg] 83 mm[Hg] [facility] Systolic blood pressure 147 mm[Hg] 147 mm[Hg] [facility] Body mass index (BMI) [Ratio] 28.76 kg/m2 28.76 kg/m2 [facility] Body weight 101.606 kg 101.606 kg [facility] Body height 188 cm 188 cm [facility] Oxygen saturation in Arterial blood by Pulse oximetry 96 % 96 % [facility] ([facility]) Body temperature 36.4 Ángela 36.4 Ángela [facility] ( [facility]) Body temperature 97.5 [degF] 97.5 [degF] [facility] ([facility]) Heart rate 64 /min 64 /min [facility] ([facility]) Diastolic blood pressure 62 mm[Hg] 62 mm[Hg] [facility] ([facility]) Systolic blood pressure 110 mm[Hg] 110 mm[Hg] EDENT ([facility]) Body height 74 [in_i] 74 [in_i] [facility] ([facility]) 6'2" Oxygen saturation in Arterial blood by Pulse oximetry 96 % 96 % [facility] ([facility]) Body temperature 97.5 [degF] 97.5 [degF] [facility] ([facility]) Heart rate 64 /min 64 /min [facility] ([facility]) Diastolic blood pressure 62 mm[Hg] 62 mm[Hg] [facility] ([facility]) Systolic blood pressure 110 mm[Hg] 110 mm[Hg] [facility] Oxygen saturation in Arterial blood by Pulse oximetry 95 % 95 % [facility] Respiratory rate 18 /min 18 /min [facility] Body temperature 36.28 Ángela 36.28 Ángela [facility] Heart rate 91 /min 91 /min [facility] 74 mm[Hg] 74 mm[Hg] [facility] Systolic blood pressure 126 mm[Hg] 126 mm[Hg] [facility] Body mass index (BMI) [Ratio] 27.19 kg/m2 27.19 kg/m2 [facility] Body weight 96.1 kg 96.1 kg [facility] Body height 188 cm 188 cm [facility] Patient Treatment Plan of Care Planned Activity Planned Date Details Description Data Source (s) Leucovorin 5 MG Oral Tablet 04/16/2019 12:00:00 AM EDT [facility] Ondansetron 4 MG Disintegrating Oral Tablet 03/26/2019 12:00:00 AM EST [facility] carvedilol 6.25 MG Oral Tablet 02/20/2019 12:00:00 AM EST [facility] doxycycline hyclate 100 MG Oral Tablet 02/20/2019 12:00:00 AM EST [facility] 200 ACTUAT Ipratropium [place] 0.017 MG/ACTUAT Metered Dose Inhaler 01/31/2019 12:00:00 AM EST [facility] albuterol (PROVENTIL HFA;VENTOLIN HFA) 108 (90 Base) M CG/ACT inhaler 01/31/2019 12:00:00 AM EST [facility] carvedilol 6.25 MG Oral Tablet 01/31/2019 12:00:00 AM EST [facility] Prednisone 5 MG Oral Tablet 01/31/2019 12:00:00 AM EST [facility] Levofloxacin 750 MG Oral Tablet 01/31/2019 12:00:00 AM EST [facility] Azithromycin 500 MG Oral Tablet 01/31/2019 12:00:00 AM EST [facility] venlafaxine 37.5 MG Oral Tablet [facility] PREDNISONE PO [facility] Ondansetron 4 MG Disintegrating Oral Tablet [facility] gabapentin 300 MG Oral Capsule [facility] sodium chloride 0.9 % SOLN with methotrexate (PF) 50 MG/2ML SOLN [facility] VINCRISTINE SULFATE IV [facility] DOXOrubicin HCl (ADRIAMYCIN IV) [facility] Cyclophosphamide (CYTOXAN IJ) [facility] riTUXimab (RITUXAN IV) [facility] Pegfilgrastim (NEULASTA SC) [facility] Prednisone 20 MG Oral Tablet [facility] 8 HR Acetaminophen 650 MG Extended Release Oral Tablet [facility]
== END 2020-03-06 09:31 | disposition home or self-care (01) ==
LOC: M ED 08:24
DX: Z48.02 Encounter for removal of sutures (principal); Z79.899 Other long term (current) drug therapy; Z88.0 Allergy status to penicillin; Z91.013 Allergy to seafood

== ENCOUNTER 2021-03-21 11:25 | Emergency (ER) | payer BC ==
[~2021-03-21] VITALS: Ht 188 cm; Wt 109.2 kg
[~2021-03-21 11:25] MED LIST changes: +CARV6.25; -LISI2.5T2; +LISI2.5T9; +RANO500T2
[2021-03-21 11:26] VITALS: BP 156/86
[2021-03-21] MEDS ORDERED: PROPARACAINE 0.5% OPHTH SOL 15ML OD ONE (12:40)
[2021-03-21] MEDS ORDERED: FLUORESCEIN OPHTH 1 MG STRIP OD ONE (12:40)
[2021-03-21] MEDS ORDERED: OCUF0.25 OP (13:42)
== END 2021-03-21 14:19 | disposition home or self-care (01) ==
LOC: M ED 11:25
DX: S05.01XA Injury of conjunctiva and corneal abrasion without foreign body, right eye, initial encounter (principal); W45.8XXA Other foreign body or object entering through skin, initial encounter; Y92.9 Unspecified place or not applicable; Y93.9 Activity, unspecified; Y99.9 Unspecified external cause status; I25.10 Atherosclerotic heart disease of native coronary artery without angina pectoris; Z85.72 Personal history of non-Hodgkin lymphomas; I10 Essential (primary) hypertension; E78.5 Hyperlipidemia, unspecified; E03.9 Hypothyroidism, unspecified; Z88.1 Allergy status to other antibiotic agents; Z88.8 Allergy status to other drugs, medicaments and biological substances; Z91.013 Allergy to seafood; Z79.890 Hormone replacement therapy; Z79.899 Other long term (current) drug therapy

== ENCOUNTER → 2021-10-28 | Outpatient (CLI) | payer BC ==
[~2021-10-28] MED LIST changes: +OCUF0.25 OP
[2021-10-28 13:15] LABS: BASO # 0.1 10^3/uL (0.0-0.2); BASO % 0.6 % (0.0-1.0); EOS # 0.4 10^3/uL (0.0-0.5); EOS % 4.4 % (0.0-3.0); HEMATOCRIT 40.3 % (42.0-52.0); LYMPH # 1.7 10^3/uL (1.5-5.0); LYMPH % 20.8 % (24.0-44.0); MEAN CORPUSCULAR HEMOGLOBIN 32.1 pg (27.0-33.0); MEAN CORPUSCULAR HGB CONC 32.3 g/dl (32.0-36.5); MEAN CORPUSCULAR VOLUME 99.5 fl (80.0-96.0); MONO # 0.9 10^3/uL (0.0-0.8); MONO % 11.6 % (2.0-8.0); NEUTROPHILS % 62.1 % (36.0-66.0); PLATELET COUNT, AUTOMATED 242 10^3/uL (150-450); RED BLOOD COUNT 4.05 10^6/uL (4.30-6.10)
[2021-10-28 14:08] LABS: ALT/SGPT 34 U/L (12-78); BILIRUBIN,DIRECT 0.1 MG/DL (0.0-0.2); BILIRUBIN,TOTAL 0.5 MG/DL (0.2-1.0); BLOOD UREA NITROGEN 17 MG/DL (7-18); CALCIUM LEVEL 9.5 MG/DL (8.8-10.2); CARBON DIOXIDE LEVEL 31 MEQ/L (21-32); CHLORIDE LEVEL 106 MEQ/L (98-107); CHOLESTEROL LEVEL 134 MG/DL (<200); CHOLESTEROL RISK RATIO 3.722 (<5); CREATININE FOR GFR 0.88 MG/DL (0.70-1.30); GLOMERULAR FILTRATION RATE > 60.0 (>49); GLUCOSE, FASTING 131 MG/DL (70-100); HDL CHOLESTEROL 36 MG/DL (>40); LDH LACTATE DEHYDROGENASE 200 U/L (87-241); LDL CHOLESTEROL 38 MG/DL (<100); NON-HDL-C 98 MG/DL; POTASSIUM SERUM 4.8 MEQ/L (3.5-5.1); PROSTATIC SPECIFIC AG MONITOR 2.14 NG/ML (< 4.00); SODIUM LEVEL 140 MEQ/L (136-145); TOTAL PROTEIN 7.1 GM/DL (6.4-8.2); TRIGLYCERIDES LEVEL 302 MG/DL (<150)
[2021-10-28 14:32] LABS: VITAMIN B12 LEVEL 547 PG/ML (247-911)
[2021-10-30 06:08] LABS: FOLATE 14.6 ng/mL (>3.0)
== END ==
LOC: M LABDRWAD 08:09
PROVIDERS: ATTEND Internal Medicine
DX: I25.10 Atherosclerotic heart disease of native coronary artery without angina pectoris (principal); E03.9 Hypothyroidism, unspecified; G62.9 Polyneuropathy, unspecified

== ENCOUNTER → 2022-03-10 | Outpatient (CLI) | payer BC ==
[2022-03-10 14:12] LABS: ALBUMIN 3.9 G/DL (3.2-5.2); BILIRUBIN,DIRECT 0.2 MG/DL (<0.4); BILIRUBIN,TOTAL 0.6 MG/DL (0.3-1.2); CHOLESTEROL RISK RATIO 3.98 (<5); HDL CHOLESTEROL 35.4 MG/DL (>40); LDL CHOLESTEROL 72.8 MG/DL (<100); TOTAL PROTEIN 6.6 G/DL (5.7-8.2)
== END ==
LOC: M LABDRWAD 08:04
PROVIDERS: ATTEND Nurse Practitioner Adult Health
DX: E78.5 Hyperlipidemia, unspecified (principal)

== ENCOUNTER → 2022-07-14 | Outpatient (REF) | payer BC ==
[2022-07-14 14:45] LABS: BLOOD UREA NITROGEN 18 MG/DL (9-23); CREATININE FOR GFR 0.74 MG/DL (0.70-1.30); GLOMERULAR FILTRATION RATE > 60.0 (>49)
== END ==
LOC: M LABDRWAD 12:47
PROVIDERS: ATTEND Surgery Vascular Surgery
DX: I70.90 Unspecified atherosclerosis (principal)

== ENCOUNTER → 2022-12-27 | Outpatient (REF) | payer MEDICARE, BC ==
[2022-12-27 18:31] LABS: BASO % 0.4 % (0.0-1.0); EOS # 0.2 10^3/uL (0.0-0.5); EOS % 1.6 % (0.0-3.0); HEMATOCRIT 42.8 % (42.0-52.0); HEMOGLOBIN 14.2 g/dl (13.5-17.5); LYMPH # 1.9 10^3/uL (1.5-5.0); LYMPH % 19.2 % (24.0-44.0); MEAN CORPUSCULAR HEMOGLOBIN 32.5 pg (27.0-33.0); MEAN CORPUSCULAR HGB CONC 33.2 g/dl (32.0-36.5); MEAN CORPUSCULAR VOLUME 97.9 fl (80.0-96.0); MONO # 0.8 10^3/uL (0.0-0.8); MONO % 8.1 % (2.0-8.0); NEUTROPHILS # 6.8 10^3/uL (1.5-8.5); NEUTROPHILS % 70.3 % (36.0-66.0); PLATELET COUNT, AUTOMATED 258 10^3/uL (150-450); RED BLOOD COUNT 4.37 10^6/uL (4.30-6.10); WHITE BLOOD COUNT 9.7 10^3/uL (4.0-10.0)
[2022-12-27 18:47] LABS: HEMOGLOBIN A1c 5.8 % (4.0-6.0)
[2022-12-27 18:55] LABS: PSA SCREENING 1.68 NG/ML (< 4.00)
[2022-12-27 18:57] LABS: LDH LACTATE DEHYDROGENASE 243 U/L (120-246)
[2022-12-27 18:58] LABS: ALBUMIN 4.2 G/DL (3.2-5.2); ALKALINE PHOSPHATASE 122 U/L (46-116); ALT/SGPT 41 U/L (7.0-40); AST/SGOT 30 U/L (<34); BILIRUBIN,DIRECT 0.3 MG/DL (<0.4); BILIRUBIN,TOTAL 0.9 MG/DL (0.3-1.2); BLOOD UREA NITROGEN 14 MG/DL (9-23); CALCIUM LEVEL 9.5 MG/DL (8.3-10.6); CARBON DIOXIDE LEVEL 29 MMOL/L (20-31); CHLORIDE LEVEL 106 MMOL/L (98-107); CHOLESTEROL LEVEL 144 MG/DL (<200); CHOLESTEROL RISK RATIO 3.43 (<5); CREATININE FOR GFR 0.72 MG/DL (0.70-1.30); GLOMERULAR FILTRATION RATE > 60.0 (>49); GLUCOSE, FASTING 108 MG/DL (74-106); HDL CHOLESTEROL 41.9 MG/DL (>40); LDL CHOLESTEROL 72.9 MG/DL (<100); NON-HDL-C 102.1 MG/DL; POTASSIUM SERUM 4.2 MMOL/L (3.5-5.1); SODIUM LEVEL 141 MMOL/L (136-145); TOTAL PROTEIN 7.2 G/DL (5.7-8.2); TRIGLYCERIDES LEVEL 146 MG/DL (<150)
[2022-12-27 18:59] LABS: RHEUMATOID FACTOR QUANT < 3.5 IU/ML (<14); THYROID STIMULATING HORMONE 3.801 uIU/ML (0.55-4.78)
[2022-12-29 14:09] LABS: ANTINUCLEAR ANTIBODIES DIRECT Negative (Negative)
== END ==
LOC: M LABDRWAD 17:49
PROVIDERS: ATTEND Internal Medicine
DX: I25.10 Atherosclerotic heart disease of native coronary artery without angina pectoris (principal); E03.9 Hypothyroidism, unspecified; E78.5 Hyperlipidemia, unspecified; E73.9 Lactose intolerance, unspecified; M54.51 Vertebrogenic low back pain; Z79.899 Other long term (current) drug therapy; Z12.5 Encounter for screening for malignant neoplasm of prostate
CPT/HCPCS: 36415; 80048; 80061; 80076; 82306; 83036; 83615; 84443; 85025; 86038; 86431; G0103

== ENCOUNTER → 2023-07-06 | Outpatient (REF) | payer BC, MEDICARE ==
[~2023-07-06] MED LIST changes: -ROSU40TA4; +ROSU40TA63
[2023-07-06 18:21] LABS: BASO % 0.3 % (0.0-1.0); EOS # 0.3 10^3/uL (0.0-0.5); EOS % 2.7 % (0.0-3.0); HEMATOCRIT 40.8 % (42.0-52.0); HEMOGLOBIN 13.5 g/dl (13.5-17.5); LDH LACTATE DEHYDROGENASE 244 U/L (120-246); LYMPH # 1.8 10^3/uL (1.5-5.0); LYMPH % 18.9 % (24.0-44.0); MEAN CORPUSCULAR HEMOGLOBIN 32.5 pg (27.0-33.0); MEAN CORPUSCULAR HGB CONC 33.1 g/dl (32.0-36.5); MEAN CORPUSCULAR VOLUME 98.3 fl (80.0-96.0); MONO # 0.8 10^3/uL (0.0-0.8); MONO % 8.1 % (2.0-8.0); NEUTROPHILS # 6.7 10^3/uL (1.5-8.5); NEUTROPHILS % 69.8 % (36.0-66.0); PLATELET COUNT, AUTOMATED 282 10^3/uL (150-450); RED BLOOD COUNT 4.15 10^6/uL (4.30-6.10); WHITE BLOOD COUNT 9.6 10^3/uL (4.0-10.0)
[2023-07-06 18:23] LABS: ALKALINE PHOSPHATASE 130 U/L (46-116); ALT/SGPT 37 U/L (7.0-40); AST/SGOT 26 U/L (<34); BILIRUBIN,DIRECT 0.2 MG/DL (<0.4); BILIRUBIN,TOTAL 0.7 MG/DL (0.3-1.2); BLOOD UREA NITROGEN 18 MG/DL (9-23); CALCIUM LEVEL 9.4 MG/DL (8.3-10.6); CARBON DIOXIDE LEVEL 28 MMOL/L (20-31); CHLORIDE LEVEL 105 MMOL/L (98-107); CHOLESTEROL LEVEL 139 MG/DL (<200); CHOLESTEROL RISK RATIO 3.93 (<5); CREATININE FOR GFR 0.74 MG/DL (0.70-1.30); GLOMERULAR FILTRATION RATE > 60.0 (>49); GLUCOSE, FASTING 108 MG/DL (74-106); HDL CHOLESTEROL 35.3 MG/DL (>40); IRON (FE) 67 UG/DL (65-175); LDL CHOLESTEROL 70.3 MG/DL (<100); MAGNESIUM LEVEL 1.9 MG/DL (1.8-2.4); NON-HDL-C 103.7 MG/DL; PERCENT SATURATION 21.3 % (19.7-50.0); POTASSIUM SERUM 4.4 MMOL/L (3.5-5.1); SODIUM LEVEL 140 MMOL/L (136-145); TOTAL IRON BINDING CAPACITY 314 UG/DL (250-425); TOTAL PROTEIN 6.9 G/DL (5.7-8.2); TRIGLYCERIDES LEVEL 167 MG/DL (<150)
[2023-07-06 18:25] LABS: FERRITIN 78.6 NG/ML (10.5-307.3)
[2023-07-06 18:27] LABS: FOLATE > 24.00 NG/ML (>5.4)
[2023-07-06 18:34] LABS: ERYTHROCYTE SEDIMENTATION RATE 17 mm/hr (0-20)
[2023-07-06 18:39] LABS: HEMOGLOBIN A1c 6.2 % (4.0-6.0)
== END ==
LOC: M LABDRWAD 17:46
PROVIDERS: ATTEND Internal Medicine
DX: I25.10 Atherosclerotic heart disease of native coronary artery without angina pectoris (principal); E03.9 Hypothyroidism, unspecified; R73.9 Hyperglycemia, unspecified; G62.9 Polyneuropathy, unspecified

== ENCOUNTER → 2023-12-02 | Outpatient (REF) | payer MEDICARE ==
[~2023-12-02] MED LIST changes: +GABA-1172; -GABA-282; -ROSU40TA63; +ROSU40TA81
[2023-12-02 19:57] LABS: CLOSTRIDIUM DIFFICILE PCR NEGATIVE (NEGATIVE)
== END ==
LOC: M LAB REF 17:01
PROVIDERS: ATTEND Internal Medicine
DX: R19.7 Diarrhea, unspecified (principal)

== ENCOUNTER → 2024-03-07 | Outpatient (REF) | payer MEDICARE ==
[2024-03-07 19:22] LABS: CLOSTRIDIUM DIFFICILE PCR NEGATIVE (NEGATIVE)
== END ==
LOC: M LAB REF 17:01
PROVIDERS: ATTEND Internal Medicine
DX: R19.7 Diarrhea, unspecified (principal); D64.9 Anemia, unspecified; I48.91 Unspecified atrial fibrillation

== ENCOUNTER → 2024-03-28 | Outpatient (REF) | payer MEDICARE ==
[2024-03-28 15:26] LABS: C REACTIVE PROTEIN QUANTITATIV < 0.50 MG/DL (<1.0)
[2024-03-28 15:27] LABS: ALBUMIN 3.7 G/DL (3.2-5.2); ALKALINE PHOSPHATASE 121 U/L (40-129); ALT/SGPT 38 U/L (7.0-40); AST/SGOT 22 U/L (<34); BILIRUBIN,TOTAL 0.5 MG/DL (0.3-1.2); BLOOD UREA NITROGEN 13 MG/DL (9-23); CALCIUM LEVEL 9.3 MG/DL (8.3-10.6); CARBON DIOXIDE LEVEL 31 MMOL/L (20-31); CHLORIDE LEVEL 104 MMOL/L (98-107); CREATININE FOR GFR 0.71 MG/DL (0.70-1.30); GLOMERULAR FILTRATION RATE > 60.0 (>49); GLUCOSE, FASTING 106 MG/DL (74-106); POTASSIUM SERUM 4.2 MMOL/L (3.5-5.1); SODIUM LEVEL 143 MMOL/L (136-145); TOTAL PROTEIN 6.6 G/DL (5.7-8.2)
== END ==
LOC: M LABDRWAD 12:33
PROVIDERS: ATTEND Physician Assistant Medical
DX: R19.7 Diarrhea, unspecified (principal); K59.00 Constipation, unspecified; R63.4 Abnormal weight loss

== ENCOUNTER → 2024-04-02 | Outpatient (CLI) | payer MEDICARE ==
[2024-04-02 15:44] LABS: ALBUMIN 3.7 G/DL (3.2-5.2); ALKALINE PHOSPHATASE 122 U/L (40-129); ALT/SGPT 34 U/L (7.0-40); AST/SGOT 22 U/L (<34); BILIRUBIN,TOTAL 0.6 MG/DL (0.3-1.2); BLOOD UREA NITROGEN 16 MG/DL (9-23); C REACTIVE PROTEIN QUANTITATIV < 0.50 MG/DL (<1.0); CARBON DIOXIDE LEVEL 28 MMOL/L (20-31); CHLORIDE LEVEL 107 MMOL/L (98-107); CREATININE FOR GFR 0.88 MG/DL (0.70-1.30); GLOMERULAR FILTRATION RATE > 60.0 (>49); GLUCOSE, FASTING 105 MG/DL (74-106); SODIUM LEVEL 143 MMOL/L (136-145); TOTAL PROTEIN 6.8 G/DL (5.7-8.2)
== END ==
LOC: M LAB 14:30
PROVIDERS: ATTEND Physician Assistant Medical
DX: R19.7 Diarrhea, unspecified (principal); K59.00 Constipation, unspecified; R63.4 Abnormal weight loss

== ENCOUNTER → 2024-04-06 | Outpatient (REF) | payer MEDICARE | LOC: M LAB REF 17:02 | PROVIDERS: ATTEND Physician Assistant Medical | DX: R19.7 Diarrhea, unspecified (principal); K59.00 Constipation, unspecified; R63.4 Abnormal weight loss ==

== ENCOUNTER → 2024-05-02 | Outpatient (REF) | payer MEDICARE ==
[2024-05-02 17:42] LABS: BLOOD UREA NITROGEN 16 MG/DL (9-23); GLOMERULAR FILTRATION RATE > 60.0 (>49)
== END ==
LOC: M LABDRWAD 17:08
PROVIDERS: ATTEND Physician Assistant
DX: K55.1 Chronic vascular disorders of intestine (principal)

== ENCOUNTER → 2024-12-25 | Outpatient (REF) | payer MEDICARE ==
[2024-12-25 16:34] LABS: BASO # 0.1 10^3/uL (0.0-0.2); BASO % 0.8 % (0.0-1.0); EOS # 0.4 10^3/uL (0.0-0.5); EOS % 3.5 % (0.0-3.0); LYMPH # 1.6 10^3/uL (1.5-5.0); LYMPH % 15.0 % (24.0-44.0); MONO # 0.8 10^3/uL (0.0-0.8); MONO % 7.4 % (2.0-8.0); NEUTROPHILS # 7.5 10^3/uL (1.5-8.5); NEUTROPHILS % 72.7 % (36.0-66.0); PLATELET COUNT, AUTOMATED 449 10^3/uL (150-450)
[2024-12-25 16:59] LABS: VANCOMYCIN LEVEL TROUGH 21.5 UG/ML (10.0-20.0)
[2024-12-25 17:00] LABS: ALT/SGPT 90 U/L (7.0-40); AST/SGOT 40 U/L (<34); C REACTIVE PROTEIN QUANTITATIV 0.56 MG/DL (<1.0); CALCIUM LEVEL 9.6 MG/DL (8.3-10.6); CARBON DIOXIDE LEVEL 28 MMOL/L (20-31); CHLORIDE LEVEL 101 MMOL/L (98-107); CREATININE FOR GFR 0.77 MG/DL (0.70-1.30); GLOMERULAR FILTRATION RATE > 90.0 (>49); POTASSIUM SERUM 4.6 MMOL/L (3.5-5.1); SODIUM LEVEL 139 MMOL/L (136-145)
== END ==
LOC: M LAB REF 15:33
PROVIDERS: ATTEND Registered Nurse
DX: M00.9 Pyogenic arthritis, unspecified (principal)

== ENCOUNTER → 2025-01-01 | Outpatient (REF) | payer MEDICARE ==
[2025-01-01 15:38] LABS: BASO # 0.1 10^3/uL (0.0-0.2); BASO % 0.5 % (0.0-1.0); EOS # 0.3 10^3/uL (0.0-0.5); EOS % 3.1 % (0.0-3.0); LYMPH # 1.5 10^3/uL (1.5-5.0); LYMPH % 15.6 % (24.0-44.0); MONO # 1.0 10^3/uL (0.0-0.8); MONO % 10.7 % (2.0-8.0); NEUTROPHILS # 6.5 10^3/uL (1.5-8.5); NEUTROPHILS % 69.7 % (36.0-66.0); PLATELET COUNT, AUTOMATED 322 10^3/uL (150-450)
[2025-01-01 16:11] LABS: C REACTIVE PROTEIN QUANTITATIV < 0.50 MG/DL (<1.0); VANCOMYCIN LEVEL TROUGH 15.9 UG/ML (10.0-20.0)
[2025-01-01 16:16] LABS: ALT/SGPT 62 U/L (7.0-40); AST/SGOT 32 U/L (<34); CARBON DIOXIDE LEVEL 28 MMOL/L (20-31); CHLORIDE LEVEL 100 MMOL/L (98-107); CREATININE FOR GFR 0.71 MG/DL (0.70-1.30); GLOMERULAR FILTRATION RATE > 90.0 (>49); POTASSIUM SERUM 4.5 MMOL/L (3.5-5.1); SODIUM LEVEL 137 MMOL/L (136-145)
[2025-01-01 16:34] LABS: CALCIUM LEVEL 9.4 MG/DL (8.3-10.6)
== END ==
LOC: M LAB REF 15:24
PROVIDERS: ATTEND Internal Medicine Infectious Disease
DX: M00.861 Arthritis due to other bacteria, right knee (principal)

== ENCOUNTER → 2025-01-08 | Outpatient (REF) | payer MEDICARE ==
[2025-01-08 17:02] LABS: BASO # 0.1 10^3/uL (0.0-0.2); BASO % 0.7 % (0.0-1.0); EOS # 0.4 10^3/uL (0.0-0.5); EOS % 5.0 % (0.0-3.0); LYMPH # 1.2 10^3/uL (1.5-5.0); LYMPH % 16.0 % (24.0-44.0); MONO # 0.7 10^3/uL (0.0-0.8); MONO % 9.0 % (2.0-8.0); NEUTROPHILS # 5.2 10^3/uL (1.5-8.5); NEUTROPHILS % 68.9 % (36.0-66.0); PLATELET COUNT, AUTOMATED 257 10^3/uL (150-450)
[2025-01-08 17:17] LABS: VANCOMYCIN LEVEL TROUGH 19.5 UG/ML (10.0-20.0)
[2025-01-08 17:18] LABS: ALT/SGPT 49 U/L (7.0-40); AST/SGOT 26 U/L (<34); C REACTIVE PROTEIN QUANTITATIV < 0.50 MG/DL (<1.0); CALCIUM LEVEL 9.2 MG/DL (8.3-10.6); CARBON DIOXIDE LEVEL 28 MMOL/L (20-31); CHLORIDE LEVEL 101 MMOL/L (98-107); CREATININE FOR GFR 0.74 MG/DL (0.70-1.30); GLOMERULAR FILTRATION RATE > 90.0 (>49); POTASSIUM SERUM 4.0 MMOL/L (3.5-5.1); SODIUM LEVEL 139 MMOL/L (136-145)
== END ==
LOC: M LAB REF 16:16
PROVIDERS: ATTEND Internal Medicine Infectious Disease
DX: M00.861 Arthritis due to other bacteria, right knee (principal)

== ENCOUNTER → 2025-01-13 | Outpatient (REF) | payer MEDICARE ==
[2025-01-13 15:45] LABS: BASO # 0.0 10^3/uL (0.0-0.2); BASO % 0.2 % (0.0-1.0); EOS # 0.5 10^3/uL (0.0-0.5); EOS % 5.9 % (0.0-3.0); LYMPH # 1.5 10^3/uL (1.5-5.0); LYMPH % 18.2 % (24.0-44.0); MONO # 0.8 10^3/uL (0.0-0.8); MONO % 10.2 % (2.0-8.0); NEUTROPHILS # 5.4 10^3/uL (1.5-8.5); NEUTROPHILS % 65.3 % (36.0-66.0); PLATELET COUNT, AUTOMATED 247 10^3/uL (150-450)
[2025-01-13 16:11] LABS: VANCOMYCIN LEVEL TROUGH 14.6 UG/ML (10.0-20.0)
[2025-01-13 16:12] LABS: C REACTIVE PROTEIN QUANTITATIV < 0.50 MG/DL (<1.0)
[2025-01-13 16:13] LABS: ALT/SGPT 51 U/L (7.0-40); AST/SGOT 31 U/L (<34); CALCIUM LEVEL 9.0 MG/DL (8.3-10.6); CARBON DIOXIDE LEVEL 29 MMOL/L (20-31); CHLORIDE LEVEL 105 MMOL/L (98-107); CREATININE FOR GFR 0.86 MG/DL (0.70-1.30); GLOMERULAR FILTRATION RATE > 90.0 (>49); POTASSIUM SERUM 4.3 MMOL/L (3.5-5.1); SODIUM LEVEL 142 MMOL/L (136-145)
== END ==
LOC: M LAB REF 15:14
PROVIDERS: ATTEND Internal Medicine Infectious Disease
DX: M00.861 Arthritis due to other bacteria, right knee (principal)

== ENCOUNTER → 2025-01-22 | Outpatient (REF) | payer MEDICARE ==
[2025-01-22 17:10] LABS: BASO # 0.0 10^3/uL (0.0-0.2); BASO % 0.4 % (0.0-1.0); EOS # 0.5 10^3/uL (0.0-0.5); EOS % 4.9 % (0.0-3.0); LYMPH # 1.4 10^3/uL (1.5-5.0); LYMPH % 13.3 % (24.0-44.0); MONO # 1.3 10^3/uL (0.0-0.8); MONO % 12.0 % (2.0-8.0); NEUTROPHILS # 7.3 10^3/uL (1.5-8.5); NEUTROPHILS % 68.6 % (36.0-66.0); PLATELET COUNT, AUTOMATED 279 10^3/uL (150-450)
[2025-01-22 17:31] LABS: VANCOMYCIN LEVEL TROUGH 11.5 UG/ML (10.0-20.0)
[2025-01-22 17:33] LABS: ALT/SGPT 123 U/L (7.0-40); AST/SGOT 63 U/L (<34); C REACTIVE PROTEIN QUANTITATIV 4.86 MG/DL (<1.0); CALCIUM LEVEL 9.3 MG/DL (8.3-10.6); CARBON DIOXIDE LEVEL 31 MMOL/L (20-31); CHLORIDE LEVEL 99 MMOL/L (98-107); CREATININE FOR GFR 0.70 MG/DL (0.70-1.30); GLOMERULAR FILTRATION RATE > 90.0 (>49); POTASSIUM SERUM 4.2 MMOL/L (3.5-5.1); SODIUM LEVEL 138 MMOL/L (136-145)
== END ==
LOC: M LAB REF 16:14
PROVIDERS: ATTEND Internal Medicine Infectious Disease
DX: M00.861 Arthritis due to other bacteria, right knee (principal)

== ENCOUNTER → 2025-01-28 | Outpatient (REF) | payer MEDICARE ==
[2025-01-28 16:26] LABS: BASO # 0.0 10^3/uL (0.0-0.2); BASO % 0.4 % (0.0-1.0); EOS # 0.5 10^3/uL (0.0-0.5); EOS % 4.4 % (0.0-3.0); LYMPH # 1.4 10^3/uL (1.5-5.0); LYMPH % 12.8 % (24.0-44.0); MONO # 0.9 10^3/uL (0.0-0.8); MONO % 8.7 % (2.0-8.0); NEUTROPHILS # 7.9 10^3/uL (1.5-8.5); NEUTROPHILS % 73.1 % (36.0-66.0); PLATELET COUNT, AUTOMATED 338 10^3/uL (150-450)
[2025-01-28 16:51] LABS: VANCOMYCIN LEVEL TROUGH 16.3 UG/ML (10.0-20.0)
[2025-01-28 16:52] LABS: ALT/SGPT 92 U/L (7.0-40); AST/SGOT 41 U/L (<34); CALCIUM LEVEL 9.3 MG/DL (8.3-10.6); CARBON DIOXIDE LEVEL 26 MMOL/L (20-31); CHLORIDE LEVEL 102 MMOL/L (98-107); CREATININE FOR GFR 0.65 MG/DL (0.70-1.30); GLOMERULAR FILTRATION RATE > 90.0 (>49); POTASSIUM SERUM 4.3 MMOL/L (3.5-5.1); SODIUM LEVEL 138 MMOL/L (136-145)
== END ==
LOC: M LAB REF 15:35
PROVIDERS: ATTEND Internal Medicine Infectious Disease
DX: M00.861 Arthritis due to other bacteria, right knee (principal)

== ENCOUNTER → 2025-02-06 | Outpatient (REF) | payer MEDICARE ==
[2025-02-06 17:59] LABS: BASO # 0.0 10^3/uL (0.0-0.2); BASO % 0.4 % (0.0-1.0); EOS # 0.5 10^3/uL (0.0-0.5); EOS % 5.6 % (0.0-3.0); LYMPH # 1.4 10^3/uL (1.5-5.0); LYMPH % 14.5 % (24.0-44.0); MONO # 1.2 10^3/uL (0.0-0.8); MONO % 12.5 % (2.0-8.0); NEUTROPHILS # 6.4 10^3/uL (1.5-8.5); NEUTROPHILS % 66.5 % (36.0-66.0); PLATELET COUNT, AUTOMATED 318 10^3/uL (150-450)
[2025-02-06 18:31] LABS: VANCOMYCIN LEVEL TROUGH 18.2 UG/ML (10.0-20.0)
[2025-02-06 18:32] LABS: ALT/SGPT 42 U/L (7.0-40); AST/SGOT 17 U/L (<34); C REACTIVE PROTEIN QUANTITATIV 0.98 MG/DL (<1.0); CALCIUM LEVEL 9.3 MG/DL (8.3-10.6); CARBON DIOXIDE LEVEL 30 MMOL/L (20-31); CHLORIDE LEVEL 101 MMOL/L (98-107); CREATININE FOR GFR 0.77 MG/DL (0.70-1.30); GLOMERULAR FILTRATION RATE > 90.0 (>49); POTASSIUM SERUM 4.3 MMOL/L (3.5-5.1); SODIUM LEVEL 140 MMOL/L (136-145)
== END ==
LOC: M LAB REF 17:33
PROVIDERS: ATTEND Internal Medicine
DX: M00.861 Arthritis due to other bacteria, right knee (principal)